=== PATIENT | female | born 1950 | race Caucasian/White ===

== ENCOUNTER 2018-04-13 07:43 | Inpatient (IN) | payer MEDICARE, OTHER ==
[2018-04-13] MEDS ORDERED: SODIUM CHLORIDE 0.9% 1,000 ML IV ONE ×3 (07:58→08:58)
[2018-04-13 08:00] LABS: Glucose,Whole Blood >600 mg/dL (75-99)
[2018-04-13] MEDS ORDERED: levETIRAcetam IV 1,000 MG in SALINE 1 100ML.BAG IVPB STA (08:09)
--- NOTE | 2018-04-13 08:09 | ED ---
General Adult HPI - General Stated complaint: Seizure Time Seen by Provider: 04/13/18 07:47 Source: family, RN notes reviewed Limitations: altered mental status - History of Present Illness Initial comments: 67-year-old female presenting for evaluation of suspected seizure and altered level of consciousness. Patient is accompanied by her boyfriend who states that at approximately 4 AM she had generalized shaking and was unresponsive followed by confusion. 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 Patient ultimately presented to the emergency department proximally 7:30. Patient is unable to contribute to the history, she does state her name and is protecting her airway but is otherwise unresponsive. - Related Data Home Medications Medication Instructions Recorded Confirmed Amitriptyline HCl 10 mg PO HS 07/23/14 07/24/14 Baclofen [Lioresal] 10 mg PO BID 07/23/14 07/24/14 Citalopram Hydrobromide [CeleXA] 40 mg PO DAILY 07/23/14 07/24/14 Gabapentin [Neurontin] 100 mg PO TID 07/23/14 07/24/14 HYDROcodone/APAP 7.5-325MG [[place] 1 each PO BID PRN 07/23/14 07/24/14 7.5] Lisinopril [Prinivil] 20 mg PO DAILY 07/23/14 07/24/14 Omeprazole [PriLOSEC] 20 mg PO DAILY 07/23/14 07/24/14 Potassium Chloride [Klor-Con 10] 10 meq PO DAILY 07/23/14 07/24/14 Propranolol [Inderal] 40 mg PO DAILY 07/23/14 07/24/14 Simvastatin [Zocor] 40 mg PO DAILY 07/23/14 07/24/14 busPIRone HCL [Buspar] 7.5 mg PO DAILY 07/23/14 07/24/14 metFORMIN HCL [Glucophage] 500 mg PO BID 07/23/14 07/24/14 Allergies Allergy/AdvReac Type Severity Reaction Status Date / Time codeine AdvReac NEO Verified 07/23/14 11:25 doxycycline AdvReac NEO Verified 07/23/14 11:25 Review of Systems ROS Statement: Those systems with pertinent positive or pertinent negative responses have been documented in the HPI. ROS Other: All systems not noted in ROS Statement are negative. Past Medical History Past Medical History: Diabetes Mellitus, GERD/Reflux, Hyperlipidemia, Hypertension Additional Past Medical History / Comment(s): HX MIGRAINES, HIATAL HERNIA History of Any Multi-Drug Resistant Organisms: None Reported Past Surgical History: Orthopedic Surgery, Tubal Ligation Additional Past Surgical History / Comment(s): NECK SURGERY,REPAIR FX RT LEG SURGERY 1998 Past Anesthesia/Blood Transfusion Reactions: No Reported Reaction Smoking Status: Former smoker General Exam Limitations: altered mental status General appearance: lethargic Head exam: Present: atraumatic, normocephalic Eye exam: Present: PERRL, other (Left gaze deviation). Absent: nystagmus ENT exam: Present: mucous membranes dry Neck exam: Present: normal inspection, full ROM. Absent: tenderness, meningismus Respiratory exam: Present: normal lung sounds bilaterally. Absent: respiratory distress, wheezes, rales Cardiovascular Exam: Present: normal rhythm, tachycardia GI/Abdominal exam: Present: soft. Absent: distended, tenderness, guarding Extremities exam: Present: normal inspection, normal capillary refill. Absent: pedal edema Neurological exam: Present: motor sensory deficit (Patient has left gaze deviation, left upper and lower extremity hemiparesis) Skin exam: Present: warm, dry, intact Course Vital Signs 04/13/18 04/13/18 04/13/18 07:47 08:10 08:18 Pulse Rate 87 115 H 111 H Respiratory 17 16 17 Rate Blood Pressure 164/76 167/72 153/69 O2 Sat by Pulse 91 L 92 L 100 Oximetry 04/13/18 04/13/18 04/13/18 08:28 08:38 08:48 Pulse Rate 112 H 116 H 118 H Respiratory 16 17 17 Rate Blood Pressure 152/72 165/73 181/81 O2 Sat by Pulse 100 98 Oximetry - Reevaluation(s) Reevaluation #1: 04/13/18 08:09 Case discussed with stroke neurologist, no TPA at this time. EKG Findings - EKG Comments: EKG Findings:: EKG: Sinus tachycardia, rate of 116, HI interval 136, QRS duration 78, QTC 419, there is no ST segment elevation or depression, T waves are upright, T waves appear hyperacute. Medical Decision Making - Medical Decision Making 67 yo female presenting with seizure and left hemiparesis. Code stroke was activated as patient's symptoms were 3-1/2 hours prior to arrival. Although she did awake with these symptoms and had seizure which precludes patient from TPA. This is discussed with stroke neurologist on-call, no TPA at this time. Patient has generalized tonic-clonic seizure in the emergency department which is treated with IV Ativan. Patient is hemodynamically stable, other than her hemiparesis, normal exam. Patient is started on Keppra. She has multiple metabolic abnormalities including elevated sugar of 888, anion gap metabolic acidosis with anion gap at 23 and CO2 at 17. She is hyperkalemic at 6.5 with EKG changes. Sodium is 1:30 , likely secondary to pseudohyponatremia. Venous pH is 7.29. She has mild leukocytosis, stable hemoglobin. Lactic acid of 7.5 which is likely contributing to her anion gap metabolic acidosis. This is likely secondary to some degree of DKA and HHS. Patient is given 3 L normal saline bolus in the emergency department, she started on 200 mL normal saline hour. She is started on insulin drip. This is both for elevated sugar and hyperkalemia. She will be admitted to the ICU for close monitoring. Neurology and pulmonary industrial security analyst will be placed on consult. Diagnosis: New onset seizure, left hemiparesis secondary to CVA versus Jeffrey paralysis, DKA, HHS, lactic acidosis - Lab Data Result diagrams: 04/13/18 08:41 04/13/18 07:55 Lab Results 04/13/18 04/13/18 04/13/18 Range/Units 07:51 07:55 07:55 WBC (3.8-10.6) k/uL RBC (3.80-5.40) m/uL Hgb (11.4-16.0) gm/dL Hct (34.0-46.0) % MCV (80.0-100.0) fL MCH (25.0-35.0) pg MCHC (31.0-37.0) g/dL RDW (11.5-15.5) % Plt Count (150-450) k/uL Neutrophils % % Lymphocytes % % Monocytes % % Eosinophils % % Basophils % % Neutrophils # (1.3-7.7) k/uL Lymphocytes # (1.0-4.8) k/uL Monocytes # (0-1.0) k/uL Eosinophils # (0-0.7) k/uL Basophils # (0-0.2) k/uL PT (9.0-12.0) sec INR (<1.2) APTT (22.0-30.0) sec VBG pH 7.29 L (7.31-7.41) VBG pCO2 46 (37-51) mmHg VBG HCO3 21 L (24-28) mmol/L Sodium (137-145) mmol/L Potassium (3.5-5.1) mmol/L Chloride (98-107) mmol/L Carbon Dioxide (22-30) mmol/L Anion Gap mmol/L BUN (7-17) mg/dL Creatinine (0.52-1.04) mg/dL Est GFR (CKD-EPI)AfAm (>60 ml/min/1.73 sqM) Est GFR (CKD-EPI)NonAf (>60 ml/min/1.73 sqM) Glucose (74-99) mg/dL POC Glucose (mg/dL) >600 H (75-99) mg/dL POC Glu Foundry Finisher ID Loretta Constantino Plasma Lactic Acid Prasanth 7.5 H* (0.7-2.0) mmol/L Calcium (8.4-10.2) mg/dL Total Bilirubin (0.2-1.3) mg/dL AST (14-36) U/L ALT (9-52) U/L Alkaline Phosphatase (38-126) U/L Troponin I (0.000-0.034) ng/mL Total Protein (6.3-8.2) g/dL Albumin (3.5-5.0) g/dL Urine Color Urine Appearance (Clear) Urine pH (5.0-8.0) Ur Specific [place] (1.001-1.035) Urine Protein (Negative) Urine Glucose (UA) (Negative) Urine Ketones (Negative) Urine Blood (Negative) Urine Nitrite (Negative) Urine Bilirubin (Negative) Urine Urobilinogen (<2.0) mg/dL Ur Leukocyte Esterase (Negative) Urine RBC (0-5) /hpf Urine WBC (0-5) /hpf Salicylates mg/dL Urine Opiates Screen (NotDetected) Ur Oxycodone Screen (NotDetected) Urine Methadone Screen (NotDetected) Ur Propoxyphene Screen (NotDetected) Acetaminophen ug/mL Ur Barbiturates Screen (NotDetected) U Tricyclic Antidepress (NotDetected) Ur Phencyclidine Scrn (NotDetected) Ur Amphetamines Screen (NotDetected) U Methamphetamines Scrn (NotDetected) U Benzodiazepines Scrn (NotDetected) Urine Cocaine Screen (NotDetected) U Marijuana (THC) Screen (NotDetected) Serum Alcohol mg/dL 04/13/18 04/13/18 04/13/18 Range/Units 07:55 07:55 07:55 WBC (3.8-10.6) k/uL RBC (3.80-5.40) m/uL Hgb (11.4-16.0) gm/dL Hct (34.0-46.0) % MCV (80.0-100.0) fL MCH (25.0-35.0) pg MCHC (31.0-37.0) g/dL RDW (11.5-15.5) % Plt Count (150-450) k/uL Neutrophils % % Lymphocytes % % Monocytes % % Eosinophils % % Basophils % % Neutrophils # (1.3-7.7) k/uL Lymphocytes # (1.0-4.8) k/uL Monocytes # (0-1.0) k/uL Eosinophils # (0-0.7) k/uL Basophils # (0-0.2) k/uL PT (9.0-12.0) sec INR (<1.2) APTT (22.0-30.0) sec VBG pH (7.31-7.41) VBG pCO2 (37-51) mmHg VBG HCO3 (24-28) mmol/L Sodium 130 L (137-145) mmol/L Potassium 6.5 H* (3.5-5.1) mmol/L Chloride 90 L (98-107) mmol/L Carbon Dioxide 17 L (22-30) mmol/L Anion Gap 23 mmol/L BUN 31 H (7-17) mg/dL Creatinine 1.50 H (0.52-1.04) mg/dL Est GFR (CKD-EPI)AfAm 41 (>60 ml/min/1.73 sqM) Est GFR (CKD-EPI)NonAf 36 (>60 ml/min/1.73 sqM) Glucose 881 H* (74-99) mg/dL POC Glucose (mg/dL) (75-99) mg/dL POC Glu Foundry Finisher ID Plasma Lactic Acid Prasanth (0.7-2.0) mmol/L Calcium 11.6 H (8.4-10.2) mg/dL Total Bilirubin 0.5 (0.2-1.3) mg/dL AST 21 (14-36) U/L ALT 23 (9-52) U/L Alkaline Phosphatase 109 (38-126) U/L Troponin I <0.012 (0.000-0.034) ng/mL Total Protein 7.7 (6.3-8.2) g/dL Albumin 4.9 (3.5-5.0) g/dL Urine Color Urine Appearance (Clear) Urine pH (5.0-8.0) Ur Specific [place] (1.001-1.035) Urine Protein (Negative) Urine Glucose (UA) (Negative) Urine Ketones (Negative) Urine Blood (Negative) Urine Nitrite (Negative) Urine Bilirubin (Negative) Urine Urobilinogen (<2.0) mg/dL Ur Leukocyte Esterase (Negative) Urine RBC (0-5) /hpf Urine WBC (0-5) /hpf Salicylates <1.0 mg/dL Urine Opiates Screen (NotDetected) Ur Oxycodone Screen (NotDetected) Urine Methadone Screen (NotDetected) Ur Propoxyphene Screen (NotDetected) Acetaminophen <10.0 ug/mL Ur Barbiturates Screen (NotDetected) U Tricyclic Antidepress (NotDetected) Ur Phencyclidine Scrn (NotDetected) Ur Amphetamines Screen (NotDetected) U Methamphetamines Scrn (NotDetected) U Benzodiazepines Scrn (NotDetected) Urine Cocaine Screen (NotDetected) U Marijuana (THC) Screen (NotDetected) Serum Alcohol <10 mg/dL 04/13/18 04/13/18 04/13/18 Range/Units 07:55 08:41 09:13 WBC 14.4 H (3.8-10.6) k/uL RBC 4.34 (3.80-5.40) m/uL Hgb 13.2 (11.4-16.0) gm/dL Hct 40.9 (34.0-46.0) % MCV 94.3 (80.0-100.0) fL MCH 30.4 (25.0-35.0) pg MCHC 32.2 (31.0-37.0) g/dL RDW 12.9 (11.5-15.5) % Plt Count 188 (150-450) k/uL Neutrophils % 88 % Lymphocytes % 8 % Monocytes % 2 % Eosinophils % 2 % Basophils % 0 % Neutrophils # 12.7 H (1.3-7.7) k/uL Lymphocytes # 1.1 (1.0-4.8) k/uL Monocytes # 0.3 (0-1.0) k/uL Eosinophils # 0.2 (0-0.7) k/uL Basophils # 0.0 (0-0.2) k/uL PT 10.0 (9.0-12.0) sec INR 1.0 (<1.2) APTT 20.1 L (22.0-30.0) sec VBG pH (7.31-7.41) VBG pCO2 (37-51) mmHg VBG HCO3 (24-28) mmol/L Sodium (137-145) mmol/L Potassium (3.5-5.1) mmol/L Chloride (98-107) mmol/L Carbon Dioxide (22-30) mmol/L Anion Gap mmol/L BUN (7-17) mg/dL Creatinine (0.52-1.04) mg/dL Est GFR (CKD-EPI)AfAm (>60 ml/min/1.73 sqM) Est GFR (CKD-EPI)NonAf (>60 ml/min/1.73 sqM) Glucose (74-99) mg/dL POC Glucose (mg/dL) (75-99) mg/dL POC Glu Foundry Finisher ID Plasma Lactic Acid Prasanth (0.7-2.0) mmol/L Calcium (8.4-10.2) mg/dL Total Bilirubin (0.2-1.3) mg/dL AST (14-36) U/L ALT (9-52) U/L Alkaline Phosphatase (38-126) U/L Troponin I (0.000-0.034) ng/mL Total Protein (6.3-8.2) g/dL Albumin (3.5-5.0) g/dL Urine Color Colorless Urine Appearance Clear (Clear) Urine pH 5.5 (5.0-8.0) Ur Specific [place] 1.014 (1.001-1.035) Urine Protein Negative (Negative) Urine Glucose (UA) 4+ H (Negative) Urine Ketones Trace H (Negative) Urine Blood Small H (Negative) Urine Nitrite Negative (Negative) Urine Bilirubin Negative (Negative) Urine Urobilinogen <2.0 (<2.0) mg/dL Ur Leukocyte Esterase Negative (Negative) Urine RBC 14 H (0-5) /hpf Urine WBC <1 (0-5) /hpf Salicylates mg/dL Urine Opiates Screen Not Detected (NotDetected) Ur Oxycodone Screen Not Detected (NotDetected) Urine Methadone Screen Not Detected (NotDetected) Ur Propoxyphene Screen Not Detected (NotDetected) Acetaminophen ug/mL Ur Barbiturates Screen Not Detected (NotDetected) U Tricyclic Antidepress Not Detected (NotDetected) Ur Phencyclidine Scrn Not Detected (NotDetected) Ur Amphetamines Screen Not Detected (NotDetected) U Methamphetamines Scrn Not Detected (NotDetected) U Benzodiazepines Scrn Not Detected (NotDetected) Urine Cocaine Screen Not Detected (NotDetected) U Marijuana (THC) Screen Not Detected (NotDetected) Serum Alcohol mg/dL Critical Care Time Critical Care Time: Yes Total Critical Care Time: 95 Disposition Clinical Impression: New onset seizure, CVA (cerebral vascular accident), DKA (diabetic ketoacidosis ), Lactic acidosis Dis[facility] Condition: Serious Is patient prescribed a controlled substance at d/c from ED?: No Referrals: Isaiah Nguyễn MD [Primary Care Provider] - 1-2 days Decision to Admit Reason: Admit from EC Decision Date: 04/13/18 Decision Time: 09:55
[2018-04-13 08:20] LABS: Acetaminophen <10.0 ug/mL; Alcohol <10 mg/dL; Salicylate <1.0 mg/dL
[2018-04-13 08:21] LABS: Albumin 4.9 g/dL (3.5-5.0); Calcium 11.6 mg/dL (8.4-10.2); Total Bilirubin 0.5 mg/dL (0.2-1.3); Total Protein 7.7 g/dL (6.3-8.2); VBG PH 7.29 (7.31-7.41)
--- NOTE | 2018-04-13 08:21 | CT ---
EXAMINATION TYPE: CT brain wo con for TPA DATE OF EXAM: 04/13/2018 COMPARISON: NONE HISTORY: Seizure, Lt facial droop CT DLP: 1036 mGycm Automated exposure control for dose reduction was used. FINDINGS: There are mild, generalized changes of sulcal prominence and ventriculomegaly, compatible with atroph ic change. There is diffuse periventricular white matter lucency compatible with chronic white matter ischemic change. There is no focal lesion, mass effect or midline shift identified. I do not see libra dence of intracranial blood. Visualized portions of the paranasal sinuses and mastoids are clear. The bony calvarium is intact. IMPRESSION: 1. NO ACUTE INTRACRANIAL ABNORMALITY. 2. DEGENERATIVE CHANGE.
[2018-04-13 08:26] LABS: Partial Thromboplastin Time 20.1 sec (22.0-30.0)
[2018-04-13 08:31] LABS: Potassium 6.5 mmol/L (3.5-5.1)
[2018-04-13] MEDS ORDERED: INSULIN REGULAR 100 UNIT in SODIUM CHLORIDE 0.9% 100 ML IV ONE (08:41)
[2018-04-13 08:54] LABS: Basophils % (A) 0 %; Eosinophils # (A) 0.2 k/uL (0-0.7); Eosinophils % (A) 2 %; HCT 40.9 % (34.0-46.0); HGB 13.2 gm/dL (11.4-16.0); Lymphocytes # (A) 1.1 k/uL (1.0-4.8); Lymphocytes % (A) 8 %; MCH 30.4 pg (25.0-35.0); MCHC 32.2 g/dL (31.0-37.0); MCV 94.3 fL (80.0-100.0); Mean Platelet Volume 10.3; Monocytes # (A) 0.3 k/uL (0-1.0); Monocytes % (A) 2 %; Neutrophils # (A) 12.7 k/uL (1.3-7.7); Neutrophils % (A) 88 %; Platelet Count 188 k/uL (150-450); RBC 4.34 m/uL (3.80-5.40); RDW 12.9 % (11.5-15.5); WBC 14.4 k/uL (3.8-10.6)
--- NOTE | 2018-04-13 09:00 | XR ---
EXAMINATION TYPE: XR chest 1V portable DATE OF EXAM: 04/13/2018 HISTORY: altered mental status. REFERENCE: Previous study dated 09/26/2013. FINDINGS: There has been a previous ACDF of the lower cervical spine. There is chronic, appearing elevation right hemidiaphragm. Heart size is upper limits of normal. Ther e is minimal atelectatic change present at the right lung base. No definite pleural fluid is seen. IMPRESSION: MINIMAL ATELECTATIC CHANGE, RIGHT LUNG BASE.
--- NOTE | 2018-04-13 09:13 | CT ---
EXAMINATION TYPE: CT angio head neck DATE OF EXAM: 04/13/2018 HISTORY: Seizure, Lt facial droop COMPARISON: None. CT DLP: 284.2 mGycm. Automated Exposure Control for Dose Reduction was Utilized. TECHNIQUE: CTA scan of the neck is performed with IV Contrast, patient injected with 65 mL of Isovue 370, axial images are obtained, coronal and sagittal reformatted images are reviewed. Three-D recons tructed images are created on an independent workstation and reviewed. FINDINGS: There are emphysematous changes throughout the visualized portions of the lungs. There is asymmetry in the oropharynx with fullness on the right. The parapharyngeal soft tissues are unremarkable. There is reversal of the normal cervical lordosis. There has been a previous ACDF at C4, 5 and 6. The re is hypertrophic spondylosis below this level. Contrast enhanced CT of the brain is unremarkable. There is a normal origin of the great vessels. There is no significant carotid stenosis. The vertebral arteries are codominant. The [place] is unremarkable. There is normal arborization of the middle cerebral artery bila terally. The anterior cerebral arteries are patent. The basilar tip is unremarkable. The posterior ci rculation is unremarkable. There is no sizable aneurysm. IMPRESSION: 1. NO SIGNIFICANT CAROTID STENOSIS. 2. NORMAL CTA OF THE [place]. 3. EMPHYSEMATOUS CHANGES WITHIN THE LUNGS. 4. POSTSURGICAL AND DEGENERATIVE CHANGES WITHIN THE CERVICAL SPINE. 5. ASYMMETRY OF THE OROPHARYNX WITH FULLNESS ON THE RIGHT. DIRECT VISUALIZATION WOULD BE SUGGESTED.
[2018-04-13 09:29] LABS: Appearance,Urine Clear (Clear); Bilirubin,Urine Negative (Negative); Blood,Urine Small (Negative); Color,Urine Colorless; Glucose,Urine (UA) 4+ (Negative); Ketones,Urine Trace (Negative); Leukocyte Esterase,Urine Negative (Negative); Nitrite,Urine Negative (Negative); PH, Urine 5.5 (5.0-8.0); Protein,Urine Negative (Negative); RBC,Urine 14 /hpf (0-5); Specific Gravity,Urine 1.014 (1.001-1.035); Urobilinogen,Urine <2.0 mg/dL (<2.0); WBC,Urine <1 /hpf (0-5)
[2018-04-13 09:38] LABS: Amphetamine Screen,Urine Not Detected (NotDetected); Cocaine Screen,Urine Not Detected (NotDetected); Opiate Screen,Urine Not Detected (NotDetected); Phencyclidine Screen,Urine Not Detected (NotDetected); Urn Cannabinoid Scrn Not Detected (NotDetected)
[2018-04-13 09:39] LABS: Barbiturate Screen,Urine Not Detected (NotDetected); Benzodiazepines Screen,Urine Not Detected (NotDetected); Methadone Screen, Urine Not Detected (NotDetected); Oxycodone Screen, Urine Not Detected (NotDetected); Tricyclic Antidepressant,Urine Not Detected (NotDetected)
[2018-04-13] MEDS ORDERED: SODIUM CHLORIDE 0.9% 1,000 ML IV SCH (09:45)
[2018-04-13] MEDS ORDERED: ASPIRIN 300 MG SUPP RECTAL STA (09:46)
[2018-04-13 09:58] LABS: Glucose,Whole Blood >600 mg/dL (75-99)
[2018-04-13 11:27] LABS: Creatine Kinase MB 1.2 ng/mL (0.0-2.4)
[2018-04-13 11:28] LABS: Glucose,Whole Blood >600 mg/dL (75-99)
[2018-04-13 11:35] LABS: Glucose,Whole Blood 525 mg/dL (75-99)
[2018-04-13] MEDS ORDERED: ACETAMINOPHEN IV (For NPO) 1,000 MG in EMPTY BAG 1 BAG IVPB STA (11:49)
[2018-04-13 12:14] LABS: Phosphorus 2.5 mg/dL (2.5-4.5); Potassium 4.5 mmol/L (3.5-5.1)
[2018-04-13 12:15] LABS: Glucose,Whole Blood 373 mg/dL (75-99)
[2018-04-13 13:05] LABS: Glucose,Whole Blood 322 mg/dL (75-99)
--- NOTE | 2018-04-13 13:26 | P.CNPUL ---
History of Present Illness Consult date: 04/13/18 Reason for consult: other Chief complaint: ICU management, hyperkalemia, CVA, seizure disorder History of present illness: Pulmonary consultation dated 04/13/2018 67-year-old female who apparently presents with suspected seizure and possible CVA. The patient's CT of the brain and CT angiography were negative. The patient also apparently had a dense left anaid-paralysis. This was according to the ER physician. Apparently the patient was unresponsive and confused. Currently she is in the ICU. I did speak to the ER physician. He was concerned that she would be too difficult to manage on the floor. Neurology was consulted. She currently is receiving O2 at 2 L by nasal cannula and has a saline IV running at 200 mL an hour. Insulin drip is running at 5 units an hour. Addition to the above, the patient apparently had some electrolyte disturbances including hyperkalemia and elevated lactic acid likely secondary to the seizure in a pattern that was consistent with either diabetic ketoacidosis or hyperosmolar, hyperglycemic nonketotic syndrome. The patient's respiratory status appears to be relatively normal and chest x-ray shows just some minimal atelectasis at the right lung base. Review of Systems ROS unobtainable: due to mental status Past Medical History Past Medical History: Diabetes Mellitus, GERD/Reflux, Hyperlipidemia, Hypertension Additional Past Medical History / Comment(s): HX MIGRAINES, HIATAL HERNIA History of Any Multi-Drug Resistant Organisms: None Reported Past Surgical History: Orthopedic Surgery, Tubal Ligation Additional Past Surgical History / Comment(s): NECK SURGERY,REPAIR FX RT LEG SURGERY 1997 Past Anesthesia/Blood Transfusion Reactions: No Reported Reaction Smoking Status: Former smoker Medications and Allergies Home Medications Medication Instructions Recorded Confirmed Type Simvastatin [Zocor] 40 mg PO HS 07/23/14 04/13/18 History Bumetanide [Bumex] 0.5 mg PO BID 04/13/18 04/13/18 History Divalproex Sodium 250 mg PO BID 04/13/18 04/13/18 History Metoclopramide HCl [Reglan] 5 mg PO TID 04/13/18 04/13/18 History Pantoprazole Sodium [Protonix] 40 mg PO DAILY 04/13/18 04/13/18 History Propranolol HCl [Inderal LA] 60 mg PO DAILY 04/13/18 04/13/18 History Valsartan [Diovan] 320 mg PO DAILY 04/13/18 04/13/18 History busPIRone HCL 15 mg PO BID 04/13/18 04/13/18 History sitaGLIPtin [Januvia] 100 mg PO DAILY 04/13/18 04/13/18 History Allergies Allergy/AdvReac Type Severity Reaction Status Date / Time tramadol [From Ultram] Allergy Unknown Verified 04/13/18 10:35 codeine AdvReac LENAKY Verified 04/13/18 10:35 doxycycline AdvReac SHAKY Verified 04/13/18 10:35 Physical Exam Osteopathic Statement: *. No significant issues noted on an osteopathic structural exam other than those noted in the History and Physical/Consult. Vitals: Vital Signs Temp Pulse Resp BP Pulse Ox 04/13/18 13:00 102.6 F H 99 19 143/53 98 04/13/18 12:00 102 H 21 141/60 99 04/13/18 11:40 102.5 F H 107 H 22 119/78 100 04/13/18 10:14 112 H 17 151/95 98 04/13/18 08:48 118 H 17 181/81 98 04/13/18 08:38 116 H 17 165/73 04/13/18 08:28 112 H 16 152/72 100 04/13/18 08:18 111 H 17 153/69 100 04/13/18 08:10 115 H 16 167/72 92 L 04/13/18 07:47 87 17 164/76 91 L Intake and Output 04/12/18 04/13/18 04/13/18 22:59 06:59 14:59 Intake Total 3500 Output Total 1450 Balance 2049 Intake: IV 500 ACETAMINOPHEN IV (For NPO 100 ) 1,000 mg In Empty Bag 1 bag @ 400 mls/hr IVPB ONCE STA Rx#:[id number] Sodium Chloride 0.9% 1, 400 000 ml @ 200 mls/hr IV . Q5H [facility] Rx#:[id number] Amount of Fluid Infused ( 3000 ml) Output: Urine 1450 Other: Weight 76 kg No acute distress, very lethargic and sleepy. HEENT examination is grossly unremarkable. Mucous membranes are moist. . Neck supple. Full range of motion. No adenopathy thyromegaly or neck vein distention. Cardiovascular examination reveals regular rhythm rate. S1-S2 normal. No S3 or S4. No discernible murmur noted. Lungs reveal clear breath sounds. Her sounds are equal bilaterally. No adventitious lung sounds including wheezes rhonchi or crackles. Abdomen soft bowel sounds are heard. No masses or tenderness. Extremities are intact. No cyanosis clubbing or edema. Skin is without rash or lesion. Neurologic examination is very difficult to assess. She is very lethargic, likely postictal. The ER physician mentioned that she had weakness on the left side of her body. Results - Laboratory Findings CBC and BMP: 04/13/18 08:41 04/13/18 11:48 PT/INR, D-dimer PT 10.0 sec (9.0-12.0) 04/13/18 07:55 INR 1.0 (<1.2) 04/13/18 07:55 Abnormal lab findings: Abnormal Labs 04/13/18 04/13/18 04/13/18 07:51 07:55 07:55 WBC Neutrophils # APTT VBG pH 7.29 L VBG HCO3 21 L Sodium Potassium Chloride Carbon Dioxide BUN Creatinine Glucose POC Glucose (mg/dL) >600 H Plasma Lactic Acid Prasanth 7.5 H* Calcium Urine Glucose (UA) Urine Ketones Urine Blood Urine RBC 04/13/18 04/13/18 04/13/18 07:55 07:55 08:41 WBC 14.4 H Neutrophils # 12.7 H APTT 20.1 L VBG pH VBG HCO3 Sodium 130 L Potassium 6.5 H* Chloride 90 L Carbon Dioxide 17 L BUN 31 H Creatinine 1.50 H Glucose 881 H* POC Glucose (mg/dL) Plasma Lactic Acid Prasanth Calcium 11.6 H Urine Glucose (UA) Urine Ketones Urine Blood Urine RBC 04/13/18 04/13/18 04/13/18 09:13 09:46 11:06 WBC Neutrophils # APTT VBG pH VBG HCO3 Sodium Potassium Chloride Carbon Dioxide BUN Creatinine Glucose POC Glucose (mg/dL) >600 H >600 H Plasma Lactic Acid Prasanth Calcium Urine Glucose (UA) 4+ H Urine Ketones Trace H Urine Blood Small H Urine RBC 14 H 04/13/18 04/13/18 04/13/18 11:34 11:48 11:48 WBC Neutrophils # APTT VBG pH VBG HCO3 Sodium Potassium Chloride Carbon Dioxide 21 L BUN 28 H Creatinine 1.36 H Glucose 382 H POC Glucose (mg/dL) 525 H Plasma Lactic Acid Prasanth 5.9 H* Calcium Urine Glucose (UA) Urine Ketones Urine Blood Urine RBC 04/13/18 04/13/18 12:13 13:03 WBC Neutrophils # APTT VBG pH VBG HCO3 Sodium Potassium Chloride Carbon Dioxide BUN Creatinine Glucose POC Glucose (mg/dL) 373 H 322 H Plasma Lactic Acid Prasanth Calcium Urine Glucose (UA) Urine Ketones Urine Blood Urine RBC - Diagnostic Findings Chest x-ray: report reviewed (Chest x-ray, labs, and medications are all reviewed.), image reviewed Assessment and Plan Assessment: Assessment Possible CVA New-onset seizure Diabetes with hyperosmolar hyperglycemic syndrome History of hypertension History of hyperlipidemia History of GERD History of migraine cephalgia Lactic acidemia Hyperkalemia Plan: Plan dated 04/13/2018 I'll continue to follow along with this patient. Currently, her respiratory status and hemodynamics I's cardiovascular status is very stable. She is only on 2 L of nasal O2. Her blood pressure is very reasonable. She continues on the insulin drip. No further episodes of seizures since being appear in the intensive care unit. Labs x-rays and medications are all reviewed. Additional recommendations and suggestions are forthcoming. Prognosis is guarded. White count 14.4 hemoglobin and hematocrit and platelet count all normal. Venous pH 7.9. Sodium potassium chloride normal carbon dioxide concentration is 21. Anion gap is 13. BUN and creatinine were 28 and 1.36. Lactic acid initially level was 5.9 and calcium was 11.6. Drug screen is negative. Time with Patient: Greater than 30
[2018-04-13] MEDS ORDERED: LEVOFLOXACIN 500MG-D5W PMX 500 MG in DEXTROSE/WATER 1 100ML.BAG IVPB SCH (14:00)
[2018-04-13 14:04] LABS: Glucose,Whole Blood 280 mg/dL (75-99)
[2018-04-13] MEDS: D5-0.45% NACL WITH KCL 20MEQ/L 1,000 ML IV SCH ×2 (14:05→20:35)
--- NOTE | 2018-04-13 14:38 | HP ---
HISTORY AND PHYSICAL CHIEF COMPLAINT: Seizure disorder. HISTORY OF PRESENT ILLNESS: This is a 67-year-old woman with a past medical history of multiple medical problems and diabetes, GERD, hypertension, hyperlipidemia, history of migraine being followed by Dr. Nguyễn in the outpatient setting, found to have generalized seizures around 4 o'clock by boyfriend. The patient also noted a significant weakness of the left side. EMS was called. Patient taken to [facility] and admitted for further evaluation. The patient is intubated because of respiratory failure. The CT scan and CTA did not show any acute stroke, but however, blood sugar was found to be elevated in the 600 and the patient also had features of early diabetic ketoacidosis. also. Patient had been admitted for further evaluation of the patient in ICU. Dr. Jordan has been consulted. Calcium is also elevated at the time of admission. There is no history of fever, rigors. History cannot be obtained because the patient is mechanically intubated and sedated. Most history taken in my discussion with staff, reviewed the chart and as well as discussion with the boyfriend at bedside. PAST MEDICAL HISTORY: History of diabetes, GERD, hypertension, hyperlipidemia, migraine, history of hiatal hernia. MEDICATIONS: 1. Prior to admission include Inderal. 2. Lasix 60 mg p.o. daily. 3. Bumex 0.5 mg b.i.d. 4. Januvia 100 mg p.o. daily. 5. Buspirone 50 mg p.o. b.i.d. 6. Zocor 40 mg q.h.s. 7. Reglan 5 mg p.o. t.i.d. 8. Protonix 40 mg daily. 9. Depakote 250 mg p.o. b.i.d. 10.Diovan 320 mg p.o. daily. ALLERGIES: ULTRAM, CODEINE, DOXYCYCLINE. FAMILY HISTORY, SOCIAL HISTORY, REVIEW OF SYSTEMS: Could not be taken because of the change in mental status and previous smoking per chart. PHYSICAL EXAM: Patient mechanically intubated and sedated. The pulse is 99, blood pressure 143/56, respiration 19, temperature 102.6, pulse ox 98% on 2 L. HEENT: Conjunctivae normal. Oral mucosa moist. Neck is no jugular venous distention. No lymph node enlargement. CARDIOVASCULAR SYSTEM: S1, S2, muffled. RESPIRATORY: Breath sounds diminished at the bases. A few scattered rhonchi. No crackles. ABDOMEN: Soft, nontender. No mass palpable. LEGS: No edema, no swelling. NERVOUS SYSTEM: The patient is diffusely weak. The left side is more flaccid. LABORATORY VALUES: WBC is 14.1, hemoglobin is 13.2 and CO2 is 21, creatinine is 1.36, and glucose 82. Plasma lactic acid 5.9. UA noted. The CAT scan of the brain and CT angio showed no significant stenosis and the chest x-ray which was reviewed personally by me showed atelectasis on the right side. ASSESSMENT: 1. Acute stroke on the left side cause of right hemispheric lesion. 2. Acute tonic, clonic seizure. 3. Acute diabetic ketoacidosis. 4. Acute hypoxic respiratory failure on mechanical ventilation. 5. History of nicotine dependence. 6. History of gastroesophageal reflux disease. 7. Hyperlipidemia. 8. Hypertension. 9. History of migraine. 10.History of tubal ligation. 11.Anxiety, depression. 12.Fever, possible aspiration pneumonia. 13.FULL CODE. RECOMMENDATION: In this 67-year-old woman who presented with multiple complex medical issues, will monitor the patient closely. Continue with the current management and recommend bronchodilators, course of antibiotics, otherwise, admitted to ICU. Consult Dr. Jordan, Neurology. Monitor blood sugars closely. The patient will start DKA protocol with insulin drip. DVT prophylaxis. Repeat labs in the morning. Prognosis guarded because of multiple complex medical issues. Further recommendations to follow. A copy is forwarded to Dr. Nguyễn who is the primary physician. MMODL / IJN: [id number] /
[2018-04-13 15:01] LABS: Glucose,Whole Blood 250 mg/dL (75-99)
[2018-04-13] MEDS: HEPARIN SODIUM,PORCINE 5,000 UNIT/ML 1 ML VIAL SQ SCH (15:15)
[2018-04-13] MEDS: IPRATROPIUM-ALBUTEROL 3 ML NEB INHALATION SCH ×2 (15:51→21:04)
[2018-04-13 16:05] LABS: Glucose,Whole Blood >600 mg/dL (75-99)
[2018-04-13 16:07] LABS: Glucose,Whole Blood 126 mg/dL (75-99)
[2018-04-13 16:41] LABS: Phosphorus 1.1 mg/dL (2.5-4.5); Potassium 6.9 mmol/L (3.5-5.1)
[2018-04-13 16:50] LABS: Glucose,Whole Blood 135 mg/dL (75-99)
[2018-04-13] MEDS ORDERED: LORazepam 2 MG/ML INJ IV STA (17:04)
[2018-04-13 17:20] LABS: Phosphorus 1.8 mg/dL (2.5-4.5); Potassium 4.1 mmol/L (3.5-5.1)
[2018-04-13 18:06] LABS: Glucose,Whole Blood 167 mg/dL (75-99)
[2018-04-13] MEDS ORDERED: ACETAMINOPHEN IV (For NPO) 1,000 MG in EMPTY BAG 1 BAG IVPB PRN (18:42)
[2018-04-13 19:06] LABS: Glucose,Whole Blood 246 mg/dL (75-99)
[2018-04-13 20:07] LABS: Glucose,Whole Blood 229 mg/dL (75-99)
[2018-04-13] MEDS: levETIRAcetam IV 750 MG in SODIUM CHLORIDE 0.9% 100 ML IVPB SCH (20:35)
[2018-04-13] MEDS ORDERED: levETIRAcetam IV 500 MG in SODIUM CHLORIDE 0.9% 100 ML IVPB SCH (21:00)
[2018-04-13 21:33] LABS: Glucose,Whole Blood 252 mg/dL (75-99)
[2018-04-13 22:18] LABS: Glucose,Whole Blood 267 mg/dL (75-99)
[2018-04-13 23:03] LABS: Glucose,Whole Blood 238 mg/dL (75-99)
[2018-04-13 23:58] LABS: Glucose,Whole Blood 225 mg/dL (75-99)
[2018-04-14] MEDS: HEPARIN SODIUM,PORCINE 5,000 UNIT/ML 1 ML VIAL SQ SCH ×4 (00:58→23:02)
[2018-04-14 01:02] LABS: Glucose,Whole Blood 315 mg/dL (75-99)
[2018-04-14 02:02] LABS: Glucose,Whole Blood 238 mg/dL (75-99)
[2018-04-14 03:01] LABS: Glucose,Whole Blood 243 mg/dL (75-99)
[2018-04-14] MEDS: D5-0.45% NACL WITH KCL 20MEQ/L 1,000 ML IV SCH ×2 (03:04→10:37)
[2018-04-14 04:00] LABS: Glucose,Whole Blood 159 mg/dL (75-99)
[2018-04-14 04:49] LABS: Basophils % (A) 0 %; Eosinophils % (A) 0 %; HCT 30.1 % (34.0-46.0); Lymphocytes # (A) 2.3 k/uL (1.0-4.8); Lymphocytes % (A) 26 %; MCH 30.7 pg (25.0-35.0); MCHC 33.3 g/dL (31.0-37.0); MCV 92.4 fL (80.0-100.0); Mean Platelet Volume 8.2; Monocytes # (A) 0.6 k/uL (0-1.0); Monocytes % (A) 7 %; Neutrophils # (A) 5.7 k/uL (1.3-7.7); Neutrophils % (A) 64 %; Platelet Count 102 k/uL (150-450); RBC 3.25 m/uL (3.80-5.40); RDW 13.3 % (11.5-15.5); WBC 8.9 k/uL (3.8-10.6)
[2018-04-14 04:59] LABS: Calcium 8.9 mg/dL (8.4-10.2); Magnesium 1.1 mg/dL (1.6-2.3); Phosphorus 1.4 mg/dL (2.5-4.5); Potassium 3.8 mmol/L (3.5-5.1)
[2018-04-14 05:08] LABS: Glucose,Whole Blood 187 mg/dL (75-99)
[2018-04-14] MEDS ORDERED: Magnesium Replacement Protocol 1 EACH MISC MISCELLANE PRN (05:11)
[2018-04-14] MEDS ORDERED: Phosphorus Replacement Protoco 1 EACH MISC MISCELLANE PRN (05:12)
[2018-04-14] MEDS: MAGNESIUM SULFATE-D5W PMX 1 GM in DEXTROSE/WATER 1 100ML.BAG IVPB SCH ×3 (05:21→07:44)
[2018-04-14 06:04] LABS: Glucose,Whole Blood 196 mg/dL (75-99)
--- NOTE | 2018-04-14 06:50 | XR ---
EXAMINATION TYPE: XR chest 1V DATE OF EXAM: 04/14/2018 HISTORY: SOB. REFERENCE: Previous study dated 04/13/2018. FINDINGS: There has been a previous ACDF of the lower cervical spine. There is apparent elevation right hemidiaphragm. There is minimal atelectasis at the right lung base. Heart size is obscured. The left lung is clear. Pleural spaces are clear. IMPRESSION: NO SIGNIFICANT INTERVAL CHANGE IN THE APPEARANCE OF THE CHEST.
[2018-04-14 07:00] LABS: Glucose,Whole Blood 198 mg/dL (75-99)
[2018-04-14] MEDS: IPRATROPIUM-ALBUTEROL 3 ML NEB INHALATION SCH (08:14)
[2018-04-14 08:16] LABS: Glucose,Whole Blood 209 mg/dL (75-99)
[2018-04-14] MEDS: POTASSIUM PHOSPHATE 10 MMOL in SODIUM CHLORIDE 0.9% 250 ML IV SCH ×3 (08:22→10:51)
[2018-04-14] MEDS: INSULIN DETEMIR 100 UNIT/ML 10 ML VIAL SQ SCH (08:31)
[2018-04-14] MEDS: levETIRAcetam IV 750 MG in SODIUM CHLORIDE 0.9% 100 ML IVPB SCH ×2 (08:49→20:38)
[2018-04-14] MEDS ORDERED: ASPIRIN 300 MG SUPP RECTAL SCH (09:00)
[2018-04-14] MEDS ORDERED: PANTOPRAZOLE 40 MG/10 ML VIAL IV SCH (09:00)
[2018-04-14 09:16] LABS: Glucose,Whole Blood 181 mg/dL (75-99)
--- NOTE | 2018-04-14 09:16 | P.PN ---
Subjective Progress Note Date: 04/14/18 Principal diagnosis: Seizure/stroke Progress note dated 04/14/2018 67-year-old female seen yesterday in consultation for ICU management CVA and seizure disorder. The patient is doing much better. Yesterday she was very somnolent and lethargic. The patient's feeling much better today. She's been weaned off of oxygen. She has an IV of dextrose with half-normal saline and 20 meq of potassium at 150 mL an hour. She Is Also on Insulin Drip at 1.75 Units Per Hour. That will be turned off shortly. Neurology was consulted. Her brain CAT scan was negative. The patient was also admitted with a number of electrolyte disturbances including hyperkalemia and in addition had elevated lactic acid likely secondary to seizure. The hypoglycemia was thought to be related to a combination of both mild DKA and hyperglycemic hyperosmolar syndrome. She does have a history of hyperlipidemia, hypertension, GERD and diabetes mellitus. Objective - Vital Signs Vital signs: Vital Signs Temp 98.1 F 04/14/18 04:00 Pulse 82 04/14/18 08:26 Resp 20 04/14/18 07:00 BP 106/45 04/14/18 07:00 Pulse Ox 98 04/14/18 07:00 Intake & Output 04/13/18 04/14/18 04/14/18 18:59 06:59 18:59 Intake Total 4484.929 1775.618 157.92 Output Total 1860 490 35 Balance 2624.929 1285.618 122.92 Weight 76 kg 75.6 kg Intake: IV 1450 1750 150 ACETAMINOPHEN IV (For NPO 100 ) 1,000 mg In Empty Bag 1 bag @ 400 mls/hr IVPB ONCE STA Rx#:[id number] D5-0.45% NaCl with KCl 750 1650 150 20Meq/l 1,000 ml @ 150 mls/hr IV .Q6H40M RUBIO Rx# :[id number] Sodium Chloride 0.9% 1, 600 000 ml @ 200 mls/hr IV . Q5H RUBIO Rx#:[id number] levETIRAcetam IV 1,000 mg 100 In Saline 1 100ml.bag @ 400 mls/hr IVPB ONCE STA Rx#:[id number] Amount of Fluid Infused ( 3000 ml) Intake, IV Titration 34.929 25.618 7.92 Amount Insulin Regular 100 unit 34.929 25.618 7.92 In Sodium Chloride 0.9% 100 ml @ 5 UNIT/HR 5.05 mls/hr IV .Q20H ONE Rx#: [id number] Output: Urine 1860 490 35 Other: Voiding Method Indwelling Catheter Indwelling Catheter - Exam No acute distress, oriented 3. Not requiring any supplemental oxygen at this time. HEENT examination is grossly unremarkable. Mucous membranes are moist. No oral lesions. Neck supple. Full range of motion. No adenopathy thyromegaly or neck vein distention. Cardiovascular examination reveals regular rhythm rate. S1-S2 normal. No S3 or S4. No discernible murmur noted. Lungs reveal clear breath sounds. Her sounds are equal bilaterally. No adventitious lung sounds including wheezes rhonchi or crackles. Abdomen soft bowel sounds are heard. No masses or tenderness. Extremities are intact. No cyanosis clubbing or edema. Skin is without rash or lesion. Neurologic examination is brief but nonfocal. - Labs CBC & Chem 7: 04/14/18 04:30 04/14/18 04:30 Labs: Abnormal Lab Results - Last 24 Hours (Table) 04/13/18 04/13/18 04/13/18 Range/Units 09:13 09:46 11:06 RBC (3.80-5.40) m/uL Hgb (11.4-16.0) gm/dL Hct (34.0-46.0) % Plt Count (150-450) k/uL Sodium (137-145) mmol/L Potassium (3.5-5.1) mmol/L Chloride (98-107) mmol/L Carbon Dioxide (22-30) mmol/L BUN (7-17) mg/dL Creatinine (0.52-1.04) mg/dL Glucose (74-99) mg/dL POC Glucose (mg/dL) >600 H >600 H (75-99) mg/dL Plasma Lactic Acid Prasanth (0.7-2.0) mmol/L Phosphorus (2.5-4.5) mg/dL Magnesium (1.6-2.3) mg/dL Urine Glucose (UA) 4+ H (Negative) Urine Ketones Trace H (Negative) Urine Blood Small H (Negative) Urine RBC 14 H (0-5) /hpf 04/13/18 04/13/18 04/13/18 Range/Units 11:34 11:48 11:48 RBC (3.80-5.40) m/uL Hgb (11.4-16.0) gm/dL Hct (34.0-46.0) % Plt Count (150-450) k/uL Sodium (137-145) mmol/L Potassium (3.5-5.1) mmol/L Chloride (98-107) mmol/L Carbon Dioxide 21 L (22-30) mmol/L BUN 28 H (7-17) mg/dL Creatinine 1.36 H (0.52-1.04) mg/dL Glucose 382 H (74-99) mg/dL POC Glucose (mg/dL) 525 H (75-99) mg/dL Plasma Lactic Acid Prasanth 5.9 H* (0.7-2.0) mmol/L Phosphorus (2.5-4.5) mg/dL Magnesium (1.6-2.3) mg/dL Urine Glucose (UA) (Negative) Urine Ketones (Negative) Urine Blood (Negative) Urine RBC (0-5) /[facility] 04/13/18 04/13/18 04/13/18 Range/Units 12:13 13:03 14:00 RBC (3.80-5.40) m/uL Hgb (11.4-16.0) gm/dL Hct (34.0-46.0) % Plt Count (150-450) k/uL Sodium (137-145) mmol/L Potassium (3.5-5.1) mmol/L Chloride (98-107) mmol/L Carbon Dioxide (22-30) mmol/L BUN (7-17) mg/dL Creatinine (0.52-1.04) mg/dL Glucose (74-99) mg/dL POC Glucose (mg/dL) 373 H 322 H 280 H (75-99) mg/dL Plasma Lactic Acid Prasanth (0.7-2.0) mmol/L Phosphorus (2.5-4.5) mg/dL Magnesium (1.6-2.3) mg/dL Urine Glucose (UA) (Negative) Urine Ketones (Negative) Urine Blood (Negative) Urine RBC (0-5) /[facility] 04/13/18 04/13/1804/13/18 Range/Units 14:58 15:59 16:03 RBC (3.80-5.40) m/uL Hgb (11.4-16.0) gm/dL Hct (34.0-46.0) % Plt Count (150-450) k/uL Sodium 134 L (137-145) mmol/L Potassium 6.9 H* (3.5-5.1) mmol/L Chloride (98-107) mmol/L Carbon Dioxide 20 L (22-30) mmol/L BUN 21 H (7-17) mg/dL Creatinine (0.52-1.04) mg/dL Glucose 674 H* (74-99) mg/dL POC Glucose (mg/dL) 250 H >600 H (75-99) mg/dL Plasma Lactic Acid Prasanth (0.7-2.0) mmol/L Phosphorus 1.1 L* (2.5-4.5) mg/dL Magnesium (1.6-2.3) mg/dL Urine Glucose (UA) (Negative) Urine Ketones (Negative) Urine Blood (Negative) Urine RBC (0-5) /[facility] 04/13/18 04/13/18 04/13/18 Range/Units 16:05 16:45 17:00 RBC (3.80-5.40) m/uL Hgb (11.4-16.0) gm/dL Hct (34.0-46.0) % Plt Count (150-450) k/uL Sodium (137-145) mmol/L Potassium (3.5-5.1) mmol/L Chloride 110 H (98-107) mmol/L Carbon Dioxide 20 L (22-30) mmol/L BUN 24 H (7-17) mg/dL Creatinine 1.20 H (0.52-1.04) mg/dL Glucose 127 H (74-99) mg/dL POC Glucose (mg/dL) 126 H 135 H (75-99) mg/dL Plasma Lactic Acid Prasanth (0.7-2.0) mmol/L Phosphorus 1.8 L (2.5-4.5) mg/dL Magnesium (1.6-2.3) mg/dL Urine Glucose (UA) (Negative) Urine Ketones (Negative) Urine Blood (Negative) Urine RBC (0-5) /hpf 04/13/18 04/13/18 04/13/18 Range/Units 18:04 19:05 20:06 RBC (3.80-5.40) m/uL Hgb (11.4-16.0) gm/dL Hct (34.0-46.0) % Plt Count (150-450) k/uL Sodium (137-145) mmol/L Potassium (3.5-5.1) mmol/L Chloride (98-107) mmol/L Carbon Dioxide (22-30) mmol/L BUN (7-17) mg/dL Creatinine (0.52-1.04) mg/dL Glucose (74-99) mg/dL POC Glucose (mg/dL) 167 H 246 H 229 H (75-99) mg/dL Plasma Lactic Acid Prasanth (0.7-2.0) mmol/L Phosphorus (2.5-4.5) mg/dL Magnesium (1.6-2.3) mg/dL Urine Glucose (UA) (Negative) Urine Ketones (Negative) Urine Blood (Negative) Urine RBC (0-5) /[facility] 04/13/18 04/13/18 04/13/18 Range/Units 21:32 22:16 23:00 RBC (3.80-5.40) m/uL Hgb (11.4-16.0) gm/dL Hct (34.0-46.0) % Plt Count (150-450) k/uL Sodium (137-145) mmol/L Potassium (3.5-5.1) mmol/L Chloride (98-107) mmol/L Carbon Dioxide (22-30) mmol/L BUN (7-17) mg/dL Creatinine (0.52-1.04) mg/dL Glucose (74-99) mg/dL POC Glucose (mg/dL) 252 H 267 H 238 H (75-99) mg/dL Plasma Lactic Acid Prasanth (0.7-2.0) mmol/L Phosphorus (2.5-4.5) mg/dL Magnesium (1.6-2.3) mg/dL Urine Glucose (UA) (Negative) Urine Ketones (Negative) Urine Blood (Negative) Urine RBC (0-5) /[facility] 04/13/18 04/14/18 04/14/18 Range/Units 23:57 01:00 02:00 RBC (3.80-5.40) m/uL Hgb (11.4-16.0) gm/dL Hct (34.0-46.0) % Plt Count (150-450) k/uL Sodium (137-145) mmol/L Potassium (3.5-5.1) mmol/L Chloride (98-107) mmol/L Carbon Dioxide (22-30) mmol/L BUN (7-17) mg/dL Creatinine (0.52-1.04) mg/dL Glucose (74-99) mg/dL POC Glucose (mg/dL) 225 H 315 H 238 H (75-99) mg/dL Plasma Lactic Acid Prasanth (0.7-2.0) mmol/L Phosphorus (2.5-4.5) mg/dL Magnesium (1.6-2.3) mg/dL Urine Glucose (UA) (Negative) Urine Ketones (Negative) Urine Blood (Negative) Urine RBC (0-5) /hpf 04/14/18 04/14/18 04/14/18 Range/Units 02:59 03:58 04:30 RBC 3.25 L (3.80-5.40) m/uL Hgb 10.0 L D (11.4-16.0) gm/dL Hct 30.1 L (34.0-46.0) % Plt Count 102 L (150-450) k/uL Sodium (137-145) mmol/L Potassium (3.5-5.1) mmol/L Chloride (98-107) mmol/L Carbon Dioxide (22-30) mmol/L BUN (7-17) mg/dL Creatinine (0.52-1.04) mg/dL Glucose (74-99) mg/dL POC Glucose (mg/dL) 243 H 159 H (75-99) mg/dL Plasma Lactic Acid Prasanth (0.7-2.0) mmol/L Phosphorus (2.5-4.5) mg/dL Magnesium (1.6-2.3) mg/dL Urine Glucose (UA) (Negative) Urine Ketones (Negative) Urine Blood (Negative) Urine RBC (0-5) /hpf 04/14/18 04/14/18 04/14/18 Range/Units 04:30 05:05 06:02 RBC (3.80-5.40) m/uL Hgb (11.4-16.0) gm/dL Hct (34.0-46.0) % Plt Count (150-450) k/uL Sodium (137-145) mmol/L Potassium (3.5-5.1) mmol/L Chloride 109 H (98-107) mmol/L Carbon Dioxide (22-30) mmol/L BUN (7-17) mg/dL Creatinine (0.52-1.04) mg/dL Glucose 154 H (74-99) mg/dL POC Glucose (mg/dL) 187 H 196 H (75-99) mg/dL Plasma Lactic Acid Prasanth (0.7-2.0) mmol/L Phosphorus 1.4 L (2.5-4.5) mg/dL Magnesium 1.1 L (1.6-2.3) mg/dL Urine Glucose (UA) (Negative) Urine Ketones (Negative) Urine Blood (Negative) Urine RBC (0-5) /hpf 04/14/18 04/14/18 Range/Units 06:58 08:14 RBC (3.80-5.40) m/uL Hgb (11.4-16.0) gm/dL Hct (34.0-46.0) % Plt Count (150-450) k/uL Sodium (137-145) mmol/L Potassium (3.5-5.1) mmol/L Chloride (98-107) mmol/L Carbon Dioxide (22-30) mmol/L BUN (7-17) mg/dL Creatinine (0.52-1.04) mg/dL Glucose (74-99) mg/dL POC Glucose (mg/dL) 198 H 209 H (75-99) mg/dL Plasma Lactic Acid Prasanth (0.7-2.0) mmol/L Phosphorus (2.5-4.5) mg/dL Magnesium (1.6-2.3) mg/dL Urine Glucose (UA) (Negative) Urine Ketones (Negative) Urine Blood (Negative) Urine RBC (0-5) /hpf Microbiology - Last 24 Hours (Table) 04/13/18 15:08 Urine Culture - Preliminary Urine,Catheterized Assessment and Plan Assessment: Assessment Possible CVA New-onset seizure Diabetes with hyperosmolar hyperglycemic syndrome Mild diabetic ketoacidosis History of hypertension History of hyperlipidemia History of GERD History of migraine cephalgia Lactic acidemia Hyperkalemia Plan: Plan dated 04/13/2018 I'll continue to follow along with this patient. Currently, her respiratory status and hemodynamics I's cardiovascular status is very stable. She is only on 2 L of nasal O2. Her blood pressure is very reasonable. She continues on the insulin drip. No further episodes of seizures since being appear in the intensive care unit. Labs x-rays and medications are all reviewed. Additional recommendations and suggestions are forthcoming. Prognosis is guarded. White count 14.4 hemoglobin and hematocrit and platelet count all normal. Venous pH 7.9. Sodium potassium chloride normal carbon dioxide concentration is 21. Anion gap is 13. BUN and creatinine were 28 and 1.36. Lactic acid initially level was 5.9 and calcium was 11.6. Drug screen is negative. Plan dated 04/14/2018 The patient seemed be doing very well today. Was weaned off of supplemental oxygen. The insulin drip will be coming off shortly. Her respiratory cardiovascular status is stable. 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 It seems this has resolved. Chest x-ray looks pretty good except for some mild right basilar atelectasis. In my opinion, the patient could be discharged out of the unit later today. White count 8.9 hemoglobin 10 hematocrit 30.1 and platelet count 102,000. Electrolytes look good other than a chloride of 109. Magnesium and phosphate both need to be replaced. Her medications are reviewed and seem appropriate. Critical care time 32 minutes Time with Patient: Greater than 30
[2018-04-14 10:05] LABS: Glucose,Whole Blood 211 mg/dL (75-99)
[2018-04-14 12:14] LABS: Glucose,Whole Blood 119 mg/dL (75-99)
[2018-04-14] MEDS: INSULIN ASPART 100 UNIT/ML 1 ML 10 ML VIAL SQ SCH ×7 (12:21→20:39)
--- NOTE | 2018-04-14 16:42 | PN ---
PROGRESS NOTE DATE OF SERVICE: 04/14/2018 This 67-year-old woman who was admitted with left-sided weakness and tonic clonic seizures being closely monitored. The patient also had diabetic ketoacidosis on admission. The patient is much more alert at this time. Patient extubated. Dr. Jordan is following the patient closely. PAST MEDICAL HISTORY: Reviewed. REVIEW OF SYSTEMS: CARDIOVASCULAR: No angina. RESPIRATORY: As mentioned earlier. GI: No nausea. : No dysuria. NERVOUS SYSTEM: As mentioned earlier. CURRENT MEDICATIONS: 1. Tylenol p.r.n. 2. Aspirin 320 mg. 3. Heparin subcu q.8h. 4. NovoLog scale. 5. Levemir 20 units subcu daily. 6. Keppra 750 b.i.d. 7. Magnesium protocol. EXAMINATION: Alert and oriented x3. Pulse 88, blood pressure 107/59, respiration 18, temperature 98.2, pulse ox 97% on room air. HEENT: Conjunctivae normal. Oral mucosa moist. NECK: No jugular venous distention. No carotid bruit. No lymph node enlargement. CARDIOVASCULAR: S1, S2. RESPIRATORY: Breath sounds in the bases. A few scattered rhonchi and crackles. ABDOMEN: Soft, nontender. LEGS: No edema. NERVOUS SYSTEM: Minimal weakness on the left side, otherwise diffuse weakness also present. LABS: WBC 8.9, hemoglobin is 10. Glucose is 119. Lactic acid 1.2. UA noted. ASSESSMENT: 1. Acute hypoxic respiratory failure secondary from diabetic ketoacidosis and as well as seizure disorder. 2. Acute tonic-clonic seizures. 3. Possible acute stroke in the left side caused by right hemispheric lesion. 4. History of nicotine dependence. 5. History of gastroesophageal reflux disease. 6. Status post mechanical ventilation. 7. Hyperlipidemia. 8. Hypertension. 9. History of migraine. 10.History of tubal ligation. 11.Anxiety, depression. 12.Fever possible aspiration pneumonia. 13.FULL CODE. 14.Hypomagnesemia, hypophosphatemia. RECOMMENDATIONS AND DISCUSSION: I recommend to continue current management, monitoring, and symptomatic treatment. Otherwise at this time we will monitor the patient closely. Continue the current medications. Continue symptomatic treatment. Otherwise, continue with Keppra per Neurology. Start insulin and monitor the blood sugars closely. Guarded prognosis. We will repeat and replace magnesium and phosphorus also. Prognosis guarded. Further recommendations to follow. MMODL / IJN: [id number] /
[2018-04-14 17:30] LABS: Glucose,Whole Blood 159 mg/dL (75-99)
--- NOTE | 2018-04-14 19:42 | P.CNNES ---
History of Present Illness Consult date: 04/14/18 Requesting physician: Gil Barajas Reason for Consult: CVA, left-sided weakness, seizure Chief complaint: left-sided weakness, seizure History of Present Illness: Neurology is consulting on a 67 year old female for left sided weakness and seizure. Patient was brought to the ED presenting with seizure and left hemiparesis. Patient had generalized tonic clonic seizure in the ED. Patient was started on IV Keppra. Patient was hyperkalemic, hyponatremic as well. Patient's abnormal labs are likely related to her diabetic ketoacidosis and HHS. Supervising physcian provided Keppra order, MRI brain and EEG order to ED/ ICU staff. Patient was AOx3, no acute distress in bed resting. Patient stated her lasat seizure was several years ago and she has not been on any medication in the recent past for seizure. Patient denies any lateralizing weakness. Review of Systems systems not noted in HPI are negative. Past Medical History Past Medical History: Diabetes Mellitus, GERD/Reflux, Hyperlipidemia, Hypertension Additional Past Medical History / Comment(s): HX MIGRAINES, HIATAL HERNIA History of Any Multi-Drug Resistant Organisms: None Reported Past Surgical History: Orthopedic Surgery, Tubal Ligation Additional Past Surgical History / Comment(s): NECK SURGERY,REPAIR FX RT LEG SURGERY 1997 Past Anesthesia/Blood Transfusion Reactions: No Reported Reaction Smoking Status: Former smoker Medications and Allergies Home Medications Medication Instructions Recorded Confirmed Type Simvastatin [Zocor] 40 mg PO HS 07/23/14 04/13/18 History Bumetanide [Bumex] 0.5 mg PO BID 04/13/18 04/13/18 History Divalproex Sodium 250 mg PO BID 04/13/18 04/13/18 History Metoclopramide HCl [Reglan] 5 mg PO TID 04/13/18 04/13/18 History Pantoprazole Sodium [Protonix] 40 mg PO DAILY 04/13/18 04/13/18 History Propranolol HCl [Inderal LA] 60 mg PO DAILY 04/13/18 04/13/18 History Valsartan [Diovan] 320 mg PO DAILY 04/13/18 04/13/18 History busPIRone HCL 15 mg PO BID 04/13/18 04/13/18 History sitaGLIPtin [Januvia] 100 mg PO DAILY 04/13/18 04/13/18 History Allergies Allergy/AdvReac Type Severity Reaction Status Date / Time tramadol [From [facility]] Allergy Unknown Verified 04/13/18 10:35 codeine AdvReac NEO Verified 04/13/18 10:35 doxycycline AdvReac NEO Verified 04/13/18 10:35 Physical Examination - Vital Signs Vital Signs: Vital Signs Temp Pulse Pulse Resp BP BP Pulse Ox 04/14/18 18:00 92 18 126/61 98 04/14/18 17:00 89 21 109/49 98 04/14/18 16:00 97.9 F 84 22 101/49 97 04/14/18 15:00 89 25 H 108/41 94 L 04/14/18 14:00 90 21 96/56 95 04/14/18 13:00 88 18 107/59 97 04/14/18 12:00 98.2 F 92 86 18 100/53 94 L 04/14/18 11:00 89 24 94/55 97 04/14/18 10:00 88 14 92/52 100 04/14/18 09:00 84 22 106/48 97 04/14/18 08:26 82 04/14/18 08:14 84 04/14/18 08:00 97.7 F 83 92 26 H 103/41 96 04/14/18 07:00 85 20 106/45 98 04/14/18 06:00 88 22 106/42 98 04/14/18 05:00 85 13 101/49 96 04/14/18 04:00 98.1 F 85 25 H 97/60 96 04/14/18 03:00 81 18 87/44 96 04/14/18 02:00 85 21 100/50 96 04/14/18 01:00 87 20 89/40 97 04/14/18 00:03 90 19 90/41 96 04/14/18 00:00 98.6 F 89 20 90/41 98 04/13/18 23:00 90 19 86/45 98 04/13/18 22:00 93 24 94/44 97 04/13/18 21:00 123 H 28 H 103/34 96 04/13/18 20:00 100.7 F H 102 H 22 123/83 96 04/13/18 19:54 101.4 F H 105 H 20 123/86 97 Intake and Output 04/14/18 04/14/18 04/14/18 06:59 14:59 22:59 Intake Total 1225.618 759.876 Output Total 290 690 400 Balance 935.618 69.876 -400 Intake: IV 1200 350 ACETAMINOPHEN IV (For NPO 100 ) 1,000 mg In Empty Bag 1 bag @ 400 mls/hr IVPB ONCE STA Rx#:[id number] D5-0.45% NaCl with KCl 1200 250 20Meq/l 1,000 ml @ 50 mls /hr IV .Q20H [facility] Rx#: [id number] Intake, IV Titration 25.618 9.876 Amount Insulin Regular 100 unit 25.618 9.876 In Sodium Chloride 0.9% 100 ml @ 5 UNIT/HR 5.05 mls/hr IV .Q20H ONE Rx#: [id number] Oral 400 Output: Urine 290 690 400 Uretheral (Yao) 160 Other: Voiding Method Indwelling Catheter Bedside Commode Bedside Commode Bedpan Bedpan Weight 75.6 kg 75.6 kg General appearance: Alert & oriented x3, no apparent distress. Head: Atraumatic, normocephalic, normal inspection Eyes: Well appearance, PERRLA, EOMI. Absent scleral icterus, conjunctival injection, nystagmus, periorbital swelling. Ear, nose and throat: Normal exam, mucous membranes moist Neck: Normal inspection, absent tenderness, lymphadenopathy. Respiratory: No increased work of breathing Cardiovascular: Regular rate, rhythm GI/abdominal: No guarding Extremities: Full range of motion, normal capillary refill, no tenderness, pedal edema joint swelling, calf tenderness. Neurological: cranial nerves II through XII intact no lateralizing weakness no seizure activity noted on physical exam no pronator drift and no nystagmus. Left lower extremity: 3+/5 Right lower extremity: 4-/5 Left upper extremity: 4+/5 Right upper extremity: 4+/5 Sensation: present and equal in all 4 extremities Psychological: Mood and Affect appropriate for setting Results - Laboratory Findings CBC and BMP: 04/14/18 04:30 04/14/18 04:30 Abnormal Lab Findings: Abnormal Labs 04/13/18 04/13/18 04/13/18 07:51 07:55 07:55 WBC RBC Hgb Hct Plt Count Neutrophils # APTT VBG pH 7.29 L VBG HCO3 21 L Sodium Potassium Chloride Carbon Dioxide BUN Creatinine Glucose POC Glucose (mg/dL) >600 H Plasma Lactic Acid Prasanth 7.5 H* Calcium Phosphorus Magnesium Urine Glucose (UA) Urine Ketones Urine Blood Urine RBC 04/13/18 04/13/18 04/13/18 07:55 07:55 08:41 WBC 14.4 H RBC Hgb Hct Plt Count Neutrophils # 12.7 H APTT 20.1 L VBG pH VBG HCO3 Sodium 130 L Potassium 6.5 H* Chloride 90 L Carbon Dioxide 17 L BUN 31 H Creatinine 1.50 H Glucose 881 H* POC Glucose (mg/dL) Plasma Lactic Acid Prasanth Calcium 11.6 H Phosphorus Magnesium Urine Glucose (UA) Urine Ketones Urine Blood Urine RBC 04/13/18 04/13/18 04/13/18 09:13 09:46 11:06 WBC RBC Hgb Hct Plt Count Neutrophils # APTT VBG pH VBG HCO3 Sodium Potassium Chloride Carbon Dioxide BUN Creatinine Glucose POC Glucose (mg/dL) >600 H >600 H Plasma Lactic Acid Prasanth Calcium Phosphorus Magnesium Urine Glucose (UA) 4+ H Urine Ketones Trace H Urine Blood Small H Urine RBC 14 H 04/13/18 04/13/18 04/13/18 11:34 11:48 11:48 WBC RBC Hgb Hct Plt Count Neutrophils # APTT VBG pH VBG HCO3 Sodium Potassium Chloride Carbon Dioxide 21 L BUN 28 H Creatinine 1.36 H Glucose 382 H POC Glucose (mg/dL) 525 H Plasma Lactic Acid Prasanth 5.9 H* Calcium Phosphorus Magnesium Urine Glucose (UA) Urine Ketones Urine Blood Urine RBC 04/13/18 04/13/18 04/13/18 12:13 13:03 14:00 WBC RBC Hgb Hct Plt Count Neutrophils # APTT VBG pH VBG HCO3 Sodium Potassium Chloride Carbon Dioxide BUN Creatinine Glucose POC Glucose (mg/dL) 373 H 322 H 280 H Plasma Lactic Acid Prasanth Calcium Phosphorus Magnesium Urine Glucose (UA) Urine Ketones Urine Blood Urine RBC 04/13/18 04/13/18 04/13/18 14:58 15:59 16:03 WBC RBC Hgb Hct Plt Count Neutrophils # APTT VBG pH VBG HCO3 Sodium 134 L Potassium 6.9 H* Chloride Carbon Dioxide 20 L BUN 21 H Creatinine Glucose 674 H* POC Glucose (mg/dL) 250 H >600 H Plasma Lactic Acid Prasanth Calcium Phosphorus 1.1 L* Magnesium Urine Glucose (UA) Urine Ketones Urine Blood Urine RBC 04/13/18 04/13/18 04/13/18 16:05 16:45 17:00 WBC RBC Hgb Hct Plt Count Neutrophils # APTT VBG pH VBG HCO3 Sodium Potassium Chloride 110 H Carbon Dioxide 20 L BUN 24 H Creatinine 1.20 H Glucose 127 H POC Glucose (mg/dL) 126 H 135 H Plasma Lactic Acid Prasanth Calcium Phosphorus 1.8 L Magnesium Urine Glucose (UA) Urine Ketones Urine Blood Urine RBC 04/13/18 04/13/18 04/13/18 18:04 19:05 20:06 WBC RBC Hgb Hct Plt Count Neutrophils # APTT VBG pH VBG HCO3 Sodium Potassium Chloride Carbon Dioxide BUN Creatinine Glucose POC Glucose (mg/dL) 167 H 246 H 229 H Plasma Lactic Acid Prasanth Calcium Phosphorus Magnesium Urine Glucose (UA) Urine Ketones Urine Blood Urine RBC 04/13/18 04/13/18 04/13/18 21:32 22:16 23:00 WBC RBC Hgb Hct Plt Count Neutrophils # APTT VBG pH VBG HCO3 Sodium Potassium Chloride Carbon Dioxide BUN Creatinine Glucose POC Glucose (mg/dL) 252 H 267 H 238 H Plasma Lactic Acid Prasanth Calcium Phosphorus Magnesium Urine Glucose (UA) Urine Ketones Urine Blood Urine RBC 04/13/18 04/14/18 04/14/18 23:57 01:00 02:00 WBC RBC Hgb Hct Plt Count Neutrophils # APTT VBG pH VBG HCO3 Sodium Potassium Chloride Carbon Dioxide BUN Creatinine Glucose POC Glucose (mg/dL) 225 H 315 H 238 H Plasma Lactic Acid Prasanth Calcium Phosphorus Magnesium Urine Glucose (UA) Urine Ketones Urine Blood Urine RBC 04/14/18 04/14/18 04/14/18 02:59 03:58 04:30 WBC RBC 3.25 L Hgb 10.0 L D Hct 30.1 L Plt Count 102 L Neutrophils # APTT VBG pH VBG HCO3 Sodium Potassium Chloride Carbon Dioxide BUN Creatinine Glucose POC Glucose (mg/dL) 243 H 159 H Plasma Lactic Acid Prasanth Calcium Phosphorus Magnesium Urine Glucose (UA) Urine Ketones Urine Blood Urine RBC 04/14/18 04/14/18 04/14/18 04:30 05:05 06:02 WBC RBC Hgb Hct Plt Count Neutrophils # APTT VBG pH VBG HCO3 Sodium Potassium Chloride 109 H Carbon Dioxide BUN Creatinine Glucose 154 H POC Glucose (mg/dL) 187 H 196 H Plasma Lactic Acid Prasanth Calcium Phosphorus 1.4 L Magnesium 1.1 L Urine Glucose (UA) Urine Ketones Urine Blood Urine RBC 04/14/18 04/14/18 04/14/18 06:58 08:14 09:15 WBC RBC Hgb Hct Plt Count Neutrophils # APTT VBG pH VBG HCO3 Sodium Potassium Chloride Carbon Dioxide BUN Creatinine Glucose POC Glucose (mg/dL) 198 H 209 H 181 H Plasma Lactic Acid Prasanth Calcium Phosphorus Magnesium Urine Glucose (UA) Urine Ketones Urine Blood Urine RBC 04/14/18 04/14/18 04/14/18 10:04 12:12 17:28 WBC RBC Hgb Hct Plt Count Neutrophils # APTT VBG pH VBG HCO3 Sodium Potassium Chloride Carbon Dioxide BUN Creatinine Glucose POC Glucose (mg/dL) 211 H 119 H 159 H Plasma Lactic Acid Prasanht Calcium Phosphorus Magnesium Urine Glucose (UA) Urine Ketones Urine Blood Urine RBC Assessment and Plan (1) CVA (cerebral vascular accident) Narrative/Plan: Although the patients CT brain is unremarkable for acute CVA, patients remaning deficits are suggestive for CVA. MRI brain, serum homocysteine level, lipid panel ordered and pending. Continue neuro checks as ordered. Current Visit: Yes Status: Acute Code(s): I63.9 - CEREBRAL INFARCTION, UNSPECIFIED SNOMED Code(s): 341621846 (2) Seizure Narrative/Plan: Patient has past seizure history but no new occurrences in several years. Patient has not been on seizure medications in several years. Patient is responding well to Keppra. Maintain Keppra as currently implemented. Continue seiure precautions. EEG is ordered and MRI brain is ordered as well. Suzyhter recommendations to follow. Current Visit: Yes Status: Acute Code(s): R56.9 - UNSPECIFIED CONVULSIONS SNOMED Code(s): 25228380 (3) DKA (diabetic ketoacidosis) Narrative/Plan: Correct underlying etiology Defer to primary team Current Visit: Yes Status: Acute Code(s): E13.10 - OTH DIABETES MELLITUS WITH KETOACIDOSIS WITHOUT COMA SNOMED Code(s): 208209819 Plan: Status: Neurology will continue to follow and provide updates as needed or warranted. Contact our office with any questions I have discussed the plan of care with the physician prior to implementation and he agrees with the plan as implemented.
[2018-04-14 20:27] LABS: Glucose,Whole Blood 128 mg/dL (75-99)
[2018-04-14] MEDS: ACETAMINOPHEN TAB 325 MG TAB PO PRN (23:01)
[2018-04-15] MEDS: INSULIN ASPART 100 UNIT/ML 1 ML 10 ML VIAL SQ SCH ×8 (02:14→21:33)
[2018-04-15 02:16] LABS: Glucose,Whole Blood 253 mg/dL (75-99)
[2018-04-15 07:05] LABS: Glucose,Whole Blood 214 mg/dL (75-99)
[2018-04-15] MEDS ORDERED: PANTOPRAZOLE 40 MG TABLET PO SCH (07:30)
[2018-04-15] MEDS: INSULIN DETEMIR 100 UNIT/ML 10 ML VIAL SQ SCH (08:46)
[2018-04-15] MEDS: HEPARIN SODIUM,PORCINE 5,000 UNIT/ML 1 ML VIAL SQ SCH ×3 (08:46→22:58)
[2018-04-15] MEDS: ASPIRIN 325 MG TAB PO SCH (08:46)
[2018-04-15] MEDS: levETIRAcetam IV 750 MG in SODIUM CHLORIDE 0.9% 100 ML IVPB SCH (08:48)
[2018-04-15] MEDS: ACETAMINOPHEN TAB 325 MG TAB PO PRN ×2 (09:01→17:43)
[2018-04-15 09:46] LABS: Basophils % (A) 1 %; Eosinophils # (A) 0.1 k/uL (0-0.7); Eosinophils % (A) 1 %; HCT 33.6 % (34.0-46.0); Lymphocytes # (A) 1.4 k/uL (1.0-4.8); Lymphocytes % (A) 27 %; MCHC 32.8 g/dL (31.0-37.0); MCV 94.6 fL (80.0-100.0); Mean Platelet Volume 8.1; Monocytes # (A) 0.3 k/uL (0-1.0); Monocytes % (A) 6 %; Neutrophils # (A) 3.4 k/uL (1.3-7.7); Neutrophils % (A) 63 %; Platelet Count 124 k/uL (150-450); RBC 3.56 m/uL (3.80-5.40); RDW 13.5 % (11.5-15.5); WBC 5.4 k/uL (3.8-10.6)
[2018-04-15 10:01] LABS: Anion Gap 6 mmol/L; Blood Urea Nitrogen 9 mg/dL (7-17); Calcium 9.7 mg/dL (8.4-10.2); Carbon Dioxide 22 mmol/L (22-30); Chloride 108 mmol/L (98-107); Cholesterol 164 mg/dL (<200); Glucose 219 mg/dL (74-99); HDL Cholesterol 58 mg/dL (40-60); LDL Cholesterol,Calculated 76 mg/dL (0-99); Magnesium 1.4 mg/dL (1.6-2.3); Phosphorus 2.8 mg/dL (2.5-4.5); Potassium 4.6 mmol/L (3.5-5.1); Sodium 136 mmol/L (137-145); Triglycerides 149 mg/dL (<150)
--- NOTE | 2018-04-15 10:31 | ECHOF ---
Referral Reason:stroke MEASUREMENTS -------- HEIGHT: 165.1 cm WEIGHT: 75.3 kg BP: 143/75 RVIDd: 2.3 cm (< 3.3) IVSd: 1.0 cm (0.6 - 1.1) LVIDd: 4.3 cm (3.9 - 5.3) LVPWd: 1.2 cm (0.6 - 1.1) IVSs: 1.3 cm LVIDs: 2.7 cm LVPWs: 1.5 cm LA Diam: 2.8 cm (2.7 - 3.8) LAESV Index (A-L): 24.59 ml/m Ao Diam: 2.3 cm (2.0 - 3.7) AV Cusp: 1.5 cm (1.5 - 2.6) LA Diam: 3.2 cm (2.7 - 3.8) MV EXCURSION: 11.106 mm (> 18.000) MV EF SLOPE: 68 mm/s (70 - 150) EPSS: 0.3 cm MV E Jaspreet: 0.54 m/s MV DecT: 230 ms MV A Jaspreet: 1.06 m/s MV E/A Ratio: 0.51 RAP: 5.00 mmHg RVSP: 37.62 mmHg FINDINGS -------- Sinus rhythm. This was a technically adequate study. LV size, wall thickness and systolic function are normal, with an EF greater than 55%. The left melida tricular size is normal. The right ventricle is normal in size. The left atrial size is normal. Normal LA size by volume 22+/-6 ml/m2. The right atrial size is normal. There is mild aortic valve sclerosis. There is no evidence of aortic regurgitation. Mild mitral annular calcification present. Mild mitral regurgitation is present. Mild tricuspid regurgitation present. There is mild pulmonary hypertension. The right ventricular systolic pressure, as measured by Doppler, is 37.62mmHg. Trace/mild (physiologic) pulmonic regurgitation. The aortic root size is normal. There is no pericardial effusion. CONCLUSIONS -------- 1. LV size, wall thickness and systolic function are normal, with an EF greater than 55%. 2. The left ventricular size is normal. 3. The left atrial size is normal. 4. The right atrial size is normal. 5. There is mild aortic valve sclerosis. 6. Mild mitral annular calcification present. 7. Mild mitral regurgitation is present. 8. Mild tricuspid regurgitation present. 9. There is mild pulmonary hypertension. 10. The right ventricular systolic pressure, as measured by Doppler, is 37.62mmHg. 11. Trace/mild (physiologic) pulmonic regurgitation. 12. The aortic root size is normal. 13. There is no pericardial effusion. SPA ATTENDANT: Isela Rodriguez RDCS
[2018-04-15] MEDS ORDERED: Magnesium Replacement Protocol 1 EACH MISC MISCELLANE PRN (11:05)
[2018-04-15] MEDS: MAGNESIUM SULFATE-D5W PMX 1 GM in DEXTROSE/WATER 1 100ML.BAG IVPB SCH ×3 (11:44→14:17)
[2018-04-15 11:57] LABS: Glucose,Whole Blood 200 mg/dL (75-99)
--- NOTE | 2018-04-15 12:59 | P.PN ---
Subjective Progress Note Date: 04/15/18 Principal diagnosis: Seizure, DKA, HHS, lactic acidemia, hyperkalemia, resolved Progress note dated 04/14/2018 67-year-old female seen yesterday in consultation for ICU management CVA and seizure disorder. The patient is doing much better. Yesterday she was very somnolent and lethargic. The patient's feeling much better today. She's been weaned off of oxygen. She has an IV of dextrose with half-normal saline and 20 meq of potassium at 150 mL an hour. She Is Also on Insulin Drip at 1.75 Units Per Hour. That will be turned off shortly. Neurology was consulted. Her brain CAT scan was negative. The patient was also admitted with a number of electrolyte disturbances including hyperkalemia and in addition had elevated lactic acid likely secondary to seizure. The hypoglycemia was thought to be related to a combination of both mild DKA and hyperglycemic hyperosmolar syndrome. She does have a history of hyperlipidemia, hypertension, GERD and diabetes mellitus. On 04/15/2018 patient seen in follow-up on medical surgical floor. She is awake , alert, responding appropriately, she is oriented to place, person and time. 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 Denies any specific complaints , denies any dyspnea, vital signs are stable, room air pulse ox is 94%, she is afebrile, hemodynamically stable, lung sounds are clear to auscultation. These labs have been reviewed, WBC is 5.4, hemoglobin is 11.0, sodium is 136, potassium 4.6, chloride is 108, CO2 is 22, anion gap is 6, BUN is 9, creatinine 0.79. Magnesium is 1.4, and patient is getting IV magnesium replacements. IV insulin infusion has been transitioned to subcutaneous Humalog injections and Levemir. Objective - Vital Signs Vital signs: Vital Signs Temp 98.3 F 04/15/18 07:00 Pulse 101 H 04/15/18 07:00 Resp 16 04/15/18 07:00 BP 125/67 04/15/18 07:00 Pulse Ox 94 L 04/15/18 07:49 Intake & Output 04/14/18 04/15/18 04/15/18 18:59 06:59 18:59 Intake Total 759.876 200 440 Output Total 1090 Balance -330.124 200 440 Weight 75.6 kg Intake: IV 350 ACETAMINOPHEN IV (For NPO 100 ) 1,000 mg In Empty Bag 1 bag @ 400 mls/hr IVPB ONCE STA Rx#:[id number] D5-0.45% NaCl with KCl 250 20Meq/l 1,000 ml @ 50 mls /hr IV .Q20H [facility] Rx#: [id number] Intake, IV Titration 9.876 200 Amount Insulin Regular 100 unit 9.876 In Sodium Chloride 0.9% 100 ml @ 5 UNIT/HR 5.05 mls/hr IV .Q20H ONE Rx#: [id number] Magnesium Sulfate-D5w Pmx 100 1 gm In Dextrose/Water 1 100ml.bag @ 100 mls/hr IVPB Q1H [facility] Rx#: [id number] levETIRAcetam IV 750 mg 100 In Sodium Chloride 0.9% 100 ml @ 400 mls/hr IVPB Q12HR [facility] Rx#:[id number] Oral 400 200 240 Output: Urine 1090 Uretheral (Yao) 160 Other: Voiding Method Bedside Commode Toilet Toilet Bedpan # Voids 1 - Exam No acute distress, oriented 3. Not requiring any supplemental oxygen at this time. HEENT examination is grossly unremarkable. Mucous membranes are moist. No oral lesions. Neck supple. Full range of motion. No adenopathy thyromegaly or neck vein distention. Cardiovascular examination reveals regular rhythm rate. S1-S2 normal. No S3 or S4. No discernible murmur noted. Lungs reveal clear breath sounds. Her sounds are equal bilaterally. No adventitious lung sounds including wheezes rhonchi or crackles. Abdomen soft bowel sounds are heard. No masses or tenderness. Extremities are intact. No cyanosis clubbing or edema. Skin is without rash or lesion. Neurologic examination is brief but nonfocal. - Labs CBC & Chem 7: 04/15/18 09:03 04/15/18 09:03 Labs: Abnormal Lab Results - Last 24 Hours (Table) 04/14/18 04/14/18 04/14/18 Range/Units 04:30 17:28 20:17 RBC (3.80-5.40) m/uL Hgb 10.0 L D (11.4-16.0) gm/dL Hct (34.0-46.0) % Plt Count (150-450) k/uL Sodium (137-145) mmol/L Chloride (98-107) mmol/L Glucose (74-99) mg/dL POC Glucose (mg/dL) 159 H 128 H (75-99) mg/dL Magnesium (1.6-2.3) mg/dL 04/15/18 04/15/18 04/15/18 Range/Units 01:57 06:55 09:03 RBC (3.80-5.40) m/uL Hgb (11.4-16.0) gm/dL Hct (34.0-46.0) % Plt Count (150-450) k/uL Sodium 136 L (137-145) mmol/L Chloride 108 H (98-107) mmol/L Glucose 219 H (74-99) mg/dL POC Glucose (mg/dL) 253 H 214 H (75-99) mg/dL Magnesium 1.4 L (1.6-2.3) mg/dL 04/15/18 04/15/18 Range/Units 09:03 11:43 RBC 3.56 L (3.80-5.40) m/uL Hgb 11.0 L (11.4-16.0) gm/dL Hct 33.6 L (34.0-46.0) % Plt Count 124 L (150-450) k/uL Sodium (137-145) mmol/L Chloride (98-107) mmol/L Glucose (74-99) mg/dL POC Glucose (mg/dL) 200 H (75-99) mg/dL Magnesium (1.6-2.3) mg/dL Microbiology - Last 24 Hours (Table) 04/13/18 15:08 Urine Culture - Final Urine,Catheterized 04/13/18 07:55 Blood Culture - Preliminary Blood No Growth after 24 hours Assessment and Plan Plan: Assessment: Possible CVA New-onset seizure Diabetes with hyperosmolar hyperglycemic syndrome Mild diabetic ketoacidosis, resolved History of hypertension History of hyperlipidemia History of GERD History of migraine cephalgia Lactic acidemia, improved Hyperkalemia, improved Plan: Patient is awake alert, no recurrence of seizures, still has a left lower extremity weakness, and 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 Neurology is following. Vital signs are stable, she is on room air, denies any dyspnea. Anion gap has closed, renal profile and electrolytes are essentially within normal limits. We will sign off at this time, and continue on as-needed basis. I performed a history & physical examination of the patient and discussed their management with my nurse practitioner, Lise Giles. I reviewed the nurse practitioner's note and agree with the documented findings and plan of care. Lung sounds are clear. The findings and the impression was discussed with the patient. I attest to the documentation by the nurse practitioner. Time with Patient: Less than 30
--- NOTE | 2018-04-15 15:10 | EEG ---
ELECTROENCEPHALOGRAM REPORT DATE OF SERVICE: 04/15/2018. REASON FOR TESTING: Seizure. CURRENT ANTIEPILEPTIC MEDICATIONS: Keppra. DESCRIPTION OF THE PROCEDURE: This EEG was performed using a 21 channel digital electroencephalograph, following international 10-20 system. DESCRIPTION OF THE RECORDING: From the beginning of the tracing, with patient's eyes closed, the background rhythm was mostly consisting of 8 Hz to 9 Hz alpha frequency in the posterior occipital leads. No obvious asymmetry is seen. Photic stimulation was performed with a good driving response seen. No pathological waves were elicited. Hyperventilation was not performed. Occasional movement artifacts are seen. The patient remains awake throughout the tracing. No epileptiform discharges were seen. Her EKG lead showed a regular rate and rhythm. INTERPRETATION: This awake EEG can be considered within normal limits. There is no asymmetry seen. No epileptiform discharges were noticed. The absence of epileptiform discharges does not rule out the diagnosis of epilepsy; therefore clinical correlation is recommended. MMRUSSELLL / IJN: [id number] /
--- NOTE | 2018-04-15 16:55 | PN ---
PROGRESS NOTE DATE OF SERVICE: 04/15/2018 This 67-year-old woman was admitted with acute hypoxic respiratory failure and seizures also thought to have a stroke also. MRI is pending at this time. The neurovascular workup is also underway. A 2D echo with Doppler which was reviewed by Cardiology showed ejection fraction about 55% and also some mild valvular abnormalities. Otherwise, the CT angio did not show any acute abnormality. The patient also had elevated blood sugars, which is also being monitored at this time. The patient's hemoglobin A1c not available at this time. PAST MEDICAL HISTORY: Reviewed. REVIEW OF SYSTEMS: CARDIOVASCULAR SYSTEM: As mentioned earlier. RESPIRATORY: As mentioned earlier. GI: No nausea or vomiting. : No dysuria. Nervous system: No numbness or weakness. CURRENT MEDICATIONS ARE: Reviewed and include medications are: 1. Tylenol 650 q.6h p.r.n. 2. Aspirin 320 mg daily. 3. Heparin 5000 subcu. 4. NovoLog scale. 5. Levemir 20 units subcu daily. 6. Keppra 750 p.o. b.i.d. 7. Replacement protocol. PHYSICAL EXAMINATION: The patient is alert and oriented times three. Pulse 88, blood pressure 129/60, respiration 17, temp 97.2, pulse ox 98% on room air. HEENT: Conjunctivae normal. Oral mucosa moist. Neck is no jugular venous distention. No carotid bruit. No lymph node enlargement. Cardiovascular: S1, S2 muffled. Respiratory: Breath sounds diminished in the bases. Bilateral scattered rhonchi and crackles. Expiratory wheezing also present. ABDOMEN: Soft, nontender. No mass. Legs are no edema. NO swelling. Nervous system: No focal deficits. LABS: WBC 5.2, hemoglobin 11, sodium 136 and magnesium 1.4. ASSESSMENT: 1. Acute hypoxic respiratory failure secondary to diabetic ketoacidosis as well as seizure disorder. 2. Acute tonic clonic seizures. 3. Possible acute stroke on the left side of the body caused by right hemispheric lesion. 4. History of nicotine dependence. 5. History of gastroesophageal reflux disease. 6. Status post mechanical ventilation. 7. Hyperlipidemia. 8. Hypertension. 9. History of migraines. 10.History of tubal ligation. 11.Anxiety, depression. 12.Fever, possible aspiration pneumonia, present on admission. 13.Hypomagnesemia, hypophosphatemia. 14.FULL CODE. RECOMMENDATIONS AND DISCUSSION: I recommend to continue current medications, symptomatic treatment. Replacement magnesium and otherwise I would recommend repeat labs, PT/OT evaluation and I would also recommend MRI scan. Closely follow with multiple consultants. As far as the insulin is concerned, I would continue the current medications. Continue to monitor. Guarded prognosis. Further recommendations to follow. BENITEZ / SKY: [id number] /
--- NOTE | 2018-04-15 17:00 | MR ---
EXAMINATION TYPE: MR brain wo/w con DATE OF EXAM: 04/15/2018 HISTORY: Pt having seizures, with left facial droop TECHNIQUE: Multiplanar, multisequence images of the brain and brainstem is performed without and with IV contrast, utilizing 7.5 mL intravenous Gadavist. COMPARISON: CT/CTA 04/13/2018 FINDINGS: Diffusion weighted images demonstrate no evidence of a recent infarct or other diffusion ab normality. There are a few scattered carty radiata and centrum semiovale 1 - 2 mm subtle T2 hyperin tensities. Entirely nonspecific, these foci usually reflect small vessel change in asymptomatic patie nts. For this age group, these are few in number and minute in dimension. There is no extra-axial flu id collection or significant white matter signal abnormality. The ventricular system and cisternal s paces are normal in size and appearance. The brain volume is age appropriate. Midline structures demonstrate normal morphology. The craniocervical junction appears within normal l imits. Post contrast images demonstrate no abnormal enhancement. The dural venous sinuses appear arellano nt. The visualized sinuses are clear and the globes are intact. IMPRESSION: No acute/subacute process.
[2018-04-15 17:01] LABS: Glucose,Whole Blood 191 mg/dL (75-99)
[2018-04-15 21:01] LABS: Glucose,Whole Blood 185 mg/dL (75-99)
[2018-04-15] MEDS ORDERED: MELATONIN 3 MG TABLET PO SCH (22:00)
[2018-04-16 02:18] LABS: Glucose,Whole Blood 247 mg/dL (75-99)
[2018-04-16] MEDS: INSULIN ASPART 100 UNIT/ML 1 ML 10 ML VIAL SQ SCH ×5 (02:36→12:39)
[2018-04-16 07:22] LABS: Glucose,Whole Blood 176 mg/dL (75-99)
[2018-04-16] MEDS: HEPARIN SODIUM,PORCINE 5,000 UNIT/ML 1 ML VIAL SQ SCH ×2 (08:02→14:40)
[2018-04-16] MEDS: ASPIRIN 325 MG TAB PO SCH (08:03)
[2018-04-16 08:34] LABS: Basophils % (A) 1 %; Eosinophils # (A) 0.1 k/uL (0-0.7); Eosinophils % (A) 2 %; HCT 33.8 % (34.0-46.0); HGB 11.1 gm/dL (11.4-16.0); Lymphocytes # (A) 1.2 k/uL (1.0-4.8); Lymphocytes % (A) 25 %; MCH 31.2 pg (25.0-35.0); MCHC 32.8 g/dL (31.0-37.0); MCV 95.2 fL (80.0-100.0); Mean Platelet Volume 8.1; Monocytes # (A) 0.3 k/uL (0-1.0); Monocytes % (A) 6 %; Neutrophils # (A) 3.1 k/uL (1.3-7.7); Neutrophils % (A) 64 %; Platelet Count 131 k/uL (150-450); RBC 3.55 m/uL (3.80-5.40); RDW 13.5 % (11.5-15.5); WBC 4.9 k/uL (3.8-10.6)
[2018-04-16] MEDS: INSULIN DETEMIR 100 UNIT/ML 10 ML VIAL SQ SCH (08:38)
[2018-04-16] MEDS ORDERED: PANTOPRAZOLE 40 MG TABLET PO SCH (08:45)
[2018-04-16 08:49] LABS: Calcium 10.3 mg/dL (8.4-10.2); Magnesium 1.4 mg/dL (1.6-2.3); Phosphorus 3.3 mg/dL (2.5-4.5); Potassium 4.5 mmol/L (3.5-5.1)
[2018-04-16] MEDS: ACETAMINOPHEN TAB 325 MG TAB PO PRN (08:58)
[2018-04-16] MEDS ORDERED: Magnesium Replacement Protocol 1 EACH MISC MISCELLANE PRN (09:04)
[2018-04-16] MEDS: MAGNESIUM SULFATE-D5W PMX 1 GM in DEXTROSE/WATER 1 100ML.BAG IVPB SCH ×3 (09:14→12:22)
[2018-04-16] MEDS ORDERED: LINAGLIPTIN 5 MG TABLET PO SCH (10:30)
[2018-04-16] MEDS ORDERED: VALSARTAN 160 MG TAB PO SCH (10:30)
[2018-04-16] MEDS ORDERED: busPIRone HCl 10 MG TAB PO SCH (10:30)
[2018-04-16] MEDS ORDERED: MAGNESIUM OXIDE 400 MG TAB PO SCH (10:30)
[2018-04-16] MEDS ORDERED: PROPRANOLOL LA 60 MG CAP.SA.24H PO SCH (10:30)
[2018-04-16 12:06] VITALS: BMI 26.9
[2018-04-16 12:36] LABS: Glucose,Whole Blood 236 mg/dL (75-99)
[2018-04-16 14:59] VITALS: BP 129/53; PULSE 88; RESP 16; TEMP 97.5
[2018-04-16] MEDS ORDERED: METOCLOPRAMIDE 5 MG TAB PO SCH (16:00)
--- NOTE | 2018-04-16 16:47 | DS ---
DISCHARGE SUMMARY FINAL DIAGNOSES: 1. Acute hypoxic respiratory failure secondary to diabetic ketosis status seizure disorder. 2. Acute tonic clonic seizures. 3. Normal MRI without showing acute stroke. 4. History of nicotine dependence. 5. History of gastroesophageal reflux disease. 6. Status post mechanical ventilation. 7. Hyperlipidemia. 8. Hypertension. 9. History of migraines. 10.History of tubal ligation. 11.Anxiety, depression. 12.Fever, improved. 13.Hypomagnesemia. 14.Hypophosphatemia. 15.FULL CODE. DISCHARGE DISPOSITION: The patient is being discharged in stable condition with guarded prognosis. Total time taken 35 minutes. HISTORY OF PRESENT ILLNESS: This 67-year-old woman with a past medical history of multiple medical problems was admitted with acute hypoxic respiratory failure, diabetic ketoacidosis and seizures. Patient mechanically intubated. Patient monitored in ICU. Insulin drip was given. Patient improved significantly. Extubated. The patient did have some weakness of the left side, but investigations including MRI, did not show any acute weakness. Treated symptomatically. On exam vitals are stable. Cardiovascular S1, S2. Abdomen soft. Nervous system : No focal deficits. The patient improved significantly; patient being discharged in stable condition with guarded prognosis. On exam vitals are stable. Cardiovascular S1, S2. Abdomen soft. Central nervous system: No focal deficits. DISCHARGE RECOMMENDATIONS: 1. Diet is consistent carb. 2. Accu Cheks q.a.c. and q.h.s. 3. Follow with Dr. Nguyễn as advised. 4. Follow up with multiple consultants and neurology as recommended. DISCHARGE MEDICATIONS: 1. Bumex 0.5 mg b.i.d. 2. Buspirone 15 mg p.o. b.i.d. 3. Depakote 250 mg p.o. b.i.d. 4. Reglan 5 mg p.o. t.i.d. 5. Protonix 40 mg daily. 6. propranolol 60 mg p.o. daily. 7. Zocor 40 mg q.h.s. 8. Januvia 100 mg p.o. daily. 9. Diovan 320 mg. 10.Tylenol 650 q.6h p.r.n. 11.Ecotrin 81 mg. 12.Folic acid 1 mg b.i.d. 13.Levemir 20 units subcu daily. 14.Keppra 750 mg p.o. b.i.d. 15.Magnesium oxide 400 mg p.o. b.i.d. 16.Multivitamins 1 p.o. daily. 17.Thiamin 100 mg p.o. daily. Once again, the patient is being discharged in stable condition with guarded prognosis. MMRUSSELLL / SKY: [id number] / MTDD
[2018-04-16 17:38] LABS: Hemoglobin A1C 10.9 % (4.0-6.0)
[2018-04-16] MEDS ORDERED: ATORVASTATIN 20 MG TAB PO SCH (21:00)
--- NOTE | 2018-04-17 10:59 | CDI ---
Last Revision, August 2017 Documentation Clarification Form Date: 04/17/18 From: Richelle Murrieta Phone: If you have a question regarding this query, please contact Arpita West at [phone] between 8am and 5pm Admit Date: 04/13/2018 9:42:00 AM Patient Name: Ara Mesa Visit Number: [id number] Discharge Date: 04/16/18 ATTENTION: The Clinical Documentation Specialists (CDI) and [facility] Coding Staff appreciate your assistance in clarifying documentation. Please respond to the clarification below the line at the bottom and electronically sign. The CDI & [facility] Coding staff will review the response and follow-up if needed. Please note: Queries are made part of the Legal Health Record. If you have any questions, please contact the author of this message via ITS. Dr. Lori Esteves CVA/stroke is documented as a diagnosis in the Neurology consult note, ed note , H&P, Dr. Jordan's cosult note and in multiple progress notes but the discharge summary didn't have documentation of CVA for this admission. Documentation in Dr. 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 History/risk factors: Patient had left sided weakness on admission and altered level of consciousness. The patient also had seizure and DKA on admission. Clinical Indicators: Left hemiparesis, altered level of concsiousness. CT: No acute intracranial abnormality. MRI/MRA: No acute or subacute process. Treatment: PO Heparin. Patient was discharged on aspirin but no other blood thinner. In your professional opinion, please clarify the cause of the left sided hemiparesis: Stroke/CVA Ruled in(specify cause) Stroke/CVA Ruled out Erb's palsy Other (please specify) Unable to Determine Stroke/CVA Ruled out MTDD
== END 2018-04-16 15:23 | disposition home health service (06) | DRG 100 ==
LOC: EC 07:43 → 6ICU 09:42 → 4MS4W 04-14 19:09
PROVIDERS: ADMIT Hospitalist; ATTEND Hospitalist
DX: G40.409 Other generalized epilepsy and epileptic syndromes, not intractable, without status epilepticus (principal); E11.00 Type 2 diabetes mellitus with hyperosmolarity without nonketotic hyperglycemic-hyperosmolar coma (NKHHC); E11.10 Type 2 diabetes mellitus with ketoacidosis without coma; J96.01 Acute respiratory failure with hypoxia; J69.0 Pneumonitis due to inhalation of food and vomit; E87.1 Hypo-osmolality and hyponatremia; G81.94 Hemiplegia, unspecified affecting left nondominant side; E78.5 Hyperlipidemia, unspecified; E83.39 Other disorders of phosphorus metabolism; E83.42 Hypomagnesemia; E87.5 Hyperkalemia; F32.9 Major depressive disorder, single episode, unspecified; F41.9 Anxiety disorder, unspecified; I10 Essential (primary) hypertension; K21.9 Gastro-esophageal reflux disease without esophagitis; G43.909 Migraine, unspecified, not intractable, without status migrainosus; K44.9 Diaphragmatic hernia without obstruction or gangrene; Z79.899 Other long term (current) drug therapy; Z79.84 Long term (current) use of oral hypoglycemic drugs; Z88.1 Allergy status to other antibiotic agents; Z88.5 Allergy status to narcotic agent; Z87.891 Personal history of nicotine dependence; Z98.51 Tubal ligation status
CPT/HCPCS: 36415; 70450; 70496; 70498; 70553; 71045; 80048; 80051; 80053; 80061; 80306; 80320; 81001; 82550; 82553; 82565; 82803; 82947; 83036; 83090; 83520; 83605; 83735; 84100; 84484; 84520; 85025; 85610; 85730; 87040; 87086; 93005; 93306; 94640; 94760; 95816; 96361; 96365; 99291

== ENCOUNTER 2018-06-20 15:49 | Emergency (ER) | payer MEDICARE, OTHER ==
[2018-06-20] MEDS ORDERED: SODIUM CHLORIDE 0.9% 500 ML IV STA (16:04)
--- NOTE | 2018-06-20 16:23 | ED ---
General Adult HPI - General Source: patient, RN notes reviewed Mode of arrival: ambulatory Limitations: no limitations <Moreno Gold - Last Filed: 06/20/18 16:21> <Cheryl Law - Last Filed: 06/20/18 19:04> - General Chief complaint: Recheck/Abnormal Lab/Rx Stated complaint: Abnormal lab/weakness Time Seen by Provider: 06/20/18 16:04 - History of Present Illness Initial comments: 67-year-old female presents emergency Department chief complaint weakness. She states that she saw her PCP and states that she had lab work drawn today and told her that her kidney function was very poor and she need to be admitted to see a supervisor pipe manufacture. Patient states that over the last 4-6 week she's had increase in weakness with no specific complaints otherwise. She denies chest pain, shortness breath, headache or dizziness. She states that she has had a recent hospitalization for seizures and hyperglycemia. Patient denies any nausea vomiting diarrhea constipation. Patient had no prior thyroid dysfunction. Patient states that she is a former smoker (Moreno Gold) - Related Data Home Medications Medication Instructions Recorded Confirmed Simvastatin [Zocor] 40 mg PO HS 07/23/14 06/20/18 Bumetanide [BUMEX] 0.5 mg PO BID 04/13/18 06/20/18 Divalproex Sodium 250 mg PO BID 04/13/18 06/20/18 Metoclopramide HCl [Reglan] 5 mg PO TID 04/13/18 06/20/18 Pantoprazole Sodium [Protonix] 40 mg PO DAILY 04/13/18 06/20/18 Propranolol HCl [Inderal LA] 60 mg PO DAILY 04/13/18 06/20/18 busPIRone HCL 15 mg PO TID 04/13/18 06/20/18 sitaGLIPtin [Januvia] 100 mg PO DAILY 04/13/18 06/20/18 Previous Rx's Medication Instructions Recorded Aspirin EC [Ecotrin Low Dose] 81 mg PO DAILY #30 tablet. 04/16/18 Folic Acid 1 mg PO DAILY #30 tablet 04/16/18 Magnesium Oxide [Mag-Ox] 400 mg PO BID #60 tab 04/16/18 Multivitamins, Thera [Multivitamin] 1 tab PO DAILY #30 tablet 07/31/18 Thiamine [Vitamin B-1] 100 mg PO DAILY #30 tablet 04/16/18 levETIRAcetam [Keppra] 750 mg PO Q12HR #60 tab 04/16/18 Allergies Allergy/AdvReac Type Severity Reaction Status Date / Time tramadol [From Ultram] Allergy Unknown Verified 06/20/18 16:57 codeine AdvReac SHAKY Verified 06/20/18 16:57 doxycycline AdvReac SHAKY Verified 06/20/18 16:57 Review of Systems ROS Other: All systems not noted in ROS Statement are negative. <Moreno Gold - Last Filed: 06/20/18 16:21> ROS Other: All systems not noted in ROS Statement are negative. <Cheryl Law - Last Filed: 06/20/18 19:04> ROS Statement: Those systems with pertinent positive or pertinent negative responses have been documented in the HPI. Past Medical History Past Medical History: Diabetes Mellitus, GERD/Reflux, Hyperlipidemia, Hypertension Additional Past Medical History / Comment(s): HX MIGRAINES, HIATAL HERNIA History of Any Multi-Drug Resistant Organisms: None Reported Past Surgical History: Cholecystectomy, Orthopedic Surgery, Tubal Ligation Additional Past Surgical History / Comment(s): NECK SURGERY,REPAIR FX RT LEG SURGERY 1998 Past Anesthesia/Blood Transfusion Reactions: No Reported Reaction Past Psychological History: Anxiety, Depression Smoking Status: Former smoker Past Alcohol Use History: None Reported Past Drug Use History: None Reported <Moreno Gold - Last Filed: 06/20/18 16:21> General Exam Limitations: no limitations General appearance: alert, in no apparent distress Head exam: Present: atraumatic, normocephalic, normal inspection Eye exam: Present: normal appearance, PERRL, EOMI. Absent: scleral icterus, conjunctival injection, periorbital swelling ENT exam: Present: normal exam, mucous membranes moist Neck exam: Present: normal inspection, full ROM. Absent: tenderness, meningismus, lymphadenopathy Respiratory exam: Present: normal lung sounds bilaterally. Absent: respiratory distress, wheezes, rales, rhonchi, stridor Cardiovascular Exam: Present: regular rate, normal rhythm, normal heart sounds. Absent: systolic murmur, diastolic murmur, rubs, gallop, clicks GI/Abdominal exam: Present: soft, normal bowel sounds. Absent: distended, tenderness, guarding, rebound, rigid Neurological exam: Present: alert, oriented X3, CN II-XII intact, reflexes normal. Absent: motor sensory deficit Skin exam: Present: warm, dry, intact, normal color. Absent: rash <Moreno Gold - Last Filed: 06/20/18 16:21> Vital Signs 06/20/18 06/20/18 15:58 17:58 Temperature 98.6 F Pulse Rate 78 85 Respiratory 18 20 Rate Blood Pressure 102/68 120/58 O2 Sat by Pulse 97 99 Oximetry Medical Decision Making <Moreno Gold - Last Filed: 06/20/18 16:21> - Lab Data Result diagrams: 06/20/18 16:40 06/20/18 16:40 <Cheryl Law - Last Filed: 06/20/18 19:04> - Medical Decision Making This is a 67-year-old female who presents to the emergency department with chief complaint of weakness. Patient states that she has been fatigued over the past month or so. She states that she was contacted by her primary care provider and instructed to come to the emergency department as recent labs showed that her kidney function was very poor. Patient stated that she was told she might have to go on dialysis. Case was signed over to myself by KSENIA Mayer. CBC and UA revealed no significant abnormalities. CMP reveals a BUN of 37 and a creatinine of 1.05. I reassured patient that these levels do not warrant dialysis. Instructed patient to increase her water intake. She is ready for discharge home. Instructed patient to follow up with Dr. Nguyễn outpatient. She is in agreement with plan and voices understanding. Patient is in no acute distress. All questions answered. (Cheryl Law) - Lab Data Lab Results 06/20/18 06/20/18 06/20/18 Range/Units 16:40 16:40 18:00 WBC 10.9 H (3.8-10.6) k/uL RBC 3.94 (3.80-5.40) m/uL Hgb 12.5 (11.4-16.0) gm/dL Hct 38.7 (34.0-46.0) % MCV 98.1 (80.0-100.0) fL MCH 31.8 (25.0-35.0) pg MCHC 32.4 (31.0-37.0) g/dL RDW 13.0 (11.5-15.5) % Plt Count 186 (150-450) k/uL Neutrophils % 58 % Lymphocytes % 32 % Monocytes % 6 % Eosinophils % 2 % Basophils % 0 % Neutrophils # 6.3 (1.3-7.7) k/uL Lymphocytes # 3.4 (1.0-4.8) k/uL Monocytes # 0.6 (0-1.0) k/uL Eosinophils # 0.3 (0-0.7) k/uL Basophils # 0.1 (0-0.2) k/uL Sodium 136 L (137-145) mmol/L Potassium 4.5 (3.5-5.1) mmol/L Chloride 100 (98-107) mmol/L Carbon Dioxide 30 (22-30) mmol/L Anion Gap 6 mmol/L BUN 37 H (7-17) mg/dL Creatinine 1.05 H (0.52-1.04) mg/dL Est GFR (CKD-EPI)AfAm 64 (>60 ml/min/1.73 sqM) Est GFR (CKD-EPI)NonAf 55 (>60 ml/min/1.73 sqM) Glucose 176 H (74-99) mg/dL Calcium 10.8 H (8.4-10.2) mg/dL Phosphorus 2.9 (2.5-4.5) mg/dL Magnesium 1.5 L (1.6-2.3) mg/dL Total Bilirubin 0.3 (0.2-1.3) mg/dL AST 18 (14-36) U/L ALT 15 (9-52) U/L Alkaline Phosphatase 52 (38-126) U/L Total Protein 7.0 (6.3-8.2) g/dL Albumin 4.1 (3.5-5.0) g/dL Amylase 67 (30-110) U/L Lipase 177 (23-300) U/L TSH 1.260 (0.465-4.680) mIU/L Urine Color Light Yellow Urine Appearance Clear (Clear) Urine pH 6.5 (5.0-8.0) Ur Specific Ransom 1.008 (1.001-1.035) Urine Protein Negative (Negative) Urine Glucose (UA) Negative (Negative) Urine Ketones Negative (Negative) Urine Blood Negative (Negative) Urine Nitrite Negative (Negative) Urine Bilirubin Negative (Negative) Urine Urobilinogen <2.0 (<2.0) mg/dL Ur Leukocyte Esterase Small H (Negative) Urine RBC 1 (0-5) /hpf Urine WBC 2 (0-5) /hpf Ur Squamous Epith Cells 1 (0-4) /hpf Disposition <Moreno Gold M - Last Filed: 06/20/18 16:21> Is patient prescribed a controlled substance at d/c from ED?: No Time of Disposition: 19:03 <Cheryl Law M - Last Filed: 06/20/18 19:04> Clinical Impression: Fatigue Disposition: HOME SELF-CARE Condition: Good Instructions: Impaired Kidney Function (ED), Fatigue (ED) Additional Instructions: Please follow up with primary care provider within 1-2 days. Return to emergency department if symptoms should worsen or any concerns arise. Referrals: Isaiah Nguyễn MD [Primary Care Provider] - 1-2 days
[2018-06-20 16:56] LABS: Basophils # (A) 0.1 k/uL (0-0.2); Basophils % (A) 0 %; Eosinophils # (A) 0.3 k/uL (0-0.7); Eosinophils % (A) 2 %; HCT 38.7 % (34.0-46.0); HGB 12.5 gm/dL (11.4-16.0); Lymphocytes # (A) 3.4 k/uL (1.0-4.8); Lymphocytes % (A) 32 %; MCH 31.8 pg (25.0-35.0); MCHC 32.4 g/dL (31.0-37.0); MCV 98.1 fL (80.0-100.0); Mean Platelet Volume 7.6; Monocytes # (A) 0.6 k/uL (0-1.0); Monocytes % (A) 6 %; Neutrophils # (A) 6.3 k/uL (1.3-7.7); Neutrophils % (A) 58 %; Platelet Count 186 k/uL (150-450); RBC 3.94 m/uL (3.80-5.40); WBC 10.9 k/uL (3.8-10.6)
[2018-06-20 17:07] LABS: Albumin 4.1 g/dL (3.5-5.0); Calcium 10.8 mg/dL (8.4-10.2); Magnesium 1.5 mg/dL (1.6-2.3); Phosphorus 2.9 mg/dL (2.5-4.5); Potassium 4.5 mmol/L (3.5-5.1); Total Bilirubin 0.3 mg/dL (0.2-1.3)
[2018-06-20] MEDS ORDERED: SODIUM CHLORIDE 0.9% 1,000 ML IV ONE (17:16)
[2018-06-20] MEDS ORDERED: MAGNESIUM OXIDE 400 MG TAB PO STA (17:25)
[2018-06-20 18:11] LABS: Appearance,Urine Clear (Clear); Bilirubin,Urine Negative (Negative); Blood,Urine Negative (Negative); Color,Urine Light Yellow; Glucose,Urine (UA) Negative (Negative); Ketones,Urine Negative (Negative); Leukocyte Esterase,Urine Small (Negative); Nitrite,Urine Negative (Negative); PH, Urine 6.5 (5.0-8.0); Protein,Urine Negative (Negative); RBC,Urine 1 /hpf (0-5); Specific Gravity,Urine 1.008 (1.001-1.035); Squamous Epithelial Cell,Urine 1 /hpf (0-4); Urobilinogen,Urine <2.0 mg/dL (<2.0); WBC,Urine 2 /hpf (0-5)
[2018-06-20 19:33] VITALS: BP 131/85; PULSE 74; RESP 18; TEMP 98.2
== END 2018-06-20 19:20 | disposition home or self-care (01) ==
LOC: EC 15:49
DX: R53.83 Other fatigue (principal); E11.9 Type 2 diabetes mellitus without complications; K21.9 Gastro-esophageal reflux disease without esophagitis; E78.5 Hyperlipidemia, unspecified; I10 Essential (primary) hypertension; F41.9 Anxiety disorder, unspecified; F32.9 Major depressive disorder, single episode, unspecified; Z87.891 Personal history of nicotine dependence; Z90.49 Acquired absence of other specified parts of digestive tract; Z98.51 Tubal ligation status; Z98.890 Other specified postprocedural states; Z79.84 Long term (current) use of oral hypoglycemic drugs; Z79.899 Other long term (current) drug therapy; Z88.1 Allergy status to other antibiotic agents; Z88.5 Allergy status to narcotic agent
CPT/HCPCS: 36415; 80053; 81001; 82150; 83690; 83735; 84100; 84443; 85025; 96360; 96361; 99284

== ENCOUNTER → 2018-06-20 | Outpatient (CLI) | payer MEDICARE, OTHER | END | disposition home or self-care (01) | LOC: LABWHC1 13:12 | PROVIDERS: ATTEND Internal Medicine | DX: E83.52 Hypercalcemia (principal); N18.9 Chronic kidney disease, unspecified | CPT/HCPCS: 36415; 82330; 83970 ==

== ENCOUNTER → 2018-07-15 | Outpatient (CLI) | payer MEDICARE, OTHER ==
[2018-07-15 15:54] LABS: Ionized Calcium 5.8 mg/dL (4.5-5.3)
[2018-07-15 20:03] LABS: Valproic Acid (Depakene) 46.8 ug/mL (50.0-100.0)
[2018-07-15 21:48] LABS: Anion Gap 8.5 mmol/L (4.00-12.00); Carbon Dioxide 28.5 mmol/L (21.6-31.8); Potassium 4.3 mmol/L (3.5-5.5)
[2018-07-15 21:56] LABS: T4, Free (Free Thyroxine) 1.5 ng/dL (0.80-1.80)
== END | disposition home or self-care (01) ==
LOC: LABWHC1 15:04
PROVIDERS: ATTEND Internal Medicine
DX: E83.52 Hypercalcemia (principal); N28.9 Disorder of kidney and ureter, unspecified; R53.83 Other fatigue; R56.9 Unspecified convulsions
CPT/HCPCS: 36415; 80051; 80164; 80177; 82330; 82565; 83970; 84439; 84443; 84481; 84520

== ENCOUNTER → 2018-07-22 | Outpatient (CLI) | payer MEDICARE, OTHER ==
--- NOTE | 2018-07-23 08:23 | US ---
EXAMINATION TYPE: US thyroid st tissue head/neck DATE OF EXAM: 07/22/2018 COMPARISON: NONE CLINICAL HISTORY: E83.52 Hypercalcemia. Elevated calcium levels GLAND SIZE: Right Lobe: 4.8 x 1.6 x 1.4 cm Overall Parenchyma: homogenous Left Lobe: 3.7 x 1.7 x 1.2 cm Overall Parenchyma: homogeneous Isthmus Thickness: 0.3 cm NODULES RIGHT: # of nodules measured on right: 0 LEFT: # of nodules measured on left: 0 ISTHMUS: # of nodules measured in the isthmus: 0 Bilateral neck scanned, no evidence of lymphadenopathy. No abnormalities visualized within parathyroi d area as seen. IMPRESSION: 1. Normal thyroid ultrasound. 2. No abnormal parathyroid nodules identified. Consider consider SPECT nuclear medicine parathyroid s can.
== END | disposition home or self-care (01) ==
LOC: RADUSWWP 16:03
PROVIDERS: ATTEND Internal Medicine
DX: E83.52 Hypercalcemia (principal); Z88.5 Allergy status to narcotic agent; Z88.6 Allergy status to analgesic agent; Z88.8 Allergy status to other drugs, medicaments and biological substances
CPT/HCPCS: 76536

== ENCOUNTER → 2018-12-16 | Outpatient (CLI) | payer MEDICARE, OTHER ==
--- NOTE | 2018-12-16 15:57 | MR ---
EXAMINATION TYPE: MR lumbar spine wo con DATE OF EXAM: 12/16/2018 COMPARISON: Plain film 08/28/2013 HISTORY: Low back pain TECHNIQUE: Multiplanar, multisequence images of the lumbar spine were acquired. L1-L2: Normal disc appearance without desiccation. No herniation, protrusion or disc bulging. No ca nal stenosis is present. Foramina are patent bilaterally. L2-L3: Posterior broad-based disc bulge causes mild anterior mass effect on the thecal sac. There is trefoil appearance of the thecal sac due to hypertrophic changes at the facets. No significant centra l stenosis or foraminal encroachment. L3-L4: Posterior broad-based disc bulge causes mild anterior mass effect on the thecal sac. Extension laterally endplate disc complex causes some mild foraminal encroachment on the right. Facet arthropa thy with hypertrophic change of the ligamentum flavum causes posterior lateral mass effect on the the osmel sac. No significant central stenosis. L4-L5: Facet arthropathy with hypertrophic change of the ligamentum flavum causes posterior lateral m ass effect on the thecal sac, circumferential extension endplate disc complex causes mild anterior ma ss effect on the thecal sac and extends to cause some right-sided foraminal encroachment. No signific ant central stenosis. L5-S1: There is some facet arthropathy change. No evident spinal stenosis. No foraminal encroachment or disc herniation. Lumbar segments are intact. No paraspinal masses are identified. Conus medullaris has a normal appe arance. There is multilevel spondylosis. Endplate discogenic marrow signal changes are present and th ere is a probable hemangioma in the L3 and L4 vertebral body. Loss of disc height and signal greatest at L3-4, L2-3 compatible with disc desiccation and degenerative disc disease. There is a spinal curv ature. Possible cortical cyst upper pole right kidney. IMPRESSION: Degenerative disc disease and facet arthropathy as described.
--- NOTE | 2018-12-16 17:02 | MR ---
EXAMINATION TYPE: MR cervical spine wo/w con DATE OF EXAM: 12/16/2018 COMPARISON: Prior cervical spine MRI dated 05/25/2010 HISTORY: Neck pain TECHNIQUE: Multiplanar, multisequence images of the cervical spine were acquired utilizing 7.5 mL intravenous Ga davist gadolinium contrast. C2-C3: No evidence for degenerative disc disease. No disc bulge/herniation or protrusion. No Canal stenosis. Foramina are patent bilaterally. C3-C4: No evidence for degenerative disc disease. No disc bulge/herniation or protrusion. No Canal stenosis. Foramina are patent bilaterally. C4-C5: No evidence for degenerative disc disease. No disc bulge/herniation or protrusion. No Canal stenosis. Foramina are patent bilaterally. C5-C6: No evidence for degenerative disc disease. No disc bulge/herniation or protrusion. No Canal stenosis. Foramina are patent bilaterally. C6-C7: No evidence for degenerative disc disease. No disc bulge/herniation or protrusion. No Canal stenosis. Foramina are patent bilaterally. C7-T1: No evidence for degenerative disc disease. No disc bulge/herniation or protrusion. No Canal stenosis. Foramina are patent bilaterally. Patient is post anterior cervical fusion and discectomy at 4 through C6, there is susceptibility patel fact present. Cervical segments are intact. There is near normal alignment. Mild kyphosis centered at T5-6 Cervical spinal cord is of normal signal. Craniovertebral junction relationships are within normal limits. Possible thoracic scoliosis. No abnormal enhancement following contrast administratio n. Hemangioma noted superior endplate of T2 and T3 also shows a small hemangioma. There is a partiall y empty sella as on prior. IMPRESSION: Postop changes. No evident spinal stenosis or significant foraminal encroachment. Probable thoracic s coliosis.
== END | disposition home or self-care (01) ==
LOC: RADMRIMAIN 14:34
PROVIDERS: ATTEND Physician Assistant
DX: M51.36 Other intervertebral disc degeneration, lumbar region (principal); M46.97 Unspecified inflammatory spondylopathy, lumbosacral region; Z98.1 Arthrodesis status; M54.2 Cervicalgia
CPT/HCPCS: 82565; 84520; 72148; 72156; A9585

== ENCOUNTER 2019-04-03 06:30 | Day surgery (SDC) | payer MEDICARE, OTHER ==
[2019-04-01 16:16] VITALS: BMI 34.7
--- NOTE | 2019-04-02 22:37 | P.GSHP ---
History of Present Illness H&P Date: 04/02/19 CHIEF COMPLAINT: GERD HISTORY OF PRESENT ILLNESS: The patient is a 68-year-old female who presents reports gastroesophageal reflux disease. Upper endoscopy was offered for further evaluation and management. PAST MEDICAL HISTORY: Please see list. PAST SURGICAL HISTORY: Please see list. MEDICATIONS: Please see list. ALLERGIES: Please see list. SOCIAL HISTORY: No illicit drug use FAMILY HISTORY: No reports of Crohn disease or ulcerative colitis. REVIEW OF ORGAN SYSTEMS: CONSTITUTIONAL: No reports of fevers or chills. GI: Denies any blood in stools or constipation. PHYSICAL EXAM: VITAL SIGNS: Stable GENERAL: Well-developed and pleasant in no acute distress. HEENT: No scleral icterus. Extraocular movements grossly intact. Moist buccal mucosa. NECK: Supple without lymphadenopathy. CHEST: Unlabored respirations. Equal bilateral excursions. CARDIOVASCULAR: Regular rate and rhythm. Distal 2+ pulses. ABDOMEN: Soft, nondistended. MUSCULOSKELETAL: No clubbing, cyanosis, or edema. ASSESSMENT: 1. Gastroesophageal reflux disease PLAN: 1. Recommend proceeding with an upper endoscopy Past Medical History Past Medical History: Diabetes Mellitus, Deep Vein Thrombosis (DVT), GERD/Reflux, Hyperlipidemia, Hypertension, Pulmonary Embolus (PE), Seizure Disorder Additional Past Medical History / Comment(s): HX MIGRAINES, HIATAL HERNIA. NEW ONSET SEIZURE 03/2018, NONE SINCE. C/O PAIN NEAR PANCREAS. History of Any Multi-Drug Resistant Organisms: None Reported Past Surgical History: Cholecystectomy, Orthopedic Surgery, Tubal Ligation Additional Past Surgical History / Comment(s): NECK SURGERY, REPAIR FX RT LEG SURGERY 1997, EGD, COLONOSCOPY. Past Anesthesia/Blood Transfusion Reactions: No Reported Reaction Smoking Status: Former smoker - Past Family History Mother Family Medical History: No Reported History Medications and Allergies Home Medications Medication Instructions Recorded Confirmed Type Simvastatin [Zocor] 40 mg PO DAILY 07/23/14 04/01/19 History Divalproex Sodium 250 mg PO BID 04/13/18 04/01/19 History Metoclopramide HCl [Reglan] 5 mg PO TID 04/13/18 04/01/19 History Propranolol HCl [Inderal LA] 60 mg PO DAILY 04/13/18 04/01/19 History sitaGLIPtin [Januvia] 100 mg PO DAILY 04/13/18 04/01/19 History Aspirin EC [Ecotrin Low Dose] 81 mg PO DAILY #30 tablet. 04/16/18 04/01/19 Rx Folic Acid 1 mg PO DAILY #30 tablet 04/16/18 04/01/19 Rx Magnesium Oxide [Mag-Ox] 400 mg PO BID #60 tab 04/16/18 04/01/19 Rx Thiamine [Vitamin B-1] 100 mg PO DAILY #30 tablet 04/16/18 04/01/19 Rx levETIRAcetam [Keppra] 750 mg PO Q12HR #60 tab 04/16/18 04/01/19 Rx Desvenlafaxine Succinate [Pristiq] 50 mg PO DAILY 04/01/19 04/01/19 History Insulin Degludec [Tresiba] 40 units SQ AC-[id number] 04/01/19 04/01/19 History Losartan Potassium [Cozaar] 50 mg PO DAILY 04/01/19 04/01/19 History Ranitidine HCl [Zantac] 150 mg PO BID 04/01/19 04/01/19 History Therems (Supplement) 1 tab PO DAILY 04/01/19 04/01/19 History busPIRone HCL [Buspar] 15 mg PO BID 04/01/19 04/01/19 History Allergies Allergy/AdvReac Type Severity Reaction Status Date / Time tramadol [From [facility]] Allergy Unknown Verified 04/01/19 15:26 codeine AdvReac NEO Verified 04/01/19 15:26 doxycycline AdvReac NEO Verified 04/01/19 15:26
[~2019-04-03 06:30] MED LIST: LACTATED RINGERS 1,000 ML IV SCH; LIDOCAINE 1% 20 ML VIAL (10MG/ML) FOR IV START INTRADERMA PRN
[2019-04-03] MEDS ORDERED: LACTATED RINGERS 1,000 ML IV ONE (06:34)
[2019-04-03 06:47] VITALS: TEMP 97.5
[2019-04-03 06:55] LABS: Glucose,Whole Blood 110 mg/dL (75-99)
[2019-04-03] MEDS ORDERED: PROPOFOL 10 MG/ML 20 ML VIAL IV ONE (06:59)
[2019-04-03] MEDS ORDERED: LIDOCAINE 1% INJ 10MG/ML (20 ML MDV) ONE (06:59)
--- NOTE | 2019-04-03 07:26 | P.PCN ---
Date of Procedure: 04/03/19 Description of Procedure: PREOPERATIVE DIAGNOSIS: Gastroesophageal reflux disease. Morbid obesity. History of gastric ulcers Epigastric abdominal pain POSTOPERATIVE DIAGNOSIS: Morbid obesity. Gastroesophageal reflux disease. Epigastric abdominal pain Diaphragmatic hiatal hernia Large gastric antrum ulcer OPERATION: Esophagogastroduodenoscopy with biopsies along antrum/ulcer SURGEON: Mary Kate Coulter MD ANESTHESIA: MAC. INDICATIONS: The patient is a 68-year-old female who presents with a history of reflux disease. Benefits and risks of the procedure were described. Informed consent was obtained. DESCRIPTION: The patient was brought into the endoscopy suite and laid in the left lateral decubitus position. An Olympus gastroscope was passed along the posterior oropharynx down to the distal esophagus where the squamocolumnar junction was encountered at 36 cm from the incisors. The stomach was entered and no bile reflux was found. Additional findings are listed below. Biopsies with cold forceps were obtained of the antrum. The first through third portion of the duodenum was examined and unremarkable. Retroflexion of the scope confirmed Hill grade 4 lower esophageal valve. The squamocolumnar junction demonstrated LA grade A erosive esophagitis. The stomach was desufflated. The patient tolerated the procedure well. FINDINGS: Squamocolumnar junction 36 cm from the incisors. Diaphragmatic hiatus at 37 cm. Hiatal hernia, 1 cm Hill grade 4 lower esophageal valve. LA grade A erosive esophagitis. No active duodenitis. Large gastric antrum ulcer, 1 cm with significant depth without active bleeding RECOMMENDATIONS: 1. Repeat upper endoscopy in 4 weeks 2. Discontinue all NSAIDs, aspirin, Motrin products for high risk of gastric ulcer and bleeding/perforation 3. Omeprazole including Carafate therapy for 8 weeks Plan - Discharge Summary Discharge Rx Participant: No New Discharge Prescriptions: New Sucralfate [Carafate] 1 gm PO BID #60 tablet Omeprazole 40 mg PO DAILY #90 capsule. Continue Simvastatin [Zocor] 40 mg PO DAILY Propranolol HCl [Inderal LA] 60 mg PO DAILY sitaGLIPtin [Januvia] 100 mg PO DAILY Metoclopramide HCl [Reglan] 5 mg PO TID Divalproex Sodium 250 mg PO BID levETIRAcetam [Keppra] 750 mg PO Q12HR #60 tab Magnesium Oxide [Mag-Ox] 400 mg PO BID #60 tab Folic Acid 1 mg PO DAILY #30 tablet Thiamine [Vitamin B-1] 100 mg PO DAILY #30 tablet busPIRone HCL [Buspar] 15 mg PO BID Desvenlafaxine Succinate [Pristiq] 50 mg PO DAILY Insulin Degludec [Tresiba] 40 units SQ AC-BRKFST Losartan Potassium [Cozaar] 50 mg PO DAILY Discontinued Aspirin EC [Ecotrin Low Dose] 81 mg PO DAILY #30 tablet.dr Koehler (Supplement) 1 tab PO DAILY Ranitidine HCl [Zantac] 150 mg PO BID Discharge Medication List Simvastatin [Zocor] 40 mg PO DAILY 07/23/14 [History] Divalproex Sodium 250 mg PO BID 04/13/18 [History] Metoclopramide HCl [Reglan] 5 mg PO TID 04/13/18 [History] Propranolol HCl [Inderal LA] 60 mg PO DAILY 04/13/18 [History] sitaGLIPtin [Januvia] 100 mg PO DAILY 04/13/18 [History] Folic Acid 1 mg PO DAILY #30 tablet 04/16/18 [Rx] Magnesium Oxide [Mag-Ox] 400 mg PO BID #60 tab 04/16/18 [Rx] Thiamine [Vitamin B-1] 100 mg PO DAILY #30 tablet 04/16/18 [Rx] levETIRAcetam [Keppra] 750 mg PO Q12HR #60 tab 04/16/18 [Rx] Desvenlafaxine Succinate [Pristiq] 50 mg PO DAILY 04/01/19 [History] Insulin Degludec [Tresiba] 40 units SQ AC-BRKFST 04/01/19 [History] Losartan Potassium [Cozaar] 50 mg PO DAILY 04/01/19 [History] busPIRone HCL [Buspar] 15 mg PO BID 04/01/19 [History] Omeprazole 40 mg PO DAILY #90 capsule. 04/03/19 [Rx] Sucralfate [Carafate] 1 gm PO BID #60 tablet 04/03/19 [Rx] Follow up Appointment(s)/Referral(s): Mary Kate Coulter MD [STAFF PHYSICIAN] - 04/22/19 Patient Instructions/Handouts: Peptic Ulcer (DC), Hiatal Hernia (DC) Activity/Diet/Wound Care/Special Instructions: Avoid ibuprofen, Aleve, aspirin, Motrin, naproxen for large gastric ulcer Discharge Disposition: HOME SELF-CARE
[2019-04-03 07:31] VITALS: RESP 18
[2019-04-03 08:08] VITALS: PULSE 85
[2019-04-03 08:23] LABS: Glucose,Whole Blood 103 mg/dL (75-99)
[2019-04-03 08:25] VITALS: BP 117/59
== END 2019-04-03 08:44 | disposition home or self-care (01) ==
LOC: ORWHC2ENDO 06:30
PROVIDERS: ATTEND Surgery Plastic and Reconstructive Surgery
DX: K21.0 Gastro-esophageal reflux disease with esophagitis (principal); K29.50 Unspecified chronic gastritis without bleeding; K25.9 Gastric ulcer, unspecified as acute or chronic, without hemorrhage or perforation; K44.9 Diaphragmatic hernia without obstruction or gangrene; I10 Essential (primary) hypertension; E78.5 Hyperlipidemia, unspecified; E11.9 Type 2 diabetes mellitus without complications; G40.909 Epilepsy, unspecified, not intractable, without status epilepticus; G43.909 Migraine, unspecified, not intractable, without status migrainosus; F41.9 Anxiety disorder, unspecified; F32.9 Major depressive disorder, single episode, unspecified; E66.01 Morbid (severe) obesity due to excess calories; Z68.34 Body mass index [BMI] 34.0-34.9, adult; Z87.891 Personal history of nicotine dependence; Z86.711 Personal history of pulmonary embolism; Z86.718 Personal history of other venous thrombosis and embolism; Z90.49 Acquired absence of other specified parts of digestive tract; Z98.51 Tubal ligation status; Z79.82 Long term (current) use of aspirin; Z79.4 Long term (current) use of insulin; Z79.899 Other long term (current) drug therapy; Z88.1 Allergy status to other antibiotic agents; Z88.5 Allergy status to narcotic agent
CPT/HCPCS: 43239; 88305; J2001; J2704

== ENCOUNTER 2019-06-11 07:53 | Day surgery (SDC) | payer MEDICARE, OTHER ==
[2019-06-09 13:56] VITALS: BMI 34.7
[2019-06-11 08:14] VITALS: RESP 16; TEMP 98.7
[2019-06-11] MEDS ORDERED: PROPOFOL 10 MG/ML 20 ML VIAL IV ONE (08:30)
[2019-06-11] MEDS ORDERED: LIDOCAINE 1% INJ 10MG/ML (20 ML MDV) ONE (08:30)
--- NOTE | 2019-06-11 08:30 | P.GSHP ---
History of Present Illness H&P Date: 06/11/19 CHIEF COMPLAINT: Gastric ulcers HISTORY OF PRESENT ILLNESS: The patient is a 68-year-old female who presents reports chronic gastric ulcers. Upper endoscopy was offered for further evaluation and management. PAST MEDICAL HISTORY: Please see list. PAST SURGICAL HISTORY: Please see list. MEDICATIONS: Please see list. ALLERGIES: Please see list. SOCIAL HISTORY: No illicit drug use FAMILY HISTORY: No reports of Crohn disease or ulcerative colitis. REVIEW OF ORGAN SYSTEMS: CONSTITUTIONAL: No reports of fevers or chills. GI: Denies any blood in stools or constipation. PHYSICAL EXAM: VITAL SIGNS: Stable GENERAL: Well-developed and pleasant in no acute distress. HEENT: No scleral icterus. Extraocular movements grossly intact. Moist buccal mucosa. NECK: Supple without lymphadenopathy. CHEST: Unlabored respirations. Equal bilateral excursions. CARDIOVASCULAR: Regular rate and rhythm. Distal 2+ pulses. ABDOMEN: Soft, nondistended. MUSCULOSKELETAL: No clubbing, cyanosis, or edema. ASSESSMENT: 1. Gastric ulcers PLAN: 1. Recommend proceeding with an upper endoscopy Past Medical History Past Medical History: Diabetes Mellitus, Deep Vein Thrombosis (DVT), GERD/Reflux, Hyperlipidemia, Hypertension, Pulmonary Embolus (PE), Seizure Disorder Additional Past Medical History / Comment(s): gastric ulcer,intermittent abdominal pain,HX MIGRAINES, HIATAL HERNIA. NEW O[place]ET SEIZURE 03/2018, NONE SINCE. History of Any Multi-Drug Resistant Organisms: None Reported Past Surgical History: Cholecystectomy, Orthopedic Surgery, Tubal Ligation Additional Past Surgical History / Comment(s): NECK SURGERY, REPAIR FX RT LEG SURGERY 1997, EGD, COLONOSCOPY. Past Anesthesia/Blood Transfusion Reactions: No Reported Reaction Smoking Status: Former smoker - Past Family History Mother Family Medical History: No Reported History Medications and Allergies Home Medications Medication Instructions Recorded Confirmed Type Simvastatin [Zocor] 40 mg PO DAILY 07/23/14 06/11/19 History Divalproex Sodium 250 mg PO BID 04/13/18 06/11/19 History Metoclopramide HCl [Reglan] 5 mg PO TID 04/13/18 06/11/19 History Propranolol HCl [Inderal LA] 60 mg PO QAM 04/13/18 06/11/19 History sitaGLIPtin [Januvia] 100 mg PO DAILY 04/13/18 06/11/19 History Folic Acid 1 mg PO DAILY #30 tablet 04/16/18 06/11/19 Rx Magnesium Oxide [Mag-Ox] 400 mg PO BID #60 tab 04/16/18 06/11/19 Rx Thiamine [Vitamin B-1] 100 mg PO DAILY #30 tablet 04/16/18 06/11/19 Rx levETIRAcetam [Keppra] 750 mg PO Q12HR #60 tab 04/16/18 06/11/19 Rx Desvenlafaxine Succinate [Pristiq] 50 mg PO QAM 04/01/19 06/11/19 History Insulin Degludec [Tresiba] 40 units SQ AC-BRKFST 04/01/19 06/11/19 History Losartan Potassium [Cozaar] 50 mg PO QAM 04/01/19 06/11/19 History busPIRone HCL [Buspar] 15 mg PO BID 04/01/19 06/11/19 History Omeprazole 40 mg PO QAM 06/09/19 06/11/19 History Ranitidine HCl 150 mg PO BID 06/09/19 06/11/19 History Therems 1 tab PO DAILY 06/09/19 06/11/19 History Allergies Allergy/AdvReac Type Severity Reaction Status Date / Time tramadol [From Ultram] Allergy shakiness Verified 06/11/19 08:13 codeine AdvReac shakiness Verified 06/11/19 08:13 doxycycline AdvReac shakiness Verified 06/11/19 08:13 Surgical - Exam Vital Signs Temp Pulse Resp BP Pulse Ox 98.7 F 84 16 125/58 93 L 06/11/19 08:02 06/11/19 08:02 06/11/19 08:02 06/11/19 08:02 06/11/19 08:02
[2019-06-11 08:39] LABS: Glucose,Whole Blood 83 mg/dL (75-99)
--- NOTE | 2019-06-11 08:49 | P.PCN ---
Date of Procedure: 06/11/19 Description of Procedure: PREOPERATIVE DIAGNOSIS: Gastroesophageal reflux disease. Morbid obesity. History of gastric ulcers Epigastric abdominal pain POSTOPERATIVE DIAGNOSIS: Morbid obesity. Gastroesophageal reflux disease. Epigastric abdominal pain Diaphragmatic hiatal hernia Large gastric antrum ulcer, resolving OPERATION: Esophagogastroduodenoscopy with biopsies along antrum/ulcer SURGEON: Mary Kate Coulter MD ANESTHESIA: MAC. INDICATIONS: The patient is a 68-year-old female who presents with a history of gastric ulcers. She has persistent epigastric abdominal pain including recent history of gastric ulcers. Benefits and risks of the procedure were described. Informed consent was obtained. DESCRIPTION: The patient was brought into the endoscopy suite and laid in the left lateral decubitus position. An Olympus gastroscope was passed along the posterior oropharynx down to the distal esophagus where the squamocolumnar junction was encountered at 36 cm from the incisors. The stomach was entered and no bile reflux was found. Additional findings are listed below. Biopsies with cold forceps were obtained of the antrum. The first through third portion of the duodenum was examined and unremarkable. Retroflexion of the scope confirmed Hill grade 4 lower esophageal valve. The squamocolumnar junction demonstrated LA grade A erosive esophagitis. The stomach was desufflated. The patient tolerated the procedure well. FINDINGS: Squamocolumnar junction 36 cm from the incisors. Diaphragmatic hiatus at 37 cm. Hiatal hernia, 1 cm Hill grade 4 lower esophageal valve. LA grade A erosive esophagitis. No active duodenitis. Large gastric antrum ulcer, resolving RECOMMENDATIONS: 1. Continue Carafate and omeprazole for 4 weeks Plan - Discharge Summary Discharge Rx Participant: No New Discharge Prescriptions: New Sucralfate [Carafate] 1 gm PO BID #60 tablet No Action Simvastatin [Zocor] 40 mg PO DAILY Propranolol HCl [Inderal LA] 60 mg PO QAM sitaGLIPtin [Januvia] 100 mg PO DAILY Metoclopramide HCl [Reglan] 5 mg PO TID Divalproex Sodium 250 mg PO BID levETIRAcetam [Keppra] 750 mg PO Q12HR #60 tab Magnesium Oxide [Mag-Ox] 400 mg PO BID #60 tab Folic Acid 1 mg PO DAILY #30 tablet Thiamine [Vitamin B-1] 100 mg PO DAILY #30 tablet busPIRone HCL [Buspar] 15 mg PO BID Desvenlafaxine Succinate [Pristiq] 50 mg PO QAM Insulin Degludec [Tresiba] 40 units SQ AC-BRKFST Losartan Potassium [Cozaar] 50 mg PO QAM Therems 1 tab PO DAILY Ranitidine HCl 150 mg PO BID Omeprazole 40 mg PO QAM Discharge Medication List Simvastatin [Zocor] 40 mg PO DAILY 07/23/14 [History] Divalproex Sodium 250 mg PO BID 04/13/18 [History] Metoclopramide HCl [Reglan] 5 mg PO TID 04/13/18 [History] Propranolol HCl [Inderal LA] 60 mg PO QAM 04/13/18 [History] sitaGLIPtin [Januvia] 100 mg PO DAILY 04/13/18 [History] Folic Acid 1 mg PO DAILY #30 tablet 04/16/18 [Rx] Magnesium Oxide [Mag-Ox] 400 mg PO BID #60 tab 04/16/18 [Rx] Thiamine [Vitamin B-1] 100 mg PO DAILY #30 tablet 04/16/18 [Rx] levETIRAcetam [Keppra] 750 mg PO Q12HR #60 tab 04/16/18 [Rx] Desvenlafaxine Succinate [Pristiq] 50 mg PO QAM 04/01/19 [History] Insulin Degludec [Tresiba] 40 units SQ AC-BRKFST 04/01/19 [History] Losartan Potassium [Cozaar] 50 mg PO QAM 04/01/19 [History] busPIRone HCL [Buspar] 15 mg PO BID 04/01/19 [History] Omeprazole 40 mg PO QAM 06/09/19 [History] Ranitidine HCl 150 mg PO BID 06/09/19 [History] Therems 1 tab PO DAILY 06/09/19 [History] Sucralfate [Carafate] 1 gm PO BID #60 tablet 06/11/19 [Rx] Follow up Appointment(s)/Referral(s): Mary Kate Coulter MD [STAFF PHYSICIAN] - 06/24/19 Patient Instructions/Handouts: Peptic Ulcer (DC), Diet for Stomach Ulcers and Gastritis (GEN) Discharge Disposition: HOME SELF-CARE
[2019-06-11 09:05] VITALS: BP 109/53; PULSE 80
== END 2019-06-11 09:24 | disposition home or self-care (01) ==
LOC: ORWHC2ENDO 07:53
PROVIDERS: ATTEND Surgery Plastic and Reconstructive Surgery
DX: K25.9 Gastric ulcer, unspecified as acute or chronic, without hemorrhage or perforation (principal); K29.50 Unspecified chronic gastritis without bleeding; K21.0 Gastro-esophageal reflux disease with esophagitis; E11.9 Type 2 diabetes mellitus without complications; E66.01 Morbid (severe) obesity due to excess calories; Z68.34 Body mass index [BMI] 34.0-34.9, adult; E78.5 Hyperlipidemia, unspecified; G40.909 Epilepsy, unspecified, not intractable, without status epilepticus; I10 Essential (primary) hypertension; K21.9 Gastro-esophageal reflux disease without esophagitis; K44.9 Diaphragmatic hernia without obstruction or gangrene; Z79.4 Long term (current) use of insulin; Z79.899 Other long term (current) drug therapy; Z86.711 Personal history of pulmonary embolism; Z86.718 Personal history of other venous thrombosis and embolism; Z87.11 Personal history of peptic ulcer disease; Z87.891 Personal history of nicotine dependence; Z88.1 Allergy status to other antibiotic agents; Z88.5 Allergy status to narcotic agent; Z88.8 Allergy status to other drugs, medicaments and biological substances; Z90.49 Acquired absence of other specified parts of digestive tract; Z98.51 Tubal ligation status; F32.9 Major depressive disorder, single episode, unspecified
CPT/HCPCS: 88305; 43239; J2001; J2704

== ENCOUNTER → 2019-08-07 | Outpatient (CLI) | payer MEDICARE, OTHER ==
[2019-08-07 14:26] LABS: Potassium 4.7 mmol/L (3.5-5.1)
[2019-08-07 14:30] LABS: Basophils # (A) 0.1 k/uL (0-0.2); Basophils % (A) 1 %; Eosinophils # (A) 0.3 k/uL (0-0.7); Eosinophils % (A) 3 %; HCT 38.8 % (34.0-46.0); HGB 12.7 gm/dL (11.4-16.0); Lymphocytes # (A) 2.9 k/uL (1.0-4.8); Lymphocytes % (A) 32 %; MCH 32.6 pg (25.0-35.0); MCHC 32.7 g/dL (31.0-37.0); MCV 99.6 fL (80.0-100.0); Mean Platelet Volume 6.9; Monocytes # (A) 0.5 k/uL (0-1.0); Monocytes % (A) 5 %; Neutrophils % (A) 57 %; Platelet Count 208 k/uL (150-450); RDW 13.1 % (11.5-15.5); WBC 8.9 k/uL (3.8-10.6)
== END | disposition home or self-care (01) ==
LOC: LABPAT 13:23
PROVIDERS: ATTEND Anesthesiology
DX: Z01.812 Encounter for preprocedural laboratory examination (principal); Z01.818 Encounter for other preprocedural examination
CPT/HCPCS: 36415; 82565; 84132; 84520; 85025; 93005

== ENCOUNTER → 2019-08-08 | Day surgery (SDC) | payer MEDICARE, OTHER ==
[2019-08-06 15:30] VITALS: BMI 36.2
[~2019-08-08] MED LIST changes: +DEXAMETHASONE SOD PHOSPHATE 10 MG/ML 1 ML VIAL IV ONE; +GLYCOPYRROLATE 0.2 MG/ML 2 ML VIAL ONE; +HEPARIN SODIUM,PORCINE 5,000 UNIT/ML 1 ML VIAL SQ SCH; +HYDROmorphone 0.5 MG/0.5 ML SYRINGE IVP PRN; +LACTATED RINGERS 1,000 ML IV ONE; +LIDOCAINE 1% INJ 10MG/ML (20 ML MDV) ONE; +LIDOCAINE 1%-EPI 1:100,000 20 ML VIAL SQ ONE; +MIDAZOLAM 2 MG/2 ML VIAL ONE; +NALOXONE 0.4 MG/ML 1 ML VIAL ONE; +NEOSTIGMINE 1 MG/ML 10 ML VIAL ONE; +ONDANSETRON 4 MG/2 ML VIAL IVP ONE; +PROPOFOL 10 MG/ML 20 ML VIAL IV ONE; +Pre Op ABX Message 1 EACH MISC MISCELLANE ONE; +ROCURONIUM BROMIDE 10 MG/ML 10 ML VIAL IV ONE; +SUCCINYLCHOLINE CHLORIDE 100 MG/5 ML SYR IV ONE; +ePHEDrine SULFATE/0.9% NACL/PF 50 MG/5 ML SYRINGE IV ONE; +fentaNYL (PF) 50 MCG/ML 2 ML AMP IV PRN; +fentaNYL (PF) 50 MCG/ML 2 ML AMP ONE
[2019-08-08 11:53] LABS: Glucose,Whole Blood 102 mg/dL (75-99)
[2019-08-08 14:58] VITALS: TEMP 97.2
[2019-08-08 15:01] LABS: Glucose,Whole Blood 146 mg/dL (75-99)
[2019-08-08 15:03] VITALS: RESP 16
--- NOTE | 2019-08-08 15:06 | P.GSHP ---
History of Present Illness H&P Date: 08/08/19 CHIEF COMPLAINT: History of intra-abdominal adhesions and right upper quadrant pain. HISTORY OF PRESENT ILLNESS: The patient is a 68-year-old female who presents with history of intra-abdominal adhesions from prior surgeries including increasing right upper quadrant abdominal pain. She now presents for diagnostic laparoscopy including lysis of adhesions. PAST MEDICAL HISTORY: Please see list. PAST SURGICAL HISTORY: Please see list. MEDICATIONS: Please see list. ALLERGIES: Please see list. SOCIAL HISTORY: Please see list. FAMILY HISTORY: No reports of Crohn disease or ulcerative colitis. REVIEW OF ORGAN SYSTEMS: CONSTITUTIONAL: No reports of fevers or chills. PHYSICAL EXAM: VITAL SIGNS: Stable GENERAL: Well-developed pleasant and in no acute distress. HEENT: No scleral icterus. Extraocular movements grossly intact. Moist buccal mucosa. NECK: Supple without lymphadenopathy. CHEST: Unlabored respirations. Equal bilateral excursions. CARDIOVASCULAR: Regular rate and rhythm. Distal 2+ pulses. ABDOMEN: Soft, tender along right upper quadrant. No peritonitis. MUSCULOSKELETAL: No clubbing, cyanosis, or edema. ASSESSMENT: 1. Right upper quadrant abdominal pain. 2. History of abdominal surgeries. 3. Intra-abdominal adhesions. PLAN: 1. Robotic lysis of adhesions were described in detail including risk of injury to the intestine, need for further surgery, and open technique. 2. DVT prophylaxis. 3. Antibiotic prophylaxis. Past Medical History Past Medical History: Chest Pain / Angina, Diabetes Mellitus, Deep Vein Thrombosis (DVT), GERD/Reflux, Hyperlipidemia, Hypertension, Pulmonary Embolus (PE), Seizure Disorder Additional Past Medical History / Comment(s): gastric ulcer,intermittent abdominal pain, HX MIGRAINES, HIATAL HERNIA. SEIZURE 03/2018- NONE SINCE. heart murmer, "pancreas is acting up", hx anemia History of Any Multi-Drug Resistant Organisms: None Reported Past Surgical History: Cholecystectomy, Orthopedic Surgery, Tubal Ligation Additional Past Surgical History / Comment(s): NECK SURGERY, REPAIR FX RT LEG SURGERY 1997, EGD, COLONOSCOPY. arturo cataracts Past Anesthesia/Blood Transfusion Reactions: No Reported Reaction Smoking Status: Former smoker - Past Family History Mother Family Medical History: No Reported History Medications and Allergies Home Medications Medication Instructions Recorded Confirmed Type Simvastatin [Zocor] 40 mg PO DAILY 07/23/14 08/08/19 History Divalproex Sodium 250 mg PO BID 04/13/18 08/08/19 History Propranolol HCl [Inderal LA] 60 mg PO QAM 04/13/18 08/08/19 History sitaGLIPtin [Januvia] 100 mg PO DAILY 04/13/18 08/08/19 History Folic Acid 1 mg PO DAILY #30 tablet 04/16/18 08/08/19 Rx Magnesium Oxide [Mag-Ox] 400 mg PO BID #60 tab 04/16/18 08/08/19 Rx Thiamine [Vitamin B-1] 100 mg PO DAILY #30 tablet 04/16/18 08/08/19 Rx levETIRAcetam [Keppra] 750 mg PO Q12HR #60 tab 04/16/18 08/08/19 Rx Insulin Degludec [Tresiba] 40 units SQ AC-BRKFST 04/01/19 08/08/19 History Losartan Potassium [Cozaar] 50 mg PO QAM 04/01/19 08/08/19 History busPIRone HCL [Buspar] 15 mg PO BID 04/01/19 08/08/19 History Omeprazole 40 mg PO QAM 06/09/19 08/08/19 History Therems 1 tab PO DAILY 06/09/19 08/08/19 History Desvenlafaxine [Pristiq ER] 100 mg PO DAILY 08/06/19 08/08/19 History Acetaminophen Tab [Tylenol Tab] 500 mg PO Q6H PRN #30 tablet 08/08/19 Rx Allergies Allergy/AdvReac Type Severity Reaction Status Date / Time tramadol [From Ultram] Allergy shakiness Verified 08/08/19 11:40 codeine AdvReac shakiness Verified 08/08/19 11:40 doxycycline AdvReac shakiness Verified 08/08/19 11:40 Surgical - Exam Vital Signs Temp Pulse Resp BP Pulse Ox 97.1 F L 80 16 126/56 93 L 08/08/19 11:35 08/08/19 11:35 08/08/19 11:35 08/08/19 11:35 08/08/19 11:35 Results - Labs Abnormal Lab Results - Last 24 Hours (Table) 08/08/19 08/08/19 Range/Units 11:53 14:59 POC Glucose (mg/dL) 102 H 146 H (75-99) mg/dL
--- NOTE | 2019-08-08 15:15 | P.OP ---
Date of Procedure: 08/08/19 Description of Procedure: SURGEON: MARY KATE COULTER MD PREOPERATIVE DIAGNOSES: 1. Right lower quadrant abdominal pain 2. History of abdominal surgeries with peritoneal adhesions 3. Diabetes type 2, insulin-dependent 4. Fibromyalgia 5. Morbid obesity and excess calories, BMI 35.7 6. Gastroesophageal reflux disease 7. Seizure disorder 8. Hypertensive heart disease 9. Generalized anxiety disorder 10. History of gastric ulcer 11. Previous history of colitis 12. Prior history of deep venous thrombosis POSTOPERATIVE DIAGNOSES: 1. Right lower quadrant abdominal pain with internal hernia, greater omentum 2. History of abdominal surgeries 3. Diabetes type 2, insulin-dependent 4. Fibromyalgia 5. Morbid obesity and excess calories, BMI 35.7 6. Gastroesophageal reflux disease 7. Seizure disorder 8. Hypertensive heart disease 9. Generalized anxiety disorder 10. History of gastric ulcer 11. Previous history of colitis 12. Prior history of deep venous thrombosis OPERATION: 1. Robotic-assisted da Cari Xi laparoscopic with lysis of adhesions ESTIMATED BLOOD LOSS: 5 mL. SPECIMENS REMOVED: None. COMPLICATIONS: None. OPERATIVE FINDINGS: 1. Greater omentum internal hernia right upper quadrant, lysed 2. Moderate omental adhesions right upper quadrant and hepatic fossa also divided with lysis of adhesion 3. Small bowel unremarkable 4. Greater omentum found folded along the right upper quadrant between liver and diaphragm also released INDICATIONS: The patient is a 68-year-old female who presents with moderate right lower quadrant abdominal pain. She has history of prior abdominal surgeries with risk of intra-abdominal adhesions. Surgical intervention with diagnostic laparoscopy, lysis of adhesions were described. Informed consent was obtained. Robotic assisted laparoscopic approach was described. Benefits and risks of the procedure including but not limited to bleeding, infection, injury to the small bowel was described. Informed consent was obtained. DESCRIPTION OF PROCEDURE: In the preoperative area, area of pain was marked using indelible marker along the right upper quadrant. Patient was brought to the operating room, placed in supine position. After general induction, the abdomen had been prepped and draped in standard sterile fashion. The robotic da Cari XI system was primed. After a timeout protocol was performed, the patient had been prepped and draped in standard sterile fashion. The robot was docked along the left lateral abdomen. Please note prior to docking of the robot; however, a 5 mm 0 degrees laparoscopic trocar entry was performed along the left upper quadrant. Next, three 8 mm robotic ports were placed along left lateral abdomen. Please note that the ports were placed at least 10 to 15 cm away from the target anatomy. Instruments including graspers and scissors with cautery were interchanged by the higher level teaching assistant. I had sat at the console. Along the right upper quadrant, the greater omentum was found folded between the liver and the abdominal wall. The greater omentum was released and brought down into the pelvis. Separately, attention was brought to the small bowel where the small bowel was investigated from the base of the cecum to the ligament of Treitz to reduce any small bowel volvulus. Along the greater omentum, an internal hernia at the right upper quadrant was identified and divided using vessel sealer. Attention was brought to the hepatic fossa where moderate om ental adhesions were identified and also extensive lysis of adhesions was performed to release adhesions consistent with the patient's area of pain. The robot was undocked. All pneumoperitoneum and instruments were evacuated from the abdominal cavity. The incisions were reapproximated using 4-0 Monocryl in an interrupted subcuticular fashion. Please note along the trocar sites, local anesthetic was placed as a field block prior to insertion of all instruments. Exofin was applied to the skin. At the end of the procedure needle, sponge, and instrument count had been verified correct by the hvac technician residential. The patient was transferred to postanesthesia care unit in stable condition. Plan - Discharge Summary Discharge Rx Participant: No New Discharge Prescriptions: New Acetaminophen Tab [Tylenol Tab] 500 mg PO Q6H PRN #30 tablet PRN Reason: Pain Continue Simvastatin [Zocor] 40 mg PO DAILY Propranolol HCl [Inderal LA] 60 mg PO QAM sitaGLIPtin [Januvia] 100 mg PO DAILY Divalproex Sodium 250 mg PO BID levETIRAcetam [Keppra] 750 mg PO Q12HR #60 tab Magnesium Oxide [Mag-Ox] 400 mg PO BID #60 tab Folic Acid 1 mg PO DAILY #30 tablet Thiamine [Vitamin B-1] 100 mg PO DAILY #30 tablet busPIRone HCL [Buspar] 15 mg PO BID Insulin Degludec [Tresiba] 40 units SQ AC-BRKFST Losartan Potassium [Cozaar] 50 mg PO QAM Therems 1 tab PO DAILY Omeprazole 40 mg PO QAM Desvenlafaxine [Pristiq ER] 100 mg PO DAILY Discontinued Metoclopramide HCl [Reglan] 5 mg PO TID Discharge Medication List Simvastatin [Zocor] 40 mg PO DAILY 07/23/14 [History] Divalproex Sodium 250 mg PO BID 04/13/18 [History] Propranolol HCl [Inderal LA] 60 mg PO QAM 04/13/18 [History] sitaGLIPtin [Januvia] 100 mg PO DAILY 04/13/18 [History] Folic Acid 1 mg PO DAILY #30 tablet 04/16/18 [Rx] Magnesium Oxide [Mag-Ox] 400 mg PO BID #60 tab 04/16/18 [Rx] Thiamine [Vitamin B-1] 100 mg PO DAILY #30 tablet 04/16/18 [Rx] levETIRAcetam [Keppra] 750 mg PO Q12HR #60 tab 04/16/18 [Rx] Insulin Degludec [Tresiba] 40 units SQ AC-BRKFST 04/01/19 [History] Losartan Potassium [Cozaar] 50 mg PO QAM 04/01/19 [History] busPIRone HCL [Buspar] 15 mg PO BID 04/01/19 [History] Omeprazole 40 mg PO QAM 06/09/19 [History] Therems 1 tab PO DAILY 06/09/19 [History] Desvenlafaxine [Pristiq ER] 100 mg PO DAILY 08/06/19 [History] Acetaminophen Tab [Tylenol Tab] 500 mg PO Q6H PRN #30 tablet 08/08/19 [Rx] Follow up Appointment(s)/Referral(s): Mary Kate Coulter MD [STAFF PHYSICIAN] - 08/12/19 Patient Instructions/Handouts: Lysis of Abdominal Adhesions (IP) Activity/Diet/Wound Care/Special Instructions: Use Tylenol for pain and ice along incisions. No lifting over 10 pounds in 2 weeks, Aug 22. January shower. No bath tub soaks for two weeks until Aug 22. Diet as tolerated.
[2019-08-08 16:17] VITALS: BP 105/71
[2019-08-08 16:47] VITALS: PULSE 87
== END | disposition home or self-care (01) ==
LOC: OR 11:04
PROVIDERS: ATTEND Surgery Plastic and Reconstructive Surgery
DX: K66.0 Peritoneal adhesions (postprocedural) (postinfection) (principal); K46.9 Unspecified abdominal hernia without obstruction or gangrene; E11.9 Type 2 diabetes mellitus without complications; F41.1 Generalized anxiety disorder; I11.9 Hypertensive heart disease without heart failure; E66.01 Morbid (severe) obesity due to excess calories; M79.7 Fibromyalgia; G40.909 Epilepsy, unspecified, not intractable, without status epilepticus; K52.9 Noninfective gastroenteritis and colitis, unspecified; G43.909 Migraine, unspecified, not intractable, without status migrainosus; K21.9 Gastro-esophageal reflux disease without esophagitis; E78.5 Hyperlipidemia, unspecified; K44.9 Diaphragmatic hernia without obstruction or gangrene; F32.9 Major depressive disorder, single episode, unspecified; Z87.11 Personal history of peptic ulcer disease; Z86.718 Personal history of other venous thrombosis and embolism; Z86.711 Personal history of pulmonary embolism; Z98.51 Tubal ligation status; Z98.41 Cataract extraction status, right eye; Z98.42 Cataract extraction status, left eye; Z90.49 Acquired absence of other specified parts of digestive tract; Z87.891 Personal history of nicotine dependence; Z79.4 Long term (current) use of insulin; Z79.899 Other long term (current) drug therapy; Z88.1 Allergy status to other antibiotic agents; Z88.5 Allergy status to narcotic agent; Z88.6 Allergy status to analgesic agent; Z98.1 Arthrodesis status; Z68.35 Body mass index [BMI] 35.0-35.9, adult
CPT/HCPCS: 86900; 86901; 86850; 44180; J2250; J1644; J1100; J2310; J2710; J0690; J2405; J2001; J3010; J0330; J2704

== ENCOUNTER 2019-09-03 13:53 | Emergency (ER) | payer MEDICARE, OTHER ==
[2019-09-03] MEDS ORDERED: SODIUM CHLORIDE 0.9% 1,000 ML IV STA (14:14)
[2019-09-03] MEDS ORDERED: KETOROLAC 30 MG/ML 1 ML VIAL IVP STA (14:14)
--- NOTE | 2019-09-03 14:20 | ED ---
Chest Pain HPI - General Chief Complaint: Chest Pain Stated Complaint: Chest Pain Time Seen by Provider: 09/03/19 14:00 Source: patient, RN notes reviewed Mode of arrival: wheelchair Limitations: no limitations - History of Present Illness Initial Comments: this is a 68-year-old female with a history of seizure disorder no history of lung or heart disease that she is aware of who started having left-sided sharp chest pain she states 10/10 over the past 4 days she states is constant does radiate sometimes to the left arm she has any cough fevers chills nausea vomiting sweats abdominal pain or other symptoms. She denies any trauma any heavy lifting. She's had no prior history of this. She has ever recent history of lysis of adhesions in the abdomen. She is a nonsmoker. The pain does get worse with movements and deep breathing. No other current modifying factors MD Complaint: chest pain - Related Data Home Medications Medication Instructions Recorded Confirmed Simvastatin [Zocor] 40 mg PO DAILY 07/23/14 09/03/19 Divalproex Sodium 250 mg PO BID 04/13/18 09/03/19 Propranolol HCl [Inderal LA] 60 mg PO QAM 04/13/18 09/03/19 sitaGLIPtin [Januvia] 100 mg PO DAILY 04/13/18 09/03/19 Insulin Degludec [Tresiba] 40 units SQ AC-BRKFST 04/01/19 09/03/19 Omeprazole 40 mg PO QAM 06/09/19 09/03/19 Therems 1 tab PO DAILY 06/09/19 09/03/19 Desvenlafaxine [Pristiq ER] 100 mg PO DAILY 08/06/19 09/03/19 Aspirin EC [Ecotrin Low Dose] 81 mg PO DAILY 09/03/19 09/03/19 Losartan Potassium [Cozaar] 50 mg PO DAILY 09/03/19 09/03/19 Metoclopramide [Reglan] 5 mg PO TID 09/03/19 09/03/19 busPIRone HCL 15 mg PO BID 09/03/19 09/03/19 Previous Rx's Medication Instructions Recorded Folic Acid 1 mg PO DAILY #30 tablet 04/16/18 Magnesium Oxide [Mag-Ox] 400 mg PO BID #60 tab 04/16/18 Thiamine [Vitamin B-1] 100 mg PO DAILY #30 tablet 04/16/18 levETIRAcetam [Keppra] 750 mg PO Q12HR #60 tab 04/16/18 Ibuprofen 800 mg PO Q6HR PRN #20 tablet 09/03/19 Ibuprofen 800 mg PO Q6HR PRN #20 tablet 09/03/19 Allergies Allergy/AdvReac Type Severity Reaction Status Date / Time tramadol [From Ultram] Allergy shakiness Verified 09/03/19 14:07 codeine AdvReac shakiness Verified 09/03/19 14:07 doxycycline AdvReac shakiness Verified 09/03/19 14:07 Review of Systems ROS Statement: Those systems with pertinent positive or pertinent negative responses have been documented in the HPI. ROS Other: All systems not noted in ROS Statement are negative. EKG Findings - EKG Results: EKG: interpreted by MAURA WALKER, sinus rhythm, normal axis, normal QRS, no acute changes (normal sinus rhythm 81 DC interval 134 QRS 76 QT since QTC 362/420) Past Medical History Past Medical History: Chest Pain / Angina, Diabetes Mellitus, Deep Vein Thrombosis (DVT), GERD/Reflux, Hyperlipidemia, Hypertension, Pulmonary Embolus (PE), Seizure Disorder Additional Past Medical History / Comment(s): gastric ulcer,intermittent abdominal pain, HX MIGRAINES, HIATAL HERNIA. SEIZURE 03/2018- NONE SINCE. heart murmer, "pancreas is acting up", hx anemia History of Any Multi-Drug Resistant Organisms: None Reported Past Surgical History: Cholecystectomy, Orthopedic Surgery, Tubal Ligation Additional Past Surgical History / Comment(s): NECK SURGERY, REPAIR FX RT LEG SURGERY 1997, EGD, COLONOSCOPY. arturo cataracts Past Anesthesia/Blood Transfusion Reactions: No Reported Reaction Past Psychological History: Depression Smoking Status: Former smoker Past Alcohol Use History: None Reported Past Drug Use History: None Reported - Past Family History Mother Family Medical History: No Reported History General Exam - General Exam Comments Initial Comments: this is a well-developed well-nourished awake alert oriented 3 female Limitations: no limitations General appearance: alert, anxious Head exam: Present: atraumatic, normocephalic, normal inspection Eye exam: Present: normal appearance, PERRL, EOMI. Absent: scleral icterus, conjunctival injection, periorbital swelling ENT exam: Present: normal exam, mucous membranes moist Neck exam: Present: normal inspection, full ROM, other (no stridor JVD or bruits). Absent: tenderness, meningismus, lymphadenopathy Respiratory exam: Present: normal lung sounds bilaterally, chest wall tenderness (reproducible tenderness palpation along the left costal sternal margin no step- off or crepitation). Absent: respiratory distress, wheezes, rales, rhonchi, stridor Cardiovascular Exam: Present: regular rate, normal rhythm, normal heart sounds. Absent: systolic murmur, diastolic murmur, rubs, gallop, clicks GI/Abdominal exam: Present: soft, normal bowel sounds. Absent: distended, tenderness, guarding, rebound, rigid Extremities exam: Present: normal inspection, full ROM, normal capillary refill. Absent: tenderness, pedal edema, joint swelling, calf tenderness Back exam: Present: normal inspection Neurological exam: Present: alert, oriented X3, CN II-XII intact Psychiatric exam: Present: normal affect, normal mood Skin exam: Present: warm, dry, intact, normal color. Absent: rash Course Vital Signs 09/03/19 09/03/19 14:01 15:30 Temperature 98 F Pulse Rate 91 86 Respiratory 18 16 Rate Blood Pressure 142/79 113/76 O2 Sat by Pulse 95 99 Oximetry - Reevaluation(s) Reevaluation #1: 09/03/19 17:54 I did reevaluate the patient she is feeling somewhat improved the presentation didn't include elevated d-dimer CAT scan was negative for acute findings Chest Pain [facility] patient did get improvement after medication was rendered. Patient does have clinical findings consistent with costochondritis. Discharged on appropriate medication. Did discuss this with the patient and her . Disposition Clinical Impression: Costochondritis, Chest wall syndrome Disposition: HOME SELF-CARE Condition: Good Instructions (If sedation given, give patient instructions): Costochondritis (ED) Additional Instructions: Education prescription sent to your preferred [facility] pharmacy Prescriptions: Ibuprofen 800 mg PO Q6HR PRN #20 tablet PRN Reason: Pain Ibuprofen 800 mg PO Q6HR PRN #20 tablet PRN Reason: Pain Is patient prescribed a controlled substance at d/c from ED?: No Referrals: Estrada Fernandes DO [Primary Care Provider] - 1-2 days
[2019-09-03 14:33] LABS: Basophils % (A) 0 %; Eosinophils # (A) 0.3 k/uL (0-0.7); Eosinophils % (A) 3 %; HCT 39.1 % (34.0-46.0); HGB 12.8 gm/dL (11.4-16.0); Lymphocytes # (A) 2.9 k/uL (1.0-4.8); Lymphocytes % (A) 31 %; MCH 31.7 pg (25.0-35.0); MCHC 32.6 g/dL (31.0-37.0); Mean Platelet Volume 8.1; Monocytes # (A) 0.5 k/uL (0-1.0); Monocytes % (A) 5 %; Neutrophils # (A) 5.5 k/uL (1.3-7.7); Neutrophils % (A) 59 %; Platelet Count 203 k/uL (150-450); RBC 4.03 m/uL (3.80-5.40); WBC 9.4 k/uL (3.8-10.6)
[2019-09-03 14:42] LABS: Albumin 4.5 g/dL (3.5-5.0); Calcium 10.7 mg/dL (8.4-10.2); Magnesium 1.6 mg/dL (1.6-2.3); Potassium 4.4 mmol/L (3.5-5.1); Total Bilirubin 0.4 mg/dL (0.2-1.3); Total Protein 7.7 g/dL (6.3-8.2)
[2019-09-03 14:51] LABS: INR 0.9 (<1.2); Partial Thromboplastin Time 24.7 sec (22.0-30.0); Prothrombin Time 10.2 sec (9.0-12.0)
[2019-09-03 14:53] LABS: D-Dimer 0.66 mg/L FEU (<0.60)
--- NOTE | 2019-09-03 15:09 | XR ---
EXAMINATION TYPE: XR chest 2V DATE OF EXAM: 09/03/2019 COMPARISON: Chest x-ray April 14, 2018. HISTORY: Left-sided chest pain for 4 days. TECHNIQUE: Frontal and lateral views of the chest are obtained. FINDINGS: Redemonstration of elevated right hemidiaphragm. There is no focal air space opacity, pleur al effusion, or pneumothorax seen. The cardiac silhouette size is within normal limits. Anterior fus ion plate lower cervical spine partially imaged. Cholecystectomy clips noted on lateral view. IMPRESSION: Persistent elevated right hemidiaphragm and associated right basilar linear scarring and /or atelectasis. No new acute process identified.
[2019-09-03 15:31] VITALS: RESP 16
--- NOTE | 2019-09-03 16:06 | CT ---
CT CHEST FOR PULMONARY EMBOLISM. EXAMINATION TYPE: CT angio chest DATE OF EXAM: 09/03/2019 INDICATION: chest pain with elevated d-dimer CT DLP: 377.9 mGycm, Automated exposure control for dose reduction was used. CONTRAST: Patient injected with 100 mL of Isovue 300. COMPARISON: None TECHNIQUE: CT of the chest is performed on a spiral scan at 2 mm thick sections. Study is performed with intravenous contrast timed for evaluation for pulmonary embolism. This will limit additional po rtions of the evaluation. 3-D MIP images reconstructed by the technologist are reviewed on the compu ter in the coronal and sagittal planes. FINDINGS: No persistent filling defects are evident to suggest an acute pulmonary embolism. No mediastinal or hilar adenopathy enlarged by CT criteria is evident. The ascending aorta diameter at the level of the main pulmonary artery is 3.1 cm. The main pulmonary artery diameter at the bifur cation is 2.4 cm. Lung windows are clear. There is elevation of the right diaphragm. Limited CT section through the upper abdomen are unremarkable. IMPRESSIONS: 1. No acute pulmonary embolism.
[2019-09-03] MEDS ORDERED: HYDROmorphone 1 MG/ML 1 ML SYRINGE IVP STA (16:28)
[2019-09-03 18:10] VITALS: BP 124/54; PULSE 79; TEMP 98.2
== END 2019-09-03 18:20 | disposition home or self-care (01) ==
LOC: EC 13:53
DX: M94.0 Chondrocostal junction syndrome [Tietze] (principal); I20.9 Angina pectoris, unspecified; E11.9 Type 2 diabetes mellitus without complications; K21.9 Gastro-esophageal reflux disease without esophagitis; E78.5 Hyperlipidemia, unspecified; I10 Essential (primary) hypertension; G40.909 Epilepsy, unspecified, not intractable, without status epilepticus; F32.9 Major depressive disorder, single episode, unspecified; Z87.891 Personal history of nicotine dependence; Z88.1 Allergy status to other antibiotic agents; Z88.5 Allergy status to narcotic agent; Z79.4 Long term (current) use of insulin; Z79.82 Long term (current) use of aspirin; Z79.899 Other long term (current) drug therapy; Z86.69 Personal history of other diseases of the nervous system and sense organs
CPT/HCPCS: 36415; 93005; 85379; 83880; 80053; 82550; 83690; 83735; 84484; 85025; 85610; 85730; 71046; 71275; 99285; 96374; 96375; 96361 ×4; J1885; J1170; Q9967

== ENCOUNTER → 2019-11-27 | Outpatient (CLI) | payer MEDICARE, OTHER ==
--- NOTE | 2019-11-27 15:50 | XR ---
EXAMINATION TYPE: XR cervical spine comp DATE OF EXAM: 11/27/2019 TECHNIQUE: Frontal, lateral, oblique, swimmers, and open mouth view of the cervical spine are obtaine d. HISTORY: M25.519 M54.2 COMPARISON: None FINDINGS: There is anterior cervical fusion device spanning the C4-C6 vertebral levels with grade 1 a nterolisthesis of C5 on C6 that is surgically fixated. There is osseous fusion at these levels. Inter vertebral disc space narrowing is seen at C6-C7 with small anterior osteophyte. Multilevel facet arth ropathy. Mild neural foraminal narrowing radiographically at C3-C4 on the right. Left neural foramen are radiographically patent. Diffuse osseous demineralization seen. Reversal of the usual cervical lo rdosis. Prevertebral soft tissues are upper limits of normal. Odontoid is intact. IMPRESSION: 1. Cervical fixation of C4-6 with osseous fusion of a grade 1 anterolisthesis of C5 on C6. 2. Diffuse osseous demineralization and moderate degenerative change of the spine with mild neural fo raminal narrowing at C3-C4 on the right. 3. Reversal of the usual cervical lordosis that may be on the basis of muscular strain/spasm or patie nt positioning.
--- NOTE | 2019-11-27 15:51 | XR ---
EXAMINATION TYPE: XR shoulder complete LT DATE OF EXAM: 11/27/2019 CLINICAL HISTORY: Left arm pain and neck pain TECHNIQUE: Three views of the left shoulder are obtained. COMPARISON: None. FINDINGS: There is no acute fracture/dislocation evident in the left shoulder. The acromioclavicula r and glenohumeral joint spaces appear aligned. There is mild to moderate acromioclavicular arthropat hy with capsular hypertrophy and small marginal osteophytes. Small subchondral cysts are seen of the greater tuberosity. There is diffuse osseous demineralization. The visualized ribs are intact and un remarkable. IMPRESSION: There is no acute fracture or dislocation in the left shoulder. Mild to moderate acromio clavicular arthropathy and mild glenohumeral arthropathy.
== END | disposition home or self-care (01) ==
LOC: RAD 14:19
PROVIDERS: ATTEND Nurse Practitioner Family
DX: M48.02 Spinal stenosis, cervical region (principal); M43.12 Spondylolisthesis, cervical region; M47.812 Spondylosis without myelopathy or radiculopathy, cervical region; M19.012 Primary osteoarthritis, left shoulder; M81.0 Age-related osteoporosis without current pathological fracture; Z98.1 Arthrodesis status
CPT/HCPCS: 72050

== ENCOUNTER 2019-12-20 15:38 | Emergency (ER) | payer MEDICARE, OTHER ==
[2019-12-20 15:43] VITALS: RESP 18; TEMP 98.1
[2019-12-20 15:44] LABS: Glucose,Whole Blood 91 mg/dL (75-99)
--- NOTE | 2019-12-20 15:59 | ED ---
Recheck HPI - General Chief Complaint: Recheck/Abnormal Lab/Rx Stated Complaint: low blood sugar Time Seen by Provider: 12/20/19 15:46 Source: family, EMS, RN notes reviewed, old records reviewed Mode of arrival: EMS Limitations: no limitations - History of Present Illness Initial Comments: Patient is a 68-year-old female who presents emergency Department stay for "feeling funny because of low blood sugar. Patient reports that she was started on Humalog injections this week. She was seen on Sunday for accidental overdose of her insulin gave herself 15 units of Humalog. Patient reports that today she gave herself the normal dose of 5 units any breakfast at 9 AM. She reports that she did not eat anything since that time. She called EMS because she was feeling funny and blood sugars and to be 51. Patient states that she hasn't been eating much because she's been feeling somewhat full and bloated. Patient states that she hasn't had normal bowel movement, and reports she has been mildly constipated. - Related Data Home Medications Medication Instructions Recorded Confirmed Simvastatin [Zocor] 40 mg PO DAILY 07/23/14 09/03/19 Divalproex Sodium 250 mg PO BID 04/13/18 09/03/19 Propranolol HCl [Inderal LA] 60 mg PO QAM 04/13/18 09/03/19 sitaGLIPtin [Januvia] 100 mg PO DAILY 04/13/18 09/03/19 Insulin Degludec [Tresiba] 40 units SQ AC-BRKFST 04/01/19 09/03/19 Therems 1 tab PO DAILY 06/09/19 09/03/19 Desvenlafaxine [Pristiq ER] 100 mg PO DAILY 08/06/19 09/03/19 Aspirin EC [Ecotrin Low Dose] 81 mg PO DAILY 09/03/19 09/03/19 Losartan Potassium [Cozaar] 50 mg PO DAILY 09/03/19 09/03/19 Metoclopramide [Reglan] 5 mg PO TID 09/03/19 09/03/19 busPIRone HCL 15 mg PO BID 09/03/19 09/03/19 Insulin Lispro [humaLOG Kwikpen] 15 unit SQ AC-BID 12/20/19 12/20/19 LORazepam [Ativan] 0.5 mg PO BID PRN 12/20/19 12/20/19 levETIRAcetam [Keppra] 1,500 mg PO BID 12/20/19 12/20/19 Previous Rx's Medication Instructions Recorded Folic Acid 1 mg PO DAILY #30 tablet 04/16/18 Magnesium Oxide [Mag-Ox] 400 mg PO BID #60 tab 04/16/18 Allergies Allergy/AdvReac Type Severity Reaction Status Date / Time codeine AdvReac shakiness Verified 12/20/19 16:46 doxycycline AdvReac shakiness Verified 12/20/19 16:46 tramadol [From Ultram] AdvReac shakiness Verified 12/20/19 16:46 Review of Systems ROS Statement: Those systems with pertinent positive or pertinent negative responses have been documented in the HPI. ROS Other: All systems not noted in ROS Statement are negative. Past Medical History Past Medical History: Chest Pain / Angina, Diabetes Mellitus, Deep Vein Thrombosis (DVT), GERD/Reflux, Hyperlipidemia, Hypertension, Pulmonary Embolus (PE), Seizure Disorder Additional Past Medical History / Comment(s): gastric ulcer,intermittent abdominal pain, HX MIGRAINES, HIATAL HERNIA. SEIZURE 03/2018- NONE SINCE. heart murmer, "pancreas is acting up", hx anemia History of Any Multi-Drug Resistant Organisms: None Reported Past Surgical History: Cholecystectomy, Orthopedic Surgery, Tubal Ligation Additional Past Surgical History / Comment(s): NECK SURGERY, REPAIR FX RT LEG SURGERY 1997, EGD, COLONOSCOPY. arturo cataracts Past Anesthesia/Blood Transfusion Reactions: No Reported Reaction Past Psychological History: Depression Smoking Status: Former smoker Past Alcohol Use History: None Reported Past Drug Use History: None Reported - Past Family History Mother Family Medical History: No Reported History General Exam - General Exam Comments Initial Comments: Well-appearing wearing oriented 60-year-old female. No distress. Limitations: no limitations General appearance: alert, in no apparent distress Head exam: Present: atraumatic, normocephalic, normal inspection Eye exam: Present: normal appearance, PERRL, EOMI. Absent: scleral icterus, conjunctival injection, periorbital swelling ENT exam: Present: normal exam, mucous membranes moist Neck exam: Present: normal inspection. Absent: tenderness, meningismus, lymphadenopathy Respiratory exam: Present: normal lung sounds bilaterally. Absent: respiratory distress, wheezes, rales, rhonchi, stridor Cardiovascular Exam: Present: regular rate, normal rhythm, normal heart sounds. Absent: systolic murmur, diastolic murmur, rubs, gallop, clicks GI/Abdominal exam: Present: soft, normal bowel sounds. Absent: distended, tenderness, guarding, rebound, rigid Extremities exam: Present: normal inspection, full ROM, normal capillary refill. Absent: tenderness, pedal edema, joint swelling, calf tenderness Back exam: Present: normal inspection Neurological exam: Present: alert, oriented X3, CN II-XII intact Psychiatric exam: Present: normal affect, normal mood Course Vital Signs 12/20/19 15:39 Temperature 98.1 F Pulse Rate 102 H Respiratory 18 Rate Blood Pressure 125/62 O2 Sat by Pulse 97 Oximetry Medical Decision Making - Medical Decision Making Patient is a 6-year-old female who presents for low blood sugar. I evaluated Patient and she appears in no distress. She is still some off. Her blood sugar upon arrival was 90. Patient was given juice and crackers. She is able tolerate this blood sugar was 135 on recheck.. She reports that she's not not eating a regular scheduled she does have an felt like eating and she feels bloated. I discussed that she needs to have a regular schedule of eating and dosing her insulin appropriately. I discussed the Patient may benefit from following up with a nutrition educator. Discussed case with Dr. Barajas, whom evaluated patient. Patient understands treatment plan will comply. - Lab Data Lab Results 12/20/19 12/20/19 Range/Units 15:40 16:41 POC Glucose (mg/dL) 91 153 H (75-99) mg/dL POC Glu Interactive Media Marketing Director ID Catherine Rojas Alisha Disposition Clinical Impression: Hypoglycemia Disposition: HOME SELF-CARE Condition: Good Instructions (If sedation given, give patient instructions): Meal Planning with Diabetes Exchanges (DC), Basic Carbohydrate Counting (DC) Additional Instructions: Patient needs to get on a scheduled eating frequent healthy snacks to maintain adequate blood sugar. Recommended getting a regular regimen to the eating schedule, and dosing insulin appropriately. Follow up with PCP. Also recommend using miralax and increasting fruits and vegetables to help promote bowel habits. Is patient prescribed a controlled substance at d/c from ED?: No Referrals: Estrada Fernandes DO [Primary Care Provider] - 1-2 days Time of Disposition: 16:55
[2019-12-20 16:42] LABS: Glucose,Whole Blood 153 mg/dL (75-99)
[2019-12-20 17:17] VITALS: BP 128/71; PULSE 78
== END 2019-12-20 17:17 | disposition home or self-care (01) ==
LOC: EC 15:38
DX: E11.649 Type 2 diabetes mellitus with hypoglycemia without coma (principal); K59.00 Constipation, unspecified; I20.9 Angina pectoris, unspecified; K21.9 Gastro-esophageal reflux disease without esophagitis; E78.5 Hyperlipidemia, unspecified; I10 Essential (primary) hypertension; G40.909 Epilepsy, unspecified, not intractable, without status epilepticus; F32.9 Major depressive disorder, single episode, unspecified; Z87.891 Personal history of nicotine dependence; Z88.1 Allergy status to other antibiotic agents; Z88.5 Allergy status to narcotic agent; Z79.4 Long term (current) use of insulin; Z79.82 Long term (current) use of aspirin; Z79.899 Other long term (current) drug therapy; Z86.69 Personal history of other diseases of the nervous system and sense organs; Z90.49 Acquired absence of other specified parts of digestive tract
CPT/HCPCS: 36415; 99285

== ENCOUNTER 2019-12-26 15:52 | Emergency (ER) | payer MEDICARE, OTHER ==
[2019-12-26 16:00] VITALS: RESP 18; TEMP 98
--- NOTE | 2019-12-26 16:24 | ED ---
General Adult HPI - General Chief complaint: Abdominal Pain Stated complaint: no bowel movement Time Seen by Provider: 12/26/19 16:13 Source: patient, RN notes reviewed Mode of arrival: ambulatory Limitations: no limitations - History of Present Illness Initial comments: Patient is a pleasant 68-year-old female presenting to the emergency Department with constipation. Patient states symptoms have been occurring for the past 5 days. Patient complains of feeling constipated. Patient is unable to have a bowel movement. No nausea vomiting. No diarrhea. Patient does have some fullness of her abdomen, more lower. Patient also has some discomfort of her back and hips. No history of similar symptoms previously. Patient did try prune juice without improvement of symptoms. - Related Data Home Medications Medication Instructions Recorded Confirmed Simvastatin [Zocor] 40 mg PO DAILY 07/23/14 12/26/19 Divalproex Sodium 250 mg PO BID 04/13/18 12/26/19 Propranolol HCl [Inderal LA] 60 mg PO DAILY 04/13/18 12/26/19 sitaGLIPtin [Januvia] 100 mg PO DAILY 04/13/18 12/26/19 Insulin Degludec [Tresiba] 40 units SQ DAILY 04/01/19 12/26/19 Desvenlafaxine [Pristiq ER] 100 mg PO DAILY 08/06/19 12/26/19 Losartan Potassium [Cozaar] 50 mg PO DAILY 09/03/19 12/26/19 Metoclopramide [Reglan] 5 mg PO TID 09/03/19 12/26/19 busPIRone HCL 15 mg PO BID 09/03/19 12/26/19 Insulin Lispro [humaLOG Kwikpen] 10 unit SQ AC-BID 12/20/19 12/26/19 LORazepam [Ativan] 0.5 mg PO BID PRN 12/20/19 12/26/19 levETIRAcetam [Keppra] 750 mg PO BID 12/20/19 12/26/19 Allergies Allergy/AdvReac Type Severity Reaction Status Date / Time codeine AdvReac shakiness Verified 12/26/19 16:39 doxycycline AdvReac shakiness Verified 12/26/19 16:39 tramadol [From Ultram] AdvReac shakiness Verified 12/26/19 16:39 Review of Systems ROS Statement: Those systems with pertinent positive or pertinent negative responses have been documented in the HPI. ROS Other: All systems not noted in ROS Statement are negative. Constitutional: Denies: fever Eyes: Denies: eye pain ENT: Denies: ear pain Respiratory: Denies: cough Cardiovascular: Denies: chest pain Endocrine: Denies: fatigue Gastrointestinal: Reports: as per HPI, constipation Genitourinary: Denies: dysuria Musculoskeletal: Reports: as per HPI Skin: Denies: rash Neurological: Denies: weakness Past Medical History Past Medical History: Chest Pain / Angina, Diabetes Mellitus, Deep Vein Thrombosis (DVT), GERD/Reflux, Hyperlipidemia, Hypertension, Pulmonary Embolus (PE), Seizure Disorder Additional Past Medical History / Comment(s): gastric ulcer,intermittent abdominal pain, HX MIGRAINES, HIATAL HERNIA. SEIZURE 03/2018- NONE SINCE. heart murmer, "pancreas is acting up", hx anemia History of Any Multi-Drug Resistant Organisms: None Reported Past Surgical History: Cholecystectomy, Orthopedic Surgery, Tubal Ligation Additional Past Surgical History / Comment(s): NECK SURGERY, REPAIR FX RT LEG SURGERY 1997, EGD, COLONOSCOPY. arturo cataracts Past Anesthesia/Blood Transfusion Reactions: No Reported Reaction Past Psychological History: Depression Smoking Status: Former smoker Past Alcohol Use History: None Reported Past Drug Use History: None Reported - Past Family History Mother Family Medical History: No Reported History General Exam Limitations: no limitations General appearance: alert, in no apparent distress Head exam: Present: normocephalic Eye exam: Present: normal appearance, PERRL ENT exam: Present: normal oropharynx Neck exam: Present: normal inspection Respiratory exam: Present: normal lung sounds bilaterally Cardiovascular Exam: Present: regular rate, normal rhythm Expanded Peripheral pulses: 2+: Dorsalis Pedis (R), Dorsalis Pedis (L) GI/Abdominal exam: Present: soft, tenderness (Mild to moderate lower abdominal tenderness to palpation), hypoactive bowel sounds. Absent: distended, guarding, rebound, rigid, pulsatile mass Extremities exam: Present: normal inspection Neurological exam: Present: alert Psychiatric exam: Present: normal affect, normal mood Skin exam: Present: normal color Course Vital Signs 12/26/19 12/26/19 15:57 17:27 Temperature 98 F Pulse Rate 101 H 100 Respiratory 18 18 Rate Blood Pressure 142/97 115/74 O2 Sat by Pulse 98 96 Oximetry Medical Decision Making - Medical Decision Making Patient reevaluated and resting comfortably in bed. Abdomen soft and nontender. Patient updated on results and need for follow-up. Patient will be provided dose of lactulose and Fleet's enema prior to discharge. - Lab Data Result diagrams: 12/26/19 16:50 12/26/19 16:50 Lab Results 12/26/19 12/26/19 12/26/19 Range/Units 16:50 16:50 16:50 WBC 10.6 (3.8-10.6) k/uL RBC 4.10 (3.80-5.40) m/uL Hgb 13.4 (11.4-16.0) gm/dL Hct 40.4 (34.0-46.0) % MCV 98.5 (80.0-100.0) fL MCH 32.7 (25.0-35.0) pg MCHC 33.1 (31.0-37.0) g/dL RDW 12.8 (11.5-15.5) % Plt Count 253 (150-450) k/uL Neutrophils % 60 % Lymphocytes % 29 % Monocytes % 6 % Eosinophils % 2 % Basophils % 0 % Neutrophils # 6.4 (1.3-7.7) k/uL Lymphocytes # 3.1 (1.0-4.8) k/uL Monocytes # 0.6 (0-1.0) k/uL Eosinophils # 0.2 (0-0.7) k/uL Basophils # 0.0 (0-0.2) k/uL PT 10.0 (9.0-12.0) sec INR 1.0 (<1.2) APTT 23.7 (22.0-30.0) sec Sodium (137-145) mmol/L Potassium (3.5-5.1) mmol/L Chloride (98-107) mmol/L Carbon Dioxide (22-30) mmol/L Anion Gap mmol/L BUN (7-17) mg/dL Creatinine (0.52-1.04) mg/dL Est GFR (CKD-EPI)AfAm (>60 ml/min/1.73 sqM) Est GFR (CKD-EPI)NonAf (>60 ml/min/1.73 sqM) Glucose (74-99) mg/dL Calcium (8.4-10.2) mg/dL Total Bilirubin (0.2-1.3) mg/dL AST (14-36) U/L ALT (4-34) U/L Alkaline Phosphatase (38-126) U/L Total Protein (6.3-8.2) g/dL Albumin (3.5-5.0) g/dL Amylase (30-110) U/L Lipase (23-300) U/L Urine Color Yellow Urine Appearance Cloudy H (Clear) Urine pH 5.5 (5.0-8.0) Ur Specific [place] 1.020 (1.001-1.035) Urine Protein Negative (Negative) Urine Glucose (UA) Negative (Negative) Urine Ketones 1+ H (Negative) Urine Blood Negative (Negative) Urine Nitrite Negative (Negative) Urine Bilirubin Negative (Negative) Urine Urobilinogen <2.0 (<2.0) mg/dL Ur Leukocyte Esterase Trace H (Negative) Urine RBC 2 (0-5) /hpf Urine WBC 2 (0-5) /hpf Ur Squamous Epith Cells 10 H (0-4) /hpf Urine Bacteria Rare H (None) /hpf Urine Mucus Rare H (None) /hpf 12/26/19 Range/Units 16:50 WBC (3.8-10.6) k/uL RBC (3.80-5.40) m/uL Hgb (11.4-16.0) gm/dL Hct (34.0-46.0) % MCV (80.0-100.0) fL MCH (25.0-35.0) pg MCHC (31.0-37.0) g/dL RDW (11.5-15.5) % Plt Count (150-450) k/uL Neutrophils % % Lymphocytes % % Monocytes % % Eosinophils % % Basophils % % Neutrophils # (1.3-7.7) k/uL Lymphocytes # (1.0-4.8) k/uL Monocytes # (0-1.0) k/uL Eosinophils # (0-0.7) k/uL Basophils # (0-0.2) k/uL PT (9.0-12.0) sec INR (<1.2) APTT (22.0-30.0) sec Sodium 136 L (137-145) mmol/L Potassium 4.5 (3.5-5.1) mmol/L Chloride 104 (98-107) mmol/L Carbon Dioxide 26 (22-30) mmol/L Anion Gap 6 mmol/L BUN 25 H (7-17) mg/dL Creatinine 0.92 (0.52-1.04) mg/dL Est GFR (CKD-EPI)AfAm 74 (>60 ml/min/1.73 sqM) Est GFR (CKD-EPI)NonAf 64 (>60 ml/min/1.73 sqM) Glucose 97 (74-99) mg/dL Calcium 10.8 H (8.4-10.2) mg/dL Total Bilirubin 0.2 (0.2-1.3) mg/dL AST 26 (14-36) U/L ALT 17 (4-34) U/L Alkaline Phosphatase 74 (38-126) U/L Total Protein 7.1 (6.3-8.2) g/dL Albumin 4.3 (3.5-5.0) g/dL Amylase 67 (30-110) U/L Lipase 210 (23-300) U/L Urine Color Urine Appearance (Clear) Urine pH (5.0-8.0) Ur Specific [place] (1.001-1.035) Urine Protein (Negative) Urine Glucose (UA) (Negative) Urine Ketones (Negative) Urine Blood (Negative) Urine Nitrite (Negative) Urine Bilirubin (Negative) Urine Urobilinogen (<2.0) mg/dL Ur Leukocyte Esterase (Negative) Urine RBC (0-5) /hpf Urine WBC (0-5) /hpf Ur Squamous Epith Cells (0-4) /hpf Urine Bacteria (None) /hpf Urine Mucus (None) /hpf - Radiology Data Radiology results: report reviewed (Computed tomography scan of the abdomen and pelvis shows no obstruction. Possible mild ileus right abdomen. Complex cyst superior right kidney.) Disposition Clinical Impression: Abdominal pain Disposition: HOME SELF-CARE Condition: Stable Instructions (If sedation given, give patient instructions): Abdominal Pain (ED), Constipation (ED), High Fiber Diet (ED) Additional Instructions: Continue prune juice. Increase liquids. Please follow-up with primary care physician in the next couple of days for recheck. Have your doctor review CT results and schedule ultrasound of the right kidney. Return for fever, increased pain, worsening or changing symptoms or other concerns. Is patient prescribed a controlled substance at d/c from ED?: No Referrals: Estrada Fernandes DO [Primary Care Provider] - 1-2 days Time of Disposition: 19:42
[2019-12-26 17:00] LABS: Basophils % (A) 0 %; Eosinophils # (A) 0.2 k/uL (0-0.7); Eosinophils % (A) 2 %; HCT 40.4 % (34.0-46.0); HGB 13.4 gm/dL (11.4-16.0); Lymphocytes # (A) 3.1 k/uL (1.0-4.8); Lymphocytes % (A) 29 %; MCH 32.7 pg (25.0-35.0); MCHC 33.1 g/dL (31.0-37.0); MCV 98.5 fL (80.0-100.0); Mean Platelet Volume 7.8; Monocytes # (A) 0.6 k/uL (0-1.0); Monocytes % (A) 6 %; Neutrophils # (A) 6.4 k/uL (1.3-7.7); Neutrophils % (A) 60 %; Platelet Count 253 k/uL (150-450); RDW 12.8 % (11.5-15.5); WBC 10.6 k/uL (3.8-10.6)
[2019-12-26 17:14] LABS: Appearance,Urine Cloudy (Clear); Bacteria,Urine Rare /hpf; Bilirubin,Urine Negative (Negative); Blood,Urine Negative (Negative); Color,Urine Yellow; Glucose,Urine (UA) Negative (Negative); Ketones,Urine 1+ (Negative); Leukocyte Esterase,Urine Trace (Negative); Mucus,Urine Rare /hpf; Nitrite,Urine Negative (Negative); PH, Urine 5.5 (5.0-8.0); Partial Thromboplastin Time 23.7 sec (22.0-30.0); Protein,Urine Negative (Negative); RBC,Urine 2 /hpf (0-5); Squamous Epithelial Cell,Urine 10 /hpf (0-4); Urobilinogen,Urine <2.0 mg/dL (<2.0); WBC,Urine 2 /hpf (0-5)
[2019-12-26 17:18] LABS: Albumin 4.3 g/dL (3.5-5.0); Calcium 10.8 mg/dL (8.4-10.2); Potassium 4.5 mmol/L (3.5-5.1); Total Bilirubin 0.2 mg/dL (0.2-1.3); Total Protein 7.1 g/dL (6.3-8.2)
[2019-12-26] MEDS ORDERED: MORPHINE SULFATE 2 MG/ML SYRINGE IVP STA (17:30)
--- NOTE | 2019-12-26 19:19 | CT ---
EXAMINATION TYPE: CT abdomen pelvis w con DATE OF EXAM: 12/26/2019 COMPARISON: 03/11/2019 INDICATION: abdominal pain, constipation DLP: 1302.2 mGycm, Automated exposure control for dose reduction was used. CONTRAST: 100 mL of Isovue 300. Study performed without Oral Contrast TECHNIQUE: Axial images were obtained from above the diaphragm to the pubic rami in the axial plane a t 5 mm thick sections. Reconstructed images are reviewed on the computer in the coronal plane. FINDINGS: Limited CT sections are obtained the lung bases. The visualized portions of the lung bases are clear . CT ABDOMEN: Liver: Portion of the liver within the [id number] is unremarkable. Superior most portion is exclud ed. Spleen: Normal Pancreas: Normal Adrenal glands: The adrenal glands are normal. Gallbladder: Surgically absent Kidneys: No masses are evident. No hydronephrosis is present. 1.1 cm cyst measuring 20 [place] u nits is on the superior medial right kidney. Is not a simple cyst and appears to be increasing in siz e from the comparison. Consider correlation with abdomen ultrasound when the patient is stable. Steffi yed images were obtained through the kidneys. Aorta: Normal Inferior vena cava: Normal. CT PELVIS: Loops of bowel within the abdomen and pelvis are normal. Study is performed without oral contrast . Few diverticuli without acute diverticulitis is through the sigmoid colon. No significant fecal anu ris is evident. Small bowel loops are nondilated, which contain fluid. Mild ileus could be considered . Appendix: Normal as visualized. No suspicious inflammatory changes. Urinary bladder: Normal. Genitourinary structures: Uterus and ovaries appear normal. Osseous structures: No suspicious lytic or sclerotic lesions. IMPRESSIONS: 1. No suspicious bowel changes are evident to suggest obstruction or significant constipation. Mild ileus in the right abdomen could be considered. 2. There is a complex cyst in the superior right kidney. Recommend follow-up ultrasound of the kidney s on a nonemergent basis when the patient is stable.
[2019-12-26] MEDS ORDERED: LACTULOSE 20 GM/30 ML CUP PO ONE (19:23)
[2019-12-26] MEDS ORDERED: NA PHOS,M-B/NA PHOS,DI-BA 133 ML ENEMA RECTAL STA (19:23)
[2019-12-26 19:40] VITALS: BP 131/69
[2019-12-26 20:17] VITALS: PULSE 96
== END 2019-12-26 20:22 | disposition home or self-care (01) ==
LOC: EC 15:52
DX: R10.9 Unspecified abdominal pain (principal); E11.9 Type 2 diabetes mellitus without complications; E78.5 Hyperlipidemia, unspecified; I10 Essential (primary) hypertension; G40.909 Epilepsy, unspecified, not intractable, without status epilepticus; F32.9 Major depressive disorder, single episode, unspecified; Z90.49 Acquired absence of other specified parts of digestive tract; Z98.51 Tubal ligation status; Z87.891 Personal history of nicotine dependence; Z79.4 Long term (current) use of insulin; Z79.899 Other long term (current) drug therapy; Z88.5 Allergy status to narcotic agent; Z88.1 Allergy status to other antibiotic agents
CPT/HCPCS: 36415; 80053; 82150; 83690; 85025; 85610; 85730; 81001; 74177; 99284; 96374; J2270; Q9967

== ENCOUNTER 2020-02-08 13:30 | Inpatient (IN) | payer MEDICARE, OTHER ==
[2020-02-08] MEDS ORDERED: MORPHINE SULFATE 4 MG/ML SYRINGE IVP STA (14:00)
[2020-02-08 14:04] LABS: Basophils % (A) 0 %; Eosinophils # (A) 0.3 k/uL (0-0.7); Eosinophils % (A) 3 %; HCT 40.2 % (34.0-46.0); HGB 12.7 gm/dL (11.4-16.0); Lymphocytes # (A) 3.9 k/uL (1.0-4.8); Lymphocytes % (A) 40 %; MCH 31.9 pg (25.0-35.0); MCHC 31.7 g/dL (31.0-37.0); MCV 100.8 fL (80.0-100.0); Mean Platelet Volume 8.2; Monocytes # (A) 0.8 k/uL (0-1.0); Monocytes % (A) 8 %; Neutrophils # (A) 4.5 k/uL (1.3-7.7); Neutrophils % (A) 46 %; Platelet Count 195 k/uL (150-450); RBC 3.99 m/uL (3.80-5.40); RDW 12.8 % (11.5-15.5); WBC 9.8 k/uL (3.8-10.6)
[2020-02-08 14:16] LABS: Calcium 10.7 mg/dL (8.4-10.2); Magnesium 1.6 mg/dL (1.6-2.3); Potassium 4.6 mmol/L (3.5-5.1); Total Bilirubin 0.3 mg/dL (0.2-1.3); Total Protein 6.9 g/dL (6.3-8.2)
--- NOTE | 2020-02-08 14:23 | XR ---
EXAMINATION TYPE: XR chest 2V DATE OF EXAM: 02/08/2020 COMPARISON: 09/03/2019 HISTORY: Sternal chest pain radiating into the left shoulder TECHNIQUE: Frontal and lateral views of the chest are obtained. FINDINGS: There is right hemidiaphragm elevation and platelike atelectasis at the right lung base. N o new focal consolidation, pleural effusion or pneumothorax. Partially visualized cervical fusion dev ice. Mild diffuse osseous demineralization. Stable size of the cardiomediastinal silhouette. IMPRESSION: Chronic findings and right basilar subsegmental atelectasis.
[2020-02-08 14:31] LABS: D-Dimer 0.54 mg/L FEU (<0.60)
[2020-02-08 14:43] LABS: Partial Thromboplastin Time 21.5 sec (22.0-30.0)
[2020-02-08] MEDS ORDERED: HYDROmorphone 0.5 MG/0.5 ML SYRINGE IVP STA (15:03)
[2020-02-08] MEDS ORDERED: NALOXONE 0.4 MG/ML 1 ML VIAL IV PRN (15:10)
--- NOTE | 2020-02-08 15:27 | ED ---
Chest Pain HPI - General Chief Complaint: Chest Pain Stated Complaint: Chest Pain Time Seen by Provider: 02/08/20 13:35 Source: patient Mode of arrival: ambulatory Limitations: no limitations - History of Present Illness Initial Comments: The patient is a 69-year-old female with past nuchal history of DVT, diabetes and hypertension who presents to the emergency department with reported chest pain. States it awoke her from sleep. It starts in the left side of her chest with radiation into her left arm. No ripping or tearing sensation to her back. She has no history of cardiac disease. Does have history of DVT and PE after surgery. Is not on any anticoagulation currently. Denies any lower extremity swelling. No calf pain. She denies nausea, vomiting or diaphoresis. She called EMS who provided her with aspirin and nitro. Denies any improvement in her pain. She denies cough or hemoptysis. No fevers or chills. Abdominal pain. There are no alleviating, precipitating factors - Related Data Home Medications Medication Instructions Recorded Confirmed Simvastatin [Zocor] 40 mg PO DAILY 07/23/14 02/08/20 Divalproex Sodium 250 mg PO BID 04/13/18 02/08/20 Propranolol HCl [Inderal LA] 60 mg PO DAILY 04/13/18 02/08/20 sitaGLIPtin [Januvia] 100 mg PO DAILY 04/13/18 02/08/20 Insulin Degludec [Tresiba] 40 units SQ DAILY 04/01/19 02/08/20 Desvenlafaxine [Pristiq ER] 100 mg PO DAILY 08/06/19 02/08/20 Losartan Potassium [Cozaar] 50 mg PO DAILY 09/03/19 02/08/20 Metoclopramide [Reglan] 5 mg PO TID 09/03/19 02/08/20 busPIRone HCL 15 mg PO BID 09/03/19 02/08/20 Insulin Lispro [humaLOG Kwikpen] 10 unit SQ AC-BID 12/20/19 02/08/20 levETIRAcetam [Keppra] 750 mg PO BID 12/20/19 02/08/20 Aspirin EC [Ecotrin Low Dose] 81 mg PO DAILY 02/08/20 02/08/20 Folic Acid 1 mg PO DAILY 02/08/20 02/08/20 Magnesium Oxide [Mag-Ox] 400 mg PO BID 02/08/20 02/08/20 Multivitamins, Thera [Multivitamin 1 tab PO DAILY 02/08/20 02/08/20 (formulary)] Allergies Allergy/AdvReac Type Severity Reaction Status Date / Time codeine AdvReac shakiness Verified 02/08/20 16:44 doxycycline AdvReac shakiness Verified 02/08/20 16:44 tramadol [From Ultram] AdvReac shakiness Verified 02/08/20 16:44 Review of Systems ROS Statement: Those systems with pertinent positive or pertinent negative responses have been documented in the HPI. ROS Other: All systems not noted in ROS Statement are negative. EKG Findings - EKG Comments: EKG Findings:: EKG demonstrates a normal sinus rhythm with a ventricular rate of 84. NM interval 132. QRS 84. QTC of 413. No acute ST segment elevations or depressions concerning for ischemic changes. Past Medical History Past Medical History: Chest Pain / Angina, Diabetes Mellitus, Deep Vein Thrombosis (DVT), GERD/Reflux, Hyperlipidemia, Hypertension, Pulmonary Embolus (PE), Seizure Disorder Additional Past Medical History / Comment(s): gastric ulcer,intermittent abdominal pain, HX MIGRAINES, HIATAL HERNIA. SEIZURE 03/2018- NONE SINCE. heart murmer, "pancreas is acting up", hx anemia History of Any Multi-Drug Resistant Organisms: None Reported Past Surgical History: Cholecystectomy, Orthopedic Surgery, Tubal Ligation Additional Past Surgical History / Comment(s): NECK SURGERY, REPAIR FX RT LEG SURGERY 1997, EGD, COLONOSCOPY. arturo cataracts Past Anesthesia/Blood Transfusion Reactions: No Reported Reaction Past Psychological History: Depression Smoking Status: Former smoker Past Alcohol Use History: None Reported Past Drug Use History: None Reported - Past Family History Mother Family Medical History: No Reported History General Exam Limitations: no limitations General appearance: alert, in no apparent distress Head exam: Present: atraumatic, normocephalic, normal inspection Eye exam: Present: normal appearance, PERRL, EOMI. Absent: scleral icterus, conjunctival injection, periorbital swelling ENT exam: Present: normal exam, mucous membranes moist Neck exam: Present: normal inspection. Absent: tenderness, meningismus, lymphadenopathy Respiratory exam: Present: normal lung sounds bilaterally. Absent: respiratory distress, wheezes, rales, rhonchi, stridor Cardiovascular Exam: Present: regular rate, normal rhythm, normal heart sounds. Absent: systolic murmur, diastolic murmur, rubs, gallop, clicks GI/Abdominal exam: Present: soft, normal bowel sounds. Absent: distended, tenderness, guarding, rebound, rigid Extremities exam: Present: normal inspection, full ROM, normal capillary refill. Absent: tenderness, pedal edema, joint swelling, calf tenderness Back exam: Present: normal inspection Neurological exam: Present: alert, oriented X3, CN II-XII intact Psychiatric exam: Present: normal mood, flat affect Skin exam: Present: warm, dry, intact, normal color. Absent: rash Course Vital Signs 02/08/20 02/08/20 02/08/20 13:33 14:30 15:30 Temperature 98.2 F 97.8 F Pulse Rate 83 87 81 Pulse Rate [ Right Pulse Oximetery] Respiratory 18 18 18 Rate Blood Pressure 128/59 136/85 144/83 Blood Pressure [Right Arm Supine] O2 Sat by Pulse 97 96 98 Oximetry 02/08/20 16:00 Temperature 98.6 F Pulse Rate Pulse Rate [ 87 Right Pulse Oximetery] Respiratory 17 Rate Blood Pressure Blood Pressure 146/96 [Right Arm Supine] O2 Sat by Pulse 96 Oximetry Chest Pain MDM - MDM Upon arrival the patient is placed into room 8. A thorough history and physical exam is performed. The patient did not respond to nitro she was given a dose of morphine. Laboratory studies were conducted. The patient was kept on continuous pulse ox and cardiac monitoring. 12-lead EKG demonstrated no acute ST segment elevation. Laboratory studies are unremarkable. Her first troponin is negative. Chest x-ray was performed which demonstrates no acute intrathoracic process. Discussed diagnosis, differential and treatment options. Recommend hospital admission noted to trend her troponins to be evaluated for cardiology. Patient did agree with this. Discussed case with Dr. Esteves her except admission. Patient was sent to the floor in stable condition Disposition Clinical Impression: Chest pain Disposition: ADMITTED IP TO THIS HOSP Condition: Stable Is patient prescribed a controlled substance at d/c from ED?: No Decision to Admit Reason: Admit from EC Decision Date: 02/08/20 Decision Time: 15:27
[2020-02-08 16:27] LABS: Glucose,Whole Blood 93 mg/dL (75-99)
[2020-02-08] MEDS: DIVALPROEX 250 MG TABLET.DR PO SCH (19:55)
[2020-02-08] MEDS: busPIRone HCl 5 MG TAB PO SCH (19:55)
[2020-02-08] MEDS: MAGNESIUM OXIDE 400 MG TAB PO SCH (19:55)
[2020-02-08] MEDS: HYDROmorphone 0.5 MG/0.5 ML SYRINGE IVP PRN (19:56)
[2020-02-08 20:39] LABS: Glucose,Whole Blood 136 mg/dL (75-99)
[2020-02-08 20:57] LABS: Appearance,Urine Clear (Clear); Bilirubin,Urine Negative (Negative); Blood,Urine Negative (Negative); Color,Urine Yellow; Glucose,Urine (UA) Negative (Negative); Hyaline Casts,Urine 3 /lpf (0-2); Ketones,Urine Negative (Negative); Leukocyte Esterase,Urine Small (Negative); Mucus,Urine Rare /hpf; Nitrite,Urine Negative (Negative); Protein,Urine Negative (Negative); RBC,Urine 3 /hpf (0-5); Squamous Epithelial Cell,Urine 3 /hpf (0-4); Urobilinogen,Urine <2.0 mg/dL (<2.0); WBC,Urine 2 /hpf (0-5)
[2020-02-08] MEDS: INSULIN ASPART (NovoLOG) 100 UNIT/ML VIAL SQ SCH (20:59)
[2020-02-08] MEDS: METOCLOPRAMIDE 5 MG TAB PO SCH (22:31)
--- NOTE | 2020-02-08 22:39 | HP ---
HISTORY AND PHYSICAL CHIEF COMPLAINT: Chest pain. HISTORY OF PRESENT ILLNESS: This 69-year-old woman with a past medical history of multiple medical problems including history of diabetes mellitus, DVT, GERD, hypertension, hyperlipidemia, history of pulmonary embolus, history of seizure disorder, being followed by Dr. Estrada Fernandes in the outpatient setting is complaining of chest pain. The patient felt chest pain which is felt in the anterior part of chest which is heavy in character which is radiating to the left arm. The pain has persisted and patient came to [facility] and admitted for evaluation and treatment. The patient had a history of DVT and PE after surgery. A D-dimer was only 0.54. The EKG showed no acute change. There is no history of fever, rigors. No headache, loss of consciousness, seizures at this time. PAST MEDICAL HISTORY: History of diabetes, DVT, GERD, hypertension, hyperlipidemia, pulmonary embolism, seizure disorder, gastric ulcer. MEDICATIONS: 1. Januvia 100 mg p.o. daily. 2. Magnesium oxide 400 mg b.i.d. 3. Humalog a.c. b.i.d. 4. Tresiba 40 units subcu daily. 5. Divalproex sodium 250 mg p.o. b.i.d. 6. Pristiq 100 mg p.o. daily. 7. Ecotrin 81 mg p.o. daily. 8. Buspirone 15 mg p.o. b.i.d. 9. Zocor 40 mg p.o. daily. 10.Multivitamins 1 p.o. daily. 11.Reglan 5 mg p.o. t.i.d. 12.Folic acid 1 mg daily. 13.Keppra 750 mg p.o. b.i.d. 14. 60 mg p.o. daily. 15.Cozaar 50 mg p.o. daily. ALLERGIES: CODEINE, DOXYCYCLINE, ULTRAM. FAMILY HISTORY: No history of heart disease or strokes in the family. SOCIAL HISTORY: Previous history of smoking. No history of current smoking or alcohol intake. REVIEW OF SYSTEMS: ENT: No diminished hearing. No diminished vision. CARDIOVASCULAR system as mentioned earlier. RESPIRATION: No cough or hemoptysis. GI no nausea. no dysuria. NERVOUS SYSTEM: No numbness or weakness. ALLERGY/IMMUNOLOGY: No asthma or hayfever. MUSCULOSKELETAL as mentioned earlier. HEMATOLOGY/ONCOLOGY: As mentioned earlier. ENDOCRINE as mentioned earlier. CONSTITUTIONAL: As mentioned earlier. DERMATOLOGY: Negative. RHEUMATOLOGY negative. PSYCHIATRY as mentioned earlier. PHYSICAL EXAMINATION: Alert and oriented times three. Pulse 87, blood pressure 146/96, respiration 17, temperature 98.6, pulse ox 98% on room air. HEENT is conjunctivae normal. Oral mucosa moist. NECK is no jugular venous distention. No carotid bruit. No lymph node enlargement. CARDIOVASCULAR: S1, S2. No S3, no S4. RESPIRATION: Breath sounds diminished in the bases. No rhonchi. No crackles. ABDOMEN: Soft, nontender. No mass palpable. LEGS: No edema. No swelling. NERVOUS SYSTEM: Higher functions as mentioned. Moves all 4 limbs. No focal motor or sensory deficit. LYMPHATICS: No lymph nodes palpable in neck, axillae or groin. JOINTS no active deforming arthropathy. LABS: The MCV 100.8. CBC within normal limits. Troponins are normal. EKG no acute changes. Calcium 10.7. ASSESSMENT: 1. Chest pain possible unstable angina. 2. History of diabetes type 2. 3. History of deep vein thrombosis, pulmonary embolism. 4. Gastroesophageal reflux disease. 5. Hypertension. 6. Hyperlipidemia. 7. History of seizure disorder. 8. History of gastric ulcer. 9. History of migraine. 10.Hiatal hernia. 11.History of seizure disorder. 12.History of degenerative joint disease. 13.Depression. 14.Remote history of nicotine dependence. 15.FULL CODE. 16.Obesity with body mass index of 37.7. RECOMMENDATIONS AND DISCUSSION: In this 69-year-old woman who presented with multiple complex medical issues, we will monitor the patient closely. Continue the current medications, symptomatic treatment. Rule out myocardial infarction. Cardiology consultation. Possible stress test. Guarded prognosis because of multiple complex medical issues. The possibility of pulmonary embolism is thought to be low because D-dimer is low but however I will order a 2D echo with Doppler. Continue to monitor. See orders. Covid-19 has been tested. Copy of this dictation forwarded to Dr. Fernandes who is the primary physician. MMODL / IJN: [id number] /
[2020-02-09] MEDS: HYDROmorphone 0.5 MG/0.5 ML SYRINGE IVP PRN ×5 (01:04→22:19)
[2020-02-09 06:04] LABS: Glucose,Whole Blood 136 mg/dL (75-99)
[2020-02-09] MEDS: INSULIN ASPART (NovoLOG) 100 UNIT/ML VIAL SQ SCH ×6 (06:06→20:45)
[2020-02-09 06:46] LABS: Basophils % (A) 0 %; Eosinophils # (A) 0.2 k/uL (0-0.7); Eosinophils % (A) 2 %; HCT 42.7 % (34.0-46.0); HGB 13.3 gm/dL (11.4-16.0); Lymphocytes # (A) 2.9 k/uL (1.0-4.8); Lymphocytes % (A) 29 %; MCH 31.9 pg (25.0-35.0); MCHC 31.2 g/dL (31.0-37.0); MCV 102.4 fL (80.0-100.0); Macrocytosis Slight; Mean Platelet Volume 8.1; Monocytes # (A) 0.8 k/uL (0-1.0); Monocytes % (A) 8 %; Neutrophils # (A) 5.8 k/uL (1.3-7.7); Neutrophils % (A) 58 %; Platelet Count 188 k/uL (150-450); RBC 4.17 m/uL (3.80-5.40); RDW 12.9 % (11.5-15.5); WBC 9.9 k/uL (3.8-10.6)
[2020-02-09 07:05] LABS: Calcium 11.1 mg/dL (8.4-10.2); Potassium 4.8 mmol/L (3.5-5.1)
[2020-02-09] MEDS: METOCLOPRAMIDE 5 MG TAB PO SCH ×3 (08:51→20:46)
[2020-02-09] MEDS: MAGNESIUM OXIDE 400 MG TAB PO SCH ×2 (08:51→20:44)
[2020-02-09] MEDS: FOLIC ACID 1 MG TAB PO SCH (08:51)
[2020-02-09] MEDS: MULTIVITAMINS, THERA 1 EACH TAB PO SCH (08:51)
[2020-02-09] MEDS: ATORVASTATIN 20 MG TAB PO SCH (08:51)
[2020-02-09] MEDS: LINAGLIPTIN 5 MG TABLET PO SCH (08:51)
[2020-02-09] MEDS: LOSARTAN 50 MG TAB PO SCH (08:51)
[2020-02-09] MEDS: busPIRone HCl 5 MG TAB PO SCH ×2 (08:51→20:44)
[2020-02-09] MEDS: ASPIRIN 81 MG PO SCH (08:51)
[2020-02-09] MEDS: INSULIN DETEMIR (LEVEMIR) 100 UNIT/ML SYR SQ SCH (08:52)
[2020-02-09] MEDS: DESVENLAFAXINE SUCCINATE 50 MG TAB.ER.24H PO SCH (08:52)
[2020-02-09] MEDS: DIVALPROEX 250 MG TABLET.DR PO SCH ×2 (08:52→20:45)
[2020-02-09] MEDS: PROPRANOLOL LA 60 MG CAP.SA.24H PO SCH (08:52)
--- NOTE | 2020-02-09 10:16 | P.CRDCN ---
History of Present Illness History of present illness: [place] This is Dr. Mcwilliams dictating a consult on this patient The patient was interviewed and examined by me IMPRESSION / ASSESSMENT: Atypical chest discomfort with normal cardiac enzymes Mild cough with some atelectasis Normal d-dimer Cardiac murmur systolic PLAN: 2-D echo and Doppler study HPI 69-year-old female with the diabetes hypertension DVT who presents with chest discomfort that woke her up from the sleep nitroglycerin did not improve her pain She was afebrile in the ER heart rates in the 80s blood pressure 120-[address] segment abnormalities in the ECG Patient was lying in bed and she rolled over to the left side and started experiencing some chest discomfort. She was little sweaty and maybe a little nauseous She felt it was a heartburn but the heartburn medication did not help She continues to have light chest discomfort ROS: No fever chills or rigors, + cough, neg phlegm or expectoration, no nausea, vomiting or diarrhea, no hematuria, dysuria, no musculoskeletal complaints, no strokes or seizures, no skin lesions. EXAMINATION: Afebrile 98.5, pulse rate elevated at 110 Blood pressure normal 119/60 pulse ox 92 on 2 L nasal cannula Regular rhythm, soft systolic murmur Breath sounds few crackles in the right side Abdomen nontender No lower extremity edema no JVD REVIEW OF LABS, ECG & MEDICAL DATA Twelve-lead ECG is normal Cardiac enzymes normal Sodium 135 potassium 4.8 BUN 31 creatinine 1.0 glucose elevated White count is normal hemoglobin is normal at 13.3 D-dimer 0.54 In 2018 LV function normal RVSP mildly elevated Past Medical History Past Medical History: Chest Pain / Angina, Diabetes Mellitus, Deep Vein Thrombosis (DVT), GERD/Reflux, Hyperlipidemia, Hypertension, Pulmonary Embolus (PE), Seizure Disorder Additional Past Medical History / Comment(s): gastric ulcer,intermittent abdominal pain, HX MIGRAINES, HIATAL HERNIA. SEIZURE 03/2018- NONE SINCE. heart murmer, "pancreas is acting up", hx anemia History of Any Multi-Drug Resistant Organisms: None Reported Past Surgical History: Cholecystectomy, Orthopedic Surgery, Tubal Ligation Additional Past Surgical History / Comment(s): NECK SURGERY, REPAIR FX RT LEG SURGERY 1997, EGD, COLONOSCOPY. arturo cataracts Past Anesthesia/Blood Transfusion Reactions: No Reported Reaction Past Psychological History: Depression Smoking Status: Former smoker Past Alcohol Use History: None Reported Past Drug Use History: None Reported - Past Family History Mother Family Medical History: No Reported History Medications and Allergies Home Medications Medication Instructions Recorded Confirmed Type Simvastatin [Zocor] 40 mg PO DAILY 07/23/14 02/08/20 History Divalproex Sodium 250 mg PO BID 04/13/18 02/08/20 History Propranolol HCl [Inderal LA] 60 mg PO DAILY 04/13/18 02/08/20 History sitaGLIPtin [Januvia] 100 mg PO DAILY 04/13/18 02/08/20 History Insulin Degludec [Tresiba] 40 units SQ DAILY 04/01/19 02/08/20 History Desvenlafaxine [Pristiq ER] 100 mg PO DAILY 08/06/19 02/08/20 History Losartan Potassium [Cozaar] 50 mg PO DAILY 09/03/19 02/08/20 History Metoclopramide [Reglan] 5 mg PO TID 09/03/19 02/08/20 History busPIRone HCL 15 mg PO BID 09/03/19 02/08/20 History Insulin Lispro [humaLOG Kwikpen] 10 unit SQ AC-BID 12/20/19 02/08/20 History levETIRAcetam [Keppra] 750 mg PO BID 12/20/19 02/08/20 History Aspirin EC [Ecotrin Low Dose] 81 mg PO DAILY 02/08/20 02/08/20 History Folic Acid 1 mg PO DAILY 02/08/20 02/08/20 History Magnesium Oxide [Mag-Ox] 400 mg PO BID 02/08/20 02/08/20 History Multivitamins, Thera [Multivitamin 1 tab PO DAILY 02/08/20 02/08/20 History (formulary)] Allergies Allergy/AdvReac Type Severity Reaction Status Date / Time codeine AdvReac shakiness Verified 02/08/20 16:44 doxycycline AdvReac shakiness Verified 02/08/20 16:44 tramadol [From Ultram] AdvReac shakiness Verified 02/08/20 16:44 Physical Exam Vitals: Vital Signs Temp Pulse Pulse Resp BP BP Pulse Ox 02/09/20 07:56 98.5 F 113 H 22 119/60 92 L 02/09/20 04:00 98.0 F 110 H 16 117/57 93 L 02/08/20 23:33 101 H 18 02/08/20 23:31 98.3 F 101 H 18 118/70 94 L 02/08/20 20:00 98.1 F 93 18 124/60 96 02/08/20 16:00 98.6 F 87 17 146/96 96 02/08/20 15:30 97.8 F 81 18 144/83 98 02/08/20 14:30 87 18 136/85 96 02/08/20 13:33 98.2 F 83 18 128/59 97 Intake and Output 02/08/20 02/09/20 02/09/20 22:59 06:59 14:59 Intake Total 150 Balance 150 Intake: Oral 150 Other: Voiding Method Toilet Toilet # Voids 1 2 Weight 93.44 kg 89.7 kg Results 02/09/20 06:13 02/09/20 06:13 Cardiac Enzymes 02/08/20 02/08/20 02/08/20 Range/Units 13:45 13:45 18:19 AST 23 (14-36) U/L Troponin I <0.012 <0.012 (0.000-0.034) ng/mL 02/09/20 Range/Units 01:09 AST (14-36) U/L Troponin I <0.012 (0.000-0.034) ng/mL Coagulation 02/08/20 Range/Units 13:45 PT 10.0 (9.0-12.0) sec APTT 21.5 L (22.0-30.0) sec CBC 02/08/20 02/09/20 Range/Units 13:45 06:13 WBC 9.8 9.9 (3.8-10.6) k/uL RBC 3.99 4.17 (3.80-5.40) m/uL Hgb 12.7 13.3 (11.4-16.0) gm/dL Hct 40.2 42.7 (34.0-46.0) % Plt Count 195 188 (150-450) k/uL Comprehensive Metabolic Panel 02/08/20 02/09/20 Range/Units 13:45 06:13 Sodium 137 135 L (137-145) mmol/L Potassium 4.6 4.8 (3.5-5.1) mmol/L Chloride 103 102 (98-107) mmol/L Carbon Dioxide 26 25 (22-30) mmol/L BUN 28 H 31 H (7-17) mg/dL Creatinine 0.96 1.00 (0.52-1.04) mg/dL Glucose 121 H 129 H (74-99) mg/dL Calcium 10.7 H 11.1 H (8.4-10.2) mg/dL AST 23 (14-36) U/L ALT 16 (4-34) U/L Alkaline Phosphatase 75 (38-126) U/L Total Protein 6.9 (6.3-8.2) g/dL Albumin 4.0 (3.5-5.0) g/dL Current Medications Generic Name Dose Route Start Last Admin Trade Name Freq PRN Reason Stop Dose Admin Aspirin 81 mg 02/09/20 09:00 02/09/20 08:51 Aspirin PO 81 mg DAILY RUBIO Administration Atorvastatin Calcium 20 mg 02/09/20 09:00 02/09/20 08:51 Lipitor PO 20 mg DAILY RUBIO Administration Buspirone HCl 15 mg 02/08/20 21:00 02/09/20 08:51 Buspar PO 15 mg BID RUBIO Administration Desvenlafaxine Succinate 100 mg 02/09/20 09:00 02/09/20 08:52 Pristiq Er PO 100 mg DAILY RUBIO Administration Divalproex Sodium 250 mg 02/08/20 21:00 02/09/20 08:52 Depakote PO 250 mg BID RUBIO Administration Folic Acid 1 mg 02/09/20 09:00 02/09/20 08:51 Folic Acid PO 1 mg DAILY RUBIO Administration Hydromorphone HCl 0.5 mg 02/08/20 19:24 02/09/20 06:06 Dilaudid IVP 0.5 mg Q4HR PRN Administration Pain Insulin Aspart 0 unit 02/08/20 21:00 02/09/20 06:06 Novolog SQ 1 unit ACHS RUBIO Administration Protocol Insulin Aspart 10 unit 02/09/20 07:30 02/09/20 08:41 Novolog SQ Not Given AC-BID [facility] Insulin Detemir 40 unit 02/09/20 09:00 02/09/20 08:52 Levemir SQ Not Given DAILY [facility] Levetiracetam 750 mg 02/08/20 21:00 02/09/20 08:51 Keppra PO 750 mg BID RUBIO Administration Linagliptin 5 mg 02/09/20 09:00 02/09/20 08:51 Tradjenta PO 5 mg DAILY RUBIO Administration Losartan Potassium 50 mg 02/09/20 09:00 02/09/20 08:51 Cozaar PO 50 mg DAILY RUBIO Administration Magnesium Oxide 400 mg 02/08/20 21:00 02/09/20 08:51 Mag-Ox PO 400 mg BID RUBIO Administration Metoclopramide HCl 5 mg 02/08/20 22:00 02/09/20 08:51 Reglan PO 5 mg TID RUBIO Administration Multivitamins 1 each 02/09/20 09:00 02/09/20 08:51 Theragran PO 1 each DAILY RUBIO Administration Naloxone HCl 0.2 mg 02/08/20 15:10 Narcan IV Q2M PRN Opioid Reversal Propranolol HCl 60 mg 02/09/20 09:00 02/09/20 08:52 Inderal La PO 60 mg DAILY RUBIO Administration Intake and Output 02/08/20 02/09/20 02/09/20 22:59 06:59 14:59 Intake Total 150 Balance 150 Intake: Oral 150 Other: Voiding Method Toilet Toilet # Voids 1 2 Weight 93.44 kg 89.7 kg 02/09/20 06:13 02/09/20 06:13
[2020-02-09] MEDS ORDERED: LORazepam 0.5 MG TAB PO PRN (12:14)
[2020-02-09 13:00] LABS: Glucose,Whole Blood 159 mg/dL (75-99)
[2020-02-09 16:35] LABS: Glucose,Whole Blood 156 mg/dL (75-99)
--- NOTE | 2020-02-09 18:45 | PN ---
PROGRESS NOTE DATE OF SERVICE: 02/09/2020 This 69-year-old woman who was admitted with chest pain also had persistent chest pain. At this time the patient is being closely monitored. Cardiology is following the patient closely. Underwent 2D echo with Doppler. PHYSICAL EXAMINATION: Alert and oriented x3. Pulse is 113, blood pressure 119/60, respiration 22, temperature 98.4, pulse ox 98% on 2 L HEENT: Conjunctivae normal. Oral mucosa moist. NECK: No jugular venous distention. No lymph node enlargement. CARDIOVASCULAR: S1, S2. RESPIRATORY: Diminished breath sounds at the bases. A few scattered rhonchi. ABDOMEN: Soft, nontender. LEGS: No edema, no swelling. NERVOUS SYSTEM: No focal deficits. LABS: WBC 9.6 and MCV 102.4. Sodium 132, potassium 4.8, calcium 11.1. ASSESSMENT: 1. Chest pain, possible unstable angina. 2. Tachycardia. 3. Diabetes type 2. 4. History of deep venous thrombosis and pulmonary embolism. 5. Gastroesophageal reflux disease. 6. Anxiety state. 7. Hypertension. 8. Hyperlipidemia. 9. History of seizure disorder. 10.History of gastric ulcer. 11.History of migraine. 12.History of hiatal hernia. 13.History of seizure disorder. 14.History of degenerative joint disease. 15.History of depression. 16.Remote history of nicotine dependence. 17.Obesity with body mass index of 37.7. 18.Hypercalcemia. 19.FULL CODE. RECOMMENDATIONS AND DISCUSSION: Recommend to continue current medications, symptomatic treatment. The patient's calcium is persistently elevated. I would recommend repeat lytes and cardiology consultation, possible stress test. I would also recommend urine drug screen also. Further recommendations to follow. MMODL / IJN: [id number] /
[2020-02-09] MEDS: SODIUM CHLORIDE 0.9% 1,000 ML IV SCH ×2 (19:46→22:00)
[2020-02-09 20:34] LABS: Glucose,Whole Blood 184 mg/dL (75-99)
[2020-02-09 22:54] LABS: Cocaine Screen,Urine Not Detected (NotDetected); Phencyclidine Screen,Urine Detected (NotDetected); Urn Cannabinoid Scrn Not Detected (NotDetected)
[2020-02-09 22:55] LABS: Amphetamine Screen,Urine Not Detected (NotDetected); Barbiturate Screen,Urine Not Detected (NotDetected); Benzodiazepines Screen,Urine Not Detected (NotDetected); Methadone Screen, Urine Not Detected (NotDetected); Opiate Screen,Urine Detected (NotDetected); Oxycodone Screen, Urine Not Detected (NotDetected); Tricyclic Antidepressant,Urine Not Detected (NotDetected)
[2020-02-10] MEDS: SODIUM CHLORIDE 0.9% 1,000 ML IV SCH ×3 (02:00→23:51)
[2020-02-10] MEDS: INSULIN ASPART (NovoLOG) 100 UNIT/ML VIAL SQ SCH ×6 (07:09→21:07)
[2020-02-10 07:16] LABS: Glucose,Whole Blood 159 mg/dL (75-99)
[2020-02-10 07:38] LABS: Basophils % (A) 0 %; Eosinophils # (A) 0.3 k/uL (0-0.7); Eosinophils % (A) 3 %; HCT 36.9 % (34.0-46.0); HGB 12.2 gm/dL (11.4-16.0); Lymphocytes % (A) 30 %; MCH 33.9 pg (25.0-35.0); MCHC 33.2 g/dL (31.0-37.0); MCV 102.3 fL (80.0-100.0); Macrocytosis Slight; Mean Platelet Volume 10.1; Monocytes # (A) 0.7 k/uL (0-1.0); Monocytes % (A) 8 %; Neutrophils # (A) 5.6 k/uL (1.3-7.7); Neutrophils % (A) 57 %; Platelet Count 184 k/uL (150-450); RDW 13.1 % (11.5-15.5); WBC 9.8 k/uL (3.8-10.6)
[2020-02-10 07:55] LABS: Calcium 9.8 mg/dL (8.4-10.2)
[2020-02-10] MEDS: INSULIN DETEMIR (LEVEMIR) 100 UNIT/ML SYR SQ SCH (08:06)
[2020-02-10] MEDS: ASPIRIN 81 MG PO SCH (08:07)
[2020-02-10] MEDS: LINAGLIPTIN 5 MG TABLET PO SCH (08:07)
[2020-02-10] MEDS: busPIRone HCl 5 MG TAB PO SCH ×2 (08:07→20:12)
[2020-02-10] MEDS: ATORVASTATIN 20 MG TAB PO SCH (08:07)
[2020-02-10] MEDS: MAGNESIUM OXIDE 400 MG TAB PO SCH ×2 (08:07→20:12)
[2020-02-10] MEDS: METOCLOPRAMIDE 5 MG TAB PO SCH ×3 (08:07→20:12)
[2020-02-10] MEDS: HYDROmorphone 0.5 MG/0.5 ML SYRINGE IVP PRN ×3 (08:07→20:13)
[2020-02-10] MEDS: FOLIC ACID 1 MG TAB PO SCH (08:07)
[2020-02-10] MEDS: DESVENLAFAXINE SUCCINATE 50 MG TAB.ER.24H PO SCH (08:08)
[2020-02-10] MEDS: DIVALPROEX 250 MG TABLET.DR PO SCH ×2 (08:08→20:12)
[2020-02-10] MEDS: LOSARTAN 50 MG TAB PO SCH (08:08)
[2020-02-10 08:13] LABS: Potassium 5.3 mmol/L (3.5-5.1)
[2020-02-10] MEDS: MULTIVITAMINS, THERA 1 EACH TAB PO SCH (10:25)
[2020-02-10] MEDS: PROPRANOLOL LA 60 MG CAP.SA.24H PO SCH (10:26)
[2020-02-10 12:14] LABS: Glucose,Whole Blood 95 mg/dL (75-99)
--- NOTE | 2020-02-10 15:16 | P.PN ---
Subjective Progress Note Date: 02/10/20 This is a 69-year-old patient admitted to the hospital with atypical chest discomfort, enzymes were negative and d-dimer was negative. She was seen in consultation by Dr. Mcwilliams over the weekend. She does have a history of diabetes, hypertension, prior DVT. An echocardiogram with Doppler study was performed and is yet pending. Blood pressure 120/70, heart rate in the 80s, 96% on room air. Objective - Vital Signs Vital signs: Vital Signs Temp 98.3 F 02/10/20 11:50 Pulse 80 02/10/20 11:50 Resp 18 02/10/20 11:50 BP 120/72 02/10/20 11:50 Pulse Ox 96 02/10/20 11:50 Intake & Output 02/09/20 02/10/20 02/10/20 18:59 06:59 18:59 Intake Total 1262 1040 1160 Output Total 300 Balance 6223 629 4006 Weight 90.8 kg Intake: Oral 1262 1040 1160 Output: Urine 300 Other: Voiding Method Toilet # Voids 1 1 0 # Bowel Movements 0 - Exam PHYSICAL EXAMINATION: GENERAL: 69-year-old female in no acute distress at the time of my examination HEENT: Head is atraumatic, normocephalic. Pupils equal, round. Sclera anicteric. Conjunctiva are clear. Mucous membranes of the mouth are moist. Neck is supple. There is no elevated jugular venous pressure. No carotid bruit is heard. HEART EXAMINATION: Heart S1, S2 normal. No murmur or gallop heard. CHEST EXAMINATION: Lungs are clear to auscultation and precussion. No chest wall tenderness is noted on palpation or with deep breathing. ABDOMEN: Soft, nontender. Bowel sounds are heard. No organomegaly noted. EXTREMITIES: 2+ peripheral pulses with no evidence of peripheral edema and no calf tenderness noted. NEUROLOGIC patient is awake, alert and oriented 3 . . - Labs CBC & Chem 7: 02/10/20 06:53 02/10/20 06:53 Labs: Abnormal Lab Results - Last 24 Hours (Table) 02/09/20 02/09/20 02/09/20 Range/Units 16:34 20:29 22:22 RBC (3.80-5.40) m/uL MCV (80.0-100.0) fL Sodium (137-145) mmol/L Potassium (3.5-5.1) mmol/L BUN (7-17) mg/dL Glucose (74-99) mg/dL POC Glucose (mg/dL) 156 H 184 H (75-99) mg/dL Urine Opiates Screen Detected H (NotDetected) Ur Phencyclidine Scrn Detected H (NotDetected) 02/10/20 02/10/20 02/10/20 Range/Units 06:53 06:53 07:07 RBC 3.60 L (3.80-5.40) m/uL MCV 102.3 H (80.0-100.0) fL Sodium 136 L (137-145) mmol/L Potassium 5.3 H (3.5-5.1) mmol/L BUN 30 H (7-17) mg/dL Glucose 147 H (74-99) mg/dL POC Glucose (mg/dL) 159 H (75-99) mg/dL Urine Opiates Screen (NotDetected) Ur Phencyclidine Scrn (NotDetected) Assessment and Plan Plan: Assessment and plan #1 atypical chest pain, normal cardiac enzymes, normal d-dimer #2 systolic murmur Plan We will review the patient's echocardiogram with Doppler study, if normal, then from our perspective she may be able to be discharged home today to follow-up in the office post discharge. DNP note has been reviewed, I agree with a documented findings and plan of care. Patient was seen and examined.
--- NOTE | 2020-02-10 16:21 | CT ---
EXAMINATION TYPE: CT angio chest DATE OF EXAM: 02/10/2020 COMPARISON: 09/03/2019 HISTORY: elevated d-dimer CT DLP: 442 mGycm. Automated Exposure Control for Dose Reduction was Utilized. CONTRAST: CTA scan of the thorax is performed with IV Contrast, patient injected with 84cc mL of Isovue 370, pu lmonary embolism protocol. MIP Images are created on CT scanner and reviewed. FINDINGS: Patient motion limits interpretation. LUNGS: The lungs are grossly clear, there is no concerning parenchymal mass or nodule identified. T here is no pleural effusion or pneumothorax seen. The tracheobronchial tree is patent. Chronic right hemidiaphragm elevation is seen with right basilar subsegmental atelectasis. Multifocal subsegmental atelectasis at the left lung base. MEDIASTINUM: There is suboptimal enhancement of the pulmonary artery and its branches, there is no CT evidence for pulmonary embolism. There are no greater than 1 cm hilar or mediastinal lymph nodes. No cardiomegaly or pericardial effusion is seen. No significant coronary calcifications although marlin ewhat limited by angiographic phase of contrast. OTHER: There is a concerning right renal mass measuring 1.7 cm demonstrating peripheral enhancement a nd internal septations of the upper pole. Diffuse hypoattenuation of the hepatic parenchyma suggests a degree of hepatic steatosis. Gallbladder surgically absent. Colonic diverticula are seen. Mild mult ilevel degenerative change of the spine. IMPRESSION: 1. Exam is slightly suboptimal given patient motion and bolus timing however no central pulmonary emb olus is seen. No evidence of right heart strain. 2. Chronic right hemidiaphragm elevation. Sniff test could be considered if there is concern for diap hragmatic paralysis. 3. Suspicious right upper pole renal mass measuring 1.7 cm. Further characterization with three-phase CT abdomen or MR abdomen are recommended for consideration for biopsy.
[2020-02-10 17:27] LABS: Glucose,Whole Blood 134 mg/dL (75-99)
--- NOTE | 2020-02-10 18:33 | PN ---
PROGRESS NOTE DATE OF SERVICE: 02/10/2020 This 69-year-old woman who was admitted with chest pain is being closely monitored at this time. The patient has significant anxiety and tachycardia also. The patient also had hypoxia today at pulse ox of 90% without oxygen supplementation. Chest x-ray did not show acute abnormalities. CTA has been requested. No chest pain. No palpitations. No fever. PHYSICAL EXAMINATION: Alert and oriented x3. Pulse 80, blood pressure 122/75, respiration 18, temperature 98.3, pulse ox 90% on 2 L. HEENT: Conjunctivae normal. NECK: No jugular venous distention. CARDIOVASCULAR SYSTEM: S1, S2 muffled. RESPIRATORY SYSTEM: Breath sounds diminished at the bases. A few scattered rhonchi and crackles. ABDOMEN: Soft, non-tender. LEGS: No edema. No swelling. NERVOUS SYSTEM: No focal deficit. LABS: WBC 9.2, hemoglobin 12.2, sodium 136, potassium 5.3. Drug screen is positive for phencyclidines and opiates. ASSESSMENT: 1. Chest pain; possible unstable angina. 2. Hypoxia, resting, for evaluation. Possible atelectasis. 3. Tachycardia, sinus. 4. Diabetes mellitus, type 2. 5. History of deep venous thrombosis and pulmonary embolism. 6. History of gastroesophageal reflux disease. 7. Anxiety state. 8. Hypertension. 9. Hyperlipidemia. 10.History of seizure disorder. 11.History of gastric ulcer. 12.History of migraines. 13.History of hiatal hernia. 14.History of seizure disorder. 15.History of degenerative joint disease. 16.History of depression. 17.Remote history of nicotine dependence. 18.Obesity with body mass index of 37.7. 19.Hypercalcemia. 20.FULL CODE. RECOMMENDATIONS AND DISCUSSION: In this 69-year-old woman who presented with multiple complex medical issues, we will monitor the patient closely, continue the current medications, continue with symptomatic treatment. Otherwise at this time I recommend continuing symptomatic treatment. Repeat electrolytes and CT angio. Increase ambulation. Closely follow. A 2D echo is pending at this time. Further recommendations to follow. MMODL / IJN: [id number] /
[2020-02-10 20:59] LABS: Glucose,Whole Blood 98 mg/dL (75-99)
[2020-02-11] MEDS: HYDROmorphone 0.5 MG/0.5 ML SYRINGE IVP PRN ×3 (00:41→10:03)
[2020-02-11] MEDS: SODIUM CHLORIDE 0.9% 1,000 ML IV SCH (06:11)
[2020-02-11 07:10] LABS: Glucose,Whole Blood 155 mg/dL (75-99)
[2020-02-11] MEDS: INSULIN ASPART (NovoLOG) 100 UNIT/ML VIAL SQ SCH ×3 (07:19→11:52)
[2020-02-11 07:44] LABS: Basophils % (A) 1 %; Eosinophils # (A) 0.2 k/uL (0-0.7); Eosinophils % (A) 2 %; HCT 39.5 % (34.0-46.0); HGB 12.7 gm/dL (11.4-16.0); Lymphocytes # (A) 2.4 k/uL (1.0-4.8); Lymphocytes % (A) 27 %; MCH 32.5 pg (25.0-35.0); MCHC 32.2 g/dL (31.0-37.0); MCV 101.1 fL (80.0-100.0); Mean Platelet Volume 8.4; Monocytes # (A) 0.6 k/uL (0-1.0); Monocytes % (A) 6 %; Neutrophils # (A) 5.4 k/uL (1.3-7.7); Neutrophils % (A) 61 %; Platelet Count 165 k/uL (150-450); RDW 12.7 % (11.5-15.5); WBC 8.8 k/uL (3.8-10.6)
[2020-02-11 07:56] LABS: Calcium 10.4 mg/dL (8.4-10.2); Potassium 4.4 mmol/L (3.5-5.1)
[2020-02-11] MEDS: METOCLOPRAMIDE 5 MG TAB PO SCH (09:16)
[2020-02-11] MEDS: LINAGLIPTIN 5 MG TABLET PO SCH (09:16)
[2020-02-11] MEDS: busPIRone HCl 5 MG TAB PO SCH (09:16)
[2020-02-11] MEDS: ATORVASTATIN 20 MG TAB PO SCH (09:16)
[2020-02-11] MEDS: DESVENLAFAXINE SUCCINATE 50 MG TAB.ER.24H PO SCH (09:17)
[2020-02-11] MEDS: DIVALPROEX 250 MG TABLET.DR PO SCH (09:17)
[2020-02-11] MEDS: LOSARTAN 50 MG TAB PO SCH (09:17)
[2020-02-11] MEDS: ASPIRIN 81 MG PO SCH (09:17)
[2020-02-11] MEDS: MULTIVITAMINS, THERA 1 EACH TAB PO SCH (09:17)
[2020-02-11] MEDS: PROPRANOLOL LA 60 MG CAP.SA.24H PO SCH (09:17)
[2020-02-11] MEDS: FOLIC ACID 1 MG TAB PO SCH (09:17)
[2020-02-11] MEDS: MAGNESIUM OXIDE 400 MG TAB PO SCH (09:17)
[2020-02-11] MEDS: INSULIN DETEMIR (LEVEMIR) 100 UNIT/ML SYR SQ SCH (09:17)
[2020-02-11 09:29] VITALS: RESP 16
[2020-02-11 11:31] LABS: Glucose,Whole Blood 131 mg/dL (75-99)
[2020-02-11 13:21] VITALS: BP 113/56; PULSE 89; TEMP 98.5
--- NOTE | 2020-02-11 14:55 | US ---
EXAMINATION TYPE: US kidneys/renal and bladder DATE OF EXAM: 02/11/2020 COMPARISON: CT abdomen and pelvis December 26, 2019. CTA chest from yesterday. CLINICAL HISTORY: kidney mass; on CTA Discharge pending. EXAM MEASUREMENTS: Right Kidney: 9.3 x 4.3 x 4.4 Left Kidney: 10.1 x 4.8 x 5.0 Right Kidney: No hydronephrosis. Cystic area visualized upper pole measuring 1.6 x 1.2 x 1.5 cm Left Kidney: No hydronephrosis or masses seen Bladder: wnl Bilateral Jets seen: Yes There is no evidence for hydronephrosis at this point in time. No nephrolithiasis is seen. The urin demetri bladder is anechoic. There is 1.6 x 1.2 cm simple appearing thin-walled cyst upper pole level medially right kidney which correlates with area of concern on recent CTA chest study.Stable from older CT abdomen and pelvis swathi dy December 25, 2009, more prominent from older studies. No suspicious solid component or thickened sept a seen. IMPRESSION: Probable 1.6 cm simple appearing thin-walled cyst upper pole level medially right kidney. Consider ultrasound follow-up in 1 year time to reassess.
--- NOTE | 2020-02-11 16:30 | P.PN ---
Subjective Progress Note Date: 02/11/20 This is a 69-year-old patient admitted to the hospital with atypical chest discomfort, enzymes were negative and d-dimer was negative. She was seen in consultation by Dr. Mcwilliams over the weekend. She does have a history of diabetes, hypertension, prior DVT. An echocardiogram with Doppler study was performed and is yet pending. Blood pressure 120/70, heart rate in the 80s, 96% on room air. 02/11/2020 Patient seen and examined this morning, hemodynamically stable. Echocardiogram with Doppler study has been performed but remains pending. Objective - Vital Signs Vital signs: Vital Signs Temp 98.5 F 02/11/20 12:00 Pulse 89 02/11/20 12:00 Resp 16 02/11/20 12:00 BP 113/56 02/11/20 12:00 Pulse Ox 94 L 02/11/20 12:00 Intake & Output 02/10/20 02/11/20 02/11/20 18:59 06:59 18:59 Intake Total 1400 10 120 Balance 1400 10 120 Weight 96.5 kg Intake: IV 10 Invasive Line 2 10 Oral 1400 120 Other: Voiding Method Toilet # Voids 2 2 # Bowel Movements 0 - Exam PHYSICAL EXAMINATION: GENERAL: 69-year-old female in no acute distress at the time of my examination HEENT: Head is atraumatic, normocephalic. Pupils equal, round. Sclera anicteric. Conjunctiva are clear. Mucous membranes of the mouth are moist. Neck is supple. There is no elevated jugular venous pressure. No carotid bruit is heard. HEART EXAMINATION: Heart S1, S2 normal. No murmur or gallop heard. CHEST EXAMINATION: Lungs are clear to auscultation and precussion. No chest wall tenderness is noted on palpation or with deep breathing. ABDOMEN: Soft, nontender. Bowel sounds are heard. No organomegaly noted. EXTREMITIES: 2+ peripheral pulses with no evidence of peripheral edema and no calf tenderness noted. NEUROLOGIC patient is awake, alert and oriented 3 . . - Labs CBC & Chem 7: 02/11/20 07:12 02/11/20 07:12 Labs: Abnormal Lab Results - Last 24 Hours (Table) 02/10/20 02/11/20 02/11/20 Range/Units 17:16 07:09 07:12 MCV 101.1 H (80.0-100.0) fL Sodium (137-145) mmol/L BUN (7-17) mg/dL Glucose (74-99) mg/dL POC Glucose (mg/dL) 134 H 155 H (75-99) mg/dL Calcium (8.4-10.2) mg/dL 02/11/20 02/11/20 Range/Units 07:12 11:30 MCV (80.0-100.0) fL Sodium 136 L (137-145) mmol/L BUN 21 H (7-17) mg/dL Glucose 147 H (74-99) mg/dL POC Glucose (mg/dL) 131 H (75-99) mg/dL Calcium 10.4 H (8.4-10.2) mg/dL Assessment and Plan Plan: Assessment and plan #1 atypical chest pain, normal cardiac enzymes, normal d-dimer #2 systolic murmur Plan Patient's echocardiogram with Doppler study remains pending, they she may be able to be discharged home. Regardless of that. To follow-up post discharge. DNP note has been reviewed, I agree with a documented findings and plan of care. Patient was seen and examined.
--- NOTE | 2020-02-11 21:02 | ECHOF ---
Referral Reason:chf MEASUREMENTS -------- HEIGHT: 157.5 cm WEIGHT: 90.7 kg BP: IVSd: 1.1 cm (0.6 - 1.1) LVIDd: 3.6 cm (3.9 - 5.3) LVPWd: 1.0 cm (0.6 - 1.1) IVSs: 1.5 cm LVIDs: 2.1 cm LVPWs: 1.3 cm LA Diam: 3.0 cm (2.7 - 3.8) RVIDd: 2.8 cm (< 3.3) Ao Diam: 2.4 cm (2.0 - 3.7) AV Cusp: 1.8 cm (1.5 - 2.6) EPSS: 0.4 cm MV E Jaspreet: 1.03 m/s MV DecT: 198 ms MV A Jaspreet: 0.90 m/s MV E/A Ratio: 1.14 RAP: 5.00 mmHg RVSP: 32.12 mmHg MV EF SLOPE: 67.17 mm/s (70 - 150) MV EXCURSION: 9.89 mm (> 18.000) FINDINGS -------- Sinus rhythm. This was a technically good study. The left ventricular size is normal. There is borderline concentric left ventricular hypertrophy. Overall left ventricular systolic function is normal with, an EF between 60 - 65 %. The right ventricle is normal in size. The left atrial size is normal. The right atrium is normal in size. Interatrial and interventricular septum intact. The aortic valve is trileaflet and appears structurally normal. The mitral valve is normal. Mild tricuspid regurgitation present. Right ventricular systolic pressure is normal at < 35 mmHg. Trace/mild (physiologic) pulmonic regurgitation. The aortic root size is normal. Normal inferior vena cava with normal inspiratory collapse consistent with estimated right atrial pre ssure of 5 mmHg. There is no pericardial effusion. CONCLUSIONS -------- 1. Sinus rhythm. 2. This was a technically good study. 3. The left ventricular size is normal. 4. There is borderline concentric left ventricular hypertrophy. 5. Overall left ventricular systolic function is normal with, an EF between 60 - 65 %. 6. The right ventricle is normal in size. 7. The left atrial size is normal. 8. The right atrium is normal in size. 9. Interatrial and interventricular septum intact. 10. The aortic valve is trileaflet and appears structurally normal. 11. The mitral valve is normal. 12. Mild tricuspid regurgitation present. 13. Right ventricular systolic pressure is normal at < 35 mmHg. 14. Trace/mild (physiologic) pulmonic regurgitation. 15. The aortic root size is normal. 16. Normal inferior vena cava with normal inspiratory collapse consistent with estimated right atrial pressure of 5 mmHg. 17. There is no pericardial effusion. GRANITE WORKER: Josefina Cai RDCS
--- NOTE | 2020-02-12 14:55 | P.DS ---
Providers Date of admission: 02/10/20 09:00 Expected date of discharge: 02/11/20 Attending physician: Lori Esteves Consults: 02/08/20 15:10 Consult Physician Urgent Consulting Provider: [facility] Consult Reason/Comments: acute chest pain, possible ACS Do you want consulting provider notified?: Yes Primary care physician: Estrada [facility] Course: Final diagnosis Chest pain, possible unstable angina Hypoxia, resting, possible atelectasis, improved Sinus tachycardia Diabetes mellitus type 2 History of DVT and pulmonary embolism History of gastroesophageal reflux disease Anxiety state Hypertension Hyperlipidemia history of seizure disorder History of gastric ulcer History of migraines History of hiatal hernia History of degenerative joint disease History of depression Remote history of nicotine dependence Obesity with a body mass index of 37.7 Hypercalcemia Full code Discharge disposition Patient is being discharged in a stable condition with guarded prognosis to home and will follow-up with Dr. Estrada Fernandes upon discharge. Patient will also follow-up with Dr. Mcwilliams in the outpatient setting. Patient instructed to follow-up with urology in the outpatient setting as well. Total time taken is 35 minutes. History of present illness This is a 69-year-old female who was recently admitted with chest pain and was being closely monitored. Patient was also found to have significant anxiety and tachycardia along with some hypoxia on room air. Cardiology following the patient. Patient underwent a chest x-ray showing no acute abnormalities along with a CTA that was negative for any pulmonary embolisms. On the CT showed a suspicious right upper pole renal mass measuring 1.7 cm and obtained a renal ultrasound showing a probable 1.6 cm simple appearing thin-walled cyst in the upper pole and recommending a possible ultrasound in one year to reassess. Recommended patient to follow-up with urology in the outpatient setting along with discussing this finding with her primary care provider. Patient also underwent echo showing overall left ventricular systolic function is normal with an EF between 60 and 65% along with some mild tricuspid regurgitation present and a trace of pulmonic regurgitation noted. Patient will be following up with cardiology in the outpatient setting. Currently no reports of chest pain, worsening shortness of breath, or palpitations. Patient is afebrile. No reports of nausea or vomiting and patient is tolerating diet. Patient is requesting to go home today. Guarded prognosis. On exam vital signs are stable. Temp is 98.5F, pulse is 89, respirations are 16, blood pressure is 113/56, oxygen saturation is 94 % on room air. Cardio S1, S2 are muffled. Respiratory system shows diminished breath sounds at the bases with no crackles or rhonchi noted. Abdomen is soft and nontender. Nervous system shows no focal deficits. Please refer to medication reconciliation sheet for a list of medications. Patient Condition at Discharge: Stable Plan - Discharge Summary Discharge Rx Participant: No New Discharge Prescriptions: Continue Simvastatin [Zocor] 40 mg PO DAILY Propranolol HCl [Inderal LA] 60 mg PO DAILY sitaGLIPtin [Januvia] 100 mg PO DAILY Divalproex Sodium 250 mg PO BID Insulin Degludec [Tresiba] 40 units SQ DAILY Desvenlafaxine [Pristiq ER] 100 mg PO DAILY busPIRone HCL 15 mg PO BID Losartan Potassium [Cozaar] 50 mg PO DAILY Metoclopramide [Reglan] 5 mg PO TID Insulin Lispro [humaLOG Kwikpen] 10 unit SQ AC-BID levETIRAcetam [Keppra] 750 mg PO BID Magnesium Oxide [Mag-Ox] 400 mg PO BID Aspirin EC [Ecotrin Low Dose] 81 mg PO DAILY Multivitamins, Thera [Multivitamin (formulary)] 1 tab PO DAILY Folic Acid 1 mg PO DAILY Discharge Medication List Simvastatin [Zocor] 40 mg PO DAILY 07/23/14 [History] Divalproex Sodium 250 mg PO BID 04/13/18 [History] Propranolol HCl [Inderal LA] 60 mg PO DAILY 04/13/18 [History] sitaGLIPtin [Januvia] 100 mg PO DAILY 04/13/18 [History] Insulin Degludec [Tresiba] 40 units SQ DAILY 04/01/19 [History] Desvenlafaxine [Pristiq ER] 100 mg PO DAILY 08/06/19 [History] Losartan Potassium [Cozaar] 50 mg PO DAILY 09/03/19 [History] Metoclopramide [Reglan] 5 mg PO TID 09/03/19 [History] busPIRone HCL 15 mg PO BID 09/03/19 [History] Insulin Lispro [humaLOG Kwikpen] 10 unit SQ AC-BID 12/20/19 [History] levETIRAcetam [Keppra] 750 mg PO BID 12/20/19 [History] Aspirin EC [Ecotrin Low Dose] 81 mg PO DAILY 02/08/20 [History] Folic Acid 1 mg PO DAILY 02/08/20 [History] Magnesium Oxide [Mag-Ox] 400 mg PO BID 02/08/20 [History] Multivitamins, Thera [Multivitamin (formulary)] 1 tab PO DAILY 02/08/20 [History] Follow up Appointment(s)/Referral(s): Reyes Mcwilliams MD [STAFF PHYSICIAN] - 02/25/20 8:15 am Estrada Fernandes DO [Primary Care Provider] - 02/19/20 2:00 pm Partha Parker MD [STAFF PHYSICIAN] - 2 Weeks (Please call the office to schedule an appointment) Patient Instructions/Handouts: Chest Pain (DC) Activity/Diet/Wound Care/Special Instructions: Activity Limited until follow-up Continue current diet Continue to monitor blood sugars Follow-up with urology in the outpatient setting for possible renal mass noted on CT to discuss further testing and/or possible biopsy Follow-up with primary care provider in the outpatient setting Follow-up with cardiology in 1-2 weeks in the outpatient setting Discharge Disposition: HOME SELF-CARE
== END 2020-02-11 16:25 | disposition home or self-care (01) | DRG 311 ==
LOC: EC 13:30 → 3SCARD 15:11 → OBSVTOIN 02-10 09:00
PROVIDERS: ADMIT Hospitalist; ATTEND Hospitalist
DX: I20.0 Unstable angina (principal); J98.11 Atelectasis; E11.9 Type 2 diabetes mellitus without complications; Z79.4 Long term (current) use of insulin; R09.02 Hypoxemia; Z20.828 Contact with and (suspected) exposure to other viral communicable diseases; I10 Essential (primary) hypertension; E83.52 Hypercalcemia; E78.5 Hyperlipidemia, unspecified; F32.9 Major depressive disorder, single episode, unspecified; F41.9 Anxiety disorder, unspecified; R00.0 Tachycardia, unspecified; K21.9 Gastro-esophageal reflux disease without esophagitis; G40.909 Epilepsy, unspecified, not intractable, without status epilepticus; N28.89 Other specified disorders of kidney and ureter; K44.9 Diaphragmatic hernia without obstruction or gangrene; I07.1 Rheumatic tricuspid insufficiency; E66.9 Obesity, unspecified; Z68.38 Body mass index [BMI] 38.0-38.9, adult; M19.90 Unspecified osteoarthritis, unspecified site; Z79.82 Long term (current) use of aspirin; Z79.899 Other long term (current) drug therapy; Z86.718 Personal history of other venous thrombosis and embolism; Z86.711 Personal history of pulmonary embolism; Z87.11 Personal history of peptic ulcer disease; Z86.69 Personal history of other diseases of the nervous system and sense organs; Z90.49 Acquired absence of other specified parts of digestive tract; Z87.891 Personal history of nicotine dependence; Z87.81 Personal history of (healed) traumatic fracture; Z86.2 Personal history of diseases of the blood and blood-forming organs and certain disorders involving the immune mechanism; Z98.51 Tubal ligation status; Z98.42 Cataract extraction status, left eye; Z98.41 Cataract extraction status, right eye; Z88.5 Allergy status to narcotic agent; Z88.1 Allergy status to other antibiotic agents
CPT/HCPCS: 36415; 71046; 71275; 76770; 80048; 80053; 80306; 81001; 83735; 84484; 85025; 85379; 85610; 85730; 87635; 93005; 93306; 96374; 96375; 99285

== ENCOUNTER 2020-04-14 14:00 | Emergency (ER) | payer MEDICARE, OTHER ==
[2020-04-14 14:09] VITALS: RESP 18; TEMP 98.1
[2020-04-14] MEDS ORDERED: SODIUM CHLORIDE 0.9% 1,000 ML IV STA (14:38)
[2020-04-14] MEDS ORDERED: ONDANSETRON 4 MG/2 ML VIAL IVP STA (14:39)
[2020-04-14] MEDS ORDERED: MORPHINE SULFATE 4 MG/ML SYRINGE IVP STA (14:49)
[2020-04-14] MEDS ORDERED: PANTOPRAZOLE 40 MG/10 ML VIAL IVP STA (14:49)
--- NOTE | 2020-04-14 14:51 | ED ---
Abdominal Pain HPI - General Chief Complaint: Abdominal Pain Stated Complaint: Upper chest pain Time Seen by Provider: 04/14/20 14:27 Source: patient Mode of arrival: ambulatory Limitations: no limitations - History of Present Illness Initial Comments: Patient is 69-year-old female presenting to the emergency department with a chief complaint of abdominal pain. Patient said the abdominal pain is mostly located in the left upper quadrant epigastric region with occasional radiation to the epigastric region. Patient states she is been having this pain for the past several months. Patient states she was diagnosed with a gastric ulcer after an EGD by and was subsequently started on medications. Patient states she has a follow-up with the general surgeon in 1 week. Patient states the pain is not getting better. Patient states she's had decreased appetite with occasional nausea but no vomiting. Denies any diarrhea. Denies any vaginal or urinary symptoms. Denies any night sweats or chills. Denies any chest pain or shortness of breath at this time. Denies hematuria, hematochezia or melena. - Related Data Home Medications Medication Instructions Recorded Confirmed Simvastatin [Zocor] 40 mg PO DAILY 07/23/14 04/14/20 Divalproex Sodium 250 mg PO BID 04/13/18 04/14/20 Propranolol HCl [Inderal LA] 60 mg PO DAILY 04/13/18 04/14/20 sitaGLIPtin [Januvia] 100 mg PO DAILY 04/13/18 04/14/20 Desvenlafaxine [Pristiq ER] 100 mg PO DAILY 08/06/19 04/14/20 Metoclopramide [Reglan] 5 mg PO TID 09/03/19 04/14/20 busPIRone HCL 15 mg PO BID 09/03/19 04/14/20 Insulin Lispro [humaLOG Kwikpen] 10 unit SQ AC-BID 12/20/19 04/14/20 levETIRAcetam [Keppra] 750 mg PO BID 12/20/19 04/14/20 Aspirin EC [Ecotrin Low Dose] 81 mg PO DAILY 02/08/20 04/14/20 Folic Acid 1 mg PO DAILY 02/08/20 04/14/20 Magnesium Oxide [Mag-Ox] 400 mg PO BID 02/08/20 04/14/20 Multivitamins, Thera [Multivitamin 1 tab PO DAILY 02/08/20 04/14/20 (formulary)] Insulin Degludec [Tresiba 40 units SQ DAILY 04/14/20 04/14/20 Flextouch U-200] Losartan Potassium 50 mg PO DAILY 04/14/20 04/14/20 Omeprazole 20 mg PO DAILY 04/14/20 04/14/20 Sucralfate [Carafate] 1 gm PO AC-TID 04/14/20 04/14/20 methocarbamoL [Robaxin] 500 mg PO TID 04/14/20 04/14/20 Previous Rx's Medication Instructions Recorded HYDROcodone/APAP 5-325MG [[place] 5] 1 each PO Q6HR PRN 3 Days #12 tab 04/14/20 Ondansetron Odt [Zofran Odt] 4 mg PO Q8HR PRN #14 tab 04/14/20 Allergies Allergy/AdvReac Type Severity Reaction Status Date / Time codeine AdvReac shakiness Verified 04/14/20 15:50 doxycycline AdvReac shakiness Verified 04/14/20 15:50 tramadol [From Ultram] AdvReac shakiness Verified 04/14/20 15:50 Review of Systems ROS Statement: Those systems with pertinent positive or pertinent negative responses have been documented in the HPI. ROS Other: All systems not noted in ROS Statement are negative. Past Medical History Past Medical History: Chest Pain / Angina, Diabetes Mellitus, Deep Vein Thrombosis (DVT), GERD/Reflux, Hyperlipidemia, Hypertension, Pulmonary Embolus (PE), Seizure Disorder Additional Past Medical History / Comment(s): gastric ulcer,intermittent abdominal pain, HX MIGRAINES, HIATAL HERNIA. SEIZURE 03/2018- NONE SINCE. heart murmer, "pancreas is acting up", hx anemia History of Any Multi-Drug Resistant Organisms: None Reported Past Surgical History: Cholecystectomy, Orthopedic Surgery, Tubal Ligation Additional Past Surgical History / Comment(s): NECK SURGERY, REPAIR FX RT LEG SURGERY 1997, EGD, COLONOSCOPY. arturo cataracts Past Anesthesia/Blood Transfusion Reactions: No Reported Reaction Past Psychological History: Depression Smoking Status: Former smoker Past Alcohol Use History: None Reported Past Drug Use History: None Reported - Past Family History Mother Family Medical History: No Reported History General Exam Limitations: no limitations General appearance: alert, in no apparent distress Head exam: Present: atraumatic, normocephalic, normal inspection Eye exam: Present: normal appearance, PERRL, EOMI Pupils: Present: normal accommodation ENT exam: Present: normal exam, normal oropharynx, mucous membranes dry, TM's normal bilaterally, normal external ear exam Neck exam: Present: normal inspection, full ROM. Absent: tenderness Respiratory exam: Present: normal lung sounds bilaterally. Absent: respiratory distress, wheezes, rales Cardiovascular Exam: Present: regular rate, normal rhythm, normal heart sounds GI/Abdominal exam: Present: soft, tenderness (Epigastric and left upper quadrant abdominal pain.), normal bowel sounds. Absent: distended, guarding, rebound, rigid Extremities exam: Present: normal inspection, full ROM, normal capillary refill. Absent: tenderness Back exam: Present: normal inspection, full ROM. Absent: tenderness, CVA tenderness (R), CVA tenderness (L) Neurological exam: Present: alert, oriented X3, normal gait Psychiatric exam: Present: normal affect, anxious Skin exam: Present: warm, dry, intact, normal color Course Vital Signs 04/14/20 04/14/20 04/14/20 14:06 14:45 17:15 Temperature 98.1 F Pulse Rate 78 78 74 Respiratory 18 18 18 Rate Blood Pressure 114/67 126/80 117/47 O2 Sat by Pulse 95 95 95 Oximetry Medical Decision Making - Medical Decision Making Patient is 69-year-old female presenting to emergency Department with a chief and abdominal pain. On exam patient is epigastric and left upper quadrant abdominal pain. Patient is diagnosed with a peptic ulcer via EGD by . Patient is currently taking medication for peptic ulcer. CBC CMP and UA are unremarkable. CT abdomen and pelvis reveals a renal mass that has remained unchanged. Patient was given antiemetics, fluids and analgesia. On reevaluation patient reports some improvement in symptoms. Patient will be discharged with [place] for pain. Patient states she is unable to tolerate Tylenol 3. Patient advised to avoid eating acidic foods. Patient is set to see within this week. No chest pain or shortness of breath. Return parameters were thoroughly discussed with patient is understanding and agreeable. Case discussed with physician. - Lab Data Result diagrams: 04/14/20 15:08 04/14/20 15:08 Lab Results 04/14/20 04/14/20 04/14/20 Range/Units 15:08 15:08 15:08 WBC 8.0 (3.8-10.6) k/uL RBC 4.14 (3.80-5.40) m/uL Hgb 13.3 (11.4-16.0) gm/dL Hct 40.4 (34.0-46.0) % MCV 97.6 (80.0-100.0) fL MCH 32.1 (25.0-35.0) pg MCHC 32.9 (31.0-37.0) g/dL RDW 12.4 (11.5-15.5) % Plt Count 199 (150-450) k/uL Neutrophils % 52 % Lymphocytes % 36 % Monocytes % 5 % Eosinophils % 3 % Basophils % 1 % Neutrophils # 4.2 (1.3-7.7) k/uL Lymphocytes # 2.9 (1.0-4.8) k/uL Monocytes # 0.4 (0-1.0) k/uL Eosinophils # 0.2 (0-0.7) k/uL Basophils # 0.1 (0-0.2) k/uL Sodium 136 L (137-145) mmol/L Potassium 4.1 (3.5-5.1) mmol/L Chloride 104 (98-107) mmol/L Carbon Dioxide 27 (22-30) mmol/L Anion Gap 5 mmol/L BUN 21 H (7-17) mg/dL Creatinine 0.90 (0.52-1.04) mg/dL Est GFR (CKD-EPI)AfAm 76 (>60 ml/min/1.73 sqM) Est GFR (CKD-EPI)NonAf 66 (>60 ml/min/1.73 sqM) Glucose 120 H (74-99) mg/dL Calcium 10.2 (8.4-10.2) mg/dL Total Bilirubin 0.3 (0.2-1.3) mg/dL AST 20 (14-36) U/L ALT 13 (4-34) U/L Alkaline Phosphatase 97 (38-126) U/L Total Protein 6.8 (6.3-8.2) g/dL Albumin 4.0 (3.5-5.0) g/dL Lipase 116 (23-300) U/L Urine Color Yellow Urine Appearance Cloudy H (Clear) Urine pH 6.5 (5.0-8.0) Ur Specific [place] 1.031 (1.001-1.035) Urine Protein Trace H (Negative) Urine Glucose (UA) Negative (Negative) Urine Ketones Trace H (Negative) Urine Blood Negative (Negative) Urine Nitrite Negative (Negative) Urine Bilirubin Negative (Negative) Urine Urobilinogen <2.0 (<2.0) mg/dL Ur Leukocyte Esterase Small H (Negative) Urine WBC 3 (0-5) /hpf Ur Squamous Epith Cells 6 H (0-4) /hpf Amorphous Sediment Rare H (None) /hpf Urine Mucus Rare H (None) /hpf - EKG Data EKG Comments: Sinus rhythm, no ST or T-wave changes. Ventricular rate 75, AK 144, QRS 74, QTC 402. Disposition Clinical Impression: Abdominal pain Disposition: HOME SELF-CARE Condition: Good Instructions (If sedation given, give patient instructions): Peptic Ulcer (ED), Abdominal Pain (ED) Additional Instructions: Continue with your appointment with . Return to emergency department if symptoms worsen. Take prescribed medication as directed. Do not drive or operative machinery taking medication. Prescriptions: HYDROcodone/APAP 5-325MG [[place] 5] 1 each PO Q6HR PRN 3 Days #12 tab PRN Reason: Pain Ondansetron Odt [Zofran Odt] 4 mg PO Q8HR PRN #14 tab PRN Reason: Nausea Is patient prescribed a controlled substance at d/c from ED?: Yes If prescribed controlled substance>3 days was MAPS reviewed?: Prescribed <3 Days Referrals: Estrada Fernandes DO [Primary Care Provider] - 1-2 days Time of Disposition: 16:59
[2020-04-14 15:18] LABS: Basophils # (A) 0.1 k/uL (0-0.2); Basophils % (A) 1 %; Eosinophils # (A) 0.2 k/uL (0-0.7); Eosinophils % (A) 3 %; HCT 40.4 % (34.0-46.0); HGB 13.3 gm/dL (11.4-16.0); Lymphocytes # (A) 2.9 k/uL (1.0-4.8); Lymphocytes % (A) 36 %; MCH 32.1 pg (25.0-35.0); MCHC 32.9 g/dL (31.0-37.0); MCV 97.6 fL (80.0-100.0); Mean Platelet Volume 8.1; Monocytes # (A) 0.4 k/uL (0-1.0); Monocytes % (A) 5 %; Neutrophils # (A) 4.2 k/uL (1.3-7.7); Neutrophils % (A) 52 %; Platelet Count 199 k/uL (150-450); RBC 4.14 m/uL (3.80-5.40); RDW 12.4 % (11.5-15.5)
[2020-04-14 15:20] LABS: Amorphous Sediment,Urine Rare /hpf; Appearance,Urine Cloudy (Clear); Bilirubin,Urine Negative (Negative); Blood,Urine Negative (Negative); Color,Urine Yellow; Glucose,Urine (UA) Negative (Negative); Ketones,Urine Trace (Negative); Leukocyte Esterase,Urine Small (Negative); Mucus,Urine Rare /hpf; Nitrite,Urine Negative (Negative); PH, Urine 6.5 (5.0-8.0); Protein,Urine Trace (Negative); Specific Gravity,Urine 1.031 (1.001-1.035); Squamous Epithelial Cell,Urine 6 /hpf (0-4); Urobilinogen,Urine <2.0 mg/dL (<2.0); WBC,Urine 3 /hpf (0-5)
[2020-04-14 15:28] LABS: Calcium 10.2 mg/dL (8.4-10.2); Potassium 4.1 mmol/L (3.5-5.1); Total Bilirubin 0.3 mg/dL (0.2-1.3); Total Protein 6.8 g/dL (6.3-8.2)
--- NOTE | 2020-04-14 16:14 | CT ---
EXAMINATION TYPE: CT abdomen pelvis w con DATE OF EXAM: 04/14/2020 COMPARISON: 12/26/2019 CT abdomen pelvis. Renal ultrasound 02/11/2020 HISTORY: Epigastric pain. CT DLP: 1361.2 mGycm Automated exposure control for dose reduction was used. TECHNIQUE: Helical acquisition of images was performed from the lung bases through the pelvis. CONTRAST: Performed without Oral Contrast and with IV Contrast, patient injected with 100 mL of Isovue 300. FINDINGS: LUNG BASES: No significant abnormality is appreciated. LIVER: Normal liver. BILIARY SYSTEM: Status post cholecystectomy. No intrahepatic or extrahepatic biliary ductal dilatatio n. PANCREAS: Fatty atrophy. SPLEEN: Normal. ADRENALS: Normal. KIDNEYS: No hydronephrosis. Redemonstrated complex right renal cyst. BOWEL: Small hiatal hernia. No evidence of bowel obstruction or inflammation. Mild scattered colonic diverticulosis. No acute diverticulitis. PERITONEUM: No free air is visualized. No free fluid. ADENOPATHY: No lymphadenopathy. PELVIS: Uterus and adnexa are normal. Underdistended urinary bladder. VASCULATURE: No abdominal aortic aneurysm. MUSCULOSKELETAL: Degenerative changes of the spine. IMPRESSION: 1. No acute findings to explain patient's epigastric abdominal pain. 2. Redemonstrated complex cyst of the right kidney. Recommend follow-up renal ultrasound in one year for stability.
[2020-04-14 17:51] VITALS: BP 117/47; PULSE 74
== END 2020-04-14 17:50 | disposition home or self-care (01) ==
LOC: EC 14:00
DX: K27.9 Peptic ulcer, site unspecified, unspecified as acute or chronic, without hemorrhage or perforation (principal); N28.89 Other specified disorders of kidney and ureter; F32.9 Major depressive disorder, single episode, unspecified; I20.9 Angina pectoris, unspecified; E11.9 Type 2 diabetes mellitus without complications; K21.9 Gastro-esophageal reflux disease without esophagitis; E78.5 Hyperlipidemia, unspecified; I10 Essential (primary) hypertension; G40.909 Epilepsy, unspecified, not intractable, without status epilepticus; G43.909 Migraine, unspecified, not intractable, without status migrainosus; Z79.4 Long term (current) use of insulin; Z79.82 Long term (current) use of aspirin; Z79.899 Other long term (current) drug therapy; Z88.2 Allergy status to sulfonamides; Z88.5 Allergy status to narcotic agent; Z88.6 Allergy status to analgesic agent; Z98.42 Cataract extraction status, left eye; Z98.41 Cataract extraction status, right eye; Z86.718 Personal history of other venous thrombosis and embolism; Z86.711 Personal history of pulmonary embolism; Z87.891 Personal history of nicotine dependence
CPT/HCPCS: 36415; 93005; 80053; 83690; 85025; 81001; 74177; 99284; 96374; 96375 ×2; 96361; J2270; J2405; C9113; Q9967

== ENCOUNTER 2020-04-21 06:38 | Day surgery (SDC) | payer MEDICARE, OTHER ==
[2020-04-20 10:11] VITALS: BMI 35.4
[~2020-04-21 06:38] MED LIST changes: -DEXAMETHASONE SOD PHOSPHATE 10 MG/ML 1 ML VIAL IV ONE; -GLYCOPYRROLATE 0.2 MG/ML 2 ML VIAL ONE; -HEPARIN SODIUM,PORCINE 5,000 UNIT/ML 1 ML VIAL SQ SCH; -HYDROmorphone 0.5 MG/0.5 ML SYRINGE IVP PRN; -LACTATED RINGERS 1,000 ML IV ONE; -LIDOCAINE 1% 20 ML VIAL (10MG/ML) FOR IV START INTRADERMA PRN; -LIDOCAINE 1% INJ 10MG/ML (20 ML MDV) ONE; -LIDOCAINE 1%-EPI 1:100,000 20 ML VIAL SQ ONE; -MIDAZOLAM 2 MG/2 ML VIAL ONE; -NALOXONE 0.4 MG/ML 1 ML VIAL ONE; -NEOSTIGMINE 1 MG/ML 10 ML VIAL ONE; -ONDANSETRON 4 MG/2 ML VIAL IVP ONE; -PROPOFOL 10 MG/ML 20 ML VIAL IV ONE; -Pre Op ABX Message 1 EACH MISC MISCELLANE ONE; -ROCURONIUM BROMIDE 10 MG/ML 10 ML VIAL IV ONE; -SUCCINYLCHOLINE CHLORIDE 100 MG/5 ML SYR IV ONE; -ePHEDrine SULFATE/0.9% NACL/PF 50 MG/5 ML SYRINGE IV ONE; -fentaNYL (PF) 50 MCG/ML 2 ML AMP IV PRN; -fentaNYL (PF) 50 MCG/ML 2 ML AMP ONE
[2020-04-21 07:00] VITALS: TEMP 97.6
[2020-04-21] MEDS ORDERED: LIDOCAINE 1% (10MG/ML) FOR IV START INTRADERMA ONE (07:00)
[2020-04-21] MEDS ORDERED: LACTATED RINGERS 1,000 ML IV ONE (07:00)
[2020-04-21 07:11] LABS: Glucose,Whole Blood 182 mg/dL (75-99)
[2020-04-21] MEDS ORDERED: LIDOCAINE 1% INJ 10MG/ML (20 ML MDV) ONE (07:37)
[2020-04-21] MEDS ORDERED: PROPOFOL 10 MG/ML 20 ML VIAL IV ONE (07:37)
--- NOTE | 2020-04-21 07:41 | P.GSHP ---
History of Present Illness H&P Date: 04/21/20 CHIEF COMPLAINT: Gastric ulcer and abdominal pain HISTORY OF PRESENT ILLNESS: The patient is a 69-year-old female who presents with gastric ulcers and abdominal pain. Upper endoscopy was offered for further evaluation and management. PAST MEDICAL HISTORY: Please see list. PAST SURGICAL HISTORY: Please see list. MEDICATIONS: Please see list. ALLERGIES: Please see list. SOCIAL HISTORY: No illicit drug use FAMILY HISTORY: No reports of Crohn disease or ulcerative colitis. REVIEW OF ORGAN SYSTEMS: CONSTITUTIONAL: No reports of fevers or chills. PHYSICAL EXAM: VITAL SIGNS: Stable GENERAL: Well-developed and pleasant in no acute distress. HEENT: No scleral icterus. Extraocular movements grossly intact. Moist buccal mucosa. NECK: Supple without lymphadenopathy. CHEST: Unlabored respirations. Equal bilateral excursions. CARDIOVASCULAR: Regular rate and rhythm. Distal 2+ pulses. ABDOMEN: Soft, nondistended. MUSCULOSKELETAL: No clubbing, cyanosis, or edema. ASSESSMENT: 1. Gastric ulcer 2. Epigastric abdominal pain PLAN: 1. Recommend proceeding with an upper endoscopy Past Medical History Past Medical History: Chest Pain / Angina, Diabetes Mellitus, GERD/Reflux, Hyperlipidemia, Hypertension, Osteoarthritis (OA), Pulmonary Embolus (PE), Seizure Disorder Additional Past Medical History / Comment(s): ulcer,constant abdominal pain, occ. MIGRAINES, HIATAL HERNIA. SEIZURE 03/2018- NONE SINCE. heart murmer, History of Any Multi-Drug Resistant Organisms: None Reported Past Surgical History: Cholecystectomy, Orthopedic Surgery, Tonsillectomy, Tubal Ligation Additional Past Surgical History / Comment(s): NECK SURGERY, REPAIR FX RT LEG SURGERY, EGD, COLONOSCOPY. arturo cataracts Past Anesthesia/Blood Transfusion Reactions: No Reported Reaction Smoking Status: Former smoker - Past Family History Mother Family Medical History: No Reported History Medications and Allergies Home Medications Medication Instructions Recorded Confirmed Type Simvastatin [Zocor] 40 mg PO DAILY 07/23/14 04/20/20 History Divalproex Sodium 250 mg PO BID 04/13/18 04/20/20 History Propranolol HCl [Inderal LA] 60 mg PO DAILY 04/13/18 04/20/20 History sitaGLIPtin [Januvia] 100 mg PO DAILY 04/13/18 04/20/20 History Desvenlafaxine [Pristiq ER] 100 mg PO DAILY 08/06/19 04/20/20 History Metoclopramide [Reglan] 5 mg PO TID 09/03/19 04/20/20 History busPIRone HCL 15 mg PO BID 09/03/19 04/20/20 History Insulin Lispro [humaLOG Kwikpen] 15 unit SQ AC-BID 12/20/19 04/20/20 History levETIRAcetam [Keppra] 750 mg PO BID 12/20/19 04/20/20 History Folic Acid 1 mg PO DAILY 02/08/20 04/20/20 History Magnesium Oxide [Mag-Ox] 400 mg PO BID 02/08/20 04/20/20 History Multivitamins, Thera [Multivitamin 1 tab PO DAILY 02/08/20 04/20/20 History (formulary)] HYDROcodone/APAP 5-325MG [[place] 5] 1 each PO Q6HR PRN 3 Days #12 tab 04/14/20 04/20/20 Rx Insulin Degludec [Tresiba 40 units SQ DAILY 04/14/20 04/20/20 History Flextouch U-200] Losartan Potassium 50 mg PO DAILY 04/14/20 04/20/20 History Omeprazole 20 mg PO DAILY 04/14/20 04/20/20 History Ondansetron Odt [Zofran Odt] 4 mg PO Q8HR PRN #14 tab 04/14/20 04/20/20 Rx Sucralfate [Carafate] 1 gm PO AC-TID 04/14/20 04/20/20 History methocarbamoL [Robaxin] 500 mg PO TID 04/14/20 04/20/20 History Allergies Allergy/AdvReac Type Severity Reaction Status Date / Time codeine AdvReac shakiness Verified 04/20/20 10:00 doxycycline AdvReac shakiness Verified 04/20/20 10:00 tramadol [From Ultram] AdvReac shakiness Verified 04/20/20 10:00 Surgical - Exam Vital Signs Temp Pulse Resp BP Pulse Ox 97.6 F 87 18 174/90 97 04/21/20 06:59 04/21/20 06:59 04/21/20 06:59 04/21/20 06:59 04/21/20 06:59 Results - Labs Abnormal Lab Results - Last 24 Hours (Table) 04/21/20 Range/Units 07:09 POC Glucose (mg/dL) 182 H (75-99) mg/dL
--- NOTE | 2020-04-21 07:55 | P.PCN ---
Date of Procedure: 04/21/20 Description of Procedure: PREOPERATIVE DIAGNOSIS: History of gastric ulcers Epigastric abdominal pain POSTOPERATIVE DIAGNOSIS: Antral gastric ulcer Gastroesophageal reflux disease. Diaphragmatic hiatal hernia OPERATION: Esophagogastroduodenoscopy with biopsies along antrum. SURGEON: Mary Kate Coulter MD ANESTHESIA: MAC. INDICATIONS: The patient is a 69-year-old female who presents with a history of gastric ulcer. Benefits and risks of the procedure were described. Informed consent was obtained. DESCRIPTION: The patient was brought into the endoscopy suite and laid in the left lateral decubitus position. An Olympus gastroscope was passed along the posterior oropharynx down to the distal esophagus where the squamocolumnar junction was encountered at 36 cm from the incisors. The stomach was entered and no bile reflux was found. Additional findings are listed below. Biopsies with cold forc eps were obtained of the antrum. The first through third portion of the duodenum was examined and unremarkable. Retroflexion of the scope confirmed Hill grade 3 lower esophageal valve. The squamocolumnar junction demonstrated LA grade B erosive esophagitis. The stomach was desufflated. The patient tolerated the procedure well. FINDINGS: Squamocolumnar junction 36 cm from the incisors. Diaphragmatic hiatus at 38 cm. Hiatal hernia, 2 cm Hill grade 3 lower esophageal valve. LA grade B erosive esophagitis. No active duodenitis. Chronic gastritis with chronic gastric ulcer, antrum 5 mm RECOMMENDATIONS: 1. Increase omeprazole to 40 mg daily 2. Workup for gastric fistula advised Plan - Discharge Summary New Discharge Prescriptions: New Omeprazole [PriLOSEC] 40 mg PO DAILY #90 cap Continue Simvastatin [Zocor] 40 mg PO DAILY Propranolol HCl [Inderal LA] 60 mg PO DAILY sitaGLIPtin [Januvia] 100 mg PO DAILY Divalproex Sodium 250 mg PO BID Desvenlafaxine [Pristiq ER] 100 mg PO DAILY busPIRone HCL 15 mg PO BID Metoclopramide [Reglan] 5 mg PO TID Insulin Lispro [humaLOG Kwikpen] 15 unit SQ AC-BID levETIRAcetam [Keppra] 750 mg PO BID Magnesium Oxide [Mag-Ox] 400 mg PO BID Multivitamins, Thera [Multivitamin (formulary)] 1 tab PO DAILY Folic Acid 1 mg PO DAILY methocarbamoL [Robaxin] 500 mg PO TID Sucralfate [Carafate] 1 gm PO AC-TID Insulin Degludec [Tresiba Flextouch U-200] 40 units SQ DAILY Losartan Potassium 50 mg PO DAILY HYDROcodone/APAP 5-325MG [[place] 5-325] 1 each PO Q6HR PRN 3 Days #12 tab PRN Reason: Pain Ondansetron Odt [Zofran ODT] 4 mg PO Q8HR PRN #14 tab PRN Reason: Nausea Discontinued Omeprazole 20 mg PO DAILY Discharge Medication List Simvastatin [Zocor] 40 mg PO DAILY 07/23/14 [History] Divalproex Sodium 250 mg PO BID 04/13/18 [History] Propranolol HCl [Inderal LA] 60 mg PO DAILY 04/13/18 [History] sitaGLIPtin [Januvia] 100 mg PO DAILY 04/13/18 [History] Desvenlafaxine [Pristiq ER] 100 mg PO DAILY 08/06/19 [History] Metoclopramide [Reglan] 5 mg PO TID 09/03/19 [History] busPIRone HCL 15 mg PO BID 09/03/19 [History] Insulin Lispro [humaLOG Kwikpen] 15 unit SQ AC-BID 12/20/19 [History] levETIRAcetam [Keppra] 750 mg PO BID 12/20/19 [History] Folic Acid 1 mg PO DAILY 02/08/20 [History] Magnesium Oxide [Mag-Ox] 400 mg PO BID 02/08/20 [History] Multivitamins, Thera [Multivitamin (formulary)] 1 tab PO DAILY 02/08/20 [History] HYDROcodone/APAP 5-325MG [[place] 5-325] 1 each PO Q6HR PRN 3 Days #12 tab 04/14/20 [Rx] Insulin Degludec [Tresiba Flextouch U-200] 40 units SQ DAILY 04/14/20 [History] Losartan Potassium 50 mg PO DAILY 04/14/20 [History] Ondansetron Odt [Zofran ODT] 4 mg PO Q8HR PRN #14 tab 04/14/20 [Rx] Sucralfate [Carafate] 1 gm PO AC-TID 04/14/20 [History] methocarbamoL [Robaxin] 500 mg PO TID 04/14/20 [History] Omeprazole [PriLOSEC] 40 mg PO DAILY #90 cap 04/21/20 [Rx] Follow up Appointment(s)/Referral(s): Mary Kate Coulter MD [STAFF PHYSICIAN] - 05/11/20 Patient Instructions/Handouts: Peptic Ulcer (DC) Activity/Diet/Wound Care/Special Instructions: New prescription of omeprazole Discharge Disposition: HOME SELF-CARE
[2020-04-21 08:26] VITALS: BP 139/75; PULSE 73; RESP 16
== END 2020-04-21 08:35 | disposition home or self-care (01) ==
LOC: ORWHC2ENDO 06:38
PROVIDERS: ATTEND Surgery Plastic and Reconstructive Surgery
DX: K29.00 Acute gastritis without bleeding (principal); K29.50 Unspecified chronic gastritis without bleeding; K31.89 Other diseases of stomach and duodenum; K21.0 Gastro-esophageal reflux disease with esophagitis; K22.10 Ulcer of esophagus without bleeding; K44.9 Diaphragmatic hernia without obstruction or gangrene; I10 Essential (primary) hypertension; I25.10 Atherosclerotic heart disease of native coronary artery without angina pectoris; E78.5 Hyperlipidemia, unspecified; E11.9 Type 2 diabetes mellitus without complications; G40.909 Epilepsy, unspecified, not intractable, without status epilepticus; G43.909 Migraine, unspecified, not intractable, without status migrainosus; M19.90 Unspecified osteoarthritis, unspecified site; Z86.711 Personal history of pulmonary embolism; Z88.1 Allergy status to other antibiotic agents; Z88.5 Allergy status to narcotic agent; Z88.6 Allergy status to analgesic agent; Z88.8 Allergy status to other drugs, medicaments and biological substances; Z79.4 Long term (current) use of insulin; Z79.899 Other long term (current) drug therapy; Z90.49 Acquired absence of other specified parts of digestive tract; Z98.890 Other specified postprocedural states; Z98.51 Tubal ligation status; Z98.41 Cataract extraction status, right eye; Z98.42 Cataract extraction status, left eye; Z87.891 Personal history of nicotine dependence
CPT/HCPCS: 88305; 43239; J2001; J2704

== ENCOUNTER → 2020-08-23 | Outpatient (CLI) | payer MEDICARE, OTHER ==
--- NOTE | 2020-08-23 15:28 | XR ---
EXAMINATION TYPE: XR KUB DATE OF EXAM: 08/23/2020 3:12 PM CLINICAL HISTORY: Epigastric pain. TECHNIQUE: Two supine KUB images of the abdomen are obtained. COMPARISON: CT abdomen and pelvis April 14, 2020. FINDINGS: Elevated right hemidiaphragm redemonstrated. Scattered gas is seen in non-distended small a nd large bowel loops. Gas and fecal material seen in nondistended colon. Scattered bilateral pelvic p hleboliths. Disc space narrowing and spurring left L2-L3 level redemonstrated. No pneumoperitoneum. IMPRESSION: Overall nonobstructive bowel gas pattern.
== END | disposition home or self-care (01) ==
LOC: LABWHC1 14:59
PROVIDERS: ATTEND Nurse Practitioner Family
DX: R10.13 Epigastric pain (principal)
CPT/HCPCS: 74018

== ENCOUNTER 2020-08-28 23:10 | Emergency (ER) | payer MEDICARE, OTHER ==
[2020-08-28 23:21] VITALS: TEMP 98.4
[2020-08-28] MEDS ORDERED: ONDANSETRON 4 MG/2 ML VIAL IVP STA (23:33)
[2020-08-28] MEDS ORDERED: PANTOPRAZOLE 40 MG/10 ML VIAL IVP STA (23:33)
[2020-08-28] MEDS ORDERED: SODIUM CHLORIDE 0.9% 1,000 ML IV STA (23:33)
[2020-08-28] MEDS ORDERED: MORPHINE SULFATE 4 MG/ML SYRINGE IV STA (23:33)
--- NOTE | 2020-08-28 23:43 | ED ---
Abdominal Pain HPI - General Chief Complaint: Abdominal Pain Stated Complaint: Chest Pain Time Seen by Provider: 08/28/20 23:27 Source: patient, EMS, RN notes reviewed, old records reviewed Mode of arrival: EMS Limitations: no limitations - History of Present Illness Initial Comments: This is a 69-year-old female presenting for evaluation of epigastric abdominal pain. Patient states she has history of similar pain in the past usually related to ulcers, no other surgeries of her gallbladder. Patient has had history daily DF adhesion surgery. No nausea or vomiting. No fevers. MD Complaint: abdominal pain -: days(s) Location: periumbilical, epigastric Radiation: epigastric Migration to: no migration Severity: moderate Severity scale (1-10): 4 Quality: aching Consistency: constant Improves With: nothing Worsens With: nothing Context: other Associated Symptoms: nausea - Related Data Home Medications Medication Instructions Recorded Confirmed Simvastatin [Zocor] 40 mg PO DAILY 07/23/14 04/20/20 Divalproex Sodium 250 mg PO BID 04/13/18 04/20/20 Propranolol HCl [Inderal LA] 60 mg PO DAILY 04/13/18 04/20/20 sitaGLIPtin [Januvia] 100 mg PO DAILY 04/13/18 04/20/20 Desvenlafaxine [Pristiq ER] 100 mg PO DAILY 08/06/19 04/20/20 Metoclopramide [Reglan] 5 mg PO TID 09/03/19 04/20/20 busPIRone HCL 15 mg PO BID 09/03/19 04/20/20 Insulin Lispro [humaLOG Kwikpen] 15 unit SQ AC-BID 12/20/19 04/20/20 levETIRAcetam [Keppra] 750 mg PO BID 12/20/19 04/20/20 Folic Acid 1 mg PO DAILY 02/08/20 04/20/20 Magnesium Oxide [Mag-Ox] 400 mg PO BID 02/08/20 04/20/20 Multivitamins, Thera [Multivitamin 1 tab PO DAILY 02/08/20 04/20/20 (formulary)] Insulin Degludec [Tresiba 40 units SQ DAILY 04/14/20 04/20/20 Flextouch U-200] Losartan Potassium 50 mg PO DAILY 04/14/20 04/20/20 Sucralfate [Carafate] 1 gm PO AC-TID 04/14/20 04/20/20 methocarbamoL [Robaxin] 500 mg PO TID 04/14/20 04/20/20 Previous Rx's Medication Instructions Recorded HYDROcodone/APAP 5-325MG [[place] 1 each PO Q6HR PRN 3 Days #12 tab 04/14/20 5-325] Ondansetron Odt [Zofran ODT] 4 mg PO Q8HR PRN #14 tab 04/14/20 Omeprazole [PriLOSEC] 40 mg PO DAILY #90 cap 04/21/20 Allergies Allergy/AdvReac Type Severity Reaction Status Date / Time codeine AdvReac shakiness Verified 04/20/20 10:00 doxycycline AdvReac shakiness Verified 04/20/20 10:00 tramadol [From Ultram] AdvReac shakiness Verified 04/20/20 10:00 Review of Systems ROS Statement: Those systems with pertinent positive or pertinent negative responses have been documented in the HPI. ROS Other: All systems not noted in ROS Statement are negative. Past Medical History Past Medical History: Chest Pain / Angina, Diabetes Mellitus, GERD/Reflux, Hyperlipidemia, Hypertension, Osteoarthritis (OA), Pulmonary Embolus (PE), Seizure Disorder Additional Past Medical History / Comment(s): ulcer,constant abdominal pain, occ. MIGRAINES, HIATAL HERNIA. SEIZURE 03/2018- NONE SINCE. heart murmer, History of Any Multi-Drug Resistant Organisms: None Reported Past Surgical History: Cholecystectomy, Orthopedic Surgery, Tonsillectomy, Tubal Ligation Additional Past Surgical History / Comment(s): NECK SURGERY, REPAIR FX RT LEG SURGERY, EGD, COLONOSCOPY. arturo cataracts Past Anesthesia/Blood Transfusion Reactions: No Reported Reaction Past Psychological History: Depression Smoking Status: Former smoker Past Alcohol Use History: None Reported Past Drug Use History: Marijuana - Past Family History Mother Family Medical History: No Reported History General Exam Limitations: no limitations General appearance: alert, in no apparent distress Head exam: Present: atraumatic, normocephalic, normal inspection Eye exam: Present: normal appearance, PERRL, EOMI. Absent: scleral icterus, conjunctival injection, periorbital swelling ENT exam: Present: normal exam, mucous membranes moist Neck exam: Present: normal inspection. Absent: tenderness, meningismus, lymphadenopathy Respiratory exam: Present: normal lung sounds bilaterally. Absent: respiratory distress, wheezes, rales, rhonchi, stridor Cardiovascular Exam: Present: regular rate, normal rhythm, normal heart sounds. Absent: systolic murmur, diastolic murmur, rubs, gallop, clicks GI/Abdominal exam: Present: soft, normal bowel sounds. Absent: distended, tenderness, guarding, rebound, rigid Extremities exam: Present: normal inspection, full ROM, normal capillary refill. Absent: tenderness, pedal edema, joint swelling, calf tenderness Back exam: Present: normal inspection Neurological exam: Present: alert, oriented X3, CN II-XII intact Psychiatric exam: Present: normal affect, normal mood Skin exam: Present: warm, dry, intact, normal color. Absent: rash Course Vital Signs 08/28/20 08/28/20 08/29/20 23:17 23:50 01:34 Temperature 98.4 F Pulse Rate 76 87 67 Respiratory 16 16 19 Rate Blood Pressure 169/78 152/71 145/83 O2 Sat by Pulse 94 L 94 L 96 Oximetry - Reevaluation(s) Reevaluation #1: 08/29/20 02:29 Medical record is reviewed Reevaluation #2: 08/29/20 02:29 Patient symptoms are significantly improved Reevaluation #3: 08/29/20 02:29 Informed results, questions have been answered Medical Decision Making - Medical Decision Making 69 female DF epigastric abdominal pain nausea vomiting patient has likely recu rrent of ulcers. CT is otherwise negative - Lab Data Result diagrams: 08/28/20 23:47 08/28/20 23:47 Lab Results 08/28/20 08/28/20 08/28/20 Range/Units 23:35 23:47 23:47 WBC 8.8 (3.8-10.6) k/uL RBC 3.87 (3.80-5.40) m/uL Hgb 12.9 (11.4-16.0) gm/dL Hct 37.5 (34.0-46.0) % MCV 97.1 (80.0-100.0) fL MCH 33.4 (25.0-35.0) pg MCHC 34.3 (31.0-37.0) g/dL RDW 12.6 (11.5-15.5) % Plt Count 179 (150-450) k/uL MPV 8.1 Neutrophils % 57 % Lymphocytes % 29 % Monocytes % 7 % Eosinophils % 4 % Basophils % 1 % Neutrophils # 5.0 (1.3-7.7) k/uL Lymphocytes # 2.5 (1.0-4.8) k/uL Monocytes # 0.7 (0-1.0) k/uL Eosinophils # 0.4 (0-0.7) k/uL Basophils # 0.1 (0-0.2) k/uL Sodium 138 (137-145) mmol/L Potassium 4.2 (3.5-5.1) mmol/L Chloride 104 (98-107) mmol/L Carbon Dioxide 30 (22-30) mmol/L Anion Gap 4 mmol/L BUN 27 H (7-17) mg/dL Creatinine 1.03 (0.52-1.04) mg/dL Est GFR (CKD-EPI)AfAm 64 (>60 ml/min/1.73 sqM) Est GFR (CKD-EPI)NonAf 56 (>60 ml/min/1.73 sqM) Glucose 151 H (74-99) mg/dL Plasma Lactic Acid Prasanth (0.7-2.0) mmol/L Calcium 10.4 H (8.4-10.2) mg/dL Total Bilirubin 0.4 (0.2-1.3) mg/dL AST 23 (14-36) U/L ALT 12 (4-34) U/L Alkaline Phosphatase 80 (38-126) U/L Total Protein 6.9 (6.3-8.2) g/dL Albumin 3.9 (3.5-5.0) g/dL Amylase 60 (30-110) U/L Lipase 115 (23-300) U/L Urine Color Yellow Urine Appearance Cloudy H (Clear) Urine pH 6.0 (5.0-8.0) Ur Specific [place] 1.035 (1.001-1.035) Urine Protein 1+ H (Negative) Urine Glucose (UA) Negative (Negative) Urine Ketones Trace H (Negative) Urine Blood Negative (Negative) Urine Nitrite Negative (Negative) Urine Bilirubin Negative (Negative) Urine Urobilinogen 2.0 (<2.0) mg/dL Ur Leukocyte Esterase Large H (Negative) Urine WBC 43 H (0-5) /hpf Ur Squamous Epith Cells 27 H (0-4) /hpf Amorphous Sediment Few H (None) /hpf Urine Bacteria Occasional H (None) /hpf Urine Mucus Rare H (None) /hpf 08/28/20 Range/Units 23:47 WBC (3.8-10.6) k/uL RBC (3.80-5.40) m/uL Hgb (11.4-16.0) gm/dL Hct (34.0-46.0) % MCV (80.0-100.0) fL MCH (25.0-35.0) pg MCHC (31.0-37.0) g/dL RDW (11.5-15.5) % Plt Count (150-450) k/uL MPV Neutrophils % % Lymphocytes % % Monocytes % % Eosinophils % % Basophils % % Neutrophils # (1.3-7.7) k/uL Lymphocytes # (1.0-4.8) k/uL Monocytes # (0-1.0) k/uL Eosinophils # (0-0.7) k/uL Basophils # (0-0.2) k/uL Sodium (137-145) mmol/L Potassium (3.5-5.1) mmol/L Chloride (98-107) mmol/L Carbon Dioxide (22-30) mmol/L Anion Gap mmol/L BUN (7-17) mg/dL Creatinine (0.52-1.04) mg/dL Est GFR (CKD-EPI)AfAm (>60 ml/min/1.73 sqM) Est GFR (CKD-EPI)NonAf (>60 ml/min/1.73 sqM) Glucose (74-99) mg/dL Plasma Lactic Acid Prasanth 1.0 (0.7-2.0) mmol/L Calcium (8.4-10.2) mg/dL Total Bilirubin (0.2-1.3) mg/dL AST (14-36) U/L ALT (4-34) U/L Alkaline Phosphatase (38-126) U/L Total Protein (6.3-8.2) g/dL Albumin (3.5-5.0) g/dL Amylase (30-110) U/L Lipase (23-300) U/L Urine Color Urine Appearance (Clear) Urine pH (5.0-8.0) Ur Specific [place] (1.001-1.035) Urine Protein (Negative) Urine Glucose (UA) (Negative) Urine Ketones (Negative) Urine Blood (Negative) Urine Nitrite (Negative) Urine Bilirubin (Negative) Urine Urobilinogen (<2.0) mg/dL Ur Leukocyte Esterase (Negative) Urine WBC (0-5) /hpf Ur Squamous Epith Cells (0-4) /hpf Amorphous Sediment (None) /hpf Urine Bacteria (None) /hpf Urine Mucus (None) /hpf - EKG Data -: EKG Interpreted by Me (EKG shows sinus rhythm 78 KS 134 QRS 76 QTC 424) - Radiology Data Radiology results: report reviewed (CT chest abdomen pelvis negative for acute disease), image reviewed Disposition Clinical Impression: Abdominal pain Disposition: HOME SELF-CARE Condition: Good Instructions (If sedation given, give patient instructions): Abdominal Pain (ED) Is patient prescribed a controlled substance at d/c from ED?: No Referrals: Estrada Fernandes DO [Primary Care Provider] - 1-2 days
[2020-08-29 00:04] LABS: Basophils # (A) 0.1 k/uL (0-0.2); Basophils % (A) 1 %; Eosinophils # (A) 0.4 k/uL (0-0.7); Eosinophils % (A) 4 %; HCT 37.5 % (34.0-46.0); HGB 12.9 gm/dL (11.4-16.0); Lymphocytes # (A) 2.5 k/uL (1.0-4.8); Lymphocytes % (A) 29 %; MCH 33.4 pg (25.0-35.0); MCHC 34.3 g/dL (31.0-37.0); MCV 97.1 fL (80.0-100.0); Mean Platelet Volume 8.1; Monocytes # (A) 0.7 k/uL (0-1.0); Monocytes % (A) 7 %; Neutrophils % (A) 57 %; Platelet Count 179 k/uL (150-450); RBC 3.87 m/uL (3.80-5.40); RDW 12.6 % (11.5-15.5); WBC 8.8 k/uL (3.8-10.6)
[2020-08-29 00:21] LABS: Amorphous Sediment,Urine Few /hpf; Appearance,Urine Cloudy (Clear); Bacteria,Urine Occasional /hpf; Bilirubin,Urine Negative (Negative); Blood,Urine Negative (Negative); Color,Urine Yellow; Glucose,Urine (UA) Negative (Negative); Ketones,Urine Trace (Negative); Leukocyte Esterase,Urine Large (Negative); Mucus,Urine Rare /hpf; Nitrite,Urine Negative (Negative); Protein,Urine 1+ (Negative); Specific Gravity,Urine 1.035 (1.001-1.035); Squamous Epithelial Cell,Urine 27 /hpf (0-4); WBC,Urine 43 /hpf (0-5)
[2020-08-29 00:21] LABS: Albumin 3.9 g/dL (3.5-5.0); Calcium 10.4 mg/dL (8.4-10.2); Potassium 4.2 mmol/L (3.5-5.1); Total Bilirubin 0.4 mg/dL (0.2-1.3); Total Protein 6.9 g/dL (6.3-8.2)
[2020-08-29] MEDS ORDERED: cefTRIAXone IN SWFI 1,000 MG/10 ML SYRINGE IVP STA (00:44)
--- NOTE | 2020-08-29 01:01 | CT ---
EXAM: CT Head Without Intravenous Contrast CLINICAL HISTORY: ITS.REASON CT Reason: pain TECHNIQUE: Axial computed tomography images of the head/brain without intravenous contrast. CTDI is 49.27 mGy and DLP is 1017.4 mGy-cm. This CT exam was performed using one or more of the following dose reduction techniques: automated exposure control, adjustment of the mA and/or kV according to patient size, and/or use of iterative reconstruction technique. COMPARISON: 04/13/2018 FINDINGS: Brain: No acute intracranial hemorrhage. Warner-white differentiation is preserved throughout the cerebral hemispheres. Posterior fossa is symmetric. Ventricles: Unremarkable. No ventriculomegaly. Basilar cisterns are widely patent. Bones/joints: Unremarkable. No acute fracture. Soft tissues: Unremarkable. Sinuses: Unremarkable as visualized. No acute sinusitis. Mastoid air cells: Unremarkable as visualized. No mastoid effusion. IMPRESSION: No acute intracranial abnormality.
--- NOTE | 2020-08-29 01:12 | CT ---
EXAM: CT Angiography Chest With Intravenous Contrast CLINICAL HISTORY: ITS.REASON CT Reason: pain TECHNIQUE: Axial computed tomographic angiography images of the chest with intravenous contrast. CTDI is 22.485 mGy and DLP is 823.55 mGy-cm. This CT exam was performed using one or more of the following dose reduction techniques: automated exposure control, adjustment of the mA and/or kV according to patient size, and/or use of iterative reconstruction technique. MIP reconstructed images were created and reviewed. COMPARISON: 02/10/2020 FINDINGS: Pulmonary arteries: No pulmonary embolism. Aorta: No acute findings. No thoracic aortic aneurysm. Lungs: Elevated right hemidiaphragm with right base atelectasis. No mass. No consolidation. Pleural space: Unremarkable. No significant effusion. No pneumothorax. Heart: Unremarkable. No cardiomegaly. No significant pericardial effusion. Bones/joints: No acute fracture. No dislocation. Soft tissues: Unremarkable. Lymph nodes: Unremarkable. No enlarged lymph nodes. IMPRESSION: 1. No acute pulmonary embolism. 2. No acute intrathoracic process. Elevated right hemidiaphragm with right base atelectasis.
[2020-08-29] MEDS ORDERED: MORPHINE SULFATE 4 MG/ML SYRINGE IVP STA (01:17)
--- NOTE | 2020-08-29 01:17 | CT ---
EXAM: CT Abdomen and Pelvis With Intravenous Contrast CLINICAL HISTORY: ITS.REASON CT Reason: pain TECHNIQUE: Axial computed tomography images of the abdomen and pelvis with intravenous contrast. CTDI is 22.485 mGy and DLP is 823.55 mGy-cm. This CT exam was performed using one or more of the following dose reduction techniques: automated exposure control, adjustment of the mA and/or kV according to patient size, and/or use of iterative reconstruction technique. COMPARISON: 04/14/2020 FINDINGS: Lung bases: Unremarkable. No mass. No consolidation. ABDOMEN: Liver: Unremarkable. No mass. Gallbladder and bile ducts: Surgically absent. No ductal dilation. Pancreas: Unremarkable. No mass. No ductal dilation. Spleen: Unremarkable. No splenomegaly. Adrenals: Unremarkable. No mass. Kidneys and ureters: Right superior pole 2.3 cm renal cyst with thin septation, unchanged from 04/14/2020. No solid mass. No hydronephrosis. Stomach and bowel: Unremarkable. No obstruction. No mucosal thickening. PELVIS: Appendix: No findings to suggest acute appendicitis. Appendix is decompressed and normal in caliber in the right lower quadrant. Bladder: Unremarkable. No mass. Reproductive: Unremarkable as visualized. ABDOMEN and PELVIS: Intraperitoneal space: Unremarkable. No free air. No significant fluid collection. Bones/joints: No acute fracture. No dislocation. Soft tissues: Unremarkable. Vasculature: Unremarkable. No abdominal aortic aneurysm. Lymph nodes: Unremarkable. No enlarged lymph nodes. IMPRESSION: No acute intra-abdominal process.
[2020-08-29 01:36] VITALS: BP 145/83; PULSE 67; RESP 19
[2020-08-29] MEDS ORDERED: ACET/COD 300 MG/30 MG STARTER PACK 6 TAB BTL PO STA (01:48)
== END 2020-08-29 02:03 | disposition home or self-care (01) ==
LOC: EC 23:10
DX: R10.13 Epigastric pain (principal); R11.2 Nausea with vomiting, unspecified; E11.9 Type 2 diabetes mellitus without complications; K21.9 Gastro-esophageal reflux disease without esophagitis; E78.5 Hyperlipidemia, unspecified; I10 Essential (primary) hypertension; F32.9 Major depressive disorder, single episode, unspecified; I20.9 Angina pectoris, unspecified; M19.90 Unspecified osteoarthritis, unspecified site; G40.909 Epilepsy, unspecified, not intractable, without status epilepticus; Z79.4 Long term (current) use of insulin; Z79.899 Other long term (current) drug therapy; Z86.69 Personal history of other diseases of the nervous system and sense organs; Z98.42 Cataract extraction status, left eye; Z98.41 Cataract extraction status, right eye; Z90.49 Acquired absence of other specified parts of digestive tract; Z87.891 Personal history of nicotine dependence; Z88.1 Allergy status to other antibiotic agents; Z88.5 Allergy status to narcotic agent
CPT/HCPCS: 36415; 80053; 82150; 83605; 83690; 85025; 81001; 87086; 70450; 71275; 74177; 99285; 96374; 96375 ×3; 96376; 96361; J2270 ×2; J2405; J0696; C9113; Q9967

== ENCOUNTER 2020-09-13 16:47 | Inpatient (IN) | payer MEDICARE, OTHER ==
[2020-09-13] MEDS ORDERED: MORPHINE SULFATE 4 MG/ML SYRINGE IV STA (17:29)
[2020-09-13] MEDS ORDERED: SODIUM CHLORIDE 0.9% 500 ML 500 ML IV STA (17:29)
[2020-09-13] MEDS ORDERED: ONDANSETRON 4 MG/2 ML VIAL IVP STA (17:29)
[2020-09-13] MEDS ORDERED: FAMOTIDINE 20 MG/2 ML VIAL IV STA (17:30)
--- NOTE | 2020-09-13 18:03 | ED ---
General Adult HPI - General Chief complaint: Back Pain/Injury Stated complaint: back pain Time Seen by Provider: 09/13/20 16:56 Source: patient Mode of arrival: ambulatory Limitations: no limitations - History of Present Illness Initial comments: 69-year-old female patient presents to the emergency department today for evaluation of upper abdominal pain and lower back pain. Patient states the pain started couple of months ago and has not improved. States that it is become unbearable over the last couple of days. She reports nausea with no vomiting. States the pain does worsen when she eats. States that her primary care physician believes she may have kidney stones or an ulcer. States that she needs to scheduled to have an EGD performed. She denies any fever or chills. Denies any vomiting. States she has decreased appetite. She denies any radiation of the back pain down her legs. Denies lower extremity numbness or tingling. Denies saddle anesthesia. Patient states she was receiving percocet regularly until a couple of months ago. Patient denies any recent rash, fever, chills, cough, shortness of breath, chest pain, diarrhea, constipation, numbness, tingling, dizziness, weakness, hematuria, dysuria, urinary urgency, urinary frequency, headache, visual changes, or any other complaints. - Related Data Home Medications Medication Instructions Recorded Confirmed Simvastatin [Zocor] 40 mg PO DAILY 07/23/14 09/13/20 Divalproex Sodium 250 mg PO BID 04/13/18 09/13/20 Propranolol HCl [Inderal LA] 60 mg PO DAILY 04/13/18 09/13/20 sitaGLIPtin [Januvia] 100 mg PO DAILY 04/13/18 09/13/20 Desvenlafaxine [Pristiq ER] 100 mg PO DAILY 08/06/19 09/13/20 Metoclopramide [Reglan] 5 mg PO TID 09/03/19 09/13/20 busPIRone HCL 15 mg PO BID 09/03/19 09/13/20 Insulin Lispro [humaLOG Kwikpen] 10 unit SQ BID-W/MEALS 12/20/19 09/13/20 levETIRAcetam [Keppra] 750 mg PO BID 12/20/19 09/13/20 Folic Acid 1 mg PO DAILY 02/08/20 09/13/20 Magnesium Oxide [Mag-Ox] 400 mg PO BID 02/08/20 09/13/20 Multivitamins, Thera [Multivitamin 1 tab PO DAILY 02/08/20 09/13/20 (formulary)] Insulin Degludec [Tresiba 40 units SQ DAILY 04/14/20 09/13/20 Flextouch U-200] Losartan Potassium 50 mg PO DAILY 04/14/20 09/13/20 Omeprazole [PriLOSEC] 40 mg PO DAILY 09/06/20 09/13/20 Acetaminophen [Tylenol Extra 1,000 mg PO Q6H PRN 09/13/20 09/13/20 Strength] Aspirin EC [Ecotrin Low Dose] 81 mg PO DAILY 09/13/20 09/13/20 Allergies Allergy/AdvReac Type Severity Reaction Status Date / Time codeine AdvReac shakiness Verified 09/13/20 18:34 doxycycline AdvReac shakiness Verified 09/13/20 18:34 tramadol [From Ultram] AdvReac shakiness Verified 09/13/20 18:34 Review of Systems ROS Statement: Those systems with pertinent positive or pertinent negative responses have been documented in the HPI. ROS Other: All systems not noted in ROS Statement are negative. Past Medical History Past Medical History: Chest Pain / Angina, Diabetes Mellitus, GERD/Reflux, Hyperlipidemia, Hypertension, Osteoarthritis (OA), Pulmonary Embolus (PE), Seizure Disorder Additional Past Medical History / Comment(s): ulcer,constant abdominal pain, occ. MIGRAINES, HIATAL HERNIA. SEIZURE 03/2018- NONE SINCE. heart murmer History of Any Multi-Drug Resistant Organisms: None Reported Past Surgical History: Cholecystectomy, Orthopedic Surgery, Tonsillectomy, Tubal Ligation Additional Past Surgical History / Comment(s): NECK SURGERY, REPAIR FX RT LEG SURGERY, EGD, COLONOSCOPY. arturo cataracts Past Anesthesia/Blood Transfusion Reactions: No Reported Reaction Past Psychological History: Depression Smoking Status: Former smoker - Past Family History Mother Family Medical History: No Reported History General Exam Limitations: no limitations General appearance: alert, in no apparent distress, other (Physical well- developed, well-nourished adult female patient in no acute distress. Vital signs upon presentation are temperature 98.9F, pulse 69, respirations 18, blood pressure 155/70, pulse ox 98% on room air.) Respiratory exam: Present: normal lung sounds bilaterally. Absent: respiratory distress, wheezes, rales, rhonchi, stridor Cardiovascular Exam: Present: regular rate, normal rhythm, normal heart sounds. Absent: systolic murmur, diastolic murmur, rubs, gallop, clicks GI/Abdominal exam: Present: soft, tenderness (Upper abdominal tenderness), normal bowel sounds. Absent: distended, guarding, rebound, rigid Neurological exam: Present: alert, oriented X3, CN II-XII intact Psychiatric exam: Present: normal affect, normal mood Skin exam: Present: warm, dry, intact, normal color. Absent: rash Course Vital Signs 09/13/20 09/13/20 16:50 20:38 Temperature 98.9 F Pulse Rate 69 74 Respiratory 18 16 Rate Blood Pressure 155/70 146/94 O2 Sat by Pulse 98 96 Oximetry Medical Decision Making - Medical Decision Making 69-year-old female patient presents to the emergency department today reporting upper abdominal pain and vomiting. Physical examination revealed midepigastric, right upper quadrant tenderness. Patient does have history of cholecystectomy and gastric ulcer. She was scheduled to undergo EGD on 1222 but was unable to keep the appointment due to frequent vomiting. Labs here were relatively unremarkable. CT of the pelvis is negative. She'll be admitted for intractable pain we will consult Dr. Coulter. - Lab Data Result diagrams: 09/13/20 18:09 09/13/20 18:09 Lab Results 09/13/20 09/13/20 09/13/20 Range/Units 18:09 18:09 18:09 WBC 7.5 (3.8-10.6) k/uL RBC 3.92 (3.80-5.40) m/uL Hgb 13.1 (11.4-16.0) gm/dL Hct 38.0 (34.0-46.0) % MCV 97.1 (80.0-100.0) fL MCH 33.5 (25.0-35.0) pg MCHC 34.5 (31.0-37.0) g/dL RDW 12.4 (11.5-15.5) % Plt Count 183 (150-450) k/uL MPV 7.5 Neutrophils % 57 % Lymphocytes % 30 % Monocytes % 7 % Eosinophils % 4 % Basophils % 1 % Neutrophils # 4.3 (1.3-7.7) k/uL Lymphocytes # 2.2 (1.0-4.8) k/uL Monocytes # 0.5 (0-1.0) k/uL Eosinophils # 0.3 (0-0.7) k/uL Basophils # 0.1 (0-0.2) k/uL Sodium 138 (137-145) mmol/L Potassium 4.8 (3.5-5.1) mmol/L Chloride 106 (98-107) mmol/L Carbon Dioxide 28 (22-30) mmol/L Anion Gap 4 mmol/L BUN 18 H (7-17) mg/dL Creatinine 0.80 (0.52-1.04) mg/dL Est GFR (CKD-EPI)AfAm 87 (>60 ml/min/1.73 sqM) Est GFR (CKD-EPI)NonAf 76 (>60 ml/min/1.73 sqM) Glucose 123 H (74-99) mg/dL Plasma Lactic Acid Prasanth 1.0 (0.7-2.0) mmol/L Calcium 10.1 (8.4-10.2) mg/dL Total Bilirubin 0.6 (0.2-1.3) mg/dL AST 27 (14-36) U/L ALT 12 (4-34) U/L Alkaline Phosphatase 89 (38-126) U/L Total Protein 7.7 (6.3-8.2) g/dL Albumin 4.3 (3.5-5.0) g/dL Lipase 103 (23-300) U/L Urine Color Urine Appearance (Clear) Urine pH (5.0-8.0) Ur Specific [place] (1.001-1.035) Urine Protein (Negative) Urine Glucose (UA) (Negative) Urine Ketones (Negative) Urine Blood (Negative) Urine Nitrite (Negative) Urine Bilirubin (Negative) Urine Urobilinogen (<2.0) mg/dL Ur Leukocyte Esterase (Negative) Urine RBC (0-5) /hpf Urine WBC (0-5) /hpf Ur Squamous Epith Cells (0-4) /hpf Urine Bacteria (None) /hpf Urine Mucus (None) /hpf 09/13/20 Range/Units 20:18 WBC (3.8-10.6) k/uL RBC (3.80-5.40) m/uL Hgb (11.4-16.0) gm/dL Hct (34.0-46.0) % MCV (80.0-100.0) fL MCH (25.0-35.0) pg MCHC (31.0-37.0) g/dL RDW (11.5-15.5) % Plt Count (150-450) k/uL MPV Neutrophils % % Lymphocytes % % Monocytes % % Eosinophils % % Basophils % % Neutrophils # (1.3-7.7) k/uL Lymphocytes # (1.0-4.8) k/uL Monocytes # (0-1.0) k/uL Eosinophils # (0-0.7) k/uL Basophils # (0-0.2) k/uL Sodium (137-145) mmol/L Potassium (3.5-5.1) mmol/L Chloride (98-107) mmol/L Carbon Dioxide (22-30) mmol/L Anion Gap mmol/L BUN (7-17) mg/dL Creatinine (0.52-1.04) mg/dL Est GFR (CKD-EPI)AfAm (>60 ml/min/1.73 sqM) Est GFR (CKD-EPI)NonAf (>60 ml/min/1.73 sqM) Glucose (74-99) mg/dL Plasma Lactic Acid Prasanth (0.7-2.0) mmol/L Calcium (8.4-10.2) mg/dL Total Bilirubin (0.2-1.3) mg/dL AST (14-36) U/L ALT (4-34) U/L Alkaline Phosphatase (38-126) U/L Total Protein (6.3-8.2) g/dL Albumin (3.5-5.0) g/dL Lipase (23-300) U/L Urine Color Light Yellow Urine Appearance Cloudy H (Clear) Urine pH 6.5 (5.0-8.0) Ur Specific [place] >1.050 H (1.001-1.035) Urine Protein Negative (Negative) Urine Glucose (UA) Negative (Negative) Urine Ketones Negative (Negative) Urine Blood Negative (Negative) Urine Nitrite Negative (Negative) Urine Bilirubin Negative (Negative) Urine Urobilinogen <2.0 (<2.0) mg/dL Ur Leukocyte Esterase Moderate H (Negative) Urine RBC 1 (0-5) /hpf Urine WBC 10 H (0-5) /hpf Ur Squamous Epith Cells 7 H (0-4) /hpf Urine Bacteria Rare H (None) /hpf Urine Mucus Rare H (None) /hpf - Radiology Data Radiology results: report reviewed, image reviewed CT abdomen and pelvis with contrast was obtained. Report is reviewed in its entirety. Impression by Dr. Hopkins shows mild atelectasis at the right lung base unchanged. No acute abnormality within the abdomen and pelvis. Disposition Clinical Impression: Intractable abdominal pain Disposition: ADMITTED IP TO THIS [facility] Condition: Serious Referrals: Estrada Fernandes DO [Primary Care Provider] - 1-2 days Decision to Admit Reason: Admit from EC Decision Date: 09/13/20 Decision Time: 21:17
[2020-09-13 18:13] LABS: Basophils # (A) 0.1 k/uL (0-0.2); Basophils % (A) 1 %; Eosinophils # (A) 0.3 k/uL (0-0.7); Eosinophils % (A) 4 %; HGB 13.1 gm/dL (11.4-16.0); Lymphocytes # (A) 2.2 k/uL (1.0-4.8); Lymphocytes % (A) 30 %; MCH 33.5 pg (25.0-35.0); MCHC 34.5 g/dL (31.0-37.0); MCV 97.1 fL (80.0-100.0); Mean Platelet Volume 7.5; Monocytes # (A) 0.5 k/uL (0-1.0); Monocytes % (A) 7 %; Neutrophils # (A) 4.3 k/uL (1.3-7.7); Neutrophils % (A) 57 %; Platelet Count 183 k/uL (150-450); RBC 3.92 m/uL (3.80-5.40); RDW 12.4 % (11.5-15.5); WBC 7.5 k/uL (3.8-10.6)
[2020-09-13 18:22] LABS: Albumin 4.3 g/dL (3.5-5.0); Calcium 10.1 mg/dL (8.4-10.2); Potassium 4.8 mmol/L (3.5-5.1); Total Bilirubin 0.6 mg/dL (0.2-1.3); Total Protein 7.7 g/dL (6.3-8.2)
--- NOTE | 2020-09-13 19:21 | CT ---
EXAMINATION TYPE: CT abdomen pelvis w con DATE OF EXAM: 09/13/2020 COMPARISON: 08/29/2020 HISTORY: Abdominal pain CT DLP: 1312.5 mGycm Automated exposure control for dose reduction was used. CONTRAST: Performed with IV Contrast, patient injected with 100 mL of Isovue 300. There is some mild atelectasis at the right lung base. There is no pleural effusion. There is no callie cardial effusion. Heart size is normal. There are clips from cholecystectomy. The bile ducts are not dilated. Spleen stomach pancreas appear normal. There is no adrenal mass. Kidneys show satisfactory contrast opacification. There is no hydronephrosi s. Ureters are not dilated. Bladder distends smoothly. Uterus is anteverted. There is no free fluid i n the pelvis. There is no sign of a pelvic mass. Appendix is not definitely seen. There is no sign of thickened appendix. Lumbar vertebra have normal alignment. There is degenerative disc space narrowing at L2-3 with spur f ormation. Appendix is not definitely seen. There is no sign of thickened appendix. IMPRESSION: There is some mild atelectasis at the right lung base unchanged. No acute abnormality within the abdo men pelvis.
[2020-09-13] MEDS ORDERED: HYDROmorphone 1 MG/ML 1 ML SYRINGE IVP STA (20:34)
[2020-09-13 20:45] LABS: Appearance,Urine Cloudy (Clear); Bacteria,Urine Rare /hpf; Bilirubin,Urine Negative (Negative); Blood,Urine Negative (Negative); Color,Urine Light Yellow; Glucose,Urine (UA) Negative (Negative); Ketones,Urine Negative (Negative); Leukocyte Esterase,Urine Moderate (Negative); Mucus,Urine Rare /hpf; Nitrite,Urine Negative (Negative); PH, Urine 6.5 (5.0-8.0); Protein,Urine Negative (Negative); RBC,Urine 1 /hpf (0-5); Squamous Epithelial Cell,Urine 7 /hpf (0-4); Urobilinogen,Urine <2.0 mg/dL (<2.0); WBC,Urine 10 /hpf (0-5)
[2020-09-13 20:46] LABS: Specific Gravity,Urine >1.050 (1.001-1.035)
[2020-09-13] MEDS ORDERED: MAG HYDROX/AL HYDROX/SIMETH 30 ML, HYOSCYAMINE ELIXIR 10 ML, LIDOCAINE VISCOUS 2% 10 ML PO STA ×3 (21:09)
[2020-09-13] MEDS ORDERED: NALOXONE 0.4 MG/ML 1 ML VIAL IV PRN (21:15)
[2020-09-13] MEDS ORDERED: SODIUM CHLORIDE 0.9% 500 ML 500 ML IV ONE (21:37)
[2020-09-13] MEDS: HYDROmorphone 1 MG/ML 1 ML SYRINGE IVP PRN (23:14)
[2020-09-13] MEDS: SODIUM CHLORIDE 0.9% 1,000 ML IV SCH (23:18)
[2020-09-14] MEDS: HYDROmorphone 1 MG/ML 1 ML SYRINGE IVP PRN ×7 (02:54→23:16)
[2020-09-14] MEDS: ONDANSETRON 4 MG/2 ML VIAL IVP PRN ×2 (02:55→09:09)
[2020-09-14 03:07] LABS: Glucose,Whole Blood 195 mg/dL (75-99)
[2020-09-14 06:11] LABS: Glucose,Whole Blood 195 mg/dL (75-99)
[2020-09-14] MEDS ORDERED: NON FORMULARY DRUG (Omeprazole 40 MG Capsule.Dr) PO SCH (09:00)
[2020-09-14] MEDS ORDERED: METOCLOPRAMIDE 5 MG TAB PO SCH (09:00)
[2020-09-14] MEDS: PANTOPRAZOLE 40 MG/10 ML VIAL IVP SCH (09:13)
[2020-09-14] MEDS: INSULIN ASPART (NovoLOG) 100 UNIT/ML VIAL SQ SCH ×2 (09:18→17:29)
[2020-09-14] MEDS: INSULIN DETEMIR (LEVEMIR) 100 UNIT/ML SYR SQ SCH (09:22)
[2020-09-14 11:50] LABS: Glucose,Whole Blood 163 mg/dL (75-99)
[2020-09-14] MEDS: MULTIVITAMINS, THERA 1 EACH TAB PO SCH (12:34)
[2020-09-14] MEDS: DIVALPROEX 250 MG TABLET.DR PO SCH ×2 (13:23→21:02)
[2020-09-14] MEDS: ATORVASTATIN 20 MG TAB PO SCH (13:23)
[2020-09-14] MEDS: busPIRone HCl 5 MG TAB PO SCH ×2 (13:23→20:43)
[2020-09-14] MEDS: ASPIRIN 81 MG PO SCH (13:23)
[2020-09-14] MEDS: FOLIC ACID 1 MG TAB PO SCH (13:23)
[2020-09-14] MEDS: DESVENLAFAXINE SUCCINATE 50 MG TAB.ER.24H PO SCH (13:23)
--- NOTE | 2020-09-14 13:23 | P.HPIM ---
History of Present Illness H&P Date: 09/14/20 Chief Complaint: Abdominal pain nausea and vomiting This is a 69-year-old female came into emergency department with ongoing symptoms of pain which is going on for several weeks lately having nausea and vomiting, pain is predominantly present in epigastric area, her labs reviewed which are within normal limit computed tomography scan of the abdominal pelvis also normal, general surgery and GI has been consulted for further evaluation, patient has been recommended for endoscopy in the past but she declined Review of Systems All systems: negative Past Medical History Past Medical History: Chest Pain / Angina, Diabetes Mellitus, GERD/Reflux, Hyperlipidemia, Hypertension, Osteoarthritis (OA), Pulmonary Embolus (PE), Seizure Disorder Additional Past Medical History / Comment(s): ulcer,constant abdominal pain, occ. MIGRAINES, HIATAL HERNIA. SEIZURE 03/2018- NONE SINCE. heart murmer History of Any Multi-Drug Resistant Organisms: None Reported Past Surgical History: Cholecystectomy, Orthopedic Surgery, Tonsillectomy, Tubal Ligation Additional Past Surgical History / Comment(s): NECK SURGERY, REPAIR FX RT LEG SURGERY, EGD, COLONOSCOPY. arturo cataracts Past Anesthesia/Blood Transfusion Reactions: No Reported Reaction Past Psychological History: Depression Smoking Status: Never smoker Past Alcohol Use History: None Reported Additional Past Alcohol Use History / Comment(s): SMOKED BRIEFLY A TEENAGER FOR A FEW MONTHS Past Drug Use History: Marijuana Additional Drug Use History / Comment(s): uses marijuana daily - Past Family History Mother Family Medical History: No Reported History Medications and Allergies Home Medications Medication Instructions Recorded Confirmed Type Simvastatin [Zocor] 40 mg PO DAILY 07/23/14 09/13/20 History Divalproex Sodium 250 mg PO BID 04/13/18 09/13/20 History Propranolol HCl [Inderal LA] 60 mg PO DAILY 04/13/18 09/13/20 History sitaGLIPtin [Januvia] 100 mg PO DAILY 04/13/18 09/13/20 History Desvenlafaxine [Pristiq ER] 100 mg PO DAILY 08/06/19 09/13/20 History Metoclopramide [Reglan] 5 mg PO TID 09/03/19 09/13/20 History busPIRone HCL 15 mg PO BID 09/03/19 09/13/20 History Insulin Lispro [humaLOG Kwikpen] 10 unit SQ BID-W/MEALS 12/20/19 09/13/20 History levETIRAcetam [Keppra] 750 mg PO BID 12/20/19 09/13/20 History Folic Acid 1 mg PO DAILY 02/08/20 09/13/20 History Magnesium Oxide [Mag-Ox] 400 mg PO BID 02/08/20 09/13/20 History Multivitamins, Thera [Multivitamin 1 tab PO DAILY 02/08/20 09/13/20 History (formulary)] Insulin Degludec [Tresiba 40 units SQ DAILY 04/14/20 09/13/20 History Flextouch U-200] Losartan Potassium 50 mg PO DAILY 04/14/20 09/13/20 History Omeprazole [PriLOSEC] 40 mg PO DAILY 09/06/20 09/13/20 History Acetaminophen [Tylenol Extra 1,000 mg PO Q6H PRN 09/13/20 09/13/20 History Strength] Aspirin EC [Ecotrin Low Dose] 81 mg PO DAILY 09/13/20 09/13/20 History Allergies Allergy/AdvReac Type Severity Reaction Status Date / Time codeine AdvReac shakiness Verified 09/13/20 18:34 doxycycline AdvReac shakiness Verified 09/13/20 18:34 tramadol [From Ultram] AdvReac shakiness Verified 09/13/20 18:34 Physical Exam Vitals: Vital Signs Temp Pulse Pulse Resp BP BP BP 09/14/20 09:17 120/55 09/14/20 09:15 98.8 F 92 18 09/14/20 09:00 18 09/14/20 02:49 98.6 F 90 18 152/85 09/13/20 23:08 147/82 09/13/20 22:55 99.2 F 76 18 170/87 09/13/20 22:33 75 16 176/97 09/13/20 20:38 74 16 146/94 09/13/20 16:50 98.9 F 69 18 155/70 Pulse Ox 09/14/20 09:17 09/14/20 09:15 100 09/14/20 09:00 09/14/20 02:49 95 09/13/20 23:08 09/13/20 22:55 96 09/13/20 22:33 98 09/13/20 20:38 96 09/13/20 16:50 98 Intake and Output 09/13/20 09/14/20 09/14/20 22:59 06:59 14:59 Output Total 170 Balance -170 Output: Emesis 170 Other: Voiding Method Toilet Toilet # Voids 1 Weight 87.997 kg - Constitutional General appearance: average body habitus, cooperative, disheveled - EENT Eyes: PERRLA Ears: bilateral: normal - Neck Neck: normal ROM Carotids: bilateral: upstroke normal Thyroid: bilateral: normal size - Respiratory Respiratory: bilateral: CTA - Cardiovascular Rhythm: regular Heart sounds: normal: S1, S2 - Gastrointestinal General gastrointestinal: decreased bowel sounds, distended Localized gastrointestinal: tender: diffuse, epigastric periumbilical - Integumentary Integumentary: normal turgor - Neurologic Neurologic: CNII-XII intact - Musculoskeletal Musculoskeletal: gait normal, generalized weakness, strength equal bilaterally - Psychiatric Psychiatric: A&O x's 3, appropriate affect, intact judgment & insight Results CBC & Chem 7: 09/13/20 18:09 09/13/20 18:09 Labs: Abnormal Lab Results - Last 24 Hours (Table) 09/13/20 09/13/20 09/14/20 Range/Units 18:09 20:18 03:02 BUN 18 H (7-17) mg/dL Glucose 123 H (74-99) mg/dL POC Glucose (mg/dL) 195 H (75-99) mg/dL Urine Appearance Cloudy H (Clear) Ur Specific [place] >1.050 H (1.001-1.035) Ur Leukocyte Esterase Moderate H (Negative) Urine WBC 10 H (0-5) /hpf Ur Squamous Epith Cells 7 H (0-4) /hpf Urine Bacteria Rare H (None) /hpf Urine Mucus Rare H (None) /hpf 09/14/20 09/14/20 Range/Units 06:08 11:49 BUN (7-17) mg/dL Glucose (74-99) mg/dL POC Glucose (mg/dL) 195 H 163 H (75-99) mg/dL Urine Appearance (Clear) Ur Specific [place] (1.001-1.035) Ur Leukocyte Esterase (Negative) Urine WBC (0-5) /hpf Ur Squamous Epith Cells (0-4) /hpf Urine Bacteria (None) /hpf Urine Mucus (None) /hpf CT scan - abdomen: report reviewed Thrombosis Risk Factor Assmnt - Choose All That Apply Each Risk Factor Represents 2 Points: Age 61-74 years Thrombosis Risk Factor Assessment Total Risk Factor Score: 2 Thrombosis Risk Factor Assessment Level: Low Risk Assessment and Plan Assessment: Epigastric pain Ongoing nausea vomiting likely peptic ulcer disease Dyslipidemia Depression Type 2 diabetes mellitus Hypertension hypertensive cardiovascular disease Seizure disorder UTI Plan: Consult GI and general surgery Proton pump inhibitor Keep patient nothing by mouth might undergo endoscopy V Rocephin Continue home medications Time with Patient: Greater than 30
[2020-09-14] MEDS: LINAGLIPTIN 5 MG TABLET PO SCH (13:24)
[2020-09-14] MEDS: MAGNESIUM OXIDE 400 MG TAB PO SCH ×2 (13:24→20:43)
[2020-09-14] MEDS: LOSARTAN 50 MG TAB PO SCH (13:24)
[2020-09-14] MEDS ORDERED: DEXAMETHASONE SOD PHOSPHATE 10 MG/ML 1 ML VIAL IV STA (14:56)
--- NOTE | 2020-09-14 15:04 | P.GSCN ---
History of Present Illness Consult date: 09/14/20 History of present illness: CHIEF COMPLAINT: Intractable nausea and vomiting HISTORY OF PRESENT ILLNESS: The patient is a 69 year old female with chronic abdominal pain along the epigastrium. She does have personal history of gastric ulcers. In the past she has been treated with Protonix including Carafate. She was doing well up until 3-4 months ago. She was placed on Carafate. She stopped taking her Carafate. She reports in the past week having severe epiga stric abdominal pain radiates to her back. She presents emergency room with intractable nausea and vomiting with bilious emesis. She is unable to keep her pills down. She reports the pain is moderate to severe. She is admitted for intractable nausea and vomiting with abdominal pain. PAST MEDICAL HISTORY: See list and reviewed PAST SURGICAL HISTORY: See list and reviewed MEDICATIONS: See list and reviewed ALLERGIES: See list and reviewed SOCIAL HISTORY: See list and reviewed FAMILY HISTORY: See list and reviewed REVIEW OF ORGAN SYSTEMS: CONSTITUTIONAL: No fevers or chills. EYES: Denies any trouble with vision. No glasses. HEENT: No difficulties with hearing. No nosebleeds. RESPIRATORY: Denies pneumonia. Denies any troubles with breathing or dyspnea on exertion. CARDIOVASCULAR: Denies any chest pain, palpitations, or recent heart attacks. GASTROINTESTINAL: As above. History of gastric ulcers including gastroesophageal reflux disease GENITOURINARY: Denies any blood in urine or increased urinary frequency. NEUROLOGICAL: Denies any numbness or tingling along the distal extremities. Has seizure disorders. MUSCULOSKELETAL: Has back pain, stiffness or joint arthritis. SKIN: No current skin cancer. No rash. PSYCHIATRIC: Has depression. No suicidal thoughts. ENDOCRINE: Denies current thyroid disorders. Has sugar glucose intolerance. HEME/LYMPHATIC: Denies any lumps and bumps around the neck. No recent deep venous thrombosis. PHYSICAL EXAM: VITALS: Reviewed CONSTITUTIONAL: Well developed and in no acute distress. EYES: Conjuctivae without sclera icterus. Pupils are equally round and reactive to light. Extraocular movements grossly intact. HEAD, EARS, NOSE, THROAT: Moist buccal mucosa. Head is atraumatic, normocephalic. Hears conversational speech. No nasal drainage. NECK: Supple. No JV distention. No thyroidomegaly. RESPIRATORY: Non-labored respirations and equal bilateral excursions. No gross wheezes. CARDIOVASCULAR: Regular rate and rhythm. Palpable 2+ radial pulses. ABDOMEN: Soft. Non-tender. Nondistended. LYMPH: No neck lymphadenopathy. MUSCULOSKELETAL:Nail and fingers with good capillary refill. SKIN: Warm and well perfused with good skin turgor. NEUROLOGIC: Cranial nerves II through XII grossly intact. Sensation upper and extremities intact. No focal or lateralizing signs. PSYCH: Appropriate affect. Alert and oriented to person, place and time. Displays appropriate insight. CLINCAL LABS: Reviewed. WBC within normal limits IMAGING: Independently reviewed CT of the abdomen and pelvis demonstrating no inflammatory changes along the epigastrium. Small hiatal hernia identified. RADIOLOGY: Report reviewed reports unremarkable abdominal findings from CT of the abdomen and pelvis ASSESSMENT: 1. Personal history of gastric ulcers 2. Intractable nausea and vomiting 3. Intractable epigastric abdominal pain PLAN: 1. She had come off her regimen of Carafate including Protonix therefore at higher risk for recurrent gastric ulcers. Recommend repeat upper endoscopy. 2. She has intractable nausea and vomiting with poor by mouth intake. IV fluid hydration advised. 3. Antiemetics with Reglan, Zofran, Decadron prescribed. 4. Pending clinical course, may need additional GI consultation. Thank you for this kind consultation. Past Medical History Past Medical History: Chest Pain / Angina, Diabetes Mellitus, GERD/Reflux, Hyperlipidemia, Hypertension, Osteoarthritis (OA), Pulmonary Embolus (PE), Seizure Disorder Additional Past Medical History / Comment(s): ulcer,constant abdominal pain, occ. MIGRAINES, HIATAL HERNIA. SEIZURE 03/2018- NONE SINCE. heart murmer History of Any Multi-Drug Resistant Organisms: None Reported Past Surgical History: Cholecystectomy, Orthopedic Surgery, Tonsillectomy, Tubal Ligation Additional Past Surgical History / Comment(s): NECK SURGERY, REPAIR FX RT LEG SURGERY, EGD, COLONOSCOPY. arturo cataracts Past Anesthesia/Blood Transfusion Reactions: No Reported Reaction Past Psychological History: Depression Smoking Status: Never smoker Past Alcohol Use History: None Reported Additional Past Alcohol Use History / Comment(s): SMOKED BRIEFLY A TEENAGER FOR A FEW MONTHS Past Drug Use History: Marijuana Additional Drug Use History / Comment(s): uses marijuana daily - Past Family History Mother Family Medical History: No Reported History Medications and Allergies Home Medications Medication Instructions Recorded Confirmed Type Simvastatin [Zocor] 40 mg PO DAILY 07/23/14 09/13/20 History Divalproex Sodium 250 mg PO BID 04/13/18 09/13/20 History Propranolol HCl [Inderal LA] 60 mg PO DAILY 04/13/18 09/13/20 History sitaGLIPtin [Januvia] 100 mg PO DAILY 04/13/18 09/13/20 History Desvenlafaxine [Pristiq ER] 100 mg PO DAILY 08/06/19 09/13/20 History Metoclopramide [Reglan] 5 mg PO TID 09/03/19 09/13/20 History busPIRone HCL 15 mg PO BID 09/03/19 09/13/20 History Insulin Lispro [humaLOG Kwikpen] 10 unit SQ BID-W/MEALS 12/20/19 09/13/20 History levETIRAcetam [Keppra] 750 mg PO BID 12/20/19 09/13/20 History Folic Acid 1 mg PO DAILY 02/08/20 09/13/20 History Magnesium Oxide [Mag-Ox] 400 mg PO BID 02/08/20 09/13/20 History Multivitamins, Thera [Multivitamin 1 tab PO DAILY 02/08/20 09/13/20 History (formulary)] Insulin Degludec [Tresiba 40 units SQ DAILY 04/14/20 09/13/20 History Flextouch U-200] Losartan Potassium 50 mg PO DAILY 04/14/20 09/13/20 History Omeprazole [PriLOSEC] 40 mg PO DAILY 09/06/20 09/13/20 History Acetaminophen [Tylenol Extra 1,000 mg PO Q6H PRN 09/13/20 09/13/20 History Strength] Aspirin EC [Ecotrin Low Dose] 81 mg PO DAILY 09/13/20 09/13/20 History Allergies Allergy/AdvReac Type Severity Reaction Status Date / Time codeine AdvReac shakiness Verified 09/13/20 18:34 doxycycline AdvReac shakiness Verified 09/13/20 18:34 tramadol [From Ultram] AdvReac shakiness Verified 09/13/20 18:34 Surgical - Exam Vital Signs Temp Pulse Resp BP Pulse Ox 98.9 F 69 18 155/70 98 09/13/20 16:50 09/13/20 16:50 09/13/20 16:50 09/13/20 16:50 09/13/20 16:50 Results - Labs 09/13/20 18:09 09/13/20 18:09 Abnormal Lab Results - Last 24 Hours (Table) 09/13/20 09/13/20 09/14/20 Range/Units 18:09 20:18 03:02 BUN 18 H (7-17) mg/dL Glucose 123 H (74-99) mg/dL POC Glucose (mg/dL) 195 H (75-99) mg/dL Urine Appearance Cloudy H (Clear) Ur Specific [place] >1.050 H (1.001-1.035) Ur Leukocyte Esterase Moderate H (Negative) Urine WBC 10 H (0-5) /hpf Ur Squamous Epith Cells 7 H (0-4) /hpf Urine Bacteria Rare H (None) /hpf Urine Mucus Rare H (None) /hpf 09/14/20 09/14/20 Range/Units 06:08 11:49 BUN (7-17) mg/dL Glucose (74-99) mg/dL POC Glucose (mg/dL) 195 H 163 H (75-99) mg/dL Urine Appearance (Clear) Ur Specific [place] (1.001-1.035) Ur Leukocyte Esterase (Negative) Urine WBC (0-5) /hpf Ur Squamous Epith Cells (0-4) /hpf Urine Bacteria (None) /hpf Urine Mucus (None) /hpf Diabetes panel 09/13/20 Range/Units 18:09 Sodium 138 (137-145) mmol/L Potassium 4.8 (3.5-5.1) mmol/L Chloride 106 (98-107) mmol/L Carbon Dioxide 28 (22-30) mmol/L BUN 18 H (7-17) mg/dL Creatinine 0.80 (0.52-1.04) mg/dL Glucose 123 H (74-99) mg/dL Calcium 10.1 (8.4-10.2) mg/dL AST 27 (14-36) U/L ALT 12 (4-34) U/L Alkaline Phosphatase 89 (38-126) U/L Total Protein 7.7 (6.3-8.2) g/dL Albumin 4.3 (3.5-5.0) g/dL Calcium panel 09/13/20 Range/Units 18:09 Calcium 10.1 (8.4-10.2) mg/dL Albumin 4.3 (3.5-5.0) g/dL Pituitary panel 09/13/20 Range/Units 18:09 Sodium 138 (137-145) mmol/L Potassium 4.8 (3.5-5.1) mmol/L Chloride 106 (98-107) mmol/L Carbon Dioxide 28 (22-30) mmol/L BUN 18 H (7-17) mg/dL Creatinine 0.80 (0.52-1.04) mg/dL Glucose 123 H (74-99) mg/dL Calcium 10.1 (8.4-10.2) mg/dL Adrenal panel 09/13/20 Range/Units 18:09 Sodium 138 (137-145) mmol/L Potassium 4.8 (3.5-5.1) mmol/L Chloride 106 (98-107) mmol/L Carbon Dioxide 28 (22-30) mmol/L BUN 18 H (7-17) mg/dL Creatinine 0.80 (0.52-1.04) mg/dL Glucose 123 H (74-99) mg/dL Calcium 10.1 (8.4-10.2) mg/dL Total Bilirubin 0.6 (0.2-1.3) mg/dL AST 27 (14-36) U/L ALT 12 (4-34) U/L Alkaline Phosphatase 89 (38-126) U/L Total Protein 7.7 (6.3-8.2) g/dL Albumin 4.3 (3.5-5.0) g/dL Assessment and Plan (1) Nausea & vomiting Current Visit: Yes Status: Acute Code(s): R11.2 - NAUSEA WITH VOMITING, UNSPECIFIED SNOMED Code(s): 89032183 (2) Intractable abdominal pain Current Visit: Yes Status: Acute Code(s): R10.9 - UNSPECIFIED ABDOMINAL PAIN SNOMED Code(s): 99719142 (3) Abdominal pain Current Visit: No Status: Acute Code(s): R10.9 - UNSPECIFIED ABDOMINAL PAIN SNOMED Code(s): 38033902 (4) Gastric ulcer Current Visit: Yes Status: Acute Code(s): K25.9 - GASTRIC ULCER, UNSP ACUTE OR CHRONIC, W/O HEMOR OR PERF SNOMED Code(s): 893264824
[2020-09-14 15:29] LABS: Hemoglobin A1C 5.1 % (4.0-6.0)
[2020-09-14] MEDS: PROPRANOLOL LA 60 MG CAP.SA.24H PO SCH (15:31)
[2020-09-14] MEDS: SODIUM CHLORIDE 0.9% 1,000 ML IV SCH ×3 (15:35→20:39)
[2020-09-14 16:35] LABS: Glucose,Whole Blood 150 mg/dL (75-99)
[2020-09-14] MEDS: SUCRALFATE 1 GM TAB PO SCH ×2 (17:43→20:43)
[2020-09-14 21:06] LABS: Glucose,Whole Blood 153 mg/dL (75-99)
[2020-09-15] MEDS: SODIUM CHLORIDE 0.9% 1,000 ML IV SCH ×2 (02:55→16:22)
[2020-09-15] MEDS: HYDROmorphone 1 MG/ML 1 ML SYRINGE IVP PRN ×5 (02:57→21:24)
[2020-09-15 06:09] LABS: Glucose,Whole Blood 131 mg/dL (75-99)
[2020-09-15] MEDS: MAGNESIUM SULFATE-D5W PMX 1 GM in DEXTROSE/WATER 1 100ML.BAG IVPB SCH ×4 (07:57→12:25)
[2020-09-15] MEDS: INSULIN ASPART (NovoLOG) 100 UNIT/ML VIAL SQ SCH ×2 (09:11→18:02)
[2020-09-15] MEDS: INSULIN DETEMIR (LEVEMIR) 100 UNIT/ML SYR SQ SCH (09:11)
[2020-09-15] MEDS: LOSARTAN 50 MG TAB PO SCH (09:16)
[2020-09-15] MEDS: busPIRone HCl 5 MG TAB PO SCH ×2 (09:16→21:22)
[2020-09-15] MEDS: ASPIRIN 81 MG PO SCH (09:16)
[2020-09-15] MEDS: ATORVASTATIN 20 MG TAB PO SCH (09:16)
[2020-09-15] MEDS: MULTIVITAMINS, THERA 1 EACH TAB PO SCH (09:17)
[2020-09-15] MEDS: FOLIC ACID 1 MG TAB PO SCH (09:17)
[2020-09-15] MEDS: SUCRALFATE 1 GM TAB PO SCH ×4 (09:18→21:23)
[2020-09-15] MEDS: PROPRANOLOL LA 60 MG CAP.SA.24H PO SCH (09:19)
[2020-09-15] MEDS: DESVENLAFAXINE SUCCINATE 50 MG TAB.ER.24H PO SCH (09:19)
[2020-09-15] MEDS: DIVALPROEX 250 MG TABLET.DR PO SCH ×2 (09:20→21:23)
[2020-09-15] MEDS: LINAGLIPTIN 5 MG TABLET PO SCH (09:21)
[2020-09-15] MEDS: PANTOPRAZOLE 40 MG/10 ML VIAL IVP SCH (09:28)
[2020-09-15] MEDS: MAGNESIUM OXIDE 400 MG TAB PO SCH ×2 (09:28→21:23)
[2020-09-15] MEDS: ONDANSETRON 4 MG/2 ML VIAL IVP PRN ×2 (10:34→16:22)
[2020-09-15 12:25] LABS: Glucose,Whole Blood 157 mg/dL (75-99)
--- NOTE | 2020-09-15 14:30 | P.PN ---
Subjective Progress Note Date: 09/15/20 Principal diagnosis: Ongoing nausea vomiting likely peptic ulcer disease Dyslipidemia Depression Type 2 diabetes mellitus Hypertension hypertensive cardiovascular disease Seizure disorder UTI 09/15/2020, patient is still have her nausea and vomiting, abdominal pain is going on labs reviewed surgical services following, This is a 69-year-old female came into emergency department with ongoing symptoms of pain which is going on for several weeks lately having nausea and vomiting, pain is predominantly present in epigastric area, her labs reviewed which are within normal limit computed tomography scan of the abdominal pelvis also normal, general surgery and GI has been consulted for further evaluation, patient has been recommended for endoscopy in the past but she declined Objective - Vital Signs Vital signs: Vital Signs Temp 98.7 F 09/15/20 08:04 Pulse 87 09/15/20 08:04 Resp 18 09/15/20 08:04 BP 126/76 09/15/20 08:04 Pulse Ox 95 09/15/20 08:04 Intake & Output 09/14/20 09/15/20 09/15/20 18:59 06:59 18:59 Intake Total 120 500 Balance 120 500 Intake: Intake, IV Titration 500 Amount Magnesium Sulfate-D5w Pmx 400 1 gm In Dextrose/Water 1 100ml.bag @ 100 mls/hr IVPB Q1H RUBIO Rx#: [id number] cefTRIAXone 1 gm In 100 Sodium Chloride 0.9% 50 ml @ 100 mls/hr IVPB Q12HR RUBIO Rx#:[id number] Oral 120 0 Other: Voiding Method Toilet Toilet # Voids 1 1 1 - Exam - Constitutional General appearance: average body habitus, cooperative, disheveled - EENT Eyes: PERRLA Ears: bilateral: normal - Neck Neck: normal ROM Carotids: bilateral: upstroke normal Thyroid: bilateral: normal size - Respiratory Respiratory: bilateral: CTA - Cardiovascular Rhythm: regular Heart sounds: normal: S1, S2 - Gastrointestinal General gastrointestinal: decreased bowel sounds, distended Localized gastrointestinal: tender: diffuse, epigastric periumbilical - Integumentary Integumentary: normal turgor - Neurologic Neurologic: CNII-XII intact - Musculoskeletal Musculoskeletal: gait normal, generalized weakness, strength equal bilaterally - Psychiatric Psychiatric: A&O x's 3, appropriate affect, intact judgment & insight - Labs CBC & Chem 7: 09/13/20 18:09 09/13/20 18:09 Labs: Abnormal Lab Results - Last 24 Hours (Table) 09/14/20 09/14/20 09/14/20 Range/Units 15:45 16:34 21:04 POC Glucose (mg/dL) 150 H 153 H (75-99) mg/dL Magnesium 1.5 L (1.6-2.3) mg/dL 09/15/20 09/15/20 Range/Units 06:07 12:23 POC Glucose (mg/dL) 131 H 157 H (75-99) mg/dL Magnesium (1.6-2.3) mg/dL Assessment and Plan Assessment: Epigastric pain Ongoing nausea vomiting likely peptic ulcer disease Dyslipidemia Depression Type 2 diabetes mellitus Hypertension hypertensive cardiovascular disease Seizure disorder UTI Plan: Consult GI and general surgery Proton pump inhibitor Keep patient nothing by mouth might undergo endoscopy iV Rocephin Continue home medications Time with Patient: Greater than 30
[2020-09-15 17:05] LABS: Glucose,Whole Blood 120 mg/dL (75-99)
--- NOTE | 2020-09-15 18:25 | P.PN ---
Subjective Progress Note Date: 09/15/20 Principal diagnosis: Abdominal pain Patient complaining of intractable vomiting. Describes epigastric pain. Emesis is bilious. Patient was scheduled for EGD today. Dr. Macdonald unfortunately came down 6 today and had to cancel the procedure for that reason. Last EGD performed in April showed a small antral ulcer. Patient was on both Protonix and Carafate. Denies melanotic stools. Objective - Vital Signs Vital signs: Vital Signs Temp 97.3 F L 09/15/20 15:00 Pulse 96 09/15/20 15:00 Resp 18 09/15/20 15:00 BP 169/73 09/15/20 15:00 Pulse Ox 96 09/15/20 15:00 Intake & Output 09/14/20 09/15/20 09/15/20 18:59 06:59 18:59 Intake Total 120 500 Balance 120 500 Intake: Intake, IV Titration 500 Amount Magnesium Sulfate-D5w Pmx 400 1 gm In Dextrose/Water 1 100ml.bag @ 100 mls/hr IVPB Q1H RUBIO Rx#: [id number] cefTRIAXone 1 gm In 100 Sodium Chloride 0.9% 50 ml @ 100 mls/hr IVPB Q12HR RUBIO Rx#:[id number] Oral 120 0 Other: Voiding Method Toilet Toilet # Voids 1 1 1 - Exam Abdomen: Soft, nondistended, mild epigastric tenderness - Labs CBC & Chem 7: 09/13/20 18:09 09/13/20 18:09 Labs: Abnormal Lab Results - Last 24 Hours (Table) 09/14/20 09/15/20 09/15/20 Range/Units 21:04 06:07 12:23 POC Glucose (mg/dL) 153 H 131 H 157 H (75-99) mg/dL 09/15/20 Range/Units 17:04 POC Glucose (mg/dL) 120 H (75-99) mg/dL Assessment and Plan (1) Intractable abdominal pain Narrative/Plan: Patient with ongoing abdominal pain. Last EGD in April. GI has been consulted. Agree with plans for repeat EGD which could be performed either by myself for GI. Current Visit: Yes Status: Acute Code(s): R10.9 - UNSPECIFIED ABDOMINAL PAIN SNOMED Code(s): 84289712
[2020-09-15 21:32] LABS: Glucose,Whole Blood 144 mg/dL (75-99)
[2020-09-16] MEDS: ONDANSETRON 4 MG/2 ML VIAL IVP PRN (03:31)
[2020-09-16] MEDS: HYDROmorphone 1 MG/ML 1 ML SYRINGE IVP PRN ×2 (03:31→08:28)
[2020-09-16] MEDS: SODIUM CHLORIDE 0.9% 1,000 ML IV SCH (03:33)
[2020-09-16 06:06] LABS: Glucose,Whole Blood 150 mg/dL (75-99)
[2020-09-16] MEDS: INSULIN DETEMIR (LEVEMIR) 100 UNIT/ML SYR SQ SCH (08:08)
[2020-09-16] MEDS: INSULIN ASPART (NovoLOG) 100 UNIT/ML VIAL SQ SCH (08:08)
[2020-09-16] MEDS: busPIRone HCl 5 MG TAB PO SCH (08:25)
[2020-09-16] MEDS: MULTIVITAMINS, THERA 1 EACH TAB PO SCH (08:25)
[2020-09-16] MEDS: ATORVASTATIN 20 MG TAB PO SCH (08:25)
[2020-09-16] MEDS: MAGNESIUM OXIDE 400 MG TAB PO SCH (08:25)
[2020-09-16] MEDS: LOSARTAN 50 MG TAB PO SCH (08:25)
[2020-09-16] MEDS: SUCRALFATE 1 GM TAB PO SCH ×3 (08:26→15:54)
[2020-09-16] MEDS: PROPRANOLOL LA 60 MG CAP.SA.24H PO SCH (08:26)
[2020-09-16] MEDS: FOLIC ACID 1 MG TAB PO SCH (08:26)
[2020-09-16] MEDS: DIVALPROEX 250 MG TABLET.DR PO SCH (08:27)
[2020-09-16] MEDS: DESVENLAFAXINE SUCCINATE 50 MG TAB.ER.24H PO SCH (08:27)
[2020-09-16] MEDS: ASPIRIN 81 MG PO SCH (08:39)
[2020-09-16] MEDS: LINAGLIPTIN 5 MG TABLET PO SCH (08:39)
[2020-09-16 08:43] VITALS: TEMP 98
[2020-09-16] MEDS ORDERED: PANTOPRAZOLE 40 MG TABLET PO SCH ×2 (09:00→17:30)
[2020-09-16] MEDS ORDERED: IV FLUID CONTINUATION 300 ML IV ONE (09:34)
[2020-09-16] MEDS ORDERED: diphenhydrAMINE 50 MG/ML 1 ML VIAL ONE (09:37)
[2020-09-16] MEDS ORDERED: LIDOCAINE 1% INJ 10MG/ML (20 ML MDV) ONE (09:37)
[2020-09-16] MEDS ORDERED: ONDANSETRON 4 MG/2 ML VIAL ONE (09:37)
[2020-09-16] MEDS ORDERED: PROPOFOL 10 MG/ML 20 ML VIAL IV ONE (09:37)
--- NOTE | 2020-09-16 09:46 | P.CONS ---
History of Present Illness - Reason for Consult Consult date: 09/15/20 Peptic ulcer disease Requesting physician: Mary Kate Coulter - Chief Complaint Abdominal pain - History of Present Illness 69-year-old female with a medical history significant for seizure disorder, GERD, hyperlipidemia, hypertension, diabetes mellitus and prior history of peptic ulcer disease who presented to the hospital with complaints of abdominal pain. She reported epigastric abdominal pain which is present over the past few months. This is become worse over the past few days and she presented for further evaluation. The patient has been noted to have gastric ulcers which were last evaluated in 05/2020 at which time the ulcer appeared to be improving. The patient has been on treatment with Protonix therapy and Carafate and was doing well up until 3-4 months ago when he Carafate was stopped. She presented to the hospital with complaints of worsening pain as stated. She denies any change in bowel habits, blood per rectum but does report nausea and vomiting associated with the abdominal pain. Review of Systems REVIEW OF SYSTEMS: CONSTITUTIONAL: Denies any fevers, chills, weight change or fatigue. CARDIOVASCULAR: Denies any chest pain, palpitations high or low blood pressures RESPIRATORY: Denies any shortness of breath, hemoptysis or cough. GENITOURINARY: No dysuria or hematuria. MUSCULOSKELETAL: No weakness reported. SKIN: Denies any new rashes or lesions, jaundice or pallor. PSYCHIATRIC: Denies any depression or anxiety. NEUROLOGY: Denies headache, denies any new focal deficits. EARS/NOSE/THROAT: No recent hearing change, congestion, nasal discharge or sore throat. EYES: No pain in eyes, discharge or change in vision. GASTROINTESTINAL: As per HPI. Past Medical History Past Medical History: Chest Pain / Angina, Diabetes Mellitus, GERD/Reflux, Hyperlipidemia, Hypertension, Osteoarthritis (OA), Pulmonary Embolus (PE), Seizure Disorder Additional Past Medical History / Comment(s): ulcer,constant abdominal pain, occ. MIGRAINES, HIATAL HERNIA. SEIZURE 03/2018- NONE SINCE. heart [place]mer History of Any Multi-Drug Resistant Organisms: None Reported Past Surgical History: Cholecystectomy, Orthopedic Surgery, Tonsillectomy, Tubal Ligation Additional Past Surgical History / Comment(s): NECK SURGERY, REPAIR FX RT LEG SURGERY, EGD, COLONOSCOPY. arturo cataracts Past Anesthesia/Blood Transfusion Reactions: No Reported Reaction Past Psychological History: Depression Smoking Status: Never smoker Past Alcohol Use History: None Reported Additional Past Alcohol Use History / Comment(s): SMOKED [employer] FOR A FEW MONTHS Past Drug Use History: Marijuana Additional Drug Use History / Comment(s): uses marijuana daily - Past Family History Mother Family Medical History: No Reported History Medications and Allergies Home Medications Medication Instructions Recorded Confirmed Type Simvastatin [Zocor] 40 mg PO DAILY 07/23/14 09/13/20 History Divalproex Sodium 250 mg PO BID 04/13/18 09/13/20 History Propranolol HCl [Inderal LA] 60 mg PO DAILY 04/13/18 09/13/20 History sitaGLIPtin [Januvia] 100 mg PO DAILY 04/13/18 09/13/20 History Desvenlafaxine [Pristiq ER] 100 mg PO DAILY 08/06/19 09/13/20 History Metoclopramide [Reglan] 5 mg PO TID 09/03/19 09/13/20 History busPIRone HCL 15 mg PO BID 09/03/19 09/13/20 History Insulin Lispro [humaLOG Kwikpen] 10 unit SQ BID-W/MEALS 12/20/19 09/13/20 History levETIRAcetam [Keppra] 750 mg PO BID 12/20/19 09/13/20 History Folic Acid 1 mg PO DAILY 02/08/20 09/13/20 History Magnesium Oxide [Mag-Ox] 400 mg PO BID 02/08/20 09/13/20 History Multivitamins, Thera [Multivitamin 1 tab PO DAILY 02/08/20 09/13/20 History (formulary)] Insulin Degludec [Tresiba 40 units SQ DAILY 04/14/20 09/13/20 History Flextouch U-200] Losartan Potassium 50 mg PO DAILY 04/14/20 09/13/20 History Omeprazole [PriLOSEC] 40 mg PO DAILY 09/06/20 09/13/20 History Acetaminophen [Tylenol Extra 1,000 mg PO Q6H PRN 09/13/20 09/13/20 History Strength] Aspirin EC [Ecotrin Low Dose] 81 mg PO DAILY 09/13/20 09/13/20 History Allergies Allergy/AdvReac Type Severity Reaction Status Date / Time codeine AdvReac shakiness Verified 09/13/20 18:34 doxycycline AdvReac shakiness Verified 09/13/20 18:34 tramadol [From Ultram] AdvReac shakiness Verified 09/13/20 18:34 Physical Exam Vitals: Vital Signs Temp Pulse Resp BP BP Pulse Ox 09/15/20 15:00 97.3 F L 96 18 169/73 96 09/15/20 08:04 98.7 F 87 18 126/76 95 09/15/20 03:00 98.4 F 94 16 133/63 92 L 09/14/20 21:00 97.8 F 113 H 20 150/69 94 L Intake and Output 09/15/20 09/15/20 09/15/20 06:59 14:59 22:59 Intake Total 500 Balance 500 Intake: Intake, IV Titration 500 Amount Magnesium Sulfate-D5w Pmx 400 1 gm In Dextrose/Water 1 100ml.bag @ 100 mls/hr IVPB Q1H RUBIO Rx#: [id number] cefTRIAXone 1 gm In 100 Sodium Chloride 0.9% 50 ml @ 100 mls/hr IVPB Q12HR RUBIO Rx#:[id number] Oral 0 Other: Voiding Method Toilet # Voids 1 1 On physical examination, patient appears comfortable in no apparent distress. HEAD: Normocephalic, atraumatic. EYES: No scleral icterus. No conjunctival injection. MOUTH: No lesions, tongue midline. NECK: Trachea midline, no gross abnormalities. CHEST: Clear to auscultation with no wheezing or rhonchi appreciated. HEART: Regular rate and rhythm. ABDOMEN: Soft, obese, with epigastric abdominal pain on palpation. Bowel sounds are positive. No organomegaly. No guarding or rigidity. EXTREMITIES: No pedal edema. SKIN: No rashes, no jaundice. NEUROLOGIC: Alert and oriented x3. No focal deficits. Results CBC & Chem 7: 09/13/20 18:09 09/13/20 18:09 Labs: Abnormal Lab Results - Last 24 Hours (Table) 09/14/20 09/15/20 09/15/20 Range/Units 21:04 06:07 12:23 POC Glucose (mg/dL) 153 H 131 H 157 H (75-99) mg/dL 09/15/20 Range/Units 17:04 POC Glucose (mg/dL) 120 H (75-99) mg/dL CT scan - abdomen: report reviewed (No acute intra-abdominal process with atelectasis noted on computed tomography scan abdomen.) Assessment and Plan (1) Gastric ulcer Narrative/Plan: 69-year-old female with multiple medical comorbidities and known history of peptic ulcer disease last evaluated in 05/2020 at which time findings of esophagitis, hiatal hernia and healing gastric ulcer were noted. She presented to the hospital with worsening abdominal pain over the past few months which became unbearable prior to presentation. Unclear etiology, may be related to peptic ulcer disease, esophagitis, functional bowel disorder or other etiology. Computed tomography scan of the abdomen which was performed in evaluation was negative for any acute intra-abdominal process. Current Visit: Yes Status: Acute Code(s): K25.9 - GASTRIC ULCER, UNSP ACUTE OR CHRONIC, W/O HEMOR OR PERF SNOMED Code(s): 817698850 (2) Intractable abdominal pain Current Visit: Yes Status: Acute Code(s): R10.9 - UNSPECIFIED ABDOMINAL PAIN SNOMED Code(s): 40214259 (3) Nausea & vomiting Current Visit: Yes Status: Acute Code(s): R11.2 - NAUSEA WITH VOMITING, UNSPECIFIED SNOMED Code(s): 79176828 Plan: Supportive care Clear liquid diet Nothing by mouth after midnight Continue Protonix twice a day Continue Carafate before meals and at bedtime Plan for EGD for evaluation tomorrow Surgical service for following the patient Thank you for allowing us to participate in the care of the patient
--- NOTE | 2020-09-16 10:23 | P.PCN ---
Date of Procedure: 09/16/20 Description of Procedure: BRIEF HISTORY: 69-year-old female with a medical history significant for seizure disorder, GERD, hyperlipidemia, hypertension, diabetes mellitus and prior history of peptic ulcer disease who presented to the hospital with complaints of abdominal pain. She reported epigastric abdominal pain which is present over the past few months. This is become worse over the past few days and she presented for further evaluation. The patient has been noted to have gastric ulcers which were last evaluated in 05/2020 at which time the ulcer appeared to be improving. The patient has been on treatment with Protonix therapy and Carafate and was doing well up until 3-4 months ago when he Carafate was stopped. She presented to the hospital with complaints of worsening pain as stated. She denies any change in bowel habits, blood per rectum but does report nausea and vomiting associated with the abdominal pain. PROCEDURE PERFORMED: Esophagogastroduodenoscopy with biopsy. PREOPERATIVE DIAGNOSIS: Intractable abdominal pain, epigastric abdominal pain, history of peptic ulcer disease. ESTIMATED BLOOD LOSS: Minimal. IV sedation per anesthesia. PROCEDURE: After informed consent was obtained, the patient was brought into the endoscopy unit. IV sedation was administered by Anesthesia under continuous monitoring. Initially the Olympus GIF-190 video endoscope was inserted into the mouth. Esophagus intubated without any difficulty. It was gradually advanced into the stomach and duodenum and carefully examined. The bulb and the second part of the duodenum appeared normal. The scope at this time was withdrawn to the stomach, adequately insufflated with air, and upon careful examination, mucosa of the antrum, body, cardia and the fundus appeared normal, except for severe erythema in the antrum suggestive of severe antritis and a 1 cm linear antral ulcer with biopsies taken of the antrum and the ulcer . The scope was then withdrawn into the esophagus. The GE junction was located at 39 cm from the incisors. The esophagus appeared normal. There were no erosions or ulcerations seen and the patient tolerated the procedure well. IMPRESSION: 1. Severe antritis. 2. Nonbleeding antral ulcer without high-risk stigmata for bleeding. 3. Biopsies taken of the antrum and ulcer. RECOMMENDATIONS: The findings of this examination were discussed with the patient. Okay for full liquid diet. Continue Protonix daily and Carafate therapy. Would recommend repeat EGD with Dr. Coulter in 6-8 weeks to check for ulcer healing and if still here patient will benefit from referral for endoscopic ultrasound for further evaluation.
--- NOTE | 2020-09-16 10:31 | P.PN ---
Subjective Progress Note Date: 09/16/20 Principal diagnosis: Abdominal pain Patient just returned from upper endoscopy. Patient had evidence of gastritis with antral ulceration. Still having some pain. No melanotic stools or rectal bleeding. Objective - Vital Signs Vital signs: Vital Signs Temp 98.0 F 09/16/20 08:41 Pulse 87 09/16/20 09:15 Resp 20 09/16/20 09:15 BP 156/73 09/16/20 09:15 Pulse Ox 95 09/16/20 09:15 Intake & Output 09/15/20 09/16/20 09/16/20 18:59 06:59 18:59 Intake Total 500 100 Balance 500 100 Intake: IV 100 Intake, IV Titration 500 Amount Magnesium Sulfate-D5w Pmx 400 1 gm In Dextrose/Water 1 100ml.bag @ 100 mls/hr IVPB Q1H RUBIO Rx#: [id number] cefTRIAXone 1 gm In 100 Sodium Chloride 0.9% 50 ml @ 100 mls/hr IVPB Q12HR RUBIO Rx#:[id number] Oral 0 Other: Voiding Method Toilet Toilet # Voids 1 1 - Exam Abdomen: Soft, nondistended, mild epigastric tenderness - Labs CBC & Chem 7: 09/13/20 18:09 09/13/20 18:09 Labs: Abnormal Lab Results - Last 24 Hours (Table) 09/15/20 09/15/20 09/15/20 Range/Units 12:23 17:04 21:31 POC Glucose (mg/dL) 157 H 120 H 144 H (75-99) mg/dL 09/16/20 Range/Units 06:05 POC Glucose (mg/dL) 150 H (75-99) mg/dL Assessment and Plan (1) Intractable abdominal pain Narrative/Plan: EGD results noted. Await biopsy results. Continue antiacid therapy. Resume d iet. May discharge from our standpoint. Current Visit: Yes Status: Acute Code(s): R10.9 - UNSPECIFIED ABDOMINAL PAIN SNOMED Code(s): 43082240
[2020-09-16 12:00] VITALS: RESP 16
[2020-09-16 12:20] VITALS: BP 140/81; PULSE 71
[2020-09-16 12:27] LABS: Glucose,Whole Blood 125 mg/dL (75-99)
--- NOTE | 2020-09-16 14:31 | P.DS ---
Providers Date of admission: 09/16/20 13:29 Expected date of discharge: 09/16/20 Attending physician: Lew Emery Consults: 09/13/20 21:15 Consult Physician Routine Consulting Provider: Mary Kate Coulter Consult Reason/Comments: Intractable abdominal pain Do you want consulting provider notified?: Yes 09/15/20 07:00 Consult Physician Urgent Consulting Provider: Nash Miranda Consult Reason/Comments: History of gastric ulcers, abdominal pain Do you want consulting provider notified?: Yes Primary care physician: [facility] Course: 09/16/2020, patient seen eval examined during the rounds labs reviewed medications reviewed care plan discussed, patient is still waking up from anesthesia, endoscopy is done this morning EEG D patient found to have a nonbleeding antral ulcer biopsies has been done patient tolerated procedure well, recommended to follow up with GI as outpatient no more nausea and vomiting has been seen pain is stable, patient will be discharged home follow with primary care provider Alba BRUNO 09/15/2020, patient is still have her nausea and vomiting, abdominal pain is going on labs reviewed surgical services following, This is a 69-year-old female came into emergency department with ongoing symptoms of pain which is going on for several weeks lately having nausea and vomiting, pain is predominantly present in epigastric area, her labs reviewed which are within normal limit computed tomography scan of the abdominal pelvis also normal, general surgery and GI has been consulted for further evaluation, patient has been recommended for endoscopy in the past but she declined Assessment: Nonbleeding antral ulcer is status post biopsy GI Epigastric pain Ongoing nausea vomiting likely peptic ulcer disease Dyslipidemia Depression Type 2 diabetes mellitus Hypertension hypertensive cardiovascular disease Seizure disorder UTI Patient Condition at Discharge: Fair Plan - Discharge Summary New Discharge Prescriptions: Continue Simvastatin [Zocor] 40 mg PO DAILY Propranolol HCl [Inderal LA] 60 mg PO DAILY sitaGLIPtin [Januvia] 100 mg PO DAILY Divalproex Sodium 250 mg PO BID Desvenlafaxine [Pristiq ER] 100 mg PO DAILY busPIRone HCL 15 mg PO BID Metoclopramide [Reglan] 5 mg PO TID Insulin Lispro [humaLOG Kwikpen] 10 unit SQ BID-W/MEALS levETIRAcetam [Keppra] 750 mg PO BID Magnesium Oxide [Mag-Ox] 400 mg PO BID Multivitamins, Thera [Multivitamin (formulary)] 1 tab PO DAILY Folic Acid 1 mg PO DAILY Insulin Degludec [Tresiba Flextouch U-200] 40 units SQ DAILY Losartan Potassium 50 mg PO DAILY Omeprazole [PriLOSEC] 40 mg PO DAILY Aspirin EC [Ecotrin Low Dose] 81 mg PO DAILY Acetaminophen [Tylenol Extra Strength] 1,000 mg PO Q6H PRN PRN Reason: Pain Discharge Medication List Simvastatin [Zocor] 40 mg PO DAILY 07/23/14 [History] Divalproex Sodium 250 mg PO BID 04/13/18 [History] Propranolol HCl [Inderal LA] 60 mg PO DAILY 04/13/18 [History] sitaGLIPtin [Januvia] 100 mg PO DAILY 04/13/18 [History] Desvenlafaxine [Pristiq ER] 100 mg PO DAILY 08/06/19 [History] Metoclopramide [Reglan] 5 mg PO TID 09/03/19 [History] busPIRone HCL 15 mg PO BID 09/03/19 [History] Insulin Lispro [humaLOG Kwikpen] 10 unit SQ BID-W/MEALS 12/20/19 [History] levETIRAcetam [Keppra] 750 mg PO BID 12/20/19 [History] Folic Acid 1 mg PO DAILY 02/08/20 [History] Magnesium Oxide [Mag-Ox] 400 mg PO BID 02/08/20 [History] Multivitamins, Thera [Multivitamin (formulary)] 1 tab PO DAILY 02/08/20 [History] Insulin Degludec [Tresiba Flextouch U-200] 40 units SQ DAILY 04/14/20 [History] Losartan Potassium 50 mg PO DAILY 04/14/20 [History] Omeprazole [PriLOSEC] 40 mg PO DAILY 09/06/20 [History] Acetaminophen [Tylenol Extra Strength] 1,000 mg PO Q6H PRN 09/13/20 [History] Aspirin EC [Ecotrin Low Dose] 81 mg PO DAILY 09/13/20 [History] Follow up Appointment(s)/Referral(s): Estrada Fernandes DO [Primary Care Provider] - 1-2 days Discharge Disposition: HOME SELF-CARE
== END 2020-09-16 16:40 | disposition home or self-care (01) | DRG 392 ==
LOC: EC 16:47 → 1SOBS 22:04 → OBSVTOIN 09-16 13:29
PROVIDERS: ADMIT Internal Medicine Sleep Medicine; ATTEND Internal Medicine Sleep Medicine
PROC: 0DB78ZX Excision of Stomach, Pylorus, Via Natural or Artificial Opening Endoscopic, Diagnostic (ICD-10-PCS; principal; 2020-09-16 07:30)
DX: K29.00 Acute gastritis without bleeding (principal); N39.0 Urinary tract infection, site not specified; K21.9 Gastro-esophageal reflux disease without esophagitis; M19.90 Unspecified osteoarthritis, unspecified site; F32.9 Major depressive disorder, single episode, unspecified; E78.5 Hyperlipidemia, unspecified; E11.9 Type 2 diabetes mellitus without complications; I11.9 Hypertensive heart disease without heart failure; G89.29 Other chronic pain; G40.909 Epilepsy, unspecified, not intractable, without status epilepticus; K29.70 Gastritis, unspecified, without bleeding; Z79.899 Other long term (current) drug therapy; Z79.82 Long term (current) use of aspirin; Z79.4 Long term (current) use of insulin; Z88.1 Allergy status to other antibiotic agents; Z88.5 Allergy status to narcotic agent; Z88.8 Allergy status to other drugs, medicaments and biological substances; Z87.891 Personal history of nicotine dependence; Z87.11 Personal history of peptic ulcer disease; Z86.711 Personal history of pulmonary embolism; Z90.49 Acquired absence of other specified parts of digestive tract; Z90.89 Acquired absence of other organs; Z98.51 Tubal ligation status; Z98.890 Other specified postprocedural states; Z98.42 Cataract extraction status, left eye; Z98.41 Cataract extraction status, right eye
CPT/HCPCS: 36415; 43239; 74177; 80053; 81001; 83036; 83605; 83690; 83735; 84425; 85025; 88305; 96361; 96374; 96375; 99284

== ENCOUNTER 2020-10-03 12:48 | Inpatient (IN) | payer MEDICARE, OTHER ==
[2020-10-03] MEDS ORDERED: DEXTROSE 50% SYRINGE 50 ML IVP STA ×2 (12:50→13:57)
[2020-10-03] MEDS ORDERED: SODIUM CHLORIDE 0.9% 1,000 ML IV STA (12:57)
[2020-10-03 12:59] LABS: Glucose,Whole Blood 169 mg/dL (75-99)
[2020-10-03] MEDS ORDERED: LORazepam 2 MG/ML INJ IV STA (13:09)
--- NOTE | 2020-10-03 13:17 | ED ---
Seizure HPI - General Chief Complaint: Seizure Stated Complaint: Seizure Time Seen by Provider: 10/03/20 12:54 Source: EMS Mode of arrival: EMS Limitations: altered mental status - History of Present Illness Initial Comments: 69-year-old female past medical history of diabetes, hypertension, seizure disorder who presents emergency Department with seizure activity. EMS states that family called an ambulance just as the patient began seizing. She does have a history of seizure disorder last one was approximately a year ago. Unknown if the patient is taking her medications. Does appear that she is on valproic acid and Keppra. They did perform a Accu-Chek and the patient's glucose was 23. Unable to obtain a line. Patient presents emergency Department actively seizing. No family at bedside to help provide history. No other alleviating, precipitating or modifying factors - Related Data Home Medications Medication Instructions Recorded Confirmed Simvastatin [Zocor] 40 mg PO DAILY 07/23/14 10/03/20 Divalproex Sodium 250 mg PO BID 04/13/18 10/03/20 Desvenlafaxine [Pristiq ER] 100 mg PO DAILY 08/06/19 10/03/20 busPIRone HCL 15 mg PO BID 09/03/19 10/03/20 Insulin Lispro [humaLOG Kwikpen] 10 unit SQ BID-W/MEALS 12/20/19 10/03/20 levETIRAcetam [Keppra] 750 mg PO BID 12/20/19 10/03/20 Folic Acid 1 mg PO DAILY 02/08/20 10/03/20 Magnesium Oxide [Mag-Ox] 400 mg PO BID 02/08/20 10/03/20 Losartan Potassium 50 mg PO DAILY 04/14/20 10/03/20 Omeprazole [PriLOSEC] 40 mg PO DAILY 09/06/20 10/03/20 Aspirin EC [Ecotrin Low Dose] 81 mg PO DAILY 09/13/20 10/03/20 Cyclobenzaprine [Flexeril] 10 mg PO BID 10/03/20 10/03/20 Metoclopramide [Reglan] 5 mg PO TID 10/03/20 10/03/20 Propranolol HCl [Propranolol HCl 60 mg PO DAILY 10/03/20 10/03/20 ER] sitaGLIPtin PHOSPHATE [Januvia] 100 mg PO DAILY 10/03/20 10/03/20 Cyclobenzaprine [Flexeril] 10 mg PO BID PRN 10/04/20 10/04/20 Allergies Allergy/AdvReac Type Severity Reaction Status Date / Time codeine AdvReac shakiness Verified 10/03/20 14:22 doxycycline AdvReac shakiness Verified 10/03/20 14:22 tramadol [From Ultram] AdvReac shakiness Verified 10/03/20 14:22 Review of Systems ROS Statement: Those systems with pertinent positive or pertinent negative responses have been documented in the HPI. ROS Other: All systems not noted in ROS Statement are negative. Past Medical History Past Medical History: Chest Pain / Angina, Diabetes Mellitus, GERD/Reflux, Hyperlipidemia, Hypertension, Osteoarthritis (OA), Pulmonary Embolus (PE), Seizure Disorder Additional Past Medical History / Comment(s): ulcer,constant abdominal pain, occ. MIGRAINES, HIATAL HERNIA. SEIZURE 03/2018- NONE SINCE. heart murmer History of Any Multi-Drug Resistant Organisms: None Reported Past Surgical History: Cholecystectomy, Orthopedic Surgery, Tonsillectomy, Tubal Ligation Additional Past Surgical History / Comment(s): NECK SURGERY, REPAIR FX RT LEG SURGERY, EGD, COLONOSCOPY. arturo cataracts Past Anesthesia/Blood Transfusion Reactions: No Reported Reaction Past Psychological History: Depression Smoking Status: Never smoker Past Alcohol Use History: None Reported Past Drug Use History: Marijuana - Past Family History Mother Family Medical History: No Reported History General Exam Limitations: altered mental status General appearance: obtunded, other (seizing) Head exam: Present: atraumatic, normocephalic, normal inspection Eye exam: Present: normal appearance, PERRL, EOMI. Absent: scleral icterus, conjunctival injection, periorbital swelling ENT exam: Present: other (tongue ecchymosis bilaterally) Neck exam: Present: normal inspection. Absent: tenderness, meningismus, lymphadenopathy Respiratory exam: Present: normal lung sounds bilaterally. Absent: respiratory distress, wheezes, rales, rhonchi, stridor Cardiovascular Exam: Present: regular rate, normal rhythm, normal heart sounds. Absent: systolic murmur, diastolic murmur, rubs, gallop, clicks GI/Abdominal exam: Present: soft, normal bowel sounds. Absent: distended, tenderness, guarding, rebound, rigid Neurological exam: Present: altered, other (actively seizing) Skin exam: Present: warm, dry, intact, normal color. Absent: rash Course Vital Signs 10/03/20 10/03/20 10/03/20 12:52 13:11 13:55 Temperature 98.2 F Pulse Rate 72 66 68 Respiratory 24 20 18 Rate Blood Pressure 142/95 151/84 161/88 O2 Sat by Pulse 95 96 98 Oximetry 10/03/20 10/03/20 15:36 15:41 Temperature 98.2 F Pulse Rate 66 66 Respiratory 18 18 Rate Blood Pressure 126/67 126/67 O2 Sat by Pulse 98 98 Oximetry Medical Decision Making - Medical Decision Making Upon arrival patient is probably placed into trauma bay 2. She is actively seizing. We did obtain 2 peripheral IVs. Patient was given an amp of dextrose as her glucose is 22 upon our evaluation. Patient was also given 2 mg of Ativan. Seizing does cease the patient becomes post ictal. Laboratory studies were conducted. After approximately 30 minutes the patient is able to answer questions appropriately. States she did not take her insulin today. Reports she did take her seizure medications. Laboratory studies are reviewed. Lactic acid is 2.4. Valproic acid is 43.6. After approximately an hour and half the patient does have a decrease in her mentation. Repeat Accu-Chek demonstrates the patient's glucose to be 35. She is given a second amp of dextrose and went arousable is given food. CT of the patient's brain was performed which demonstrates no acute and cranial findings. Did recommend admission for breakthrough seizure and recurrent hypoglycemia. Patient agreed to this. Spoke with Dr. lopez who agreed to admit the patient. Accu-Cheks will be performed every 1 hour. I will consult Dr. Pickeirng. Patient remained in stable condition without any further seizure activity awaiting a bed on the floor - Lab Data Result diagrams: 10/04/20 06:30 10/04/20 06:30 Lab Results 10/03/20 10/03/20 10/03/20 Range/Units 12:49 12:58 13:02 WBC 11.8 H (3.8-10.6) k/uL RBC 4.01 (3.80-5.40) m/uL Hgb 12.5 (11.4-16.0) gm/dL Hct 39.6 (34.0-46.0) % MCV 98.8 (80.0-100.0) fL MCH 31.3 (25.0-35.0) pg MCHC 31.7 (31.0-37.0) g/dL RDW 12.9 (11.5-15.5) % Plt Count 267 (150-450) k/uL MPV 9.0 Neutrophils % 44 % Lymphocytes % 43 % Monocytes % 8 % Eosinophils % 3 % Basophils % 1 % Neutrophils # 5.2 (1.3-7.7) k/uL Lymphocytes # 5.1 H (1.0-4.8) k/uL Monocytes # 0.9 (0-1.0) k/uL Eosinophils # 0.4 (0-0.7) k/uL Basophils # 0.1 (0-0.2) k/uL Manual Slide Review Performed PT (9.0-12.0) sec INR (<1.2) APTT (22.0-30.0) sec Sodium (137-145) mmol/L Potassium (3.5-5.1) mmol/L Chloride (98-107) mmol/L Carbon Dioxide (22-30) mmol/L Anion Gap mmol/L BUN (7-17) mg/dL Creatinine (0.52-1.04) mg/dL Est GFR (CKD-EPI)AfAm (>60 ml/min/1.73 sqM) Est GFR (CKD-EPI)NonAf (>60 ml/min/1.73 sqM) Glucose (74-99) mg/dL POC Glucose (mg/dL) 22 L 169 H (75-99) mg/dL POC Glu Salesperson Books ID Miri Witt [address] Glu mg/dL Hemoglobin A1c (4.0-6.0) % Lactic Ac Sepsis Rflx Plasma Lactic Acid Prasanth (0.7-2.0) mmol/L Calcium (8.4-10.2) mg/dL Total Bilirubin (0.2-1.3) mg/dL AST (14-36) U/L ALT (4-34) U/L Alkaline Phosphatase (38-126) U/L Creatine Kinase (30-135) U/L Troponin I (0.000-0.034) ng/mL Total Protein (6.3-8.2) g/dL Albumin (3.5-5.0) g/dL TSH (0.465-4.680) mIU/L Urine Color Urine Appearance (Clear) Urine pH (5.0-8.0) Ur Specific [place] (1.001-1.035) Urine Protein (Negative) Urine Glucose (UA) (Negative) Urine Ketones (Negative) Urine Blood (Negative) Urine Nitrite (Negative) Urine Bilirubin (Negative) Urine Urobilinogen (<2.0) mg/dL Ur Leukocyte Esterase (Negative) Valproic Acid ug/mL 10/03/20 10/03/20 10/03/20 Range/Units 13:02 13:02 13:02 WBC (3.8-10.6) k/uL RBC (3.80-5.40) m/uL Hgb (11.4-16.0) gm/dL Hct (34.0-46.0) % MCV (80.0-100.0) fL MCH (25.0-35.0) pg MCHC (31.0-37.0) g/dL RDW (11.5-15.5) % Plt Count (150-450) k/uL MPV Neutrophils % % Lymphocytes % % Monocytes % % Eosinophils % % Basophils % % Neutrophils # (1.3-7.7) k/uL Lymphocytes # (1.0-4.8) k/uL Monocytes # (0-1.0) k/uL Eosinophils # (0-0.7) k/uL Basophils # (0-0.2) k/uL Manual Slide Review PT (9.0-12.0) sec INR (<1.2) APTT (22.0-30.0) sec Sodium 137 (137-145) mmol/L Potassium 4.8 (3.5-5.1) mmol/L Chloride 103 (98-107) mmol/L Carbon Dioxide 26 (22-30) mmol/L Anion Gap 8 mmol/L BUN 27 H (7-17) mg/dL Creatinine 0.83 (0.52-1.04) mg/dL Est GFR (CKD-EPI)AfAm 84 (>60 ml/min/1.73 sqM) Est GFR (CKD-EPI)NonAf 73 (>60 ml/min/1.73 sqM) Glucose 246 H (74-99) mg/dL POC Glucose (mg/dL) (75-99) mg/dL POC Glu Salesperson Books ID Estimated Ave Glu mg/dL Hemoglobin A1c (4.0-6.0) % Lactic Ac Sepsis Rflx Plasma Lactic Acid Prasanth 2.4 H* (0.7-2.0) mmol/L Calcium 9.9 (8.4-10.2) mg/dL Total Bilirubin 0.7 (0.2-1.3) mg/dL AST 38 H (14-36) U/L ALT 12 (4-34) U/L Alkaline Phosphatase 51 (38-126) U/L Creatine Kinase 37 (30-135) U/L Troponin I (0.000-0.034) ng/mL Total Protein 7.0 (6.3-8.2) g/dL Albumin 3.9 (3.5-5.0) g/dL TSH 1.010 (0.465-4.680) mIU/L Urine Color Yellow Urine Appearance Clear (Clear) Urine pH 7.0 (5.0-8.0) Ur Specific [place] 1.019 (1.001-1.035) Urine Protein Trace H (Negative) Urine Glucose (UA) 1+ H (Negative) Urine Ketones Negative (Negative) Urine Blood Negative (Negative) Urine Nitrite Negative (Negative) Urine Bilirubin Negative (Negative) Urine Urobilinogen <2.0 (<2.0) mg/dL Ur Leukocyte Esterase Negative (Negative) Valproic Acid 43.6 ug/mL 10/03/20 10/03/20 10/03/20 Range/Units 13:02 13:02 13:40 WBC (3.8-10.6) k/uL RBC (3.80-5.40) m/uL Hgb (11.4-16.0) gm/dL Hct (34.0-46.0) % MCV (80.0-100.0) fL MCH (25.0-35.0) pg MCHC (31.0-37.0) g/dL RDW (11.5-15.5) % Plt Count (150-450) k/uL MPV Neutrophils % % Lymphocytes % % Monocytes % % Eosinophils % % Basophils % % Neutrophils # (1.3-7.7) k/uL Lymphocytes # (1.0-4.8) k/uL Monocytes # (0-1.0) k/uL Eosinophils # (0-0.7) k/uL Basophils # (0-0.2) k/uL Manual Slide Review PT 10.8 (9.0-12.0) sec INR 1.0 (<1.2) APTT 23.0 (22.0-30.0) sec Sodium (137-145) mmol/L Potassium (3.5-5.1) mmol/L Chloride (98-107) mmol/L Carbon Dioxide (22-30) mmol/L Anion Gap mmol/L BUN (7-17) mg/dL Creatinine (0.52-1.04) mg/dL Est GFR (CKD-EPI)AfAm (>60 ml/min/1.73 sqM) Est GFR (CKD-EPI)NonAf (>60 ml/min/1.73 sqM) Glucose (74-99) mg/dL POC Glucose (mg/dL) (75-99) mg/dL POC Glu Salesperson Books ID Estimated Ave Glu mg/dL Hemoglobin A1c (4.0-6.0) % Lactic Ac Sepsis Rflx Y Plasma Lactic Acid Prasanth (0.7-2.0) mmol/L Calcium (8.4-10.2) mg/dL Total Bilirubin (0.2-1.3) mg/dL AST (14-36) U/L ALT (4-34) U/L Alkaline Phosphatase (38-126) U/L Creatine Kinase (30-135) U/L Troponin I <0.012 (0.000-0.034) ng/mL Total Protein (6.3-8.2) g/dL Albumin (3.5-5.0) g/dL TSH (0.465-4.680) mIU/L Urine Color Urine Appearance (Clear) Urine pH (5.0-8.0) Ur Specific [place] (1.001-1.035) Urine Protein (Negative) Urine Glucose (UA) (Negative) Urine Ketones (Negative) Urine Blood (Negative) Urine Nitrite (Negative) Urine Bilirubin (Negative) Urine Urobilinogen (<2.0) mg/dL Ur Leukocyte Esterase (Negative) Valproic Acid ug/mL 10/03/20 10/03/20 10/03/20 Range/Units 13:52 14:23 15:35 WBC (3.8-10.6) k/uL RBC (3.80-5.40) m/uL Hgb (11.4-16.0) gm/dL Hct (34.0-46.0) % MCV (80.0-100.0) fL MCH (25.0-35.0) pg MCHC (31.0-37.0) g/dL RDW (11.5-15.5) % Plt Count (150-450) k/uL MPV Neutrophils % % Lymphocytes % % Monocytes % % Eosinophils % % Basophils % % Neutrophils # (1.3-7.7) k/uL Lymphocytes # (1.0-4.8) k/uL Monocytes # (0-1.0) k/uL Eosinophils # (0-0.7) k/uL Basophils # (0-0.2) k/uL Manual Slide Review PT (9.0-12.0) sec INR (<1.2) APTT (22.0-30.0) sec Sodium (137-145) mmol/L Potassium (3.5-5.1) mmol/L Chloride (98-107) mmol/L Carbon Dioxide (22-30) mmol/L Anion Gap mmol/L BUN (7-17) mg/dL Creatinine (0.52-1.04) mg/dL Est GFR (CKD-EPI)AfAm (>60 ml/min/1.73 sqM) Est GFR (CKD-EPI)NonAf (>60 ml/min/1.73 sqM) Glucose (74-99) mg/dL POC Glucose (mg/dL) 35 L 99 121 H (75-99) mg/dL POC Glu Salesperson Books Miri Gar, Miri Chapman [address] Glu mg/dL Hemoglobin A1c (4.0-6.0) % Lactic Ac Sepsis Rflx Plasma Lactic Acid Prasanth (0.7-2.0) mmol/L Calcium (8.4-10.2) mg/dL Total Bilirubin (0.2-1.3) mg/dL AST (14-36) U/L ALT (4-34) U/L Alkaline Phosphatase (38-126) U/L Creatine Kinase (30-135) U/L Troponin I (0.000-0.034) ng/mL Total Protein (6.3-8.2) g/dL Albumin (3.5-5.0) g/dL TSH (0.465-4.680) mIU/L Urine Color Urine Appearance (Clear) Urine pH (5.0-8.0) Ur Specific [place] (1.001-1.035) Urine Protein (Negative) Urine Glucose (UA) (Negative) Urine Ketones (Negative) Urine Blood (Negative) Urine Nitrite (Negative) Urine Bilirubin (Negative) Urine Urobilinogen (<2.0) mg/dL Ur Leukocyte Esterase (Negative) Valproic Acid ug/mL 10/03/20 10/03/20 10/03/20 Range/Units 16:03 16:19 16:23 WBC (3.8-10.6) k/uL RBC (3.80-5.40) m/uL Hgb (11.4-16.0) gm/dL Hct (34.0-46.0) % MCV (80.0-100.0) fL MCH (25.0-35.0) pg MCHC (31.0-37.0) g/dL RDW (11.5-15.5) % Plt Count (150-450) k/uL MPV Neutrophils % % Lymphocytes % % Monocytes % % Eosinophils % % Basophils % % Neutrophils # (1.3-7.7) k/uL Lymphocytes # (1.0-4.8) k/uL Monocytes # (0-1.0) k/uL Eosinophils # (0-0.7) k/uL Basophils # (0-0.2) k/uL Manual Slide Review PT (9.0-12.0) sec INR (<1.2) APTT (22.0-30.0) sec Sodium (137-145) mmol/L Potassium (3.5-5.1) mmol/L Chloride (98-107) mmol/L Carbon Dioxide (22-30) mmol/L Anion Gap mmol/L BUN (7-17) mg/dL Creatinine (0.52-1.04) mg/dL Est GFR (CKD-EPI)AfAm (>60 ml/min/1.73 sqM) Est GFR (CKD-EPI)NonAf (>60 ml/min/1.73 sqM) Glucose (74-99) mg/dL POC Glucose (mg/dL) 64 L 71 L (75-99) mg/dL POC Glu Salesperson Books Rula Ortega Sher[address] Glu mg/dL Hemoglobin A1c (4.0-6.0) % Lactic Ac Sepsis Rflx Plasma Lactic Acid Prasanth 1.6 (0.7-2.0) mmol/L Calcium (8.4-10.2) mg/dL Total Bilirubin (0.2-1.3) mg/dL AST (14-36) U/L ALT (4-34) U/L Alkaline Phosphatase (38-126) U/L Creatine Kinase (30-135) U/L Troponin I (0.000-0.034) ng/mL Total Protein (6.3-8.2) g/dL Albumin (3.5-5.0) g/dL TSH (0.465-4.680) mIU/L Urine Color Urine Appearance (Clear) Urine pH (5.0-8.0) Ur Specific [place] (1.001-1.035) Urine Protein (Negative) Urine Glucose (UA) (Negative) Urine Ketones (Negative) Urine Blood (Negative) Urine Nitrite (Negative) Urine Bilirubin (Negative) Urine Urobilinogen (<2.0) mg/dL Ur Leukocyte Esterase (Negative) Valproic Acid ug/mL 10/03/20 10/03/20 10/03/20 Range/Units 17:29 18:29 20:37 WBC (3.8-10.6) k/uL RBC (3.80-5.40) m/uL Hgb (11.4-16.0) gm/dL Hct (34.0-46.0) % MCV (80.0-100.0) fL MCH (25.0-35.0) pg MCHC (31.0-37.0) g/dL RDW (11.5-15.5) % Plt Count (150-450) k/uL MPV Neutrophils % % Lymphocytes % % Monocytes % % Eosinophils % % Basophils % % Neutrophils # (1.3-7.7) k/uL Lymphocytes # (1.0-4.8) k/uL Monocytes # (0-1.0) k/uL Eosinophils # (0-0.7) k/uL Basophils # (0-0.2) k/uL Manual Slide Review PT (9.0-12.0) sec INR (<1.2) APTT (22.0-30.0) sec Sodium (137-145) mmol/L Potassium (3.5-5.1) mmol/L Chloride (98-107) mmol/L Carbon Dioxide (22-30) mmol/L Anion Gap mmol/L BUN (7-17) mg/dL Creatinine (0.52-1.04) mg/dL Est GFR (CKD-EPI)AfAm (>60 ml/min/1.73 sqM) Est GFR (CKD-EPI)NonAf (>60 ml/min/1.73 sqM) Glucose (74-99) mg/dL POC Glucose (mg/dL) 144 H 161 H 223 H (75-99) mg/dL POC Glu Salesperson Books Rula Ortega, Rula Chávez, Libby James [address] Glu mg/dL Hemoglobin A1c (4.0-6.0) % Lactic Ac Sepsis Rflx Plasma Lactic Acid Prasanth (0.7-2.0) mmol/L Calcium (8.4-10.2) mg/dL Total Bilirubin (0.2-1.3) mg/dL AST (14-36) U/L ALT (4-34) U/L Alkaline Phosphatase (38-126) U/L Creatine Kinase (30-135) U/L Troponin I (0.000-0.034) ng/mL Total Protein (6.3-8.2) g/dL Albumin (3.5-5.0) g/dL TSH (0.465-4.680) mIU/L Urine Color Urine Appearance (Clear) Urine pH (5.0-8.0) Ur Specific [place] (1.001-1.035) Urine Protein (Negative) Urine Glucose (UA) (Negative) Urine Ketones (Negative) Urine Blood (Negative) Urine Nitrite (Negative) Urine Bilirubin (Negative) Urine Urobilinogen (<2.0) mg/dL Ur Leukocyte Esterase (Negative) Valproic Acid ug/mL 10/04/20 10/04/20 10/04/20 Range/Units 01:31 05:52 06:30 WBC (3.8-10.6) k/uL RBC (3.80-5.40) m/uL Hgb (11.4-16.0) gm/dL Hct (34.0-46.0) % MCV (80.0-100.0) fL MCH (25.0-35.0) pg MCHC (31.0-37.0) g/dL RDW (11.5-15.5) % Plt Count (150-450) k/uL MPV Neutrophils % % Lymphocytes % % Monocytes % % Eosinophils % % Basophils % % Neutrophils # (1.3-7.7) k/uL Lymphocytes # (1.0-4.8) k/uL Monocytes # (0-1.0) k/uL Eosinophils # (0-0.7) k/uL Basophils # (0-0.2) k/uL Manual Slide Review PT (9.0-12.0) sec INR (<1.2) APTT (22.0-30.0) sec Sodium (137-145) mmol/L Potassium (3.5-5.1) mmol/L Chloride (98-107) mmol/L Carbon Dioxide (22-30) mmol/L Anion Gap mmol/L BUN (7-17) mg/dL Creatinine (0.52-1.04) mg/dL Est GFR (CKD-EPI)AfAm (>60 ml/min/1.73 sqM) Est GFR (CKD-EPI)NonAf (>60 ml/min/1.73 sqM) Glucose (74-99) mg/dL POC Glucose (mg/dL) 142 H 153 H (75-99) mg/dL POC Glu Salesperson Books ID Erika Chávez Candy Traub, Rainey, Candy [address] Glu mg/dL 134 Hemoglobin A1c 6.3 H (4.0-6.0) % Lactic Ac Sepsis Rflx Plasma Lactic Acid Prasanth (0.7-2.0) mmol/L Calcium (8.4-10.2) mg/dL Total Bilirubin (0.2-1.3) mg/dL AST (14-36) U/L ALT (4-34) U/L Alkaline Phosphatase (38-126) U/L Creatine Kinase (30-135) U/L Troponin I (0.000-0.034) ng/mL Total Protein (6.3-8.2) g/dL Albumin (3.5-5.0) g/dL TSH (0.465-4.680) mIU/L Urine Color Urine Appearance (Clear) Urine pH (5.0-8.0) Ur Specific [place] (1.001-1.035) Urine Protein (Negative) Urine Glucose (UA) (Negative) Urine Ketones (Negative) Urine Blood (Negative) Urine Nitrite (Negative) Urine Bilirubin (Negative) Urine Urobilinogen (<2.0) mg/dL Ur Leukocyte Esterase (Negative) Valproic Acid ug/mL 10/04/20 10/04/20 10/04/20 Range/Units 06:30 06:30 11:53 WBC 7.4 (3.8-10.6) k/uL RBC 3.78 L (3.80-5.40) m/uL Hgb 12.1 (11.4-16.0) gm/dL Hct 37.2 (34.0-46.0) % MCV 98.5 (80.0-100.0) fL MCH 32.1 (25.0-35.0) pg MCHC 32.6 (31.0-37.0) g/dL RDW 12.6 (11.5-15.5) % Plt Count 157 (150-450) k/uL MPV 8.3 Neutrophils % 62 % Lymphocytes % 26 % Monocytes % 7 % Eosinophils % 2 % Basophils % 0 % Neutrophils # 4.6 (1.3-7.7) k/uL Lymphocytes # 1.9 (1.0-4.8) k/uL Monocytes # 0.5 (0-1.0) k/uL Eosinophils # 0.1 (0-0.7) k/uL Basophils # 0.0 (0-0.2) k/uL Manual Slide Review PT (9.0-12.0) sec INR (<1.2) APTT (22.0-30.0) sec Sodium 135 L (137-145) mmol/L Potassium 4.5 (3.5-5.1) mmol/L Chloride 103 (98-107) mmol/L Carbon Dioxide 27 (22-30) mmol/L Anion Gap 5 mmol/L BUN 18 H (7-17) mg/dL Creatinine 0.72 (0.52-1.04) mg/dL Est GFR (CKD-EPI)AfAm >90 (>60 ml/min/1.73 sqM) Est GFR (CKD-EPI)NonAf 87 (>60 ml/min/1.73 sqM) Glucose 163 H (74-99) mg/dL POC Glucose (mg/dL) 164 H (75-99) mg/dL POC Glu Salesperson Books ID Annabelle Altamirano [address] Glu mg/dL Hemoglobin A1c (4.0-6.0) % Lactic Ac Sepsis Rflx Plasma Lactic Acid Prasanth (0.7-2.0) mmol/L Calcium 9.8 (8.4-10.2) mg/dL Total Bilirubin (0.2-1.3) mg/dL AST (14-36) U/L ALT (4-34) U/L Alkaline Phosphatase (38-126) U/L Creatine Kinase (30-135) U/L Troponin I (0.000-0.034) ng/mL Total Protein (6.3-8.2) g/dL Albumin (3.5-5.0) g/dL TSH (0.465-4.680) mIU/L Urine Color Urine Appearance (Clear) Urine pH (5.0-8.0) Ur Specific [place] (1.001-1.035) Urine Protein (Negative) Urine Glucose (UA) (Negative) Urine Ketones (Negative) Urine Blood (Negative) Urine Nitrite (Negative) Urine Bilirubin (Negative) Urine Urobilinogen (<2.0) mg/dL Ur Leukocyte Esterase (Negative) Valproic Acid ug/mL 10/04/20 10/04/20 10/05/20 Range/Units 16:43 20:27 01:21 WBC (3.8-10.6) k/uL RBC (3.80-5.40) m/uL Hgb (11.4-16.0) gm/dL Hct (34.0-46.0) % MCV (80.0-100.0) fL MCH (25.0-35.0) pg MCHC (31.0-37.0) g/dL RDW (11.5-15.5) % Plt Count (150-450) k/uL MPV Neutrophils % % Lymphocytes % % Monocytes % % Eosinophils % % Basophils % % Neutrophils # (1.3-7.7) k/uL Lymphocytes # (1.0-4.8) k/uL Monocytes # (0-1.0) k/uL Eosinophils # (0-0.7) k/uL Basophils # (0-0.2) k/uL Manual Slide Review PT (9.0-12.0) sec INR (<1.2) APTT (22.0-30.0) sec Sodium (137-145) mmol/L Potassium (3.5-5.1) mmol/L Chloride (98-107) mmol/L Carbon Dioxide (22-30) mmol/L Anion Gap mmol/L BUN (7-17) mg/dL Creatinine (0.52-1.04) mg/dL Est GFR (CKD-EPI)AfAm (>60 ml/min/1.73 sqM) Est GFR (CKD-EPI)NonAf (>60 ml/min/1.73 sqM) Glucose (74-99) mg/dL POC Glucose (mg/dL) 145 H 161 H 177 H (75-99) mg/dL POC Glu [employer]person [employer] ID Annabelle Altamirano Rainey, Candy Hudson, Christen [address] Glu mg/dL Hemoglobin A1c (4.0-6.0) % Lactic Ac Sepsis Rflx Plasma Lactic Acid Prasanth (0.7-2.0) mmol/L Calcium (8.4-10.2) mg/dL Total Bilirubin (0.2-1.3) mg/dL AST (14-36) U/L ALT (4-34) U/L Alkaline Phosphatase (38-126) U/L Creatine Kinase (30-135) U/L Troponin I (0.000-0.034) ng/mL Total Protein (6.3-8.2) g/dL Albumin (3.5-5.0) g/dL TSH (0.465-4.680) mIU/L Urine Color Urine Appearance (Clear) Urine pH (5.0-8.0) Ur Specific [place] (1.001-1.035) Urine Protein (Negative) Urine Glucose (UA) (Negative) Urine Ketones (Negative) Urine Blood (Negative) Urine Nitrite (Negative) Urine Bilirubin (Negative) Urine Urobilinogen (<2.0) mg/dL Ur Leukocyte Esterase (Negative) Valproic Acid ug/mL 10/05/20 Range/Units 06:50 WBC (3.8-10.6) k/uL RBC (3.80-5.40) m/uL Hgb (11.4-16.0) gm/dL Hct (34.0-46.0) % MCV (80.0-100.0) fL MCH (25.0-35.0) pg MCHC (31.0-37.0) g/dL RDW (11.5-15.5) % Plt Count (150-450) k/uL MPV Neutrophils % % Lymphocytes % % Monocytes % % Eosinophils % % Basophils % % Neutrophils # (1.3-7.7) k/uL Lymphocytes # (1.0-4.8) k/uL Monocytes # (0-1.0) k/uL Eosinophils # (0-0.7) k/uL Basophils # (0-0.2) k/uL Manual Slide Review PT (9.0-12.0) sec INR (<1.2) APTT (22.0-30.0) sec Sodium (137-145) mmol/L Potassium (3.5-5.1) mmol/L Chloride (98-107) mmol/L Carbon Dioxide (22-30) mmol/L Anion Gap mmol/L BUN (7-17) mg/dL Creatinine (0.52-1.04) mg/dL Est GFR (CKD-EPI)AfAm (>60 ml/min/1.73 sqM) Est GFR (CKD-EPI)NonAf (>60 ml/min/1.73 sqM) Glucose (74-99) mg/dL POC Glucose (mg/dL) 167 H (75-99) mg/dL POC Glu Salesperson Books ID Bladimir Cevallos [address] Glu mg/dL Hemoglobin A1c (4.0-6.0) % Lactic Ac Sepsis Rflx Plasma Lactic Acid Prasanth (0.7-2.0) mmol/L Calcium (8.4-10.2) mg/dL Total Bilirubin (0.2-1.3) mg/dL AST (14-36) U/L ALT (4-34) U/L Alkaline Phosphatase (38-126) U/L Creatine Kinase (30-135) U/L Troponin I (0.000-0.034) ng/mL Total Protein (6.3-8.2) g/dL Albumin (3.5-5.0) g/dL TSH (0.465-4.680) mIU/L Urine Color Urine Appearance (Clear) Urine pH (5.0-8.0) Ur Specific [place] (1.001-1.035) Urine Protein (Negative) Urine Glucose (UA) (Negative) Urine Ketones (Negative) Urine Blood (Negative) Urine Nitrite (Negative) Urine Bilirubin (Negative) Urine Urobilinogen (<2.0) mg/dL Ur Leukocyte Esterase (Negative) Valproic Acid ug/mL - EKG Data EKG Comments: EKG demonstrates a sinus rhythm with a ventricular rate of 66. SC interval 142. QRS 80. QTC of 406. No acute ST segment elevations or depressions Disposition Clinical Impression: Breakthrough seizure, Hypoglycemia associated with type 2 diabetes mellitus Disposition: ADMITTED IP TO THIS [facility] Condition: Stable Is patient prescribed a controlled substance at d/c from ED?: No Decision to Admit Reason: Admit from EC Decision Date: 10/03/20 Decision Time: 14:40
[2020-10-03 13:31] LABS: Prothrombin Time 10.8 sec (9.0-12.0)
[2020-10-03 13:33] LABS: Albumin 3.9 g/dL (3.5-5.0); Calcium 9.9 mg/dL (8.4-10.2); Total Bilirubin 0.7 mg/dL (0.2-1.3)
[2020-10-03 13:36] LABS: Basophils # (A) 0.1 k/uL (0-0.2); Basophils % (A) 1 %; Eosinophils # (A) 0.4 k/uL (0-0.7); Eosinophils % (A) 3 %; HCT 39.6 % (34.0-46.0); HGB 12.5 gm/dL (11.4-16.0); Lymphocytes # (A) 5.1 k/uL (1.0-4.8); Lymphocytes % (A) 43 %; MCH 31.3 pg (25.0-35.0); MCHC 31.7 g/dL (31.0-37.0); MCV 98.8 fL (80.0-100.0); Monocytes # (A) 0.9 k/uL (0-1.0); Monocytes % (A) 8 %; Neutrophils # (A) 5.2 k/uL (1.3-7.7); Neutrophils % (A) 44 %; Platelet Count 267 k/uL (150-450); RBC 4.01 m/uL (3.80-5.40); RDW 12.9 % (11.5-15.5); WBC 11.8 k/uL (3.8-10.6)
[2020-10-03 13:38] LABS: Potassium 4.8 mmol/L (3.5-5.1)
[2020-10-03 13:39] LABS: Valproic Acid (Depakene) 43.6 ug/mL
[2020-10-03 14:04] LABS: Glucose,Whole Blood 35 mg/dL (75-99)
[2020-10-03 14:15] LABS: Appearance,Urine Clear (Clear); Bilirubin,Urine Negative (Negative); Blood,Urine Negative (Negative); Color,Urine Yellow; Glucose,Urine (UA) 1+ (Negative); Ketones,Urine Negative (Negative); Leukocyte Esterase,Urine Negative (Negative); Nitrite,Urine Negative (Negative); Protein,Urine Trace (Negative); Specific Gravity,Urine 1.019 (1.001-1.035); Urobilinogen,Urine <2.0 mg/dL (<2.0)
--- NOTE | 2020-10-03 14:33 | CT ---
EXAMINATION TYPE: CT brain wo con DATE OF EXAM: 10/03/2020 COMPARISON: 08/29/2020. HISTORY: seizure CT DLP: 1098.4 mGycm Automated exposure control for dose reduction was used. FINDINGS: There is no acute intracranial hemorrhage, mass effect, midline shift or hydrocephalus. The white mat ter is grossly preserved. The paranasal sinuses and mastoid air cells are adequately aerated. The calvarium is intact. IMPRESSION: NO ACUTE INTRACRANIAL ABNORMALITY.
[2020-10-03 14:34] LABS: Glucose,Whole Blood 99 mg/dL (75-99)
[2020-10-03] MEDS ORDERED: DEXTROSE 5%-0.45% NACL 1,000 ML IV ONE (14:34)
[2020-10-03] MEDS ORDERED: NALOXONE 0.4 MG/ML 1 ML VIAL IV PRN (14:40)
[2020-10-03 15:46] LABS: Glucose,Whole Blood 121 mg/dL (75-99)
[2020-10-03 16:05] LABS: Glucose,Whole Blood 64 mg/dL (75-99)
[2020-10-03 16:32] LABS: Glucose,Whole Blood 71 mg/dL (75-99)
[2020-10-03 17:32] LABS: Glucose,Whole Blood 144 mg/dL (75-99)
--- NOTE | 2020-10-03 17:58 | P.HPIM ---
History of Present Illness This is a pleasant 69 years old female with past medical history of seizure disorder, GERD, hyperlipidemia, hypertension, diabetes mellitus and prior history of peptic ulcer disease on 05/2020, repeat EGD on 09/16/2020 showed severe antritis, nonbleeding antral ulcer. With biopsy showing acute on chronic inflammation, negative for H. pylori, active antral gastritis. Patient presents with seizure activity and hypoglycemia with a glucose 23, she received in dextrose and 2 uncles of Ativan and she recovered, she became arousable however she could not know or remember what happened,no family not present at bedside. Patient was taken her seizure medication Keppra and valproic acid regularly but she could not remember if she took her medication yesterday or not. She does not have a seizure for the last 2 years, she does not follow up with the neurologist only with her PCP Dr. Fernandes. Also she sees Dr. Busby her windows application developer last time about 2 weeks ago Patient states also for the last 1 week she's been having epigastric pain 10/10 in severity nonradiating felt like sharp increased by eating. She had 1 regular bowel movement yesterday with no vomiting. Last time she was in the hospital she was discharged on Divalproex 250 mg twice a day, Keppra 750 mg twice daily, insulin Humalog 10 units with meals BID,Cristofer iba insulin 40 units by mouth daily. This morning she ate her breakfast of eggs and bowl of cereal. And she was taken her insulin medication and Januvia. EGD on 09/16/20 showing severe antritis with nonbleeding antral ulcer. She denies smoking, alcohol or illicit drugs Yao catheter was placed in the emergency room Vitas looks stable and patient is afebrile. Labs showing mild leukocytosis of 1 1.8 K, INR, BMP are unremarkable. Liver enzymes are within reference range, troponin is negative, TSH is normal at 1.0. Lactic acid only mildly elevated at 2.4. Urinalysis is not suspicious of infection. Valproic acid is 43.6 which is subtherapeutic Review of Systems CONSTITUTIONAL: No fever, no malaise, no fatigue. HEENT: No recent visual problems or hearing problems. Denied any sore throat. CARDIOVASCULAR: No orthopnea, PND, no palpitations, no syncope. PULMONARY: No shortness of breath, no cough, no hemoptysis. GASTROINTESTINAL: No diarrhea, no nausea, no vomiting, . Normoactive bowel sounds. NEUROLOGICAL: No headaches, no weakness, no numbness. HEMATOLOGICAL: Denies any bleeding or petechiae. GENITOURINARY: Denies any burning micturition, frequency, or urgency. MUSCULOSKELETAL/RHEUMATOLOGICAL: Denies any joint pain, swelling, or any muscle pain. ENDOCRINE: Denies any polyuria or polydipsia. Past Medical History Past Medical History: Chest Pain / Angina, Diabetes Mellitus, GERD/Reflux, Hyperlipidemia, Hypertension, Osteoarthritis (OA), Pulmonary Embolus (PE), Seizure Disorder Additional Past Medical History / Comment(s): ulcer,constant abdominal pain, occ. MIGRAINES, HIATAL HERNIA. SEIZURE 03/2018- NONE SINCE. heart murmer History of Any Multi-Drug Resistant Organisms: None Reported Past Surgical History: Cholecystectomy, Orthopedic Surgery, Tonsillectomy, Tubal Ligation Additional Past Surgical History / Comment(s): NECK SURGERY, REPAIR FX RT LEG SURGERY, EGD, COLONOSCOPY. arturo cataracts Past Anesthesia/Blood Transfusion Reactions: No Reported Reaction Past Psychological History: Depression Smoking Status: Never smoker Past Alcohol Use History: None Reported Past Drug Use History: Marijuana - Past Family History Mother Family Medical History: No Reported History Medications and Allergies Home Medications Medication Instructions Recorded Confirmed Type Simvastatin [Zocor] 40 mg PO DAILY 07/23/14 10/03/20 History Divalproex Sodium 250 mg PO BID 04/13/18 10/03/20 History Desvenlafaxine [Pristiq ER] 100 mg PO DAILY 08/06/19 10/03/20 History busPIRone HCL 15 mg PO BID 09/03/19 10/03/20 History Insulin Lispro [humaLOG Kwikpen] 10 unit SQ BID-W/MEALS 12/20/19 10/03/20 History levETIRAcetam [Keppra] 750 mg PO BID 12/20/19 10/03/20 History Folic Acid 1 mg PO DAILY 02/08/20 10/03/20 History Magnesium Oxide [Mag-Ox] 400 mg PO BID 02/08/20 10/03/20 History Losartan Potassium 50 mg PO DAILY 04/14/20 10/03/20 History Omeprazole [PriLOSEC] 40 mg PO DAILY 09/06/20 10/03/20 History Aspirin EC [Ecotrin Low Dose] 81 mg PO DAILY 09/13/20 10/03/20 History Cyclobenzaprine [Flexeril] 10 mg PO BID 10/03/20 10/03/20 History Metoclopramide [Reglan] 5 mg PO TID 10/03/20 10/03/20 History Propranolol HCl [Propranolol HCl 60 mg PO DAILY 10/03/20 10/03/20 History ER] sitaGLIPtin PHOSPHATE [Januvia] 100 mg PO DAILY 10/03/20 10/03/20 History Allergies Allergy/AdvReac Type Severity Reaction Status Date / Time codeine AdvReac shakiness Verified 10/03/20 14:22 doxycycline AdvReac shakiness Verified 10/03/20 14:22 tramadol [From Ultram] AdvReac shakiness Verified 10/03/20 14:22 Physical Exam Vitals: Vital Signs Temp Pulse Resp BP Pulse Ox 10/03/20 13:55 68 18 161/88 98 10/03/20 13:11 66 20 151/84 96 10/03/20 12:52 98.2 F 72 24 142/95 95 Intake and Output 10/02/20 10/03/20 10/03/20 22:59 06:59 14:59 Other: Weight 99.79 kg -GENERAL: The patient is alert and oriented x3, somewhat confused, not in any acute distress. Obese HEENT: Pupils are round and equally reacting to light. EOMI. No scleral icterus. No conjunctival pallor. Normocephalic, atraumatic. No pharyngeal erythema. No thyromegaly. CARDIOVASCULAR: S1 and S2 present. No murmurs, rubs, or gallops. PULMONARY: Chest is clear to auscultation, no wheezing or crackles. -ABDOMEN: Soft, epigastric pain and tenderness with no rebound tenderness, nondistended, normoactive bowel sounds. No palpable organomegaly. MUSCULOSKELETAL: No joint swelling or deformity. EXTREMITIES: No cyanosis, clubbing, or pedal edema. NEUROLOGICAL: Gross neurological examination did not reveal any focal deficits. SKIN: No rashes. No petechiae Results CBC & Chem 7: 10/03/20 13:02 10/03/20 13:02 Labs: Abnormal Lab Results - Last 24 Hours (Table) 10/03/20 10/03/20 10/03/20 Range/Units 12:58 13:02 13:02 WBC 11.8 H (3.8-10.6) k/uL Lymphocytes # 5.1 H (1.0-4.8) k/uL BUN 27 H (7-17) mg/dL Glucose 246 H (74-99) mg/dL POC Glucose (mg/dL) 169 H (75-99) mg/dL Plasma Lactic Acid Prasanth (0.7-2.0) mmol/L AST 38 H (14-36) U/L Urine Protein (Negative) Urine Glucose (UA) (Negative) 10/03/20 10/03/20 10/03/20 Range/Units 13:02 13:02 13:52 WBC (3.8-10.6) k/uL Lymphocytes # (1.0-4.8) k/uL BUN (7-17) mg/dL Glucose (74-99) mg/dL POC Glucose (mg/dL) 35 L (75-99) mg/dL Plasma Lactic Acid Prasanth 2.4 H* (0.7-2.0) mmol/L AST (14-36) U/L Urine Protein Trace H (Negative) Urine Glucose (UA) 1+ H (Negative) Assessment and Plan Assessment: Seizure disorder, with subtherapeutic valproic acid Diabetes mellitus with Hypoglycemia epigastric pain and tenderness with decreased appetite. mostly related to Recent history of recurrent peptic ulcer disease recent history of Severe enteritis GERD Hyperlipidemia. Hypertension Plan: This is a pleasant 69 years old female who presents with seizure and hypoglycemia. Hold insulin and continue with insulin sliding scale. Start the patient on D5 half-normal saline at 75 mL per hour, frequent Accu-Chek. Restart seizure medication of Keppra continue with valproic acidto 500 mg twice daily, neuro consult, seizure precaution Increase Protonix to 40 mg twice daily. Labs and medication were reviewed.. Continue same treatment. Continue with symptomatic treatment. Resume home medication. Monitor lytes and vitals. DVT and GI prophylaxis. Further recommendations depends on the clinical course of the patient DVT prophylaxis: Subcutaneous heparin GI Prophylaxis: Ppi Prognosis is guarded
[2020-10-03 18:41] LABS: Glucose,Whole Blood 161 mg/dL (75-99)
[2020-10-03] MEDS: busPIRone HCl 5 MG TAB PO SCH (20:17)
[2020-10-03] MEDS: PANTOPRAZOLE 40 MG/10 ML VIAL IVP SCH (20:17)
[2020-10-03] MEDS: DIVALPROEX 250 MG TABLET.DR PO SCH (20:17)
[2020-10-03 20:39] LABS: Glucose,Whole Blood 223 mg/dL (75-99)
[2020-10-04 01:32] LABS: Glucose,Whole Blood 142 mg/dL (75-99)
[2020-10-04 05:54] LABS: Glucose,Whole Blood 153 mg/dL (75-99)
[2020-10-04] MEDS ORDERED: PANTOPRAZOLE 40 MG TABLET PO SCH (07:30)
[2020-10-04 07:32] LABS: African American GFR (CKD) >90 (>60 ml/min/1.73 sqM); Anion Gap 5 mmol/L; Basophils % (A) 0 %; Blood Urea Nitrogen 18 mg/dL (7-17); Calcium 9.8 mg/dL (8.4-10.2); Carbon Dioxide 27 mmol/L (22-30); Chloride 103 mmol/L (98-107); Eosinophils # (A) 0.1 k/uL (0-0.7); Eosinophils % (A) 2 %; Glucose 163 mg/dL (74-99); HCT 37.2 % (34.0-46.0); HGB 12.1 gm/dL (11.4-16.0); Lymphocytes # (A) 1.9 k/uL (1.0-4.8); Lymphocytes % (A) 26 %; MCH 32.1 pg (25.0-35.0); MCHC 32.6 g/dL (31.0-37.0); MCV 98.5 fL (80.0-100.0); Mean Platelet Volume 8.3; Monocytes # (A) 0.5 k/uL (0-1.0); Monocytes % (A) 7 %; Neutrophils # (A) 4.6 k/uL (1.3-7.7); Neutrophils % (A) 62 %; Non-African American GFR(CKD) 87 (>60 ml/min/1.73 sqM); Platelet Count 157 k/uL (150-450); Potassium 4.5 mmol/L (3.5-5.1); RBC 3.78 m/uL (3.80-5.40); RDW 12.6 % (11.5-15.5); Sodium 135 mmol/L (137-145); WBC 7.4 k/uL (3.8-10.6)
[2020-10-04 08:05] LABS: Glucose,Whole Blood 22 mg/dL (75-99)
[2020-10-04] MEDS: LOSARTAN 50 MG TAB PO SCH (08:32)
[2020-10-04] MEDS: FOLIC ACID 1 MG TAB PO SCH (08:32)
[2020-10-04] MEDS: ATORVASTATIN 20 MG TAB PO SCH (08:32)
[2020-10-04] MEDS: PANTOPRAZOLE 40 MG/10 ML VIAL IVP SCH (08:32)
[2020-10-04] MEDS: ASPIRIN 81 MG PO SCH (08:32)
[2020-10-04] MEDS: busPIRone HCl 5 MG TAB PO SCH ×2 (08:32→20:53)
[2020-10-04] MEDS: PROPRANOLOL LA 60 MG CAP.SA.24H PO SCH (08:33)
[2020-10-04] MEDS: DIVALPROEX 250 MG TABLET.DR PO SCH ×2 (08:33→22:02)
--- NOTE | 2020-10-04 09:53 | P.PN ---
Subjective This is a pleasant 69 years old female with past medical history of seizure disorder, GERD, hyperlipidemia, hypertension, diabetes mellitus and prior history of peptic ulcer disease on 05/2020, repeat EGD on 09/16/2020 showed severe antritis, nonbleeding antral ulcer. With biopsy showing acute on chronic inflammation, negative for H. pylori, active antral gastritis. Patient presents with seizure activity and hypoglycemia with a glucose 23, she received in dextrose and 2 uncles of Ativan and she recovered, she became arousable however she could not know or remember what happened,no family not present at bedside. Patient was taken her seizure medication Keppra and valproic acid regularly but she could not remember if she took her medication yesterday or not. She does not have a seizure for the last 2 years, she does not follow up with the neurologist only with her PCP Dr. Fernandes. 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 She had 1 regular bowel movement yesterday with no vomiting. Last time she was in the hospital she was discharged on Divalproex 250 mg twice a day, Keppra 750 mg twice daily, insulin Humalog 10 units with meals BID,Tresiba insulin 40 units by mouth daily. This morning she ate her breakfast of eggs and bowl of cereal. And she was prudencio en her insulin medication and Januvia. EGD on 09/16/20 showing severe antritis with nonbleeding antral ulcer. She denies smoking, alcohol or illicit drugs Yao catheter was placed in the emergency room Vitas looks stable and patient is afebrile. Labs showing mild leukocytosis of 11.8 K, INR, BMP are unremarkable. Liver enzymes are within reference range, troponin is negative, TSH is normal at 1.0. Lactic acid only mildly elevated at 2.4. Urinalysis is not suspicious of infection. Valproic acid is 43.6 which is subtherapeutic 10/04/2020 Patient is seen in [facility] unit, she is more awake and yesterday when I saw her in the emergency room. She couldn't remember better than yesterday No more seizure activity however she still complaining of from epigastric pain and tenderness although she was able to finish most of her breakfast. She rates her pain as 8/10 in severity and she's been having it for about 3 weeks. She denies any recent use of Motrin or other NSAIDs. She supposed to follow up with Dr. Busby from GI in 1 week. Patient already was placed on Protonix twice daily and are going to consult GI team Patient confirmed to me she was taken her seizure medication of Keppra and valproic acid as she supposed to however she could not remember if she took it yesterday morning or no. . I asked her about her diabetes mellitus medication and she takes guardians and another diabetic pedal she cannot remember the name, she was also taking tresiba insulin 40 units and 10 units of humolog with meals BID however she stopped it that day because she was not eating well from her abdominal pain. She checked her sugar on the day of seizure and it was 1:30 5 in the morning and 80 5 in the evening. CBC and BMP from today are stable. Sugar is controlled. She ate most of her breakfast. IV fluids of D5 half normal saline was stopped. Neurology team were consulted Review of Systems CONSTITUTIONAL: No fever, no malaise, no fatigue. HEENT: No recent visual problems or hearing problems. Denied any sore throat. CARDIOVASCULAR: No orthopnea, PND, no palpitations, no syncope. PULMONARY: No shortness of breath, no cough, no hemoptysis. GASTROINTESTINAL: No diarrhea, no nausea, no vomiting, . Normoactive bowel sounds. NEUROLOGICAL: No headaches, no weakness, no numbness. Active Medications Generic Name Dose Route Start Last Admin Trade Name Diegoq PRN Reason Stop Dose Admin Acetaminophen 650 mg 10/04/20 08:41 Acetaminophen Tab 325 Mg Tab PO Q4HR PRN Fever and/ or Pain Aspirin 81 mg 10/04/20 09:00 10/04/20 08:32 Aspirin 81 Mg PO 81 mg DAILY RUBIO Administration Atorvastatin Calcium 20 mg 10/04/20 09:00 10/04/20 08:32 Atorvastatin 20 Mg Tab PO 20 mg DAILY RUBIO Administration Buspirone HCl 15 mg 10/03/20 21:00 10/04/20 08:32 Buspirone Hcl 5 Mg Tab PO 15 mg BID RUBIO Administration Divalproex Sodium 250 mg 10/03/20 21:00 10/04/20 08:33 Divalproex 250 Mg Tablet. PO 250 mg BID RUBIO Administration Folic Acid 1 mg 10/04/20 09:00 10/04/20 08:32 Folic Acid 1 Mg Tab PO 1 mg DAILY RUBIO Administration Levetiracetam 750 mg 10/03/20 21:00 10/04/20 08:32 Levetiracetam 750 Mg Tab PO 750 mg BID RUBIO Administration Losartan Potassium 50 mg 10/04/20 09:00 10/04/20 08:32 Losartan 50 Mg Tab PO 50 mg DAILY RUBIO Administration Naloxone HCl 0.2 mg 10/03/20 14:40 Naloxone 0.4 Mg/Ml 1 Ml Vial IV Q2M PRN Opioid Reversal Pantoprazole Sodium 40 mg 10/04/20 17:30 Pantoprazole 40 Mg Tablet PO AC-BID RUBIO Propranolol HCl 60 mg 10/04/20 09:00 10/04/20 08:33 Propranolol La 60 Mg Cap.Sa.24h PO 60 mg DAILY RUBIO Administration Objective - Vital Signs Vital signs: Vital Signs Temp 98.5 F 10/04/20 08:30 Pulse 86 10/04/20 08:30 Resp 16 10/04/20 08:30 BP 146/67 10/04/20 08:30 Pulse Ox 95 10/04/20 08:30 Intake & Output 10/03/20 10/04/20 10/04/20 18:59 06:59 18:59 Intake Total 118 Output Total 1100 Balance 118 -1100 Weight 99.79 kg 86.5 kg Intake: Oral 118 Output: Urine 1100 Other: Voiding Method Indwelling Catheter Indwelling Catheter - Exam GENERAL: The patient is alert and oriented x3, not in any acute distress. Well developed, well nourished. HEENT: Pupils are round and equally reacting to light. EOMI. No scleral icterus. No conjunctival pallor. Normocephalic, atraumatic. No pharyngeal erythema. No thyromegaly. CARDIOVASCULAR: S1 and S2 present. No murmurs, rubs, or gallops. PULMONARY: Chest is clear to auscultation, no wheezing or crackles. ABDOMEN: Soft, nontender, nondistended, normoactive bowel sounds. No palpable organomegaly. MUSCULOSKELETAL: No joint swelling or deformity. EXTREMITIES: No cyanosis, clubbing, or pedal edema. NEUROLOGICAL: Gross neurological examination did not reveal any focal deficits. SKIN: No rashes. no petechiae. - Labs CBC & Chem 7: 10/04/20 06:30 10/04/20 06:30 Labs: Abnormal Lab Results - Last 24 Hours (Table) 10/03/20 10/03/20 10/03/20 Range/Units 12:49 12:58 13:02 WBC 11.8 H (3.8-10.6) k/uL RBC (3.80-5.40) m/uL Lymphocytes # 5.1 H (1.0-4.8) k/uL Sodium (137-145) mmol/L BUN (7-17) mg/dL Glucose (74-99) mg/dL POC Glucose (mg/dL) 22 L 169 H (75-99) mg/dL Plasma Lactic Acid Prasanth (0.7-2.0) mmol/L AST (14-36) U/L Urine Protein (Negative) Urine Glucose (UA) (Negative) 10/03/20 10/03/20 10/03/20 Range/Units 13:02 13:02 13:02 WBC (3.8-10.6) k/uL RBC (3.80-5.40) m/uL Lymphocytes # (1.0-4.8) k/uL Sodium (137-145) mmol/L BUN 27 H (7-17) mg/dL Glucose 246 H (74-99) mg/dL POC Glucose (mg/dL) (75-99) mg/dL Plasma Lactic Acid Prasanth 2.4 H* (0.7-2.0) mmol/L AST 38 H (14-36) U/L Urine Protein Trace H (Negative) Urine Glucose (UA) 1+ H (Negative) 10/03/20 10/03/20 10/03/20 Range/Units 13:52 15:35 16:03 WBC (3.8-10.6) k/uL RBC (3.80-5.40) m/uL Lymphocytes # (1.0-4.8) k/uL Sodium (137-145) mmol/L BUN (7-17) mg/dL Glucose (74-99) mg/dL POC Glucose (mg/dL) 35 L 121 H 64 L (75-99) mg/dL Plasma Lactic Acid Prasanth (0.7-2.0) mmol/L AST (14-36) U/L Urine Protein (Negative) Urine Glucose (UA) (Negative) 10/03/20 10/03/20 10/03/20 Range/Units 16:19 17:29 18:29 WBC (3.8-10.6) k/uL RBC (3.80-5.40) m/uL Lymphocytes # (1.0-4.8) k/uL Sodium (137-145) mmol/L BUN (7-17) mg/dL Glucose (74-99) mg/dL POC Glucose (mg/dL) 71 L 144 H 161 H (75-99) mg/dL Plasma Lactic Acid Prasanth (0.7-2.0) mmol/L AST (14-36) U/L Urine Protein (Negative) Urine Glucose (UA) (Negative) 10/03/20 10/04/20 10/04/20 Range/Units 20:37 01:31 05:52 WBC (3.8-10.6) k/uL RBC (3.80-5.40) m/uL Lymphocytes # (1.0-4.8) k/uL Sodium (137-145) mmol/L BUN (7-17) mg/dL Glucose (74-99) mg/dL POC Glucose (mg/dL) 223 H 142 H 153 H (75-99) mg/dL Plasma Lactic Acid Prasanth (0.7-2.0) mmol/L AST (14-36) U/L Urine Protein (Negative) Urine Glucose (UA) (Negative) 10/04/20 10/04/20 Range/Units 06:30 06:30 WBC (3.8-10.6) k/uL RBC 3.78 L (3.80-5.40) m/uL Lymphocytes # (1.0-4.8) k/uL Sodium 135 L (137-145) mmol/L BUN 18 H (7-17) mg/dL Glucose 163 H (74-99) mg/dL POC Glucose (mg/dL) (75-99) mg/dL Plasma Lactic Acid Prasanth (0.7-2.0) mmol/L AST (14-36) U/L Urine Protein (Negative) Urine Glucose (UA) (Negative) Assessment and Plan Assessment: Seizure disorder, with subtherapeutic valproic acid Diabetes mellitus with Hypoglycemia epigastric pain and tenderness with decreased appetite. mostly related to Recent history of recurrent peptic ulcer disease recent history of Severe enteritis GERD Hyperlipidemia. Hypertension Plan: This is a pleasant 69 years old female who presents with seizure and hypoglycemia. Hold insulin and continue with insulin sliding scale. Continue with diet and monitor sugar. Restart seizure medication of Keppra continue with valproic acidto 500 mg twice daily, neuro consult, seizure precaution. Increase Protonix to 40 mg twice daily. Consults GI team Labs and medication were reviewed.. Continue same treatment. Continue with symptomatic treatment. Resume home medication. Monitor lytes and vitals. DVT and GI prophylaxis. Further recommendations depends on the clinical course of the patient DVT prophylaxis: Subcutaneous heparin GI Prophylaxis: Ppi Prognosis is guarded
--- NOTE | 2020-10-04 10:28 | P.CNNES ---
History of Present Illness Consult date: 10/04/20 Requesting physician: Jessie Henderson Reason for Consult: break-through seizure History of Present Illness: This is a 69-year-old woman with medical history of seizures order, diabetes, hypertension, peptic ulcer disease and 2019 that presented to the emergency department on 10/03/2020 for breakthrough seizure. Per medical documentation it is noted that family contacted EMS because the patient was seizing. EMS did an Accu-Chek and the glucose was 23. The patient takes the Keppra 750mg 1 tab bid as well as valproic acid 250mg 1 tab bid and she notified me that she did not miss them but but per ED note they documented that unsure if she took her medication the day prior to presentation. Her last seizure was about 2 years ago but she does not follow up with a neurologist. Upon presenting to the emergency department the patient was seizing. As a result the patient was given 2 mg of Ativan in the ED stat as well as the patient was given dextrose 50 mL then was started on the dextrose with half normal saline drip. The patient became more arousable after that but did not did not know what transpired. P atient denies missing any of her seizure medications Patient notified me that the she is compliant taking her Keppra 750 mg 1 tablet twice a day as well as Depakote 250 mg 1 tablet twice a day. She stated that these medications were started by Dr. Caicedo was team and the last time as she saw them was in December 2018. She stated that her last seizure was in 2017. She said that she had seizures and that her age of 60s but never as a childhood. She denies any family history of seizures. She denies any aura prior to seizure. Regarding her history she said that she was a product of normal vaginal delivery it was term and there is no complication. She denies driving. As she resides with her son as well as his girlfriend. Workup in the hospital consisted of: Initial vital signs: Blood pressure of 142/95, heart rate of 72, respiratory of 24, temperature of 98.2 Fahrenheit rectal and pulse ox of 95% at room air. CT of the head was reported as no acute intracranial abnormality. EKG is reported as normal sinus rhythm. Nonspecific ST abnormality. Abnormal EKG. Initial white blood cells 11.8 and the and the repeated on today is normal which was 7.4. On presented to the hospital her initial POC glucose is 22. The repeat it was 169. The plasma lactic acid vein is 2.4 AST of 38 and the ALT of 12. TSH of 1.010. Valproic acid level is 43.6 which is considered subtherapeutic and normal range is between 50-120 Upon reviewing medical record the patient had a routine EEG on 04/15/2018 in our facility and was reported as normal. There is no asymmetry, apical discharges or seizure on the EEG. Also she was seen by the neurology staff in our facility on 04/14/2018 and it seems that the patient was started on IV Keppra because of the seizure. It seems that the patient was not on any antiepileptic drugs for several years per the neurology note. Also she comes in with left-sided weakness or so they're concerning stroke. The MRI brain was done on the 04/15/2018 and was reported no acute/subacute process. Review of Systems Review of system: The 12 point system was reviewed and apparent positive and negative per HPI. Past Medical History Past Medical History: Chest Pain / Angina, Diabetes Mellitus, GERD/Reflux, Hyperlipidemia, Hypertension, Osteoarthritis (OA), Pulmonary Embolus (PE), Seizure Disorder Additional Past Medical History / Comment(s): ulcer,constant abdominal pain, occ. MIGRAINES, HIATAL HERNIA. SEIZURE 03/2018- NONE SINCE. heart murmer History of Any Multi-Drug Resistant Organisms: None Reported Past Surgical History: Cholecystectomy, Orthopedic Surgery, Tonsillectomy, Tubal Ligation Additional Past Surgical History / Comment(s): NECK SURGERY, REPAIR FX RT LEG S URGERY, EGD, COLONOSCOPY. arturo cataracts Past Anesthesia/Blood Transfusion Reactions: No Reported Reaction Past Psychological History: Depression Smoking Status: Never smoker Past Alcohol Use History: None Reported Past Drug Use History: Marijuana - Past Family History Mother Family Medical History: No Reported History Medications and Allergies Home Medications Medication Instructions Recorded Confirmed Type Simvastatin [Zocor] 40 mg PO DAILY 07/23/14 10/03/20 History Divalproex Sodium 250 mg PO BID 04/13/18 10/03/20 History Desvenlafaxine [Pristiq ER] 100 mg PO DAILY 08/06/19 10/03/20 History busPIRone HCL 15 mg PO BID 09/03/19 10/03/20 History Insulin Lispro [humaLOG Kwikpen] 10 unit SQ BID-W/MEALS 12/20/19 10/03/20 History levETIRAcetam [Keppra] 750 mg PO BID 12/20/19 10/03/20 History Folic Acid 1 mg PO DAILY 02/08/20 10/03/20 History Magnesium Oxide [Mag-Ox] 400 mg PO BID 02/08/20 10/03/20 History Losartan Potassium 50 mg PO DAILY 04/14/20 10/03/20 History Omeprazole [PriLOSEC] 40 mg PO DAILY 09/06/20 10/03/20 History Aspirin EC [Ecotrin Low Dose] 81 mg PO DAILY 09/13/20 10/03/20 History Cyclobenzaprine [Flexeril] 10 mg PO BID 10/03/20 10/03/20 History Metoclopramide [Reglan] 5 mg PO TID 10/03/20 10/03/20 History Propranolol HCl [Propranolol HCl 60 mg PO DAILY 10/03/20 10/03/20 History ER] sitaGLIPtin PHOSPHATE [Januvia] 100 mg PO DAILY 10/03/20 10/03/20 History Cyclobenzaprine [Flexeril] 10 mg PO BID PRN 10/04/20 10/04/20 History Allergies Allergy/AdvReac Type Severity Reaction Status Date / Time codeine AdvReac shakiness Verified 10/03/20 14:22 doxycycline AdvReac shakiness Verified 10/03/20 14:22 tramadol [From Ultram] AdvReac shakiness Verified 10/03/20 14:22 Physical Examination - Vital Signs Vital Signs: Vital Signs Temp Pulse Pulse Resp BP BP Pulse Ox 10/04/20 04:00 97.7 F 89 16 147/73 98 10/04/20 01:58 88 16 10/04/20 00:00 98.1 F 88 16 122/58 95 10/03/20 20:00 98.1 F 84 16 136/73 97 10/03/20 16:00 83 19 10/03/20 15:45 97.6 F 83 19 142/92 95 10/03/20 15:41 98.2 F 66 18 126/67 98 10/03/20 15:36 66 18 126/67 98 10/03/20 13:55 68 18 161/88 98 01/17/21 13:11 66 20 151/84 96 10/03/20 12:52 98.2 F 72 24 142/95 95 Intake and Output 10/03/20 10/04/20 10/04/20 22:59 06:59 14:59 Intake Total 118 Output Total 1100 Balance 118 -1100 Intake: Oral 118 Output: Urine 1100 Other: Voiding Method Indwelling Catheter Indwelling Catheter Weight 99.79 kg 86.5 kg GENERAL: The patient is lying in bed and is not in acute distress. CHEST: The heart rate is regular rate rhythm. No murmurs to auscultation. LUNG: Clear to auscultation bilaterally no wheezing noted throughout. Not labored breathing. ABDOMEN/GI: Bowel sounds present in all 4 quadrants. No tenderness to palpation throughout. NEUROLOGICAL: Higher mental function: The patient is awake, alert, oriented to self, place and time. Patient is following commands. No aphasia and no neglect. Cranial nerves: The pupils are round, equal and reactive to light and accommodation. Visual almazan are full to confrontation throughout. Extraocular movement is intact no nystagmus is noted. Facial sensation is normal to touch throughout. The facial strength is normal throughout. Hearing is normal bilaterally to hand rub. Tongue is midline and moved [id number] without any difficulty. No dysarthria is noted. Shoulder shrug is normal bilaterally. Motor: Gait is deferred. The strength is 5 over 5 throughout. Normal tone and bulk. Cerebellum: Normal finger to nose bilaterally. Sensation: Sensation is normal to touch throughout. Reflexes (right/left): 2+ throughout except ankles are 1+ bilaterally. Plantars is downgoing on the right but is upgoing baseline on the left. Results Coagulation study: PT of 10.8, INR 1.0 and PTT is 23.0. Urine drug screen is negative for urinary tract infection - Laboratory Findings CBC and BMP: 10/04/20 06:30 10/04/20 06:30 Abnormal Lab Findings: Abnormal Labs 10/03/20 10/03/20 10/03/20 12:49 12:58 13:02 WBC 11.8 H RBC Lymphocytes # 5.1 H Sodium BUN Glucose POC Glucose (mg/dL) 22 L 169 H Plasma Lactic Acid Prasanth AST Urine Protein Urine Glucose (UA) 10/03/20 10/03/20 10/03/20 13:02 13:02 13:02 WBC RBC Lymphocytes # Sodium BUN 27 H Glucose 246 H POC Glucose (mg/dL) Plasma Lactic Acid Prasanth 2.4 H* AST 38 H Urine Protein Trace H Urine Glucose (UA) 1+ H 10/03/20 10/03/20 10/03/20 13:52 15:35 16:03 WBC RBC Lymphocytes # Sodium BUN Glucose POC Glucose (mg/dL) 35 L 121 H 64 L Plasma Lactic Acid Prasanth AST Urine Protein Urine Glucose (UA) 10/03/20 10/03/20 10/03/20 16:19 17:29 18:29 WBC RBC Lymphocytes # Sodium BUN Glucose POC Glucose (mg/dL) 71 L 144 H 161 H Plasma Lactic Acid Prasanth AST Urine Protein Urine Glucose (UA) 10/03/20 10/04/20 10/04/20 20:37 01:31 05:52 WBC RBC Lymphocytes # Sodium BUN Glucose POC Glucose (mg/dL) 223 H 142 H 153 H Plasma Lactic Acid Prasanth AST Urine Protein Urine Glucose (UA) 10/04/20 10/04/20 06:30 06:30 WBC RBC 3.78 L Lymphocytes # Sodium 135 L BUN 18 H Glucose 163 H POC Glucose (mg/dL) Plasma Lactic Acid Prasanth AST Urine Protein Urine Glucose (UA) Assessment and Plan Assessment: This is a 69-year-old woman with multiple medical problems that presented to the emergency department on 10/03/2020 for breakthrough seizure. Her glucose level was at in the 20s. Upon presenting to the emergency department that she was seizing as a result she received 2 mg Ativan as well as she received dextrose and started on IV dextrose with normal saline. Provoke seizure due to hypoglycemia History of seizure Reported history of ?stroke/TIA 2018 for left side weakness (MRI Brain negative for acute/subatcute stroke) Hypoglycemia--resolved Diabetes mellitus Hypertension Hyperlipidemia Peptic ulcer disease Plan: Continue Keppra 750 mg 1 tablet twice a day as well as valproic acid 250 mg 1 tablet twice a day. Valproic acid level is 43.6 which is considered subtherapeutic since on low dose. If patient continues to have further seizures then recommend to go-up on valproic acid from 250 1 tablet twice a day to 500 mg 1 tablet twice a day which can help with the seizures as well as her history of mood disorder. I recommend avoiding the going up on the Keppra at this time because of the history of depression which Keppra can the worsen the patient's mood disorder An EEG is not warranted because of the patient known history of seizure as well as she is back to baseline. Currently the patient is continuing aspirin 81 mg and Lipitor 20 mg for her strokelike symptoms in 2018. We'll defer the management of the hypoglycemia as well as the rest of the medical management to the primary team. Upon discharge recommend for the patient to follow-up with a neurologist (Dr. Caicedo's team) within 1-2 weeks. Plan we'll discussed with the patient as well as the patient's nurse. Thank you for consultation Helio Jordan MD Neuro-Hospitalist Time with Patient: Greater than 30
[2020-10-04 11:55] LABS: Glucose,Whole Blood 164 mg/dL (75-99)
[2020-10-04] MEDS: ACETAMINOPHEN TAB 325 MG TAB PO PRN ×2 (12:10→20:53)
[2020-10-04] MEDS: SUCRALFATE 1 GM TAB PO SCH ×3 (12:11→20:56)
[2020-10-04 14:45] LABS: Hemoglobin A1C 6.3 % (4.0-6.0)
--- NOTE | 2020-10-04 15:29 | CONS ---
CONSULTATION DATE OF DICTATION: October 04, 2020. REASON FOR CONSULTATION: Severe epigastric pain. HISTORY OF PRESENT ILLNESS: The patient is a 69-year-old pleasant white female with history of seizure disorder, history of GERD, hypertension, hyperlipidemia and diabetes mellitus was admitted to the hospital because of an episode of seizure followed by severe hypoglycemia with blood sugars of 23. She came to the emergency room and subsequently admitted to the hospital for further evaluation. Since being in the hospital, she has been complaining of severe epigastric pain. On further questioning, the patient states that she did have an upper endoscopy with Dr. Coulter in March of 2020 and was diagnosed with antral ulcer. She had a repeat upper endoscopy done by Dr. Miranda on September 16, 2020 that revealed nonbleeding 1 cm linear antral ulcer and severe gastritis. The patient has been on Prilosec 20 mg daily and was treated intermittently with Carafate. However for the last one week, her pain has been getting worse. The pain is mostly located in the epigastric area with no radiation. It is worse with eating. Some nausea, but no emesis. She denies any change in her bowel habits. No rectal bleeding or melena. She denies any NSAID use. PAST MEDICAL HISTORY: Her past medical history is significant for coronary artery disease, diabetes mellitus, GERD, hypertension, hyperlipidemia, seizure disorder, history of pulmonary embolism. PAST SURGICAL HISTORY: Cholecystectomy, tonsillectomy, tubal ligation, EGD, colonoscopy, bilateral cataract surgeries. MEDICATIONS: Medications at home include Pristiq, Zocor, buspirone, insulin Lispro, Keppra, magnesium oxide, losartan, Prilosec, aspirin, Flexeril, metoclopramide, propranolol, and Januvia. ALLERGIES: Allergies to CODEINE, DOXYCYCLINE, and ULTRAM. SOCIAL HISTORY: No smoking. No alcohol use. FAMILY HISTORY: Unremarkable. REVIEW OF SYSTEMS: CARDIOPULMONARY: She denies any chest pain. No shortness of breath. GENITOURINARY: No dysuria or hematuria. MUSCULOSKELETAL: Chronic back pain and complains of left shoulder pain. NEUROLOGY: Recent episode of seizure in this lady who has history of seizure disorder. ENT/VISION: Unremarkable. CONSTITUTIONAL: No recent weight loss. No fever, chills, night sweats. HEMATOLOGY: Unremarkable. PSYCHIATRIC: Unremarkable. PHYSICAL EXAMINATION: She appears comfortable. No apparent distress. Vital signs are stable. Blood pressure 146/67, pulse 86, temperature 98.5. HEENT EXAMINATION: Unremarkable. Conjunctivae pink. Sclerae anicteric. Oral cavity no lesions. NECK: No JVD or lymph node enlargement. CHEST: Was clear to auscultation. HEART: Regular rate and rhythm. ABDOMEN: Soft. There was tenderness in the epigastric area. The rest of the abdomen was benign. Bowel sounds are positive. EXTREMITIES: No pedal edema. SKIN: No rashes. NEUROLOGIC: Alert and oriented x3. No focal deficits. LABS: WBC 11.8, hemoglobin 12.5, platelets normal. The rest of the labs showed basic metabolic panel that was within normal limits. BUN is 27, creatinine 0.83. T-bilirubin is 0.7. AST and ALT are 38 and 12 respectively. Alkaline phosphatase is within normal limits. IMPRESSION: 1. Chronic epigastric pain of several months duration with worsening symptoms for the last one week. Patient's last upper endoscopy was on September 16, [address] Miranda that revealed nonbleeding 1 cm antral ulcer. The patient has been maintained on Prilosec 20 mg daily at home and recently has been having worsening epigastric pain. 2. Seizure disorder for which Neurology has been consulted. 3. History of hypertension and hyperlipidemia. RECOMMENDATIONS: 1. Stop the Prilosec and start on Protonix 40 mg twice daily. 2. We will add Carafate 1 gram 4 times daily. 3. No plans on repeat upper endoscopy at the present time. 4. Avoid NSAIDs. 5. We will follow with you closely. Thank you for this consultation. MMODL / IJN: [id number] /
[2020-10-04] MEDS: PANTOPRAZOLE 40 MG TABLET PO SCH (16:31)
[2020-10-04 16:46] LABS: Glucose,Whole Blood 145 mg/dL (75-99)
[2020-10-04] MEDS: CYCLOBENZAPRINE 10 MG TAB PO PRN ×2 (17:40→23:13)
[2020-10-04 20:35] LABS: Glucose,Whole Blood 161 mg/dL (75-99)
[2020-10-04] MEDS: HEPARIN SODIUM,PORCINE 5,000 UNIT/ML 1 ML VIAL SQ SCH (20:52)
[2020-10-05 01:23] LABS: Glucose,Whole Blood 177 mg/dL (75-99)
[2020-10-05] MEDS: ACETAMINOPHEN TAB 325 MG TAB PO PRN (01:40)
[2020-10-05 06:53] LABS: Glucose,Whole Blood 167 mg/dL (75-99)
[2020-10-05] MEDS: DIVALPROEX 250 MG TABLET.DR PO SCH ×2 (09:14→20:28)
[2020-10-05] MEDS: ASPIRIN 81 MG PO SCH (09:14)
[2020-10-05] MEDS: HEPARIN SODIUM,PORCINE 5,000 UNIT/ML 1 ML VIAL SQ SCH ×2 (09:14→20:29)
[2020-10-05] MEDS: busPIRone HCl 5 MG TAB PO SCH ×2 (09:15→20:28)
[2020-10-05] MEDS: SUCRALFATE 1 GM TAB PO SCH ×4 (09:15→20:28)
[2020-10-05] MEDS: LOSARTAN 50 MG TAB PO SCH (09:15)
[2020-10-05] MEDS: PROPRANOLOL LA 60 MG CAP.SA.24H PO SCH (09:15)
[2020-10-05] MEDS: ATORVASTATIN 20 MG TAB PO SCH (09:15)
[2020-10-05] MEDS: PANTOPRAZOLE 40 MG TABLET PO SCH ×2 (09:15→16:28)
[2020-10-05] MEDS: FOLIC ACID 1 MG TAB PO SCH (09:17)
[2020-10-05] MEDS: CYCLOBENZAPRINE 10 MG TAB PO PRN ×2 (09:38→21:23)
--- NOTE | 2020-10-05 11:32 | P.PN ---
Subjective This is a pleasant 69 years old female with past medical history of seizure disorder, GERD, hyperlipidemia, hypertension, diabetes mellitus and prior history of peptic ulcer disease on 05/2020, repeat EGD on 09/16/2020 showed severe antritis, nonbleeding antral ulcer. With biopsy showing acute on chronic inflammation, negative for H. pylori, active antral gastritis. Patient presents with seizure activity and hypoglycemia with a glucose 23, she received in dextrose and 2 uncles of Ativan and she recovered, she became arousable however she could not know or remember what happened,no family not present at bedside. Patient was taken her seizure medication Keppra and valproic acid regularly but she could not remember if she took her medication yesterday or not. She does not have a seizure for the last 2 years, she does not follow up with the neurologist only with her PCP Dr. Fernandes. Also she sees Dr. Busby her boiler control technician last time about 2 weeks ago Patient states also for the last 1 week she's been having epigastric pain 10/10 in severity nonradiating felt like sharp increased by eating. She had 1 regular bowel movement yesterday with no vomiting. Last time she was in the hospital she was discharged on Divalproex 250 mg twice a day, Keppra 750 mg twice daily, insulin Humalog 10 units with meals BID,Tresiba insulin 40 units by mouth daily. This morning she ate her breakfast of eggs and bowl of cereal. And she was prudencio en her insulin medication and Januvia. EGD on 09/16/20 showing severe antritis with nonbleeding antral ulcer. She denies smoking, alcohol or illicit drugs Yao catheter was placed in the emergency room Vitas looks stable and patient is afebrile. Labs showing mild leukocytosis of 11.8 K, INR, BMP are unremarkable. Liver enzymes are within reference range, troponin is negative, TSH is normal at 1.0. Lactic acid only mildly elevated at 2.4. Urinalysis is not suspicious of infection. Valproic acid is 43.6 which is subtherapeutic 10/04/2020 Patient is seen in [facility] unit, she is more awake and yesterday when I saw her in the emergency room. She couldn't remember better than yesterday No more seizure activity however she still complaining of from epigastric pain and tenderness although she was able to finish most of her breakfast. She rates her pain as 8/10 in severity and she's been having it for about 3 weeks. She denies any recent use of Motrin or other NSAIDs. She supposed to follow up with Dr. Busby from GI in 1 week. Patient already was placed on Protonix twice daily and are going to consult GI team Patient confirmed to me she was taken her seizure medication of Keppra and valproic acid as she supposed to however she could not remember if she took it yesterday morning or no. . I asked her about her diabetes mellitus medication and she takes guardians and another diabetic pedal she cannot remember the name, she was also taking tresiba insulin 40 units and 10 units of humolog with meals BID however she stopped it that day because she was not eating well from her abdominal pain. She checked her sugar on the day of seizure and it was 1:30 5 in the morning and 80 5 in the evening. CBC and BMP from today are stable. Sugar is controlled. She ate most of her breakfast. IV fluids of D5 half normal saline was stopped. Neurology team were consulted 10/05/2020 Patient presents with seizure thought secondary to hypoglycemia by neurologist. She was taking combination of Januvia, 40 units of long acting insulin and 10 units of Humalog with meals twice a day. However her hemoglobin A1c 6.3%, and her sugar is currently controlled 140-177 while off all her diabetic medication. Neurologist recommended to keep Keppra 750 and valproic acid to 250 mg MONITORIN G She still has epigastric pain and tenderness thought it is related to her recent diagnosis of peptic ulcer 2-3 months ago, she is currently on Protonix and Carafate was added by GI team She feels generally weak this morning, with going to recommend physical therapy evaluation Review of Systems CONSTITUTIONAL: No fever, no malaise, no fatigue. HEENT: No recent visual problems or hearing problems. Denied any sore throat. CARDIOVASCULAR: No orthopnea, PND, no palpitations, no syncope. PULMONARY: No shortness of breath, no cough, no hemoptysis. GASTROINTESTINAL: No diarrhea, no nausea, no vomiting, . Normoactive bowel sounds. NEUROLOGICAL: No headaches, no weakness, no numbness. Active Medications Generic Name Dose Route Start Last Admin Trade Name Freq PRN Reason Stop Dose Admin Acetaminophen 650 mg 10/04/20 08:41 10/05/20 01:40 Acetaminophen Tab 325 Mg Tab PO 650 mg Q4HR PRN Administration Fever and/ or Pain Aspirin 81 mg 10/04/20 09:00 10/05/20 09:14 Aspirin 81 Mg PO 81 mg DAILY RUBIO Administration Atorvastatin Calcium 20 mg 10/04/20 09:00 10/05/20 09:15 Atorvastatin 20 Mg Tab PO 20 mg DAILY RUBIO Administration Buspirone HCl 15 mg 10/03/20 21:00 10/05/20 09:15 Buspirone Hcl 5 Mg Tab PO 15 mg BID RUBIO Administration Cyclobenzaprine HCl 10 mg 10/04/20 16:39 10/05/20 09:38 Cyclobenzaprine 10 Mg Tab PO 10 mg BID PRN Administration Pain Divalproex Sodium 250 mg 10/03/20 21:00 10/05/20 09:14 Divalproex 250 Mg Tablet.Dr PO 250 mg BID RUBIO Administration Folic Acid 1 mg 10/04/20 09:00 10/05/20 09:17 Folic Acid 1 Mg Tab PO 1 mg DAILY RUBIO Administration Heparin Sodium (Porcine) 5,000 unit 10/04/20 21:00 10/05/20 09:14 Heparin Sodium,Porcine 5,000 Unit/Ml 1 Ml Vial SQ 5,000 unit Q12HR RUBIO Administration Levetiracetam 750 mg 10/03/20 21:00 10/05/20 09:38 Levetiracetam 750 Mg Tab PO 750 mg BID RUBIO Administration Losartan Potassium 50 mg 10/04/20 09:00 10/05/20 09:15 Losartan 50 Mg Tab PO 50 mg DAILY RUBIO Administration Naloxone HCl 0.2 mg 10/03/20 14:40 Naloxone 0.4 Mg/Ml 1 Ml Vial IV Q2M PRN Opioid Reversal Pantoprazole Sodium 40 mg 10/04/20 17:30 10/05/20 09:15 Pantoprazole 40 Mg Tablet PO 40 mg AC-BID RUBIO Administration Propranolol HCl 60 mg 10/04/20 09:00 10/05/20 09:15 Propranolol La 60 Mg Cap.Sa.24h PO 60 mg DAILY RUBIO Administration Sucralfate 1 gm 10/04/20 12:30 10/05/20 09:15 Sucralfate 1 Gm Tab PO 1 gm ACHS RUBIO Administration Objective - Vital Signs Vital signs: Vital Signs Temp 97.8 F 10/05/20 07:38 Pulse 75 10/05/20 07:38 Resp 20 10/05/20 07:38 BP 149/84 10/05/20 07:38 Pulse Ox 97 10/05/20 07:38 Intake & Output 10/04/20 10/05/20 10/05/20 18:59 06:59 18:59 Intake Total 480 100 Output Total 1100 Balance -620 100 Weight 88 kg Intake: Oral 480 100 Output: Urine 1100 Other: Voiding Method Indwelling Catheter Indwelling Catheter # Voids 2 # Bowel Movements 1 - Exam GENERAL: The patient is alert and oriented x3, not in any acute distress. Well developed, well nourished. HEENT: Pupils are round and equally reacting to light. EOMI. No scleral icterus. No conjunctival pallor. Normocephalic, atraumatic. No pharyngeal erythema. No thyromegaly. CARDIOVASCULAR: S1 and S2 present. No murmurs, rubs, or gallops. PULMONARY: Chest is clear to auscultation, no wheezing or crackles. ABDOMEN: Soft, nontender, nondistended, normoactive bowel sounds. No palpable organomegaly. MUSCULOSKELETAL: No joint swelling or deformity. EXTREMITIES: No cyanosis, clubbing, or pedal edema. NEUROLOGICAL: Gross neurological examination did not reveal any focal deficits. SKIN: No rashes. no petechiae. - Labs CBC & Chem 7: 10/04/20 06:30 10/04/20 06:30 Labs: Abnormal Lab Results - Last 24 Hours (Table) 10/04/20 10/04/20 10/04/20 Range/Units 06:30 11:53 16:43 POC Glucose (mg/dL) 164 H 145 H (75-99) mg/dL Hemoglobin A1c 6.3 H (4.0-6.0) % 10/04/20 10/05/20 10/05/20 Range/Units 20:27 01: 06:50 POC Glucose (mg/dL) 161 H 177 H 167 H (75-99) mg/dL Hemoglobin A1c (4.0-6.0) % Assessment and Plan Assessment: Seizure disorder, secondary to hypoglycemia Diabetes mellitus with Hypoglycemia epigastric pain and tenderness with decreased appetite. mostly related to Recent history of recurrent peptic ulcer disease recent history of Severe enteritis GERD Hyperlipidemia. Hypertension Plan: This is a pleasant 69 years old female who presents with seizure and hypoglycemia. Hold insulin and continue with insulin sliding scale. Continue with diet and monitor sugar. Restart seizure medication of Keppra continue with valproic acidto 250 mg twice daily perneuro consult, seizure precaution. Increase Protonix to 40 mg twice daily. Consults GI team did correlate Labs and medication were reviewed.. Continue same treatment. Continue with symptomatic treatment. Resume home medication. Monitor lytes and vitals. DVT and GI prophylaxis. Further recommendations depends on the clinical course of the patient DVT prophylaxis: Subcutaneous heparin GI Prophylaxis: Ppi Dr. Jensen resume the care of this patient tomorrow
--- NOTE | 2020-10-05 12:41 | P.PN ---
Subjective Progress Note Date: 10/05/20 Principal diagnosis: Severe epigastric pain This is a 69-year-old pleasant white female with a history of seizure disorder and GERD. The patient admitted after having a seizure at home. While in hospital she reports she continues to have severe epigastric pain. She is status post upper endoscopy most recently 09/16/[address] Miranda which revealed a nonbleeding 1 cm linear antral ulcer and severe gastritis. The patient was supposed be started on Carafate, however she states she did not have a prescription but had an old one that she took. She was also currently taking Prilosec. Yesterday the patient was started on Protonix 40 mg 3 times a day and Carafate. The patient states she is still having epigastric pain, however denies any nausea or vomiting. She denies any dark tarry stools. She is able to tolerate her diet. Objective - Vital Signs Vital signs: Vital Signs Temp 97.8 F 10/05/20 07:38 Pulse 75 10/05/20 07:38 Resp 20 10/05/20 07:38 BP 149/84 10/05/20 07:38 Pulse Ox 97 10/05/20 07:38 Intake & Output 10/04/20 10/05/20 10/05/20 18:59 06:59 18:59 Intake Total 480 100 Output Total 1100 Balance -620 100 Weight 88 kg Intake: Oral 480 100 Output: Urine 1100 Other: Voiding Method Indwelling Catheter Indwelling Catheter # Voids 2 # Bowel Movements 1 - Exam General appearance: The patient is alert, oriented, in no acute distress. HET: Head is normocephalic and atraumatic. Conjunctiva pink. Sclera and icteric. Neck: Supple without lymphadenopathy. Abdomen: Soft, gastric tenderness, nondistended with bowel sounds. No guarding or rigidity. Extremities: Normal skin color and turgor. No pedal edema Neurological: No focal deficits. Alert and oriented 3. - Labs CBC & Chem 7: 10/04/20 06:30 10/04/20 06:30 Labs: Abnormal Lab Results - Last 24 Hours (Table) 10/04/20 10/04/20 10/04/20 Range/Units 06:30 11:53 16:43 POC Glucose (mg/dL) 164 H 145 H (75-99) mg/dL Hemoglobin A1c 6.3 H (4.0-6.0) % 10/04/20 10/05/20 10/05/20 Range/Units 20:27 01:21 06:50 POC Glucose (mg/dL) 161 H 177 H 167 H (75-99) mg/dL Hemoglobin A1c (4.0-6.0) % Assessment and Plan (1) Epigastric pain Narrative/Plan: The patient who has chronic epigastric pain of several months duration with worsening symptoms for the last 1 week. Patient's last upper endoscopy was on 09/16/[address] Miranda which revealed a nonbleeding 1 cm antral ulcer. The patient has been maintained on Prilosec 20 mg daily at home and recently has been having worsening epigastric pain. Patient will be changed from Prilosec to Protonix 40 mg twice a day with Carafate added. Patient was scheduled by her primary care physician for an outpatient colonoscopy tomorrow, this has been canceled. Will reevaluate and if pain not improved patient would like to proceed with colonoscopy while inpatient. Current Visit: Yes Status: Acute Code(s): R10.13 - EPIGASTRIC PAIN SNOMED Code(s): 46622470 (2) Seizure disorder Narrative/Plan: History of seizure disorder for which neurology she has been consulted and following Current Visit: Yes Status: Acute Code(s): G40.909 - EPILEPSY, UNSP, NOT INTRACTABLE, WITHOUT STATUS EPILEPTICUS SNOMED Code(s): 822748514 Plan: 1. Protonix 40 mg twice daily 2. Carafate 1 g 4 times daily 3. Avoid NSAIDs 4. No plans on repeat upper endoscopy at the present time 5. Clear liquid diet tomorrow 6. If patient continues to have severe abdominal pain we'll consider proceeding with colonoscopy as patient was scheduled for outpatient colonoscopy tomorrow. 7. We'll continue to follow with you closely Dr. Lupis Busby I agree with the dictator's note, documented as a scribe by Amarilys Barrera.
--- NOTE | 2020-10-05 14:21 | P.PN ---
Subjective Progress Note Date: 10/05/20 The patient was seen at bedside and the patient has not had any further seizures since patient has been in the hospital. She states that she's doing well and denies of any new weakness, numbness or visual disturbance. Objective - Vital Signs Vital signs: Vital Signs Temp 97.8 F 10/05/20 07:38 Pulse 75 10/05/20 07:38 Resp 20 10/05/20 07:38 BP 149/84 10/05/20 07:38 Pulse Ox 97 10/05/20 07:38 Intake & Output 10/04/20 10/05/20 10/05/20 18:59 06:59 18:59 Intake Total 480 100 Output Total 1100 Balance -620 100 Weight 88 kg Intake: Oral 480 100 Output: Urine 1100 Other: Voiding Method Indwelling Catheter Indwelling Catheter # Voids 2 # Bowel Movements 1 - Exam GENERAL: The patient is lying in bed and is not in acute distress. NEUROLOGICAL: Higher mental function: The patient is awake, alert, oriented to self, place and time. Patient is following commands. No aphasia and no neglect. Cranial nerves: The pupils are round, equal and reactive to light and accommodation. Visual almazan are full to confrontation throughout. Extraocular movement is intact no nystagmus is noted. Facial sensation is normal to touch throughout. The facial strength is normal throughout. Hearing is normal bilaterally to hand rub. Tongue is midline and moved [id number] without any difficulty. No dysarthria is noted. Shoulder shrug is normal bilaterally. Motor: Gait is deferred. The strength is 5 over 5 throughout. Normal tone and bulk. Cerebellum: Normal finger to nose bilaterally. Sensation: Sensation is normal to touch throughout. Reflexes (right/left): 2+ throughout except ankles are 1+ bilaterally. Plantars is downgoing on the right but is upgoing baseline on the left. - Labs CBC & Chem 7: 10/04/20 06:30 10/04/20 06:30 Labs: Abnormal Lab Results - Last 24 Hours (Table) 10/04/20 10/04/20 10/04/20 Range/Units 06:30 16:43 20:27 POC Glucose (mg/dL) 145 H 161 H (75-99) mg/dL Hemoglobin A1c 6.3 H (4.0-6.0) % 10/05/20 10/05/20 Range/Units 01:21 06:50 POC Glucose (mg/dL) 177 H 167 H (75-99) mg/dL Hemoglobin A1c (4.0-6.0) % Assessment and Plan Assessment: This is a 69-year-old woman with multiple medical problems that presented to the emergency department on 10/03/2020 for breakthrough seizure. Her glucose level was at in the 20s. Upon presenting to the emergency department that she was seizing as a result she received 2 mg Ativan as well as she received dextrose and started on IV dextrose with normal saline. Provoke seizure due to hypoglycemia History of seizure Reported history of ?stroke/TIA 2018 for left side weakness (MRI Brain negative for acute/subatcute stroke) Hypoglycemia--resolved Diabetes mellitus Hypertension Hyperlipidemia Peptic ulcer disease Plan: Continue Keppra 750 mg 1 tablet twice a day as well as valproic acid 250 mg 1 tablet twice a day. Valproic acid level is 43.6 which is considered subtherapeutic since on low dose. If patient continues to have further seizures then recommend to go-up on valproic acid from 250 1 tablet twice a day to 500 mg 1 tablet twice a day which can help with the seizures as well as her history of mood disorder. I recommend avoiding the going up on the Keppra at this time because of the history of depression which Keppra can the worsen the patient's mood disorder An EEG is not warranted because of the patient known history of seizure as well as she is back to baseline. Currently the patient is continuing aspirin 81 mg and Lipitor 20 mg for her strokelike symptoms in 2018. We'll defer the management of the hypoglycemia as well as the rest of the medical management to the primary team. Upon discharge recommend for the patient to follow-up with a neurologist (Dr. Caicedo's team) within 1-2 weeks. We'll follow-up with patient sporadically. Helio Jordan MD Neuro-Hospitalist Time with Patient: Less than 30
[2020-10-05 15:04] LABS: Glucose,Whole Blood 168 mg/dL (75-99)
[2020-10-05 16:55] LABS: Glucose,Whole Blood 156 mg/dL (75-99)
[2020-10-05] MEDS: polyethylene glycoL 3350 17 GM POWD.PACK PO SCH (20:28)
[2020-10-05 21:32] LABS: Glucose,Whole Blood 164 mg/dL (75-99)
[2020-10-06 07:15] LABS: Glucose,Whole Blood 176 mg/dL (75-99)
[2020-10-06] MEDS: ATORVASTATIN 20 MG TAB PO SCH (09:00)
[2020-10-06] MEDS: busPIRone HCl 5 MG TAB PO SCH ×2 (09:00→20:39)
[2020-10-06] MEDS: FOLIC ACID 1 MG TAB PO SCH (09:00)
[2020-10-06] MEDS: LOSARTAN 50 MG TAB PO SCH (09:00)
[2020-10-06] MEDS: SUCRALFATE 1 GM TAB PO SCH ×4 (09:00→20:17)
[2020-10-06] MEDS: DIVALPROEX 250 MG TABLET.DR PO SCH ×2 (09:01→20:38)
[2020-10-06] MEDS: PROPRANOLOL LA 60 MG CAP.SA.24H PO SCH (09:01)
[2020-10-06] MEDS: ASPIRIN 81 MG PO SCH (09:01)
[2020-10-06] MEDS: HEPARIN SODIUM,PORCINE 5,000 UNIT/ML 1 ML VIAL SQ SCH ×2 (09:01→20:35)
[2020-10-06] MEDS: PANTOPRAZOLE 40 MG TABLET PO SCH ×2 (09:01→16:46)
[2020-10-06] MEDS: CYCLOBENZAPRINE 10 MG TAB PO PRN (09:07)
[2020-10-06 11:23] LABS: Glucose,Whole Blood 173 mg/dL (75-99)
[2020-10-06] MEDS ORDERED: PEG 3350-NA SULF,BICARB,CL/KCL 4,000 ML BOTTLE PO ONE (14:00)
--- NOTE | 2020-10-06 15:21 | P.PN ---
Subjective Progress Note Date: 10/06/20 Principal diagnosis: Severe epigastric pain This is a 69-year-old pleasant white female with a history of seizure disorder and GERD. The patient admitted after having a seizure at home. While in hospital she reports she continues to have severe epigastric pain. She is status post upper endoscopy most recently 09/16/[address] Miranda which revealed a nonbleeding 1 cm linear antral ulcer and severe gastritis. The patient was supposed be started on Carafate, however she states she did not have a prescription but had an old one that she took. She was also currently taking Prilosec. She was started on Protonix 40 mg 3 times a day and Carafate. The patient states she is still having epigastric pain, however denies any nausea or vomiting. States the pain is worse today than yesterday. She denies any dark tarry stools. She is able to tolerate her diet. Objective - Vital Signs Vital signs: Vital Signs Temp 97.6 F 10/06/20 06:57 Pulse 84 10/06/20 06:57 Resp 18 10/06/20 06:57 BP 157/81 10/06/20 06:57 Pulse Ox 99 10/06/20 06:57 Intake & Output 10/05/20 10/06/20 10/06/20 18:59 06:59 18:59 Other: Voiding Method Indwelling Catheter # Voids 2 - Exam General appearance: The patient is alert, oriented, in no acute distress. HET: Head is normocephalic and atraumatic. Conjunctiva pink. Sclera anicteric. Neck: Supple without lymphadenopathy. Abdomen: Soft, epigastric tenderness, nondistended with bowel sounds. No guarding or rigidity. Extremities: Normal skin color and turgor. No pedal edema Neurological: No focal deficits. Alert and oriented 3. - Labs CBC & Chem 7: 10/04/20 06:30 10/04/20 06:30 Labs: Abnormal Lab Results - Last 24 Hours (Table) 10/05/20 10/05/20 10/05/20 Range/Units 15:02 16:52 21:31 POC Glucose (mg/dL) 168 H 156 H 164 H (75-99) mg/dL 10/06/20 Range/Units 06:58 POC Glucose (mg/dL) 176 H (75-99) mg/dL Assessment and Plan (1) Epigastric pain Narrative/Plan: The patient who has chronic epigastric pain of several months duration with worsening symptoms for the last 1 week. Patient's last upper endoscopy was on 09/16/[address] Miranda which revealed a nonbleeding 1 cm antral ulcer. The patient has been maintained on Prilosec 20 mg daily at home and recently has been having worsening epigastric pain. Patient will be changed from Prilosec to Protonix 40 mg twice a day with Carafate added. Patient was scheduled by her primary care physician for an outpatient colonoscopy, due to improvement in patient's epigastric pain patient would like to proceed with colonoscopy. Patient will be scheduled for colonoscopy tomorrow, bowel prep Current Visit: Yes Status: Acute Code(s): R10.13 - EPIGASTRIC PAIN SNOMED Code(s): 57202588 (2) Seizure disorder Narrative/Plan: History of seizure disorder for which neurology she has been consulted and following Current Visit: Yes Status: Acute Code(s): G40.909 - EPILEPSY, UNSP, NOT INTRACTABLE, WITHOUT STATUS EPILEPTICUS SNOMED Code(s): 784219299 Plan: 1. Protonix 40 mg twice daily 2. Carafate 1 g 4 times daily 3. Avoid NSAIDs 4. Clear liquid diet, nothing by mouth after midnight 5. Bowel prep this afternoon 6. Will proceed with colonoscopy tomorrow. 7. We'll continue to follow with you closely Dr. Lupis Busby I agree with the dictator's note, documented as a scribe by Amarilys Barrera.
[2020-10-06] MEDS: ONDANSETRON 4 MG/2 ML VIAL IVP PRN (16:46)
[2020-10-06 17:09] LABS: Glucose,Whole Blood 133 mg/dL (75-99)
[2020-10-06] MEDS ORDERED: HYDROmorphone 0.5 MG/0.5 ML SYRINGE IVP PRN (18:24)
[2020-10-06] MEDS: polyethylene glycoL 3350 17 GM POWD.PACK PO SCH (19:09)
--- NOTE | 2020-10-06 19:45 | XR ---
EXAMINATION TYPE: XR abdomen acute w cxr DATE OF EXAM: 10/06/2020 COMPARISON: 08/23/2020 HISTORY: Abdominal pain TECHNIQUE: 4 views FINDINGS: There is mild elevation of the right diaphragm. Heart size is normal. There is no heart hugh lure. There is slight blunting right costophrenic angle. There are clips from cholecystectomy. There is no sign of intestinal obstruction or pneumoperitoneum. Fecal pattern is normal. There are numerous phlebolith in the pelvis. There is no evidence of a mass . There is mild lumbar dextroscoliosis. There is osteoarthritis in both hip joints. IMPRESSION: Mild chronic elevation of the right diaphragm unchanged and consistent with paralysis. Mi ld pleural reaction right lung base. No heart failure. Nonacute abdomen. Abdomen unchanged compared to old exam.
[2020-10-06 20:18] LABS: Glucose,Whole Blood 153 mg/dL (75-99)
--- NOTE | 2020-10-06 22:59 | P.PN ---
Progress Note - Text Progress Note Date: 10/06/20 Presenting complaint: Seizures Interval history: Per DrSarah Sheet: "This is a pleasant 69 years old female with past medical history of seizure disorder, GERD, hyperlipidemia, hypertension, diabetes mellitus and prior history of peptic ulcer disease on 05/2020, repeat EGD on 09/16/2020 showed sever e antritis, nonbleeding antral ulcer. With biopsy showing acute on chronic inflammation, negative for H. pylori, active antral gastritis. Patient presents with seizure activity and hypoglycemia with a glucose 23, she received in dextrose and 2 uncles of Ativan and she recovered, she became arousable however she could not know or remember what happened,no family not present at bedside. Patient was taken her seizure medication Keppra and valproic acid regularly but she could not remember if she took her medication yesterday or not. She does not have a seizure for the last 2 years, she does no t follow up with the neurologist only with her PCP Dr. Fernandes. Also she sees Dr. Busby her centrifuge separator tender last time about 2 weeks ago Patient states also for the last 1 week she's been having epigastric pain 10/10 in severity nonradiating felt like sharp increased by eating. She had 1 regular bowel movement yesterday with no vomiting. Last time she was in the hospital she was discharged on Divalproex 250 mg twice a day, Keppra 750 mg twice daily, insulin Humalog 10 units with meals BID,Tresiba insulin 40 units by mouth daily." Today-feeling better. Some abdominal pain.. Comfortable. Recent upper endoscopy on 09/16/[address] Rousseau showed nonbleeding 1 cm linear antral ulcer with severe gastritis. Patient has been on Carafate. And Prilosec. Review of systems: Was done for constitutional, cardiovascular, GI, pulmonary. relevant finding as above On examination: VITAL SIGNS: 98.4, 85, 18, 1 3581, 98% room air GENERAL APPEARANCE: Average build. Lying in bed, not in distress. HEENT: Normal external appearance of nose and ear. Oral cavity normal EYES: Pupils equal. Conjunctiva normal. NECK: JVD not raised. Mass not palpable. RESPIRATORY: Respiratory effort normal. Lungs clear to auscultation. CARDIOVASCULAR: First and second sounds normal. No edema. ABDOMEN: Soft. Liver and spleen not palpable. No tenderness. No mass palpable. PSYCHIATRY: Alert and oriented x3. Mood and affect normal. INVESTIGATIONS, reviewed in the clinical context: October 06: Accu-Cheks 176, 173, 133, 153 White count 7.4 hemoglobin 12.1 potassium 4.5 creatinine 0.7 to Assessment: -Seizures related to hypoglycemia -Abdominal pain from gastritis and ulcer -Gastric antral ulcer with severe gastritis -Diabetes mellitus type 2 -GERD -Hyperlipidemia -Essential hypertension Primary osteoarthritis Seizure disorder, with breakthrough seizures with glucose being the 20s. Plan: The patient's Accu-Cheks closely for next 24 hours. Continue current medication treatment plan. Decrease Januvia to 25 mg daily. Starting tomorrow. Add liquid Tums. Around the clock
[2020-10-06] MEDS: CALCIUM CARBONATE LIQUID 500 MG/5 ML CUP PO SCH (23:30)
[2020-10-07] MEDS: CYCLOBENZAPRINE 10 MG TAB PO PRN (02:00)
[2020-10-07 07:10] LABS: Glucose,Whole Blood 138 mg/dL (75-99)
[2020-10-07] MEDS: HEPARIN SODIUM,PORCINE 5,000 UNIT/ML 1 ML VIAL SQ SCH (07:46)
[2020-10-07] MEDS: SUCRALFATE 1 GM TAB PO SCH ×2 (07:56→13:00)
[2020-10-07] MEDS: ONDANSETRON 4 MG/2 ML VIAL IVP PRN (07:57)
[2020-10-07] MEDS: LOSARTAN 50 MG TAB PO SCH (07:57)
[2020-10-07] MEDS: ASPIRIN 81 MG PO SCH (07:57)
[2020-10-07] MEDS: CALCIUM CARBONATE LIQUID 500 MG/5 ML CUP PO SCH ×2 (07:57→13:00)
[2020-10-07] MEDS: ACETAMINOPHEN TAB 325 MG TAB PO PRN (07:57)
[2020-10-07] MEDS: DIVALPROEX 250 MG TABLET.DR PO SCH (07:58)
[2020-10-07] MEDS: busPIRone HCl 5 MG TAB PO SCH (07:58)
[2020-10-07] MEDS: ATORVASTATIN 20 MG TAB PO SCH (07:58)
[2020-10-07] MEDS: PROPRANOLOL LA 60 MG CAP.SA.24H PO SCH (07:58)
[2020-10-07] MEDS ORDERED: PANTOPRAZOLE 40 MG/10 ML VIAL IVP SCH (09:00)
[2020-10-07] MEDS ORDERED: LIDOCAINE 1% INJ 10MG/ML (20 ML MDV) ONE (09:56)
[2020-10-07] MEDS ORDERED: PROPOFOL 10 MG/ML 20 ML VIAL IV ONE (09:56)
[2020-10-07] MEDS ORDERED: SODIUM CHLORIDE 0.9% 500 ML 500 ML IV ONE (09:57)
--- NOTE | 2020-10-07 10:19 | P.PCN ---
Date of Procedure: 10/07/20 Procedure(s) Performed: BRIEF HISTORY: Patient is a 69-year-old pleasant female admitted to the hospital hospital with seizures and severe epigastric pain for the last several months duration. Her last upper endoscopy in August 2020 revealed superficial antral ulcer for which She is currently on Protonix as well as Carafate. She was scheduled for an outpatient colonoscopy 2 days ago but was canceled as she was admitted to the hospital. However she continues to have persistent abdominal pain she is scheduled for an colonosas an inpatient. PROCEDURE PERFORMED: Colonoscopy. PREOPERATIVE DIAGNOSIS: Severe abdominal pain a few months duration IV sedation per Anesthesia. PROCEDURE: After informed consent was obtained, the patient, was brought into the endoscopy unit. IV sedation was administered by Anesthesia under continuous monitoring. Digital rectal examination was normal. Initially the Olympus CF-160 flexible video colonoscope was then inserted in the rectum, gradually advanced into the cecum without any difficulty. Careful examination was performed as the scope was gradually being withdrawn. Ileocecal valve and the appendiceal orifice were visualized and appeared normal. Prep was excellent. Mucosa of the cecum, ascending colon, transverse colon, descending colon, sigmoid colon, and rectum appeared normal. scattered diffuse diverticulosis seen. Retroflexion was performed in the rectum and no lesions were seen. The patient tolerated the procedure well. IMPRESSION: Normal-appearing colon from rectum to cecum with no evidence of colitis or colorectal neoplasia Scattered diffuse diverticulosis . RECOMMENDATIONS: Findings of this examination were discussed with the patient . Her diet will be advanced as tolerated. In the meantime he'll continue with current medications and follow her closely..
[2020-10-07 11:31] LABS: Glucose,Whole Blood 130 mg/dL (75-99)
[2020-10-07 11:35] VITALS: RESP 17
[2020-10-07] MEDS: FOLIC ACID 1 MG TAB PO SCH (13:00)
[2020-10-07 13:55] VITALS: BP 108/77; PULSE 94; TEMP 98.3
--- NOTE | 2020-10-07 20:46 | P.DS ---
Providers Date of admission: 10/05/20 09:15 Expected date of discharge: 10/07/20 Attending physician: Patrick Jensen Consults: 10/03/20 14:41 Consult Physician Urgent Consulting Provider: Dee Dee Pickering Consult Reason/Comments: acute breakthrough seizure, hx seizure disorder Do you want consulting provider notified?: Yes 10/04/20 09:36 Consult Physician Urgent Consulting Provider: Pearl Busby Consult Reason/Comments: recent PUD , ongoing epigastric pain and tenderness Do you want consulting provider notified?: Yes Primary care physician: Estrada Fernandes [facility] Course: Presenting complaint: Seizures Interval history: Per Sheet: "This is a pleasant 69 years old female with past medical history of seizure disorder, GERD, hyperlipidemia, hypertension, diabetes mellitus and prior history of peptic ulcer disease on 05/2020, repeat EGD on 09/16/2020 showed severe antritis, nonbleeding antral ulcer. With biopsy showing acute on chronic inflammation, negative for H. pylori, active antral gastritis. Patient presents with seizure activity and hypoglycemia with a glucose 23, she received in dextrose and 2 uncles of Ativan and she recovered, she became arousable however she could not know or remember what happened,no family not present at bedside. Patient was taken her seizure medication Keppra and valproic acid regularly but she could not remember if she took her medication yesterday or not. She does not have a seizure for the last 2 years, she does not follow up with the neurologist only with her PCP Dr. Fernandes. Also she sees Dr. Busby her life skills teacher last time about 2 weeks ago Patient states also for the last 1 week she's been having epigastric pain 10/10 in severity nonradiating felt like sharp increased by eating. She had 1 regular bowel movement yesterday with no vomiting. Last time she was in the hospital she was discharged on Divalproex 250 mg twice a day, Keppra 750 mg twice daily, insulin Humalog 10 units with meals BID,Cristofer iba insulin 40 units by mouth daily." upper endoscopy on 09/16/[address] Rousseau showed nonbleeding 1 cm linear antral ulcer with severe gastritis. Today- underwent colonoscopy. Showed scattered diverticulosis. Discussed with Dr. Lupis Busby. Okay to DC the Carafate as per indication. Patient told to use scheduled Tums. Also uses Bentyl for any spasms.. Patient also educated to hold off Januvia for right now. Follow Accu-Cheks closely. And follow-up with PCP. Soft bland diet. Discussion and discharge planning more than 35 minutes Consultation: Dr. Lupis Busby from GI On examination: VITAL SIGNS: 97.4, 89, 17, 121/83, 36% room air GENERAL APPEARANCE: In bed, comfortable HEENT: Normal external appearance of nose and ear. Oral cavity normal EYES: Pupils equal. Conjunctiva normal. NECK: JVD not raised. Mass not palpable. RESPIRATORY: Respiratory effort normal. Lungs clear to auscultation. CARDIOVASCULAR: First and second sounds normal. No edema. ABDOMEN: Soft. Liver and spleen not palpable. Minimal tenderness. No mass palpable. PSYCHIATRY: Alert and oriented x3. Mood and affect normal. INVESTIGATIONS, reviewed in the clinical context: October 06: Accu-Cheks 176, 173, 133, 153 White count 7.4 hemoglobin 12.1 potassium 4.5 creatinine 0.7 to Assessment: -Seizures related to hypoglycemia -Abdominal pain from gastritis and gastric ulcer -Gastric antral ulcer with severe gastritis -Diabetes mellitus type 2, uncontrolled with hypoglycemia -GERD -Hyperlipidemia -Essential hypertension Primary osteoarthritis Seizure disorder, with breakthrough seizures with glucose being the 20s. Disposition: Home Patient Condition at Discharge: Stable Plan - Discharge Summary Discharge Rx Participant: No New Discharge Prescriptions: New Dicyclomine [Bentyl] 10 mg PO TID #60 capsule polyethylene glycoL 3350 [Miralax] 17 gm PO HS powd.pack Calcium Carbonate [Tums] 500 mg PO TID #90 chewable Continue Simvastatin [Zocor] 40 mg PO DAILY Divalproex Sodium 250 mg PO BID Desvenlafaxine [Pristiq ER] 100 mg PO DAILY busPIRone HCL 15 mg PO BID levETIRAcetam [Keppra] 750 mg PO BID Magnesium Oxide [Mag-Ox] 400 mg PO BID Folic Acid 1 mg PO DAILY Losartan Potassium 50 mg PO DAILY Aspirin EC [Ecotrin Low Dose] 81 mg PO DAILY Propranolol HCl [Propranolol HCl ER] 60 mg PO DAILY Cyclobenzaprine [Flexeril] 10 mg PO BID PRN PRN Reason: Pain Changed Omeprazole [PriLOSEC] 20 mg PO BID #0 Discontinued Insulin Lispro [humaLOG Kwikpen] 10 unit SQ BID-W/MEALS sitaGLIPtin PHOSPHATE [Januvia] 100 mg PO DAILY Metoclopramide [Reglan] 5 mg PO TID Cyclobenzaprine [Flexeril] 10 mg PO BID Discharge Medication List Simvastatin [Zocor] 40 mg PO DAILY 07/23/14 [History] Divalproex Sodium 250 mg PO BID 04/13/18 [History] Desvenlafaxine [Pristiq ER] 100 mg PO DAILY 08/06/19 [History] busPIRone HCL 15 mg PO BID 09/03/19 [History] levETIRAcetam [Keppra] 750 mg PO BID 12/20/19 [History] Folic Acid 1 mg PO DAILY 02/08/20 [History] Magnesium Oxide [Mag-Ox] 400 mg PO BID 02/08/20 [History] Losartan Potassium 50 mg PO DAILY 04/14/20 [History] Aspirin EC [Ecotrin Low Dose] 81 mg PO DAILY 09/13/20 [History] Propranolol HCl [Propranolol HCl ER] 60 mg PO DAILY 10/03/20 [History] Cyclobenzaprine [Flexeril] 10 mg PO BID PRN 10/04/20 [History] Calcium Carbonate [Tums] 500 mg PO TID #90 chewable 10/07/20 [Rx] Dicyclomine [Bentyl] 10 mg PO TID #60 capsule 10/07/20 [Rx] Omeprazole [PriLOSEC] 20 mg PO BID #0 10/07/20 [Rx] polyethylene glycoL 3350 [Miralax] 17 gm PO HS powd.pack 10/07/20 [Rx] Follow up Appointment(s)/Referral(s): Pearl Busby MD [STAFF PHYSICIAN] - 10/13/20 3:30 pm Estrada Fernandes DO [Primary Care Provider] - 1-2 days (Please call and make follow up appointment.) Buck Caicedo MD [Medical Doctor] - 1 Week (Please call and make follow up appointment.) Patient Instructions/Handouts: Gastritis (DC), Diverticulosis (DC), Diet for Stomach Ulcers and Gastritis (GEN), Acute Abdominal Pain (DC), Type 2 Diabetes in the Older Adult (DC) Activity/Diet/Wound Care/Special Instructions: heart healthy diet activity is restricted till you see your doctor We are comment avoid NSAIDs, like normal treatment, Mobic, naprosen, ibuprofen and others We recommend to recheck your glucose 4 times a day before each meal and at bedtime. Keep the results in a log book and bring continue her doctor on your appointment date Glucose less than 70 or more than 400 then call 911 on come to the emergency room oneil isbell f/u with pcp mateusz child hs...keep log Discharge Disposition: HOME SELF-CARE
== END 2020-10-07 14:42 | disposition home or self-care (01) | DRG 384 ==
LOC: EC 12:48 → 3SCARD 14:40 → 5NMEDONC 10-05 01:35 → OBSVTOIN 10-05 09:15
PROVIDERS: ADMIT Hospitalist; ATTEND Hospitalist
PROC: 0DJD8ZZ Inspection of Lower Intestinal Tract, Via Natural or Artificial Opening Endoscopic (ICD-10-PCS; principal; 2020-10-07 11:50)
DX: K25.9 Gastric ulcer, unspecified as acute or chronic, without hemorrhage or perforation (principal); I69.354 Hemiplegia and hemiparesis following cerebral infarction affecting left non-dominant side; E11.649 Type 2 diabetes mellitus with hypoglycemia without coma; G40.909 Epilepsy, unspecified, not intractable, without status epilepticus; Z79.4 Long term (current) use of insulin; K29.70 Gastritis, unspecified, without bleeding; K57.30 Diverticulosis of large intestine without perforation or abscess without bleeding; G43.909 Migraine, unspecified, not intractable, without status migrainosus; K44.9 Diaphragmatic hernia without obstruction or gangrene; K21.9 Gastro-esophageal reflux disease without esophagitis; I25.10 Atherosclerotic heart disease of native coronary artery without angina pectoris; G89.29 Other chronic pain; D72.829 Elevated white blood cell count, unspecified; E78.5 Hyperlipidemia, unspecified; I10 Essential (primary) hypertension; M19.91 Primary osteoarthritis, unspecified site; F32.9 Major depressive disorder, single episode, unspecified; Z79.82 Long term (current) use of aspirin; Z79.899 Other long term (current) drug therapy; Z86.711 Personal history of pulmonary embolism; Z90.89 Acquired absence of other organs; Z90.49 Acquired absence of other specified parts of digestive tract; Z98.51 Tubal ligation status; Z98.42 Cataract extraction status, left eye; Z98.41 Cataract extraction status, right eye; Z87.11 Personal history of peptic ulcer disease; Z87.81 Personal history of (healed) traumatic fracture; Z98.890 Other specified postprocedural states; Z88.1 Allergy status to other antibiotic agents; Z88.5 Allergy status to narcotic agent
CPT/HCPCS: 36415; 45378; 70450; 74022; 80048; 80053; 80164; 81003; 82550; 83036; 83605; 84443; 84484; 85025; 85610; 85730; 93005; 96361; 96374; 96375; 96376; 99285

== ENCOUNTER 2021-06-07 17:06 | Emergency (ER) | payer MEDICARE, OTHER ==
--- NOTE | 2021-06-07 18:30 | ED ---
General Adult HPI - General Chief complaint: Shortness of Breath Stated complaint: Dyspnea Time Seen by Provider: 06/07/21 18:10 Source: patient Mode of arrival: ambulatory Limitations: no limitations - History of Present Illness Initial comments: Dictation was produced using [employer] dictation software. please excuse any grammatical, word or spelling errors. Chief Complaint: 70-year-old female past medical history of right lower extr emity DVT and PE presents to the emergency department for PE evaluation History of Present Illness: And is a 70-year-old female she has has past medical history of pulmonary embolus. In 1997 she had dramatic injury to her right lower extremity. She developed a DVT in that leg which ultimately led to PE. She was treated accordingly. She has not had any PEs since. She for the last 2 weeks she's been feeling worsening dyspnea. Denies any fever. No cough or runny nose. No obvious exposure to anybody with coronavirus. She went to see her primary care physician Dr. Fernandes who told her to come to the emergency room for CT. Patient states she has no active symptoms to her legs at this time however she does get episodes of cramping in her right calf, popliteal knee and medial thigh. The ROS documented in this emergency department record has been reviewed and confirmed by me. Those systems with pertinent positive or negative responses have been documented in the HPI. All other systems are other negative and/or noncontributory. PHYSICAL EXAM: General Impression: Alert and oriented x3, not in acute distress HEENT: Normocephalic atraumatic, extra-ocular movements intact, pupils equal and reactive to light bilaterally, mucous membranes moist. Cardiovascular: Heart regular rate and rhythm Chest: Able to complete full sentences, no retractions, no tachypnea Abdomen: abdomen soft, non-tender, non-distended, no organomegaly Musculoskeletal: Pulses present and equal in all extremities, no peripheral edema Motor: no focal deficits noted Neurological: CN II-XII grossly intact, no focal motor or sensory deficits noted Skin: Intact with no visualized rashes Psych: Normal affect and mood ED course: 70-year-old well-appearing female presents to the emergency department from primary care physician's office for PE workup. She does have a history of DVT and PE. She's been short of breath for the last 2 weeks. She denies any active DVT symptoms at this time. Laboratory evaluation obtained. CBC shows mild stress leukocytosis of 11.2. Coag panel is negative. D-dimer is elevated 1.01. Metabolic panel is within acceptable limits. Coronavirus negative. EKG interpretation: Ventricular rate 77, normal sinus rhythm,. Interval 1:30, QRS 78, QTC 421. No KS prolongation, no QTC prolongation, no ST or T-wave changes noted. EKG compared to 10/03/2020 showing no changes. Overall, this EKG is unremarkable CT angios the chest shows no PE. There is however suspicion of infiltrate versus atelectasis. Patient has no fever. She has no cough. Unlikely to be pulmonary infection given that spent 2 weeks she has no symptoms besides shortness of breath. She is advised follow-up with primary care doctor. Patient reevaluated bedside at 9:07 PM found to be stable medical condition. She is not dyspneic or in any acute distress. Patient is here to be discharge. - Related Data Home Medications Medication Instructions Recorded Confirmed Simvastatin [Zocor] 40 mg PO DAILY 07/23/14 06/07/21 Divalproex Sodium 250 mg PO BID 04/13/18 06/07/21 Desvenlafaxine [Pristiq ER] 100 mg PO DAILY 08/06/19 06/07/21 busPIRone HCL 15 mg PO BID 09/03/19 06/07/21 levETIRAcetam [Keppra] 750 mg PO BID 12/20/19 06/07/21 Folic Acid 1 mg PO DAILY@1200 02/08/20 06/07/21 Magnesium Oxide [Mag-Ox] 400 mg PO DAILY 02/08/20 06/07/21 Aspirin EC [Ecotrin Low Dose] 81 mg PO DAILY 09/13/20 06/07/21 Propranolol HCl [Propranolol HCl 60 mg PO HS 10/03/20 06/07/21 ER] Cyclobenzaprine [Flexeril] 10 mg PO BID 10/04/20 06/07/21 Insulin Degludec [Tresiba 55 units SQ DAILY 06/07/21 06/07/21 Flextouch U-200 Pen] Losartan [Cozaar] 50 mg PO DAILY@1200 06/07/21 06/07/21 Metoclopramide [Reglan] 5 mg PO TID 06/07/21 06/07/21 Multivitamins, Thera [Multivitamin 1 tab PO DAILY@1200 06/07/21 06/07/21 (formulary)] Omeprazole [PriLOSEC] 40 mg PO DAILY 06/07/21 06/07/21 hydroCHLOROthiazide [Hydrodiuril] 25 mg PO DAILY 06/07/21 06/07/21 sitaGLIPtin [Januvia] 100 mg PO DAILY 06/07/21 06/07/21 Previous Rx's Medication Instructions Recorded Dicyclomine [Bentyl] 10 mg PO TID #60 capsule 10/07/20 Allergies Allergy/AdvReac Type Severity Reaction Status Date / Time No Known Allergies Allergy Verified 06/07/21 19:39 Review of Systems ROS Statement: Those systems with pertinent positive or pertinent negative responses have been documented in the HPI. ROS Other: All systems not noted in ROS Statement are negative. Past Medical History Past Medical History: Chest Pain / Angina, Diabetes Mellitus, GERD/Reflux, Hyperlipidemia, Hypertension, Osteoarthritis (OA), Pulmonary Embolus (PE), Seizure Disorder Additional Past Medical History / Comment(s): ulcer,constant abdominal pain, occ. MIGRAINES, HIATAL HERNIA. SEIZURE 03/2018- NONE SINCE. heart murmer History of Any Multi-Drug Resistant Organisms: None Reported Past Surgical History: Cholecystectomy, Orthopedic Surgery, Tonsillectomy, Tubal Ligation Additional Past Surgical History / Comment(s): NECK SURGERY, REPAIR FX RT LEG SURGERY, EGD, COLONOSCOPY. arturo cataracts Past Anesthesia/Blood Transfusion Reactions: No Reported Reaction Past Psychological History: Depression Smoking Status: Never smoker Past Alcohol Use History: None Reported Past Drug Use History: Marijuana - Past Family History Mother Family Medical History: No Reported History General Exam Limitations: no limitations Course Vital Signs 06/07/21 06/07/21 17:58 19:58 Temperature 98.3 F 98.1 F Pulse Rate 81 98 Respiratory 19 18 Rate Blood Pressure 133/71 137/69 O2 Sat by Pulse 99 97 Oximetry Medical Decision Making - Lab Data Result diagrams: 06/07/21 18:45 06/07/21 18:45 Lab Results 06/07/21 06/07/21 06/07/21 Range/Units 18:45 18:45 18:45 WBC 11.2 H (3.8-10.6) k/uL RBC 4.44 (3.80-5.40) m/uL Hgb 14.1 (11.4-16.0) gm/dL Hct 42.4 (34.0-46.0) % MCV 95.4 (80.0-100.0) fL MCH 31.6 (25.0-35.0) pg MCHC 33.1 (31.0-37.0) g/dL RDW 12.9 (11.5-15.5) % Plt Count 218 (150-450) k/uL MPV 8.2 Neutrophils % 56 % Lymphocytes % 30 % Monocytes % 7 % Eosinophils % 5 % Basophils % 1 % Neutrophils # 6.2 (1.3-7.7) k/uL Lymphocytes # 3.4 (1.0-4.8) k/uL Monocytes # 0.8 (0-1.0) k/uL Eosinophils # 0.5 (0-0.7) k/uL Basophils # 0.1 (0-0.2) k/uL PT 10.0 (9.0-12.0) sec INR 0.9 (<1.2) APTT 22.7 (22.0-30.0) sec D-Dimer 1.01 H (<0.60) mg/L FEU Sodium 133 L (137-145) mmol/L Potassium 4.8 (3.5-5.1) mmol/L Chloride 98 (98-107) mmol/L Carbon Dioxide 25 (22-30) mmol/L Anion Gap 10 mmol/L BUN 19 H (7-17) mg/dL Creatinine 1.08 H (0.52-1.04) mg/dL Est GFR (CKD-EPI)AfAm 60 (>60 ml/min/1.73 sqM) Est GFR (CKD-EPI)NonAf 52 (>60 ml/min/1.73 sqM) Glucose 198 H (74-99) mg/dL Calcium 9.8 (8.4-10.2) mg/dL Troponin I (0.000-0.034) ng/mL NT-Pro-B Natriuret Pep pg/mL Coronavirus (PCR) (Not Detectd) 06/07/21 06/07/21 06/07/21 Range/Units 18:45 18:45 18:57 WBC (3.8-10.6) k/uL RBC (3.80-5.40) m/uL Hgb (11.4-16.0) gm/dL Hct (34.0-46.0) % MCV (80.0-100.0) fL MCH (25.0-35.0) pg MCHC (31.0-37.0) g/dL RDW (11.5-15.5) % Plt Count (150-450) k/uL MPV Neutrophils % % Lymphocytes % % Monocytes % % Eosinophils % % Basophils % % Neutrophils # (1.3-7.7) k/uL Lymphocytes # (1.0-4.8) k/uL Monocytes # (0-1.0) k/uL Eosinophils # (0-0.7) k/uL Basophils # (0-0.2) k/uL PT (9.0-12.0) sec INR (<1.2) APTT (22.0-30.0) sec D-Dimer (<0.60) mg/L FEU Sodium (137-145) mmol/L Potassium (3.5-5.1) mmol/L Chloride (98-107) mmol/L Carbon Dioxide (22-30) mmol/L Anion Gap mmol/L BUN (7-17) mg/dL Creatinine (0.52-1.04) mg/dL Est GFR (CKD-EPI)AfAm (>60 ml/min/1.73 sqM) Est GFR (CKD-EPI)NonAf (>60 ml/min/1.73 sqM) Glucose (74-99) mg/dL Calcium (8.4-10.2) mg/dL Troponin I <0.012 (0.000-0.034) ng/mL NT-Pro-B Natriuret Pep 83 pg/mL Coronavirus (PCR) Not Detected (Not Detectd) Disposition Clinical Impression: Dyspnea Disposition: HOME SELF-CARE Condition: Good Instructions (If sedation given, give patient instructions): Dyspnea (ED) Is patient prescribed a controlled substance at d/c from ED?: No Referrals: Estrada Fernandes DO [Primary Care Provider] - 1-2 days
[2021-06-07 18:54] LABS: Basophils # (A) 0.1 k/uL (0-0.2); Basophils % (A) 1 %; Eosinophils # (A) 0.5 k/uL (0-0.7); Eosinophils % (A) 5 %; HCT 42.4 % (34.0-46.0); HGB 14.1 gm/dL (11.4-16.0); Lymphocytes # (A) 3.4 k/uL (1.0-4.8); Lymphocytes % (A) 30 %; MCH 31.6 pg (25.0-35.0); MCHC 33.1 g/dL (31.0-37.0); MCV 95.4 fL (80.0-100.0); Mean Platelet Volume 8.2; Monocytes # (A) 0.8 k/uL (0-1.0); Monocytes % (A) 7 %; Neutrophils # (A) 6.2 k/uL (1.3-7.7); Neutrophils % (A) 56 %; Platelet Count 218 k/uL (150-450); RBC 4.44 m/uL (3.80-5.40); RDW 12.9 % (11.5-15.5); WBC 11.2 k/uL (3.8-10.6)
[2021-06-07 19:02] LABS: Calcium 9.8 mg/dL (8.4-10.2); Potassium 4.8 mmol/L (3.5-5.1)
[2021-06-07 19:46] LABS: INR 0.9 (<1.2); Partial Thromboplastin Time 22.7 sec (22.0-30.0)
[2021-06-07 20:13] VITALS: PULSE 98; RESP 18
[2021-06-07] MEDS ORDERED: KETOROLAC 15 MG/ML 1 ML VIAL IVP STA (20:31)
--- NOTE | 2021-06-07 20:47 | CT ---
EXAMINATION TYPE: CT angio chest DATE OF EXAM: 06/07/2021 7:32 PM COMPARISON: CT 08/29/2020. Radiographs 10/06/2020. HISTORY: Shortness of breath and Upper left chest pain. CT DLP: 460 mGycm Automated exposure control for dose reduction was used. CONTRAST: CTA scan of the thorax is performed with IV Contrast, patient injected with 80 mL of Isovue 300, pulm onary embolism protocol. MIP images are created and reviewed. FINDINGS: LUNGS: There are small somewhat patchy opacities in the bilateral lower lobes. There is elevation of the right hemidiaphragm. No suspicious pulmonary nodule. There is no pleural effusion or pneumothora x seen. The tracheobronchial tree is patent. MEDIASTINUM: There is satisfactory enhancement of the pulmonary artery and its branches, there is no CT evidence for pulmonary embolism. There are no greater than 1 cm hilar or mediastinal lymph nodes. No pericardial effusion is seen. OTHER: No additional significant abnormality is seen. Cholecystectomy noted. IMPRESSION: NO ACUTE ABNORMALITY. MILD BIBASILAR SOMEWHAT PATCHY OPACITIES. CORRELATE FOR ATELECTASIS VERSUS DEVELOPING INFILTRATES. CHRONIC ELEVATION OF THE RIGHT HEMIDIAPHRAGM, HOWEVER MORE PRONOUNCED COMPARED TO PRIOR SEPTEMBER 2020 STUDY.
[2021-06-07 21:49] VITALS: BP 143/73; TEMP 98.3
== END 2021-06-07 21:53 | disposition home or self-care (01) ==
LOC: EC 17:06
DX: R06.02 Shortness of breath (principal); E11.9 Type 2 diabetes mellitus without complications; K21.9 Gastro-esophageal reflux disease without esophagitis; E78.5 Hyperlipidemia, unspecified; I10 Essential (primary) hypertension; M19.90 Unspecified osteoarthritis, unspecified site; F32.9 Major depressive disorder, single episode, unspecified; F12.90 Cannabis use, unspecified, uncomplicated; Z86.711 Personal history of pulmonary embolism; Z86.718 Personal history of other venous thrombosis and embolism; Z79.82 Long term (current) use of aspirin; Z79.4 Long term (current) use of insulin; Z90.49 Acquired absence of other specified parts of digestive tract; Z90.89 Acquired absence of other organs; Z98.51 Tubal ligation status; Z79.899 Other long term (current) drug therapy; Z20.822 Contact with and (suspected) exposure to COVID-19
CPT/HCPCS: 99285; 96374; 36415; 93005; 85379; 83880; 80048; 84484; 85025; 85610; 85730; 87635; 71275; J1885; Q9967

== ENCOUNTER → 2021-07-18 | Outpatient (CLI) | payer MEDICARE, OTHER ==
--- NOTE | 2021-07-19 10:34 | ECHOF ---
Referral Reason:R06.09 Other forms of dyspnea MEASUREMENTS -------- HEIGHT: 157.5 cm WEIGHT: 101.2 kg BP: RVIDd: 3.8 cm (< 3.3) IVSd: 1.1 cm (0.6 - 1.1) LVIDd: 3.5 cm (3.9 - 5.3) LVPWd: 1.0 cm (0.6 - 1.1) IVSs: 1.4 cm LVIDs: 1.9 cm LVPWs: 1.5 cm LAESV Index (A-L): 7.53 ml/m Ao Diam: 2.2 cm (2.0 - 3.7) AV Cusp: 1.6 cm (1.5 - 2.6) MV EXCURSION: 10.629 mm (> 18.000) MV EF SLOPE: 36 mm/s (70 - 150) EPSS: 0.5 cm MV E Jaspreet: 0.90 m/s MV DecT: 182 ms MV A Jaspreet: 1.13 m/s MV E/A Ratio: 0.80 RAP: 5.00 mmHg RVSP: 31.29 mmHg FINDINGS -------- Sinus rhythm. This was a technically adequate study. The left ventricular size is normal. There is mild concentric left ventricular hypertrophy. Overa ll left ventricular systolic function is normal with, an EF between 55 - 60 %. The right ventricle is mild to moderately enlarged. Normal LA size by volume 22+/-6 ml/m2. The right atrial size is normal. Interatrial and interventricular septum intact. There is no evidence of aortic regurgitation. There is no evidence of aortic stenosis. No mitral regurgitation. Mild tricuspid regurgitation present. There is no evidence of pulmonary hypertension. The right v entricular systolic pressure, as measured by Doppler, is 31.29mmHg. There is no pulmonic regurgitation present. The aortic root size is normal. IVC Not well visulized. There is no pericardial effusion. CONCLUSIONS -------- 1. The left ventricular size is normal. 2. There is mild concentric left ventricular hypertrophy. 3. Overall left ventricular systolic function is normal with, an EF between 55 - 60 %. 4. The right ventricle is mild to moderately enlarged. 5. Mild tricuspid regurgitation present. DECKHAND ENGINEER: Shanthi Francisco RDCS
== END | disposition home or self-care (01) ==
LOC: RADECHMAIN 14:48
PROVIDERS: ATTEND Family Medicine
DX: I36.1 Nonrheumatic tricuspid (valve) insufficiency (principal)
CPT/HCPCS: 93306

== ENCOUNTER → 2021-08-23 | Outpatient (CLI) | payer MEDICARE, OTHER ==
--- NOTE | 2021-08-23 11:47 | FL ---
EXAMINATION TYPE: FL sniff test without CXR DATE OF EXAM: 08/23/2021 COMPARISON: CT chest June 07, 2021 and older CTs back through 2010.. HISTORY: Elevated diaphragm. Chronic shortness of breath. TECHNIQUE: Fluoroscopy assisted sniff test. Approximately 30 seconds of fluoroscopic time. 28 images saved to PACS. FINDINGS: Chronic Elevated right hemidiaphragm is redemonstrated. On rapid and deep inspiration and e xpiration there is diminished movement of the right diaphragm versus opposite left diaphragm but no p aradoxical or abnormal movement identified. Images saved to PACS. IMPRESSION: As Above.
== END | disposition home or self-care (01) ==
LOC: RADFLMAIN 10:13
PROVIDERS: ATTEND Internal Medicine Critical Care Medicine
DX: J98.6 Disorders of diaphragm (principal)
CPT/HCPCS: 76000

== ENCOUNTER → 2021-11-21 | Outpatient (CLI) | payer MEDICARE, OTHER ==
--- NOTE | 2021-11-21 22:00 | XR ---
EXAMINATION TYPE: XR thoracic spine 3V, XR lumbar spine 3V XR knee complete 3 views RT DATE OF EXAM: 11/21/2021 COMPARISON: NONE HISTORY: 70-year-old female M54.50 M25.561 FINDINGS: Thoracic spine: Partially visualized ACDF hardware. There is levoconvex scoliosis of the upper third thoracic spine. Asymmetric elevation right hemidiaphragm. 12 rib-bearing thoracic vertebral bodies. Mild to moderate degenerative disc disease mid to lower thoracic spine. Alignment for the reservoir, vertebral body he ights are preserved and alignment appears maintained. Lumbar spine: Cholecystectomy clips. Estimated convex scoliosis of the lumbar spine. 5 lumbar type vertebral bodies . Large body habitus results in underpenetration along the lower lumbar spine. Moderate degenerative disc disease especially mid lumbar spine along with multilevel hypertrophic facet arthropathy. There is degenerative grade 1 retrolisthesis L1-L2 and L2-L3. Remaining alignment is maintained and vertebr al body heights are preserved. Right knee: Meniscal chondrocalcinosis. Osteopenia. No knee joint effusion. Extensor mechanism is intact. Minimal degenerative spurring within the 3 compartments of the knee. No acute fracture, subluxation, or disl ocation seen. IMPRESSION: 1. Thoracic spine: Reverse S-shaped scoliosis thoracolumbar spine. Mild to moderate degenerative disc disease mid to lower thoracic spine. No vertebral compression collapse or malalignment. 2. Thoracic spine: Asymmetric elevation right hemidiaphragm. If concern for hemidiaphragmatic paralys is, a fluoroscopic sniff test could be performed. 3. Lumbar spine: Scoliosis as above. Moderate degenerative disc disease especially mid lumbar spine a nd multilevel hypertrophic facet arthropathy. Degenerative grade 1 retrolisthesis L1-L2 and L2-L3. 4. Right knee: Very mild degenerative change of the knee. Meniscal chondrocalcinosis could be idiopat hic or could reflect CPPD. No knee joint effusion.
== END | disposition home or self-care (01) ==
LOC: RADXRMAIN 17:12
PROVIDERS: ATTEND Family Medicine
DX: M51.34 Other intervertebral disc degeneration, thoracic region (principal); M51.36 Other intervertebral disc degeneration, lumbar region; M47.816 Spondylosis without myelopathy or radiculopathy, lumbar region; M43.16 Spondylolisthesis, lumbar region; M11.261 Other chondrocalcinosis, right knee; M17.11 Unilateral primary osteoarthritis, right knee; M41.85 Other forms of scoliosis, thoracolumbar region; J98.6 Disorders of diaphragm
CPT/HCPCS: 72070; 72100

== ENCOUNTER 2021-12-19 12:21 | Observation (INO) | payer MEDICARE, OTHER ==
[2021-12-19] MEDS ORDERED: NITROGLYCERIN OINT 1 INCH/GM PACKET TOPICAL STA (12:34)
[2021-12-19] MEDS ORDERED: SODIUM CHLORIDE 0.9% 500 ML 500 ML IV STA (12:34)
[2021-12-19] MEDS ORDERED: ASPIRIN 81 MG PO STA (12:34)
--- NOTE | 2021-12-19 12:36 | ED ---
General Adult HPI - General Source: patient, RN notes reviewed, old records reviewed Mode of arrival: wheelchair Limitations: no limitations <Tito Cevallos - Last Filed: 12/19/21 16:10> <Michael De La Cruz - Last Filed: 12/19/21 17:20> - General Chief complaint: Chest Pain Stated complaint: chest pain Time Seen by Provider: 12/19/21 12:30 - History of Present Illness Initial comments: This is a 70-year-old female presents emergency Department complaining of shortness of breath and chest pain since last evening. Patient states the pain radiates down her left arm. Patient states she is a diabetic who is hyp ertensive and has high cholesterol. Patient denies any history of heart disease patient denies any smoking patient denies any family history of heart disease. Patient denies any recent fever chills or cough. Patient states the pain is been pretty constant since last evening. Patient states she has no abdominal pain no nausea no vomiting or diarrhea. Patient denies any back pain. Patient denies any swelling to the legs or calf tenderness. (Tito Cevallos) - Related Data Home Medications Medication Instructions Recorded Confirmed Simvastatin [Zocor] 40 mg PO DAILY 07/23/14 12/19/21 Divalproex Sodium 250 mg PO BID 04/13/18 12/19/21 Desvenlafaxine [Pristiq ER] 100 mg PO DAILY 08/06/19 12/19/21 busPIRone HCL 15 mg PO BID 09/03/19 12/19/21 levETIRAcetam [Keppra] 750 mg PO BID 12/20/19 12/19/21 Folic Acid 1 mg PO DAILY 02/08/20 12/19/21 Magnesium Oxide [Mag-Ox] 400 mg PO DAILY 02/08/20 12/19/21 Aspirin EC [Ecotrin Low Dose] 81 mg PO DAILY 09/13/20 12/19/21 Propranolol HCl [Propranolol HCl 60 mg PO DAILY 10/03/20 12/19/21 ER] Cyclobenzaprine [Flexeril] 10 mg PO BID PRN 10/04/20 12/19/21 Insulin Degludec [Tresiba 60 units SQ DAILY 06/07/21 12/19/21 Flextouch U-200 Pen] Metoclopramide [Reglan] 5 mg PO TID 06/07/21 12/19/21 Multivitamins, Thera [Multivitamin 1 tab PO DAILY 06/07/21 12/19/21 (formulary)] Omeprazole [PriLOSEC] 40 mg PO DAILY 06/07/21 12/19/21 sitaGLIPtin [Januvia] 100 mg PO DAILY 06/07/21 12/19/21 Acetaminophen Tab [Tylenol] 650 mg PO Q4H PRN 12/19/21 12/19/21 Albuterol Inhaler [Ventolin Hfa 1 puff INHALATION RT-Q6H PRN 12/19/21 12/19/21 Inhaler] Albuterol Nebulized [Ventolin 2.5 mg INHALATION RT-Q4H PRN 12/19/21 12/19/21 Nebulized] Dicyclomine [Bentyl] 10 mg PO TID-W/MEALS 12/19/21 12/19/21 Fluticasone/Umeclidin/Vilanter 1 puff INHALATION RT-DAILY 12/19/21 12/19/21 [Trelegy Ellipta 200-62.5-25] Furosemide [Lasix] 40 mg PO DAILY 12/19/21 12/19/21 Losartan Potassium 100 mg PO DAILY 12/19/21 12/19/21 traMADol HCL 50 mg PO BID PRN 12/19/21 12/19/21 Allergies Allergy/AdvReac Type Severity Reaction Status Date / Time No Known Allergies Allergy Verified 12/19/21 12:26 Review of Systems ROS Other: All systems not noted in ROS Statement are negative. <Tito Cevallos - Last Filed: 12/19/21 16:10> ROS Other: All systems not noted in ROS Statement are negative. <Michael De La Cruz - Last Filed: 12/19/21 17:20> ROS Statement: Those systems with pertinent positive or pertinent negative responses have been documented in the HPI. Past Medical History Past Medical History: Chest Pain / Angina, Diabetes Mellitus, GERD/Reflux, Hyperlipidemia, Hypertension, Osteoarthritis (OA), Pulmonary Embolus (PE), Seizure Disorder Additional Past Medical History / Comment(s): ulcer,constant abdominal pain, occ. MIGRAINES, HIATAL HERNIA. SEIZURE 03/2018- NONE SINCE. heart murmer History of Any Multi-Drug Resistant Organisms: None Reported Past Surgical History: Cholecystectomy, Orthopedic Surgery, Tonsillectomy, Tubal Ligation Additional Past Surgical History / Comment(s): NECK SURGERY, REPAIR FX RT LEG SURGERY, EGD, COLONOSCOPY. arturo cataracts Past Anesthesia/Blood Transfusion Reactions: No Reported Reaction Past Psychological History: Depression Smoking Status: Never smoker Past Alcohol Use History: None Reported Past Drug Use History: Marijuana - Past Family History Mother Family Medical History: No Reported History <Tito Cevallos - Last Filed: 12/19/21 16:10> General Exam Limitations: no limitations <Tito Cevallos - Last Filed: 12/19/21 16:10> - General Exam Comments Initial Comments: GENERAL: Patient is well-developed and well-nourished. Patient is nontoxic and well- hydrated and is in mild distress. ENT: Neck is soft and supple. No significant lymphadenopathy is noted. Oropharynx is clear. Moist mucous membranes. Neck has full range of motion without eliciting any pain. EYES: The sclera were anicteric and conjunctiva were pink and moist. Extraocular movements were intact and pupils were equal round and reactive to light. Eyelids were unremarkable. PULMONARY: Unlabored respirations. Good breath sounds bilaterally. No audible rales rhonchi or wheezing was noted. CARDIOVASCULAR: Patient is tachycardic at 125 bpm. ABDOMEN: Soft and nontender with normal bowel sounds. SKIN: Skin is clear with no lesions or rashes and otherwise unremarkable. NEUROLOGIC: Patient is alert and oriented x3. Cranial nerves II through XII are grossly intact. Motor and sensory are also intact. Normal speech, volume and content. Symmetrical smile. MUSCULOSKELETAL: Normal extremities with adequate strength and full range of motion. No lower extremity swelling or edema. No calf tenderness. LYMPHATICS: No significant lymphadenopathy is noted PSYCHIATRIC: Normal psychiatric evaluation. (Tito Cevallos) Course Vital Signs 12/19/21 12/19/21 12/19/21 12:22 12:46 14:30 Temperature 97.5 F L Pulse Rate 122 H 120 H 109 H Pulse Rate [ 120 H [facility] ] Respiratory 26 H 30 H 18 Rate Blood Pressure 147/68 111/63 113/76 O2 Sat by Pulse 95 97 96 Oximetry 12/19/21 12/19/21 15:05 16:18 Temperature Pulse Rate 108 H 108 H Pulse Rate [ [facility] ] Respiratory 18 32 H Rate Blood Pressure 118/64 100/80 O2 Sat by Pulse 98 98 Oximetry Medical Decision Making - Lab Data Result diagrams: 12/19/21 12:46 12/19/21 15:15 <Tito Cevallos - Last Filed: 12/19/21 16:10> - Lab Data Result diagrams: 12/19/21 12:46 12/19/21 15:15 <Michael De La Cruz - Last Filed: 12/19/21 17:20> - Medical Decision Making EKG shows sinus tachycardia at 121 bpm NH interval 224 QRS is 74 QT interval is 288 QTC is 360. Patient's EKG shows no ST segment elevation or depression. Dr. De La Cruz be taking over the care of this patient at 4:00. (Tito Cevallos) Patient signed out to me pending results of CT imaging. She originally presente d with what appears to be somewhat atypical chest pain since yesterday afternoon. This hasn't with shortness of breath. Cardiac workup is largely unremarkable, including a negative troponin. ENT is within normal limits. D- dimer was slightly elevated and therefore CT PE was ordered. Patient does appear to be having a mild AK eye with an elevated BUN/creatinine. Remainder of her labs are unremarkable. EKG was interpreted by private physician is unremarkable except for sinus tachycardia. I would agree with this interpretation. 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 No other acute findings. Chest CT angiogram revealed no acute PE. There are chronic lung changes to the right lung secondary to the paralyzed right hemidiaphragm. There is basilar atelectasis. On reevaluation, patient is still having mild chest pain. She does endorse me that she is under a lot of stress lately, being evicted from her home. We will tend to treat her pain with Ativan, as so far nitro, aspirin, morphine have not helped. She was in agreement with this plan. She'll be admitted based on her risk factors, as her heart score is moderate at 4. She was in agreement with the admission. Patient needs observation admission criteria. She'll be admitted to an observation telemetry bed. Therefore patient will be admitted under sounds physician group, Dr. Mora but I spoke with over the phone accepted the admission. We will trend her troponins. (Michael De La Cruz) - Lab Data Lab Results 12/19/21 12/19/21 12/19/21 Range/Units 12:46 12:46 12:46 WBC 9.4 (3.8-10.6) k/uL RBC 3.85 (3.80-5.40) m/uL Hgb 12.6 (11.4-16.0) gm/dL Hct 36.7 (34.0-46.0) % MCV 95.5 (80.0-100.0) fL MCH 32.6 (25.0-35.0) pg MCHC 34.2 (31.0-37.0) g/dL RDW 13.7 (11.5-15.5) % Plt Count 232 (150-450) k/uL MPV 8.0 Neutrophils % 50 % Lymphocytes % 39 % Monocytes % 5 % Eosinophils % 2 % Basophils % 1 % Neutrophils # 4.7 (1.3-7.7) k/uL Lymphocytes # 3.7 (1.0-4.8) k/uL Monocytes # 0.5 (0-1.0) k/uL Eosinophils # 0.2 (0-0.7) k/uL Basophils # 0.0 (0-0.2) k/uL PT 10.1 (9.0-12.0) sec INR 0.9 (<1.2) APTT 23.4 (22.0-30.0) sec D-Dimer 1.12 H (<0.60) mg/L FEU Sodium (137-145) mmol/L Potassium (3.5-5.1) mmol/L Chloride (98-107) mmol/L Carbon Dioxide (22-30) mmol/L Anion Gap mmol/L BUN (7-17) mg/dL Creatinine (0.52-1.04) mg/dL Est GFR (CKD-EPI)AfAm (>60 ml/min/1.73 sqM) Est GFR (CKD-EPI)NonAf (>60 ml/min/1.73 sqM) Glucose (74-99) mg/dL Calcium (8.4-10.2) mg/dL Magnesium (1.6-2.3) mg/dL Total Bilirubin (0.2-1.3) mg/dL AST (14-36) U/L ALT (4-34) U/L Alkaline Phosphatase (38-126) U/L Troponin I (0.000-0.034) ng/mL NT-Pro-B Natriuret Pep 52 pg/mL Total Protein (6.3-8.2) g/dL Albumin (3.5-5.0) g/dL 12/19/21 12/19/21 Range/Units 15:15 15:15 WBC (3.8-10.6) k/uL RBC (3.80-5.40) m/uL Hgb (11.4-16.0) gm/dL Hct (34.0-46.0) % MCV (80.0-100.0) fL MCH (25.0-35.0) pg MCHC (31.0-37.0) g/dL RDW (11.5-15.5) % Plt Count (150-450) k/uL MPV Neutrophils % % Lymphocytes % % Monocytes % % Eosinophils % % Basophils % % Neutrophils # (1.3-7.7) k/uL Lymphocytes # (1.0-4.8) k/uL Monocytes # (0-1.0) k/uL Eosinophils # (0-0.7) k/uL Basophils # (0-0.2) k/uL PT (9.0-12.0) sec INR (<1.2) APTT (22.0-30.0) sec D-Dimer (<0.60) mg/L FEU Sodium 134 L (137-145) mmol/L Potassium 4.8 (3.5-5.1) mmol/L Chloride 97 L (98-107) mmol/L Carbon Dioxide 29 (22-30) mmol/L Anion Gap 8 mmol/L BUN 28 H (7-17) mg/dL Creatinine 1.39 H (0.52-1.04) mg/dL Est GFR (CKD-EPI)AfAm 44 (>60 ml/min/1.73 sqM) Est GFR (CKD-EPI)NonAf 39 (>60 ml/min/1.73 sqM) Glucose 192 H (74-99) mg/dL Calcium 9.3 (8.4-10.2) mg/dL Magnesium 1.5 L (1.6-2.3) mg/dL Total Bilirubin 0.4 (0.2-1.3) mg/dL AST 23 (14-36) U/L ALT 19 (4-34) U/L Alkaline Phosphatase 145 H (38-126) U/L Troponin I <0.012 (0.000-0.034) ng/mL NT-Pro-B Natriuret Pep pg/mL Total Protein 7.2 (6.3-8.2) g/dL Albumin 3.8 (3.5-5.0) g/dL Disposition <Tito Cevallos - Last Filed: 12/19/21 16:10> <Michael De La Cruz - Last Filed: 12/19/21 17:20> Clinical Impression: Hypomagnesemia, Chest pain of unknown etiology, Anxiety, QUOC (acute kidney injury) Disposition: ADMITTED IP TO THIS [facility] Condition: Stable Referrals: Estrada Fernandes DO [Primary Care Provider] - 1-2 days
[2021-12-19 13:12] LABS: Basophils % (A) 1 %; Eosinophils # (A) 0.2 k/uL (0-0.7); Eosinophils % (A) 2 %; HCT 36.7 % (34.0-46.0); HGB 12.6 gm/dL (11.4-16.0); Lymphocytes # (A) 3.7 k/uL (1.0-4.8); Lymphocytes % (A) 39 %; MCH 32.6 pg (25.0-35.0); MCHC 34.2 g/dL (31.0-37.0); MCV 95.5 fL (80.0-100.0); Monocytes # (A) 0.5 k/uL (0-1.0); Monocytes % (A) 5 %; Neutrophils # (A) 4.7 k/uL (1.3-7.7); Neutrophils % (A) 50 %; Platelet Count 232 k/uL (150-450); RBC 3.85 m/uL (3.80-5.40); RDW 13.7 % (11.5-15.5); WBC 9.4 k/uL (3.8-10.6)
--- NOTE | 2021-12-19 13:13 | XR ---
EXAMINATION TYPE: XR chest 2V DATE OF EXAM: 12/19/2021 COMPARISON: 02/08/2020 HISTORY: 70-year-old female with chest pain TECHNIQUE: AP and lateral views FINDINGS: Continued asymmetric elevation right hemidiaphragm. There is some strandy atelectasis at the right ba se. Otherwise, no consolidation or pleural effusion seen. Moderate degenerative change right AC joint . Heart overall normal size. IMPRESSION: 1. Continued prominent asymmetric elevation right hemidiaphragm may be secondary to partial paresis. 2. There is strandy right basilar atelectasis and volume loss.
[2021-12-19 13:26] LABS: INR 0.9 (<1.2); Partial Thromboplastin Time 23.4 sec (22.0-30.0); Prothrombin Time 10.1 sec (9.0-12.0)
[2021-12-19] MEDS ORDERED: MORPHINE SULFATE 2 MG/ML SYRINGE IVP STA (15:15)
[2021-12-19 15:29] LABS: Albumin 3.8 g/dL (3.5-5.0); Calcium 9.3 mg/dL (8.4-10.2); Magnesium 1.5 mg/dL (1.6-2.3); Potassium 4.8 mmol/L (3.5-5.1); Total Bilirubin 0.4 mg/dL (0.2-1.3); Total Protein 7.2 g/dL (6.3-8.2)
[2021-12-19] MEDS ORDERED: SODIUM CHLORIDE 0.9% 500 ML 500 ML IV ONE (15:37)
[2021-12-19] MEDS ORDERED: MAGNESIUM SULFATE-D5W PMX 1 GM in DEXTROSE/WATER 1 100ML.BAG IVPB ONE (15:38)
[2021-12-19] MEDS ORDERED: LORazepam 0.5 MG TAB PO STA (16:23)
--- NOTE | 2021-12-19 16:25 | CT ---
EXAMINATION TYPE: CT chest angio for PE DATE OF EXAM: 12/19/2021 COMPARISON: CT chest June 07, 2021 HISTORY: Shortness of breath, chest pain. CT DLP: 563.9 mGycm. Automated Exposure Control for Dose Reduction was Utilized. CONTRAST: CTA scan of the thorax is performed with IV Contrast, patient injected with 80 mL of Isovue 370, pulm onary embolism protocol. MIP Images are created on CT scanner and reviewed. FINDINGS: LUNGS: There is elevated right hemidiaphragm with right basilar atelectasis and/or chronic consolidat ion redemonstrated. Left lung shows mild linear atelectasis and/or developing consolidation in the ba se just above the diaphragm. No pleural effusion or pneumothorax seen bilaterally. MEDIASTINUM: There is satisfactory enhancement of the pulmonary artery and its branches, there is no CT evidence for pulmonary embolism. There are no new greater than 1 cm hilar or mediastinal lymph n odes. No cardiomegaly or pericardial effusion is seen. OTHER: Cholecystectomy clips are present. IMPRESSION: No CT evidence for acute pulmonary embolism. Chronic changes to right lung redemonstrated . Left basilar findings favor atelectasis.
[2021-12-19] MEDS ORDERED: LORazepam 2 MG/ML INJ IV STA (17:02)
[2021-12-19] MEDS ORDERED: ONDANSETRON 4 MG/2 ML VIAL IVP PRN (17:11)
[2021-12-19] MEDS ORDERED: NALOXONE 0.4 MG/ML 1 ML VIAL IV PRN (17:11)
[2021-12-19] MEDS ORDERED: MORPHINE SULFATE 4 MG/ML SYRINGE IV PRN (17:11)
[2021-12-19] MEDS ORDERED: ALBUTEROL NEBULIZED 2.5 MG/3 ML INHALATION PRN (17:46)
[2021-12-19] MEDS ORDERED: traMADol 50 MG TAB PO PRN (17:46)
[2021-12-19] MEDS ORDERED: CYCLOBENZAPRINE 10 MG TAB PO PRN (17:46)
--- NOTE | 2021-12-19 18:17 | P.HPIM ---
History of Present Illness H&P Date: 12/19/21 History of Presenting Illness: Patient is a very pleasant 70-year-old female with a past medical history of hypertension, hyperlipidemia, pulmonary emboli no longer on anticoagulation as it was associated with a long bone fracture, seizure disorder, GERD, anxiety, and insulin-dependent diabetes mellitus type 2. She presented to the emergency department with a chief complaint of shortness of breath. Patient reports that she has been short of breath times one year and states that it is significantly worsened over the past 2 months. Patient reports that she was seen by a p ulmonologist, Dr. Jordan and was informed that the right side of her diaphragm is paralyzed and that she would need to be seen by a surgeon. Patient states that she made an appointment with Dr. Mir on December 22, but states today her shortness of breath seemed to be much worse and she didn't feel that she is going to make it to see the surgeon so she came into the emergency department for evaluation. In the emergency department, patient underwent full evaluation. Chest x-ray was completed revealing continued prominent asymmetric elevation of right hemidiaphragm possibly secondary to parietal paresis. Labs completed revealing normal CBC, BMP revealing mild hyponatremia with sodium of 134 and slightly elevated renal function with BUN 28, creatinine 1.39, and GFR of 39 with baseline Creatinine 0.8 . Troponin negative at less than 0.012. ProBNP 52. D-dimer slightly elevated at 1.12. CTA chest negative for pulmonary emboli showing chronic changes of elevated right hemidiaphragm with right basilar atelectasis and/or chronic consolidation redemonstrated. EKG completed showing sinus tachycardia at 121 bpm with no noted T-wave or ST abnormalities. Patient seen and fully evaluated at bedside in the emergency department, patient appeared very anxious reporting "I cannot breathe." Patient was tachycardic at 112 bpm, tachypneic with respiratory rate of 28, and expressed feeling very anxious. Patient reassured that she is doing well and is currently on 2 L O2 via nasal cannula and currently SpO2 is 100%. Patient being given Ativan by [employer] for treatment of this anxiety at this time. Patient speaking in full sentences without noted difficulty. Patient reports that in addition to her shortness of breath she was also having some pain throughout her chest radiating down her left arm which has improved but remains slightly. She also reports having a chronic cough but denies any increases in or changes in baseline cough. Patient denies having any headache, lightheadedness, dizziness, chills, diaphoresis, fevers, palpitations, abdominal pain, nausea, vomiting, or experiencing any numbness/tingling/weakness/swelling in her extremities. Patient has been admitted under our services with consultation to pulmonology. Review of systems: Pertinent positives and negatives as discussed in HPI, a complete review of systems was performed and all other systems are negative. Physical exam: Vital signs reviewed and stable. General: Nontoxic, no distress and appears stated age. Obese. Derm: Skin warm and dry, normal coloration for ethnicity. Head: Atraumatic, normocephalic and symmetric. Eyes: EOMs intact, no lid lag, and anicteric sclera Mouth: no lip lesions, mucus membranes moist Cardiovascular: regular rate and rhythm with normal S1S2, no murmur, positive posterior tibial pulses bilaterally, and cap refill < 2 seconds. Lungs: Respirations even, regular, and unlabored on room air. Lungs CTA bilaterally, no rhonchi, no rales, no wheezing, and no accessory muscle usage. Abdominal: obese abdomen soft, nontender to palpation, no guarding, no appreciable organomegaly Ext: ROM intact. No gross muscle atrophy, no edema, no contractures Neuro: Speech clear, face symmetrical and CN II-XII grossly intact with no noted focal neuro deficits Psych: Alert and oriented to person, place, time, and situation Anxious affect. Assessment and Plan of Care: Acute on chronic respiratory failure with right-sided hemidiaphragm partial paralysis -D-dimer slightly elevated at 1.12. CTA chest negative for pulmonary emboli showing chronic changes of elevated right hemidiaphragm with right basilar atelectasis and/or chronic consolidation redemonstrated. -Chest x-ray was completed revealing continued prominent asymmetric elevation of right hemidiaphragm possibly secondary to parietal paresis. -Oxygenation to be administered and titrated as needed to maintain SPO2 equal to or greater than 92% -Telemetry monitoring. -Monitor Pulse-oximetry -Incentive Spirometry -Continue daily Ellipta along with duo nebs as needed for shortness of breath and/or wheezing. -Pulmonary consulted Acute kidney injury Hyponatremia -BMP revealing mild hyponatremia with sodium of 134 and slightly elevated renal function with BUN 28, creatinine 1.39, and GFR of 39 with baseline Creatinine 0.8 -Hold nephrotoxic medications including Lasix and Losartan. -Provide gentle hydration and we will continue to monitor closely with repeat a.m. labs. Seizure disorder -Continue daily medication regimen with Depakote and Keppra. -Seizure precautions Anxiety -Continue daily medication regimen with buspirone and Pristiq. Hypertension -Monitor vital signs and continue daily medication regimen. Hyperlipidemia -Continue daily medication regimen Insulin-dependent diabetes mellitus -Hold oral hypoglycemic medications and place patient on glycemic protocol with NovoLog sliding scale. GERD -Continue daily medication regimen with omeprazole 40 mg daily. The patient is admitted with an anticipated less than 2 midnight stay for evaluation of shortness of breath. CODE STATUS: Full code DVT prophylaxis: Heparin Discussed with: Patient and RN Anticipated discharge date: Likely tomorrow Anticipated discharge place: Home A total of 43 minutes was spent on the care of this complex patient more than 50% of the time was spent in counseling and care coordination. I reviewed the documentation as provided by the MICHELLE above, who is the original author of this note. I agree with the documented assessment and plan, with the following changes: None Past Medical History Past Medical History: Chest Pain / Angina, Diabetes Mellitus, GERD/Reflux, Hyperlipidemia, Hypertension, Osteoarthritis (OA), Pulmonary Embolus (PE), Seizure Disorder Additional Past Medical History / Comment(s): ulcer,constant abdominal pain, occ. MIGRAINES, HIATAL HERNIA. SEIZURE 03/2018- NONE SINCE. heart murmer History of Any Multi-Drug Resistant Organisms: None Reported Past Surgical History: Cholecystectomy, Orthopedic Surgery, Tonsillectomy, Tubal Ligation Additional Past Surgical History / Comment(s): NECK SURGERY, REPAIR FX RT LEG SURGERY, EGD, COLONOSCOPY. arturo cataracts Past Anesthesia/Blood Transfusion Reactions: No Reported Reaction Past Psychological History: Depression Smoking Status: Never smoker Past Alcohol Use History: None Reported Past Drug Use History: Marijuana - Past Family History Mother Family Medical History: No Reported History Medications and Allergies Home Medications Medication Instructions Recorded Confirmed Type Simvastatin [Zocor] 40 mg PO DAILY 07/23/14 12/19/21 History Divalproex Sodium 250 mg PO BID 04/13/18 12/19/21 History Desvenlafaxine [Pristiq ER] 100 mg PO DAILY 08/06/19 12/19/21 History busPIRone HCL 15 mg PO BID 09/03/19 12/19/21 History levETIRAcetam [Keppra] 750 mg PO BID 12/20/19 12/19/21 History Folic Acid 1 mg PO DAILY 02/08/20 12/19/21 History Magnesium Oxide [Mag-Ox] 400 mg PO DAILY 02/08/20 12/19/21 History Aspirin EC [Ecotrin Low Dose] 81 mg PO DAILY 09/13/20 12/19/21 History Propranolol HCl [Propranolol HCl 60 mg PO DAILY 10/03/20 12/19/21 History ER] Cyclobenzaprine [Flexeril] 10 mg PO BID PRN 10/04/20 12/19/21 History Insulin Degludec [Tresiba 60 units SQ DAILY 06/07/21 12/19/21 History Flextouch U-200 Pen] Metoclopramide [Reglan] 5 mg PO TID 06/07/21 12/19/21 History Multivitamins, Thera [Multivitamin 1 tab PO DAILY 06/07/21 12/19/21 History (formulary)] Omeprazole [PriLOSEC] 40 mg PO DAILY 06/07/21 12/19/21 History sitaGLIPtin [Januvia] 100 mg PO DAILY 06/07/21 12/19/21 History Acetaminophen Tab [Tylenol] 650 mg PO Q4H PRN 12/19/21 12/19/21 History Albuterol Inhaler [Ventolin Hfa 1 puff INHALATION RT-Q6H PRN 12/19/21 12/19/21 History Inhaler] Albuterol Nebulized [Ventolin 2.5 mg INHALATION RT-Q4H PRN 12/19/21 12/19/21 History Nebulized] Dicyclomine [Bentyl] 10 mg PO TID-W/MEALS 12/19/21 12/19/21 History Fluticasone/Umeclidin/Vilanter 1 puff INHALATION RT-DAILY 12/19/21 12/19/21 History [Trelegy Ellipta 200-62.5-25] Furosemide [Lasix] 40 mg PO DAILY 12/19/21 12/19/21 History Losartan Potassium 100 mg PO DAILY 12/19/21 12/19/21 History traMADol HCL 50 mg PO BID PRN 12/19/21 12/19/21 History Allergies Allergy/AdvReac Type Severity Reaction Status Date / Time No Known Allergies Allergy Verified 12/19/21 12:26 Physical Exam Osteopathic Statement: *. No significant issues noted on an osteopathic structural exam other than those noted in the History and Physical/Consult. Vitals: Vital Signs Temp Pulse Pulse Resp BP Pulse Ox 12/19/21 16:18 108 H 32 H 100/80 98 12/19/21 15:05 108 H 18 118/64 98 12/19/21 14:30 109 H 18 113/76 96 12/19/21 12:46 120 H 120 H 30 H 111/63 97 12/19/21 12:22 97.5 F L 122 H 26 H 147/68 95 Intake and Output 12/19/21 12/19/21 12/19/21 06:59 14:59 22:59 Other: Weight 104.326 kg Results CBC & Chem 7: 12/19/21 12:46 12/19/21 15:15 Labs: Abnormal Lab Results - Last 24 Hours (Table) 12/19/21 12/19/21 Range/Units 12:46 15:15 D-Dimer 1.12 H (<0.60) mg/L FEU Sodium 134 L (137-145) mmol/L Chloride 97 L (98-107) mmol/L BUN 28 H (7-17) mg/dL Creatinine 1.39 H (0.52-1.04) mg/dL Glucose 192 H (74-99) mg/dL Magnesium 1.5 L (1.6-2.3) mg/dL Alkaline Phosphatase 145 H (38-126) U/L
[2021-12-19] MEDS: SODIUM CHLORIDE 0.9% 1,000 ML IV SCH (18:37)
[2021-12-19 19:48] LABS: Glucose,Whole Blood 97 mg/dL (75-99)
[2021-12-19] MEDS: INSULIN ASPART (NovoLOG) 100 UNIT/ML VIAL SQ SCH (21:05)
[2021-12-19] MEDS: METOCLOPRAMIDE 5 MG TAB PO SCH (21:12)
[2021-12-19] MEDS: DIVALPROEX 250 MG TABLET.DR PO SCH (21:12)
[2021-12-19] MEDS: busPIRone HCl 5 MG TAB PO SCH (21:12)
[2021-12-20 00:57] LABS: Glucose,Whole Blood 214 mg/dL (75-99)
[2021-12-20] MEDS: INSULIN ASPART (NovoLOG) 100 UNIT/ML VIAL SQ SCH ×5 (01:20→21:10)
[2021-12-20] MEDS: HEPARIN SODIUM,PORCINE/PF 5,000 UNIT/0.5 ML SYRINGE SQ SCH ×3 (01:20→17:14)
[2021-12-20] MEDS: SODIUM CHLORIDE 0.9% 1,000 ML IV SCH ×2 (02:52→17:15)
[2021-12-20 06:57] LABS: Glucose,Whole Blood 200 mg/dL (75-99)
[2021-12-20] MEDS ORDERED: diazePAM 5 MG TAB PO STA (07:53)
[2021-12-20] MEDS: ACETAMINOPHEN TAB 325 MG TAB PO PRN ×2 (07:53→21:09)
[2021-12-20] MEDS: DIVALPROEX 250 MG TABLET.DR PO SCH ×2 (07:54→21:10)
[2021-12-20] MEDS: METOCLOPRAMIDE 5 MG TAB PO SCH ×3 (07:54→21:10)
[2021-12-20] MEDS: busPIRone HCl 5 MG TAB PO SCH ×2 (07:55→21:10)
[2021-12-20] MEDS: MULTIVITAMINS, THERA 1 EACH TAB PO SCH (07:55)
[2021-12-20] MEDS: PROPRANOLOL LA 60 MG CAP.SA.24H PO SCH (07:55)
[2021-12-20] MEDS: FOLIC ACID 1 MG TAB PO SCH (07:55)
[2021-12-20] MEDS: PANTOPRAZOLE 40 MG TABLET PO SCH (07:55)
[2021-12-20] MEDS: ATORVASTATIN 20 MG TAB PO SCH (07:55)
[2021-12-20] MEDS: ASPIRIN 81 MG PO SCH (07:56)
[2021-12-20] MEDS: MAGNESIUM OXIDE 400 MG TAB PO SCH (07:56)
[2021-12-20] MEDS ORDERED: NON FORMULARY DRUG (Fluticasone/Umeclidin/Vilanter [Trelegy Ellipta 200-62.5-25] 1 EACH Bl INHALATION SCH (08:00)
[2021-12-20] MEDS: IPRATROPIUM 0.5 MG/2.5 ML NEBU INHALATION SCH ×4 (08:24→19:27)
[2021-12-20] MEDS: SYMBICORT 160-4.5 MCG INHALER INHALATION SCH ×2 (08:25→19:26)
[2021-12-20] MEDS ORDERED: DESVENLAFAXINE SUCCINATE 50 MG TAB.ER.24H PO SCH (09:00)
[2021-12-20] MEDS ORDERED: INSULIN DETEMIR (LEVEMIR) 100 UNIT/ML SYR SQ SCH (09:00)
[2021-12-20 09:12] LABS: Basophils # (A) 0.03 X 10*3/uL (0.00-0.10); Basophils % (A) 0.3 %; Eosinophils # (A) 0.13 X 10*3/uL (0.04-0.35); Eosinophils % (A) 1.2 %; HCT 34.8 % (37.2-46.3); HGB 11.2 g/dL (12.0-15.0); Immature Grans, Automated 0.5 %; Lymphocytes # (A) 3.25 X 10*3/uL (0.90-5.00); Lymphocytes % (A) 30.5 %; MCH 30.9 pg (27.0-32.0); MCHC 32.2 g/dL (32.0-37.0); MCV 95.9 fL (80.0-97.0); Mean Platelet Volume 10.4 fL (9.5-12.2); Monocytes # (A) 0.91 X 10*3/uL (0.20-1.00); Monocytes % (A) 8.6 %; NRBC Per 100 WBC 0 /100 WBCS (0.0-0.0); Neutrophils # (A) 6.27 X 10*3/uL (1.80-7.70); Neutrophils % (A) 58.9 %; Platelet Count 206 X 10*3/uL (140-440); RBC 3.63 X 10*6/uL (4.10-5.20); RDW 13.1 % (11.5-14.5); WBC 10.64 X 10*3/uL (4.50-10.00)
[2021-12-20 10:11] LABS: Anion Gap 13.5 mmol/L (10.00-18.00); BUN/Creat Ratio 16.46 Ratio (12.00-20.00); Calcium 8.9 mg/dL (8.7-10.3); Non-African American GFR(CKD) 32.8 (60.0-200.0); Potassium 4.3 mmol/L (3.5-5.5)
[2021-12-20] MEDS: AZITHROMYCIN 500 MG TAB PO SCH (11:48)
[2021-12-20] MEDS: methylPREDNISolone SOD SUCCI 40 MG/ML 1 ML VIAL IV SCH ×2 (11:49→23:42)
[2021-12-20] MEDS: IPRATROPIUM-ALBUTEROL 3 ML NEB INHALATION SCH ×3 (11:56→19:24)
[2021-12-20 12:14] LABS: Glucose,Whole Blood 166 mg/dL (75-99)
--- NOTE | 2021-12-20 12:25 | P.CNPUL ---
History of Present Illness Consult date: 12/20/21 Requesting physician: Sahil Mora Reason for consult: dyspnea, abnormal CXR/CT Chief complaint: Shortness of breath, cough, congestion History of present illness: This is a very pleasant 70-year-old female patient who follows with Dr. Fernandes as her primary care provider. She has a history of diabetes mellitus, seizure disorder, hyperlipidemia, hypertension, migraines. She also has a history of progressive shortness of breath. She's been seen and evaluated by Dr. Jordan in our office. She is found to have a right hemidiaphragm elevation with the paralysis noted on a sniff test back in August 2021. Her FEV1 value is 53% of predicted. Based on her elevated exertional dyspnea. He was only able to walk about 424 feet and had to stop after 3 minutes secondary to heart rate response and O2 saturation 91% and significant shortness of breath. Following that she was referred to Dr. Pettit for possible diaphragm plication. She has a consultation appointment 12/23/2019. She had since developed ongoing issues with shortness of breath and developed cough and congestion and presented here to the emergency room yesterday for the same. X-ray did reveal asymmetric elevation of the right hemidiaphragm. There is also stranding right basilar atelectasis and volume loss. CT angiogram ruled out pulmonary embolism. There is chronic changes to the right lung where he demonstrated. Left basilar findings favor atelectasis. She is seen today in consultation on the regular medical floor. She is currently sitting up in bed. She does have a loose nonproductive cough. She is maintaining O2 saturations in the 90s on 2 L/m per nasal cannula. She's been afebrile. Hemodynamically stable. White count 10.6. Hemoglobin 11.2. Sodium 137. Potassium 4.3. BUN 26. Creatinine 1.6. Oseguera virus by PCR negative. Influenza screen negative. RSV screen negative. She's been initiated on bronchodilators. Review of Systems REVIEW OF SYSTEMS: CONSTITUTIONAL: Denies any recent significant weight loss or weight gain. EYES: Denies change in vision. EARS, NOSE, MOUTH, THROAT: Denies headaches, denies sore throat. CARDIOVASCULAR: Denies chest pain, palpitations or syncopal episodes. RESPIRATORY: Positive for shortness of breath, cough, congestion no hemoptysis. GASTROINTESTINAL: Denies change in appetite, denies abdominal pain GENITOURINARY: Denies hematuria, denies infections. MUSKULOSKELETAL: Denies pain, denies swelling. INTEGUMENTARY: Denies rash, denies eczema. NEUROLOGICAL: Denies recent memory loss, no recent seizure activity. PSYCHIATRIC: Denies anxiety, denies depression. HEMATOLOGIC/LYMPHATIC: Denies anemia, denies enlarged lymph nodes. Past Medical History Past Medical History: Chest Pain / Angina, Diabetes Mellitus, GERD/Reflux, Hyperlipidemia, Hypertension, Osteoarthritis (OA), Pulmonary Embolus (PE), Seizure Disorder Additional Past Medical History / Comment(s): ulcer,constant abdominal pain, occ. MIGRAINES, HIATAL HERNIA. SEIZURE 03/2018- NONE SINCE. heart murmer History of Any Multi-Drug Resistant Organisms: None Reported Past Surgical History: Cholecystectomy, Orthopedic Surgery, Tonsillectomy, Tubal Ligation Additional Past Surgical History / Comment(s): NECK SURGERY, REPAIR FX RT LEG SURGERY, EGD, COLONOSCOPY. 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 Past Drug Use History: Marijuana Additional Drug Use History / Comment(s): uses marijuana daily - Past Family History Mother Family Medical History: No Reported History Medications and Allergies Home Medications Medication Instructions Recorded Confirmed Type Simvastatin [Zocor] 40 mg PO DAILY 07/23/14 12/19/21 History Divalproex Sodium 250 mg PO BID 04/13/18 12/19/21 History Desvenlafaxine [Pristiq ER] 100 mg PO DAILY 08/06/19 12/19/21 History busPIRone HCL 15 mg PO BID 09/03/19 12/19/21 History levETIRAcetam [Keppra] 750 mg PO BID 12/20/19 12/19/21 History Folic Acid 1 mg PO DAILY 02/08/20 12/19/21 History Magnesium Oxide [Mag-Ox] 400 mg PO DAILY 02/08/20 12/19/21 History Aspirin EC [Ecotrin Low Dose] 81 mg PO DAILY 09/13/20 12/19/21 History Propranolol HCl [Propranolol HCl 60 mg PO DAILY 10/03/20 12/19/21 History ER] Cyclobenzaprine [Flexeril] 10 mg PO BID PRN 10/04/20 12/19/21 History Insulin Degludec [Tresiba 60 units SQ DAILY 06/07/21 12/19/21 History Flextouch U-200 Pen] Metoclopramide [Reglan] 5 mg PO TID 06/07/21 12/19/21 History Multivitamins, Thera [Multivitamin 1 tab PO DAILY 06/07/21 12/19/21 History (formulary)] Omeprazole [PriLOSEC] 40 mg PO DAILY 06/07/21 12/19/21 History sitaGLIPtin [Januvia] 100 mg PO DAILY 06/07/21 12/19/21 History Acetaminophen Tab [Tylenol] 650 mg PO Q4H PRN 12/19/21 12/19/21 History Albuterol Inhaler [Ventolin Hfa 1 puff INHALATION RT-Q6H PRN 12/19/21 12/19/21 History Inhaler] Albuterol Nebulized [Ventolin 2.5 mg INHALATION RT-Q4H PRN 12/19/21 12/19/21 History Nebulized] Dicyclomine [Bentyl] 10 mg PO TID-W/MEALS 12/19/21 12/19/21 History Fluticasone/Umeclidin/Vilanter 1 puff INHALATION RT-DAILY 12/19/21 12/19/21 History [Trelegy Ellipta 200-62.5-25] Furosemide [Lasix] 40 mg PO DAILY 12/19/21 12/19/21 History Losartan Potassium 100 mg PO DAILY 12/19/21 12/19/21 History traMADol HCL 50 mg PO BID PRN 12/19/21 12/19/21 History Allergies Allergy/AdvReac Type Severity Reaction Status Date / Time No Known Allergies Allergy Verified 12/19/21 12:26 Physical Exam Vitals: Vital Signs Temp Pulse Pulse Pulse Resp BP BP 12/20/21 12:06 98 12/20/21 11:56 106 H 12/20/21 08:38 118 H 12/20/21 08:29 12/20/21 08:25 116 H 12/20/21 08:00 124 H 124 H 22 12/20/21 07:00 97.8 F 120 H 20 12/20/21 00:49 97.7 F 123 H 22 147/78 12/20/21 00:20 115 H 24 120/68 12/19/21 21:03 115 H 24 116/44 12/19/21 20:29 22 12/19/21 18:33 98.2 F 108 H 24 116/76 12/19/21 16:18 108 H 32 H 100/80 12/19/21 15:05 108 H 18 118/64 12/19/21 14:30 109 H 18 113/76 12/19/21 12:46 120 H 120 H 30 H 111/63 12/19/21 12:22 97.5 F L 122 H 26 H 147/68 BP Pulse Ox 12/20/21 12:06 12/20/21 11:56 12/20/21 08:38 12/20/21 08:29 98 12/20/21 08:25 12/20/21 08:00 12/20/21 07:00 142/78 98 12/20/21 00:49 99 12/20/21 00:20 98 12/19/21 21:03 98 12/19/21 20:29 99 12/19/21 18:33 98 12/19/21 16:18 98 12/19/21 15:05 98 12/19/21 14:30 96 12/19/21 12:46 97 12/19/21 12:22 95 Intake and Output 12/19/21 12/20/21 12/20/21 22:59 06:59 14:59 Intake Total 118 Balance 118 Intake: Oral 118 Other: Voiding Method Bedside Commode # Voids 0 1 Weight 104.326 kg GENERAL EXAM: Alert, pleasant 70-year-old female patient, on 2 L nasal cannula, comfortable in no apparent distress. HEAD: Normocephalic. EYES: Normal reaction of pupils, equal size. NOSE: Clear with pink turbinates. THROAT: No erythema or exudates. NECK: No masses, no JVD. CHEST: No chest wall deformity. LUNGS: Equal air entry with diminished in the right lung base. CVS: S1 and S2 normal with no audible murmur, regular rhythm. ABDOMEN: No hepatosplenomegaly, normal bowel sounds, no guarding or rigidity. SPINE: No scoliosis or deformity SKIN: No rashes CENTRAL NERVOUS SYSTEM: No focal deficits, tone is normal in all 4 extremities. EXTREMITIES: There is no peripheral edema. No clubbing, no cyanosis. Peripheral pulses are intact. Results - Laboratory Findings CBC and BMP: 12/20/21 05:54 12/20/21 05:54 PT/INR, D-dimer PT 10.1 sec (9.0-12.0) 12/19/21 12:46 INR 0.9 (<1.2) 12/19/21 12:46 D-Dimer 1.12 mg/L FEU (<0.60) H 12/19/21 12:46 Abnormal lab findings: Abnormal Labs 12/19/21 12/19/21 12/20/21 12:46 15:15 00:55 WBC RBC Hgb Hct Immature Gran # D-Dimer 1.12 H Sodium 134 L Chloride 97 L BUN 28 H Creatinine 1.39 H Est GFR (CKD-EPI)AfAm Est GFR (CKD-EPI)NonAf Glucose 192 H POC Glucose (mg/dL) 214 H Magnesium 1.5 L Alkaline Phosphatase 145 H 12/20/21 12/20/21 12/20/21 05:54 05:54 06:55 WBC 10.64 H RBC 3.63 L Hgb 11.2 L Hct 34.8 L Immature Gran # 0.05 H D-Dimer Sodium Chloride BUN Creatinine 1.6 H Est GFR (CKD-EPI)AfAm 38.0 L Est GFR (CKD-EPI)NonAf 32.8 L Glucose 166 H POC Glucose (mg/dL) 200 H Magnesium Alkaline Phosphatase - Diagnostic Findings Chest x-ray: image reviewed CT scan - chest: image reviewed Assessment and Plan Assessment: 1 Acute hypoxemic respiratory failure secondary to an suspected purulent tracheobronchitis, complicated by a known right hemidiaphragm elevation. Proalcitonin pending. Coronavirus by PCR not detected. Influenza screen negative. RSV screen negative. 2 Atypical chest pain, troponins negative 3 3 History of right hemidiaphragm elevation, to be evaluated by outpatient thoracic surgery on 12/22/2021 4 Acute renal failure suspect secondary to dehydration 5 Diabetes mellitus 6 history of seizures 7 Hyperlipidemia 8 Hypertension 9 History of migraines 10 Previous history of neck surgery 11 Nonsmoker. Plan: The patient was seen and evaluated Chest x-ray, CAT scans and labs reviewed Add DuoNeb inhalations, continue Symbicort Add azithromycin for now Check a pro-calcitonin Add IV Solu-Medrol Coronavirus, influenza, RSV negative We will continue to follow and make further recommendations based on her clinical status I have personally seen and examined the patient, performed the documentation and the assessment and plan as written. Number of minutes spent on the visit: 20. This is a joint evaluation that was done along with a nurse practitioner. The patient is struggling with her breathing. 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 The patient has an additional tracheal bronchitis which has caused further decompensation shortness of breath. The patient will be treated accordingly with accommodation bronchodilators as and steroids. She will need also surgical repair of the diaphragmatic paralysis on the right a later stage. This evaluation was done more than 30 minutes. Records were reviewed. Chest x-ray was reviewed.
[2021-12-20] MEDS ORDERED: diazePAM 5 MG TAB PO PRN (15:33)
--- NOTE | 2021-12-20 15:42 | P.PN ---
Subjective Progress Note Date: 12/20/21 Hospital course: Patient is a very pleasant 70-year-old female with a past medical history of hypertension, hyperlipidemia, pulmonary emboli no longer on anticoagulation as it was associated with a long bone fracture, seizure disorder, GERD, anxiety, and insulin-dependent diabetes mellitus type 2. She presented to the emergency department with a chief complaint of shortness of breath. Patient reports that she has been short of breath times one year and states that it is significantly worsened over the past 2 months. Patient reports that she was seen by a yard person, Dr. Jordan and was informed that the right side of her diaphragm is paralyzed and that she would need to be seen by a surgeon. Patient states that she made an appointment with Dr. Mir on December 22, but states today her shortness of breath seemed to be much worse and she didn't feel that she is going to make it to see the surgeon so she came into the emergency department for evaluation. In the emergency department, patient underwent full evaluation. Chest x-ray was completed revealing continued prominent asymmetric elevation of right hemidiaphragm possibly secondary to parietal paresis. Labs completed revealing normal CBC, BMP revealing mild hyponatremia with sodium of 134 and slightly elevated renal function with BUN 28, creatinine 1.39, and GFR of 39 with baseline Creatinine 0.8 . Troponin negative at less than 0.012. ProBNP 52. D-dimer slightly elevated at 1.12. CTA chest negative for pulmonary emboli showing chronic changes of elevated right hemidiaphragm with right basilar atelectasis and/or chronic consolidation redemonstrated. EKG completed showing sinus tachycardia at 121 bpm with no noted T-wave or ST abnormalities. Patient was admitted under our services with consultation to pulmonology. Physical exam: Patient seen and fully evaluated at bedside this morning. Patient sitting up at bedside in chair. She continues to have increased respiratory effort. Patient was on 2 L O2 via nasal cannula maintaining SpO2 98-100%. Oxygen removed at this time and patient maintaining SpO2 at 94% on room air. Patient continues to appear very anxious order placed for oral Valium 5 mg to be given 1 dose to as sist with anxiety. Patient continues to deny having any headache, lightheadedness, dizziness, chest pain, palpitations, nausea, or experiencing any numbness/tingling/weakness in her extremities. She continues to report nonproductive cough and feeling so she is having a difficult time catching her breath. Continue daily Ellipta along with duo nebs as needed for shortness of breath and/or wheezing. Vital signs reviewed and stable. General: Nontoxic, no distress and appears stated age. Obese. Derm: Skin warm and dry, normal coloration for ethnicity. Head: Atraumatic, normocephalic and symmetric. Eyes: EOMs intact, no lid lag, and anicteric sclera Mouth: no lip lesions, mucus membranes moist Cardiovascular: regular rate and rhythm with normal S1S2, no murmur, positive posterior tibial pulses bilaterally, and cap refill < 2 seconds. Lungs: Respirations even, regular, and unlabored on room air. Lungs CTA bilaterally, no rhonchi, no rales, no wheezing, and no accessory muscle usage. Abdominal: obese abdomen soft, nontender to palpation, no guarding, no appreciable organomegaly Ext: ROM intact. No gross muscle atrophy, no edema, no contractures Neuro: Speech clear, face symmetrical and CN II-XII grossly intact with no noted focal neuro deficits Psych: Alert and oriented to person, place, time, and situation Anxious affect. Assessment and Plan of Care: Acute on chronic respiratory failure with right-sided hemidiaphragm partial paralysis -D-dimer slightly elevated at 1.12. CTA chest negative for pulmonary emboli showing chronic changes of elevated right hemidiaphragm with right basilar atelectasis and/or chronic consolidation redemonstrated. -Chest x-ray was completed revealing continued prominent asymmetric elevation of right hemidiaphragm possibly secondary to parietal paresis. -Oxygenation to be administered and titrated as needed to maintain SPO2 equal to or greater than 92%. Patient weaned off oxygen and currently on room air maintaining SpO2 92-94%. -Telemetry monitoring. -Monitor Pulse-oximetry -Incentive Spirometry -Continue daily Ellipta along with duo nebs as needed for shortness of breath and/or wheezing. -Pulmonary following, appreciate further recommendations. Acute kidney injury Hyponatremia -BMP revealing mild hyponatremia with sodium of 134 and slightly elevated renal function with BUN 28, creatinine 1.39, and GFR of 39 with baseline Creatinine 0.8 -Hold nephrotoxic medications including Lasix and Losartan. -Provide gentle hydration and we will continue to monitor closely with repeat a.m. labs. Seizure disorder -Continue daily medication regimen with Depakote and Keppra. -Seizure precautions Anxiety -Continue daily medication regimen with buspirone and Pristiq. Hypertension -Monitor vital signs and continue daily medication regimen. Hyperlipidemia -Continue daily medication regimen Insulin-dependent diabetes mellitus -Hold oral hypoglycemic medications and place patient on glycemic protocol with NovoLog sliding scale. GERD -Continue daily medication regimen with omeprazole 40 mg daily. CODE STATUS: Full code DVT prophylaxis: Heparin Discussed with: Patient and RN Anticipated discharge date: Likely tomorrow Anticipated discharge place: Home and recommend following up as scheduled with Dr. Diop on December 22 A total of 38 minutes was spent on the care of this complex patient more than 50% of the time was spent in counseling and care coordination. I reviewed the documentation as provided by the MICHELLE above, who is the original author of this note. I agree with the documented assessment and plan, with the following changes: None Objective - Vital Signs Vital signs: Vital Signs Temp 97.8 F 12/20/21 07:00 Pulse 118 H 12/20/21 08:38 Resp 22 12/20/21 08:00 BP 142/78 12/20/21 07:00 Pulse Ox 98 12/20/21 08:29 Intake & Output 12/19/21 12/20/21 12/20/21 18:59 06:59 18:59 Intake Total 118 Balance 118 Weight 104.326 kg 104.326 kg Intake: Oral 118 Other: Voiding Method Bedside Commode # Voids 0 1 - Labs CBC & Chem 7: 12/20/21 05:54 12/20/21 05:54 Labs: Abnormal Lab Results - Last 24 Hours (Table) 12/19/21 12/19/21 12/20/21 Range/Units 12:46 15:15 00:55 WBC (4.50-10.00) X 10*3/uL RBC (4.10-5.20) X 10*6/uL Hgb (12.0-15.0) g/dL Hct (37.2-46.3) % Immature Gran # (0.00-0.04) X 10*3/uL D-Dimer 1.12 H (<0.60) mg/L FEU Sodium 134 L (137-145) mmol/L Chloride 97 L (98-107) mmol/L BUN 28 H (7-17) mg/dL Creatinine 1.39 H (0.52-1.04) mg/dL Est GFR (CKD-EPI)AfAm (60.0-200.0) Est GFR (CKD-EPI)NonAf (60.0-200.0) Glucose 192 H (74-99) mg/dL POC Glucose (mg/dL) 214 H (75-99) mg/dL Magnesium 1.5 L (1.6-2.3) mg/dL Alkaline Phosphatase 145 H (38-126) U/L 12/20/21 12/20/21 12/20/21 Range/Units 05:54 05:54 06:55 WBC 10.64 H (4.50-10.00) X 10*3/uL RBC 3.63 L (4.10-5.20) X 10*6/uL Hgb 11.2 L (12.0-15.0) g/dL Hct 34.8 L (37.2-46.3) % Immature Gran # 0.05 H (0.00-0.04) X 10*3/uL D-Dimer (<0.60) mg/L FEU Sodium (137-145) mmol/L Chloride (98-107) mmol/L BUN (7-17) mg/dL Creatinine 1.6 H (0.52-1.04) mg/dL Est GFR (CKD-EPI)AfAm 38.0 L (60.0-200.0) Est GFR (CKD-EPI)NonAf 32.8 L (60.0-200.0) Glucose 166 H (74-99) mg/dL POC Glucose (mg/dL) 200 H (75-99) mg/dL Magnesium (1.6-2.3) mg/dL Alkaline Phosphatase (38-126) U/L
[2021-12-20 16:37] LABS: Glucose,Whole Blood 172 mg/dL (75-99)
[2021-12-20 20:42] LABS: Glucose,Whole Blood 291 mg/dL (75-99)
[2021-12-21] MEDS: HEPARIN SODIUM,PORCINE/PF 5,000 UNIT/0.5 ML SYRINGE SQ SCH ×2 (00:43→09:54)
[2021-12-21] MEDS: methylPREDNISolone SOD SUCCI 40 MG/ML 1 ML VIAL IV SCH ×2 (00:43→05:43)
[2021-12-21] MEDS: SODIUM CHLORIDE 0.9% 1,000 ML IV SCH ×2 (00:43→09:57)
[2021-12-21 07:19] LABS: ALT 22 U/L (4-34); AST 34 U/L (14-36); African American GFR (CKD) 60 (>60 ml/min/1.73 sqM); Albumin 3.4 g/dL (3.5-5.0); Alkaline Phosphatase 134 U/L (38-126); Anion Gap 10 mmol/L; Blood Urea Nitrogen 21 mg/dL (7-17); Carbon Dioxide 20 mmol/L (22-30); Chloride 108 mmol/L (98-107); Globulin 3.3 g/dL; Glucose 178 mg/dL (74-99); Magnesium 1.9 mg/dL (1.6-2.3); Non-African American GFR(CKD) 52 (>60 ml/min/1.73 sqM); Potassium 5.3 mmol/L (3.5-5.1); Sodium 138 mmol/L (137-145); Total Bilirubin 0.6 mg/dL (0.2-1.3); Total Protein 6.7 g/dL (6.3-8.2)
[2021-12-21 07:26] LABS: Glucose,Whole Blood 194 mg/dL (75-99)
[2021-12-21 07:27] VITALS: BP 134/77; PULSE 97; RESP 17; TEMP 97.8
[2021-12-21] MEDS: SYMBICORT 160-4.5 MCG INHALER INHALATION SCH (07:44)
[2021-12-21] MEDS: IPRATROPIUM 0.5 MG/2.5 ML NEBU INHALATION SCH (07:44)
[2021-12-21] MEDS: IPRATROPIUM-ALBUTEROL 3 ML NEB INHALATION SCH (07:44)
[2021-12-21 08:35] LABS: HCT 33.5 % (34.0-46.0); HGB 11.1 gm/dL (11.4-16.0); MCH 32.1 pg (25.0-35.0); MCHC 33.2 g/dL (31.0-37.0); MCV 96.7 fL (80.0-100.0); Mean Platelet Volume 8.9; Platelet Count 181 k/uL (150-450); RBC 3.46 m/uL (3.80-5.40); RDW 13.7 % (11.5-15.5); WBC 10.4 k/uL (3.8-10.6)
[2021-12-21] MEDS ORDERED: DESVENLAFAXINE SUCCINATE 50 MG TAB.ER.24H PO SCH (09:00)
[2021-12-21] MEDS: MAGNESIUM OXIDE 400 MG TAB PO SCH (09:55)
[2021-12-21] MEDS: INSULIN ASPART (NovoLOG) 100 UNIT/ML VIAL SQ SCH (09:55)
[2021-12-21] MEDS: PANTOPRAZOLE 40 MG TABLET PO SCH (09:55)
[2021-12-21] MEDS: ASPIRIN 81 MG PO SCH (09:55)
[2021-12-21] MEDS: DIVALPROEX 250 MG TABLET.DR PO SCH (09:56)
[2021-12-21] MEDS: PROPRANOLOL LA 60 MG CAP.SA.24H PO SCH (09:56)
[2021-12-21] MEDS: busPIRone HCl 5 MG TAB PO SCH (09:56)
[2021-12-21] MEDS: FOLIC ACID 1 MG TAB PO SCH (09:56)
[2021-12-21] MEDS: AZITHROMYCIN 500 MG TAB PO SCH (09:56)
[2021-12-21] MEDS: METOCLOPRAMIDE 5 MG TAB PO SCH (09:57)
[2021-12-21] MEDS: MULTIVITAMINS, THERA 1 EACH TAB PO SCH (09:57)
[2021-12-21] MEDS: ATORVASTATIN 20 MG TAB PO SCH (09:57)
--- NOTE | 2021-12-21 11:25 | P.DS ---
Providers Date of admission: 12/19/21 17:11 Expected date of discharge: 12/21/21 Attending physician: Sahil Mora MD Consults: 12/19/21 18:08 Consult Physician Routine Consulting Provider: Gil Jordan Consult Reason/Comments: increased SOB, pt follows Dr. Jordan has partial hemidiaphragm paralysis Do you want consulting provider notified?: Yes Primary care physician: [facility] Course: Discharge Diagnosis: Acute on chronic respiratory failure with right-sided hemidiaphragm partial paralysis. Patient to follow up as scheduled with cardiothoracic surgeon tomorrow morning. Elevated d-dimer, CTA chest negative for PE Acute kidney injury and hyperkalemia, improved. Losartan discontinued. Hyponatremia, resolved Seizure disorder, Continue daily medication regimen with Depakote and Keppra. Anxiety, Continue daily medication regimen with buspirone and Pristiq. Patient also given prescription consisting of 8 tablets of Valium 5 mg by mouth to be used twice daily as needed for severe anxiety. Hypertension, Monitor vital signs and continue daily medication regimen. Hyperlipidemia, Continue daily medication regimen Insulin-dependent diabetes mellitus, stable continue daily medication regimen with Januvia and Tresiba. GERD, Continue daily medication regimen with omeprazole 40 mg daily. Hospital Course: Patient is a very pleasant 70-year-old female with a past medical history of hypertension, hyperlipidemia, pulmonary emboli no longer on anticoagulation as it was associated with a long bone fracture, seizure disorder, GERD, anxiety, and insulin-dependent diabetes mellitus type 2. She presented to the emergency department with a chief complaint of shortness of breath. Patient reports that she has been short of breath times one year and states that it is significantly worsened over the past 2 months. Patient reports that she was seen by a rn cardiac, Dr. Jordan and was informed that the right side of her diaphragm is paralyzed and that she would need to be seen by a surgeon. Patient states that she made an appointment with Dr. Mir on December 22, but states today her shortness of breath seemed to be much worse and she didn't feel that she is going to make it to see the surgeon so she came into the emergency department for evaluation. In the emergency department, patient underwent full evaluation. Chest x-ray was completed revealing continued prominent asymmetric elevation of right hemidiaphragm possibly secondary to parietal paresis. Labs completed revealing normal CBC, BMP revealing mild hyponatremia with sodium of 134 and slightly elevated renal function with BUN 28, creatinine 1.39, and GFR of 39 with baseline Creatinine 0.8 . Troponin negative at less than 0.012. ProBNP 52. D-dimer slightly elevated at 1.12. CTA chest negative for pulmonary emboli showing chronic changes of elevated right hemidiaphragm with right basilar atelectasis and/or chronic consolidation redemonstrated. EKG completed showing sinus tachycardia at 121 bpm with no noted T-wave or ST abnormalities. Patient was admitted under our services with consultation to pulmonology. Patient was monitored over 2 nights and condition stable. Patient was found to be significantly anxious throughout stay. Patient was medicated with Valium 5 mg twice daily as needed and will be sent home with small prescription of this medication. Patient seen and evaluated by pulmonary. Patient is medically stable for discharge at this time and educated on the importance of continuing to follow up with her rn cardiac as well as cardiothoracic surgery tomorrow morning as scheduled. Physical exam: Vital signs reviewed and stable. General: Nontoxic, no distress and appears stated age. Obese. Derm: Skin warm and dry, normal coloration for ethnicity. Head: Atraumatic, normocephalic and symmetric. Eyes: EOMs intact, no lid lag, and anicteric sclera Mouth: no lip lesions, mucus membranes moist Cardiovascular: regular rate and rhythm with normal S1S2, no murmur, positive posterior tibial pulses bilaterally, and cap refill < 2 seconds. Lungs: Respirations even, regular, and unlabored on room air. Lungs CTA bilaterally, no rhonchi, no rales, no wheezing, and no accessory muscle usage. Abdominal: obese abdomen soft, nontender to palpation, no guarding, no appreciable organomegaly Ext: ROM intact. No gross muscle atrophy, no edema, no contractures Neuro: Speech clear, face symmetrical and CN II-XII grossly intact with no noted focal neuro deficits Psych: Alert and oriented to person, place, time, and situation Anxious affect. A total of 40 minutes of time were spent preparing this complex discharge summary. Patient Condition at Discharge: Stable Plan - Discharge Summary Discharge Rx Participant: No New Discharge Prescriptions: New Budesonide-Formot 160-4.5 Mcg [Symbicort 160-4.5 Mcg Inhaler] 2 puff INHALATION RT-BID #1 gm Azithromycin [Zithromax] 500 mg PO DAILY 3 Days #3 tab diazePAM [Valium] 5 mg PO BID PRN #8 tab PRN Reason: Anxiety Continue Simvastatin [Zocor] 40 mg PO DAILY Divalproex Sodium 250 mg PO BID Desvenlafaxine [Pristiq ER] 100 mg PO DAILY busPIRone HCL 15 mg PO BID levETIRAcetam [Keppra] 750 mg PO BID Magnesium Oxide [Mag-Ox] 400 mg PO DAILY Folic Acid 1 mg PO DAILY Aspirin EC [Ecotrin Low Dose] 81 mg PO DAILY Propranolol HCl [Propranolol HCl ER] 60 mg PO DAILY Cyclobenzaprine [Flexeril] 10 mg PO BID PRN PRN Reason: Muscle Pain Multivitamins, Thera [Multivitamin (formulary)] 1 tab PO DAILY Metoclopramide [Reglan] 5 mg PO TID sitaGLIPtin [Januvia] 100 mg PO DAILY Omeprazole [PriLOSEC] 40 mg PO DAILY Acetaminophen Tab [Tylenol] 650 mg PO Q4H PRN PRN Reason: Pain Albuterol Nebulized [Ventolin Nebulized] 2.5 mg INHALATION RT-Q4H PRN PRN Reason: Shortness Of Breath Fluticasone/Umeclidin/Vilanter [Trelegy Ellipta 200-62.5-25] 1 puff INHALATION RT-DAILY Insulin Degludec [Tresiba Flextouch U-200 Pen] 60 units SQ DAILY Albuterol Inhaler [Ventolin Hfa Inhaler] 1 puff INHALATION RT-Q6H PRN PRN Reason: Shortness Of Breath Dicyclomine [Bentyl] 10 mg PO TID-W/MEALS Furosemide [Lasix] 40 mg PO DAILY traMADol HCL 50 mg PO BID PRN PRN Reason: Pain Discontinued Losartan Potassium 100 mg PO DAILY Discharge Medication List Simvastatin [Zocor] 40 mg PO DAILY 07/23/14 [History] Divalproex Sodium 250 mg PO BID 04/13/18 [History] Desvenlafaxine [Pristiq ER] 100 mg PO DAILY 08/06/19 [History] busPIRone HCL 15 mg PO BID 09/03/19 [History] levETIRAcetam [Keppra] 750 mg PO BID 12/20/19 [History] Folic Acid 1 mg PO DAILY 02/08/20 [History] Magnesium Oxide [Mag-Ox] 400 mg PO DAILY 02/08/20 [History] Aspirin EC [Ecotrin Low Dose] 81 mg PO DAILY 09/13/20 [History] Propranolol HCl [Propranolol HCl ER] 60 mg PO DAILY 10/03/20 [History] Cyclobenzaprine [Flexeril] 10 mg PO BID PRN 10/04/20 [History] Insulin Degludec [Tresiba Flextouch U-200 Pen] 60 units SQ DAILY 06/07/21 [History] Metoclopramide [Reglan] 5 mg PO TID 06/07/21 [History] Multivitamins, Thera [Multivitamin (formulary)] 1 tab PO DAILY 06/07/21 [History] Omeprazole [PriLOSEC] 40 mg PO DAILY 06/07/21 [History] sitaGLIPtin [Januvia] 100 mg PO DAILY 06/07/21 [History] Acetaminophen Tab [Tylenol] 650 mg PO Q4H PRN 12/19/21 [History] Albuterol Inhaler [Ventolin Hfa Inhaler] 1 puff INHALATION RT-Q6H PRN 12/19/21 [History] Albuterol Nebulized [Ventolin Nebulized] 2.5 mg INHALATION RT-Q4H PRN 12/19/21 [History] Dicyclomine [Bentyl] 10 mg PO TID-W/MEALS 12/19/21 [History] Fluticasone/Umeclidin/Vilanter [Trelegy Ellipta 200-62.5-25] 1 puff INHALATION RT-DAILY 12/19/21 [History] Furosemide [Lasix] 40 mg PO DAILY 12/19/21 [History] traMADol HCL 50 mg PO BID PRN 12/19/21 [History] Azithromycin [Zithromax] 500 mg PO DAILY 3 Days #3 tab 12/21/21 [Rx] Budesonide-Formot 160-4.5 Mcg [Symbicort 160-4.5 Mcg Inhaler] 2 puff INHALATION RT-BID #1 gm 12/21/21 [Rx] diazePAM [Valium] 5 mg PO BID PRN #8 tab 12/21/21 [Rx] Follow up Appointment(s)/Referral(s): Estrada Fernandes DO [Primary Care Provider] - 1-2 days (please call to make an appointment Please follow up with Dr. Jordan as needed/scheduled Please keep appointment to see surgeon at [facility] tomorrow ) Patient Instructions/Handouts: Acute Bronchitis (GEN), Breathing Techniques (GEN), Shortness of Breath (DC) Activity/Diet/Wound Care/Special Instructions: Activity: As tolerated. Take breaks as needed. Diet: Heart healthy and carb consistent diet. Avoid salts, or foods with hidden salts such as canned or boxed foods and frozen dinners. Extra salt makes your heart work harder and traps the fluid in your body for longer. Special Instructions: Take all of your medications as directed and remember to keep all of your doctor's appointments and follow-up as needed. It is important to keep her appointment with her cardiothoracic surgeon Dr. Robertson tomorrow in [place]. Also as we discussed, anxiety can worsen your shortness of breath and make you feel worse. I will be sending you home with a few tablets of Valium as we discussed, this prescription can be picked up in our pharmacy prior to or after your discharge. Take this medication only as needed for severe anxiety. You cannot drive or operate a vehicle while taking these medications. Thank you for allowing us to participate in your care, it was truly a pleasure having you for our patient!!! Discharge Disposition: HOME SELF-CARE
== END 2021-12-21 11:06 | disposition home or self-care (01) ==
LOC: EC 12:21 → 6NMEDSUR 17:11
PROVIDERS: ADMIT Internal Medicine; ATTEND Internal Medicine
DX: J96.21 Acute and chronic respiratory failure with hypoxia (principal); Q79.1 Other congenital malformations of diaphragm; N17.9 Acute kidney failure, unspecified; E87.5 Hyperkalemia; E83.42 Hypomagnesemia; F41.9 Anxiety disorder, unspecified; E11.9 Type 2 diabetes mellitus without complications; I10 Essential (primary) hypertension; R00.0 Tachycardia, unspecified; E78.5 Hyperlipidemia, unspecified; F32.A Depression, unspecified; Z20.822 Contact with and (suspected) exposure to COVID-19; Z87.891 Personal history of nicotine dependence; E87.1 Hypo-osmolality and hyponatremia; J98.11 Atelectasis; E78.00 Pure hypercholesterolemia, unspecified; K21.9 Gastro-esophageal reflux disease without esophagitis; M19.90 Unspecified osteoarthritis, unspecified site; Z86.711 Personal history of pulmonary embolism; G40.909 Epilepsy, unspecified, not intractable, without status epilepticus; G43.909 Migraine, unspecified, not intractable, without status migrainosus; K44.9 Diaphragmatic hernia without obstruction or gangrene; Z90.49 Acquired absence of other specified parts of digestive tract; Z98.51 Tubal ligation status; Z98.42 Cataract extraction status, left eye; Z98.41 Cataract extraction status, right eye; Z87.81 Personal history of (healed) traumatic fracture; Z98.890 Other specified postprocedural states; Z79.84 Long term (current) use of oral hypoglycemic drugs; Z79.82 Long term (current) use of aspirin; Z79.4 Long term (current) use of insulin; Z79.899 Other long term (current) drug therapy
CPT/HCPCS: 96376 ×3; 96361 ×3; 96372 ×2; 96365; 96375; 99285; 36415; 94640 ×2; 94760; 93005; 85379; 83880; 80053 ×2; 80048; 83735 ×3; 84484; 85025 ×2; 85027; 85610; 85730; 87502; 84145; 87634; 87635; 71046; 71275; G0378 ×3; U0003; U0005; J2060; J2270 ×2; J2920 ×2; J3475; Q9967; J1644 ×2

== ENCOUNTER → 2021-12-28 | Outpatient (CLI) | payer MEDICARE, OTHER ==
--- NOTE | 2021-12-28 17:40 | FL ---
EXAMINATION TYPE: FL sniff test without CXR DATE OF EXAM: 12/28/2021 COMPARISON: Similar test dated 08/23/2021 HISTORY: Elevated diaphragm. Chronic shortness of breath. TECHNIQUE: Fluoroscopy assisted sniff test. Approximately 60 seconds of fluoroscopic time. 19 images saved to PACS. FINDINGS: Chronically elevated right hemidiaphragm is redemonstrated. This can be appreciated back to 2011 CT scan. On rapid and deep inspiration and expiration there is markedly diminished movement of the right hemidiaphragm as compared to left hemidiaphragm. No paradoxical movement identified. IMPRESSION: Chronically elevated right hemidiaphragm demonstrating markedly diminished movement as described james e. This is suggestive of chronic right hemidiaphragm paralysis/paresis, for clinical correlation and further workup.
== END | disposition home or self-care (01) ==
LOC: RADFLMAIN 10:36
PROVIDERS: ATTEND Thoracic Surgery (Cardiothoracic Vascular Surgery)
DX: J98.6 Disorders of diaphragm (principal)
CPT/HCPCS: 76000

== ENCOUNTER 2022-01-21 13:36 | Emergency (ER) | payer MEDICARE, OTHER ==
[2022-01-21 14:18] VITALS: TEMP 98.5
--- NOTE | 2022-01-21 14:46 | XR ---
EXAMINATION TYPE: XR foot complete LT DATE OF EXAM: 01/21/2022 COMPARISON: NONE HISTORY: Foot pain TECHNIQUE: 3 views FINDINGS: Metatarsals are intact. There is plantar calcaneal spurring. There is soft tissue swelling of the forefoot. No fracture nor dislocation. IMPRESSION: Soft tissue swelling. No fracture seen. Calcaneal spurring.
--- NOTE | 2022-01-21 14:50 | XR ---
EXAMINATION TYPE: XR ankle complete LT DATE OF EXAM: 01/21/2022 COMPARISON: NONE HISTORY: Foot and ankle pain TECHNIQUE: 3 view FINDINGS: There is soft tissue swelling around the ankle. There is a nondisplaced chip fracture of th e tip of the distal fibula. There is no dislocation. There is plantar and Achilles calcaneal spurring . IMPRESSION: Small chip fracture of the distal fibula. Soft tissue swelling.
--- NOTE | 2022-01-21 15:38 | US ---
EXAMINATION TYPE: US venous doppler duplex LE LT DATE OF EXAM: 01/21/2022 3:25 PM COMPARISON: NONE CLINICAL HISTORY: Injury. Pain left leg after fall SIDE PERFORMED: Left TECHNIQUE: The lower extremity deep venous system is examined utilizing real time linear array sonog kamila with graded compression, doppler sonography and color-flow sonography. VESSELS IMAGED: Common Femoral Vein Deep Femoral Vein Greater Saphenous Vein * Femoral Vein Popliteal Vein Small Saphenous Vein * Proximal Calf Veins (* superficial vessels) Morbidly obese pt, difficult exam Left Leg: Visualized portions appeared negative for DVT IMPRESSION: No evidence of deep vein thrombosis in the left leg.
[2022-01-21] MEDS ORDERED: IBUPROFEN 800 MG TAB PO STA (16:29)
--- NOTE | 2022-01-21 16:40 | ED ---
General Adult HPI - General Chief complaint: Extremity Injury, Lower Stated complaint: Poss DVT Time Seen by Provider: 01/21/22 16:15 Source: patient, RN notes reviewed, old records reviewed Mode of arrival: ambulatory Limitations: no limitations - History of Present Illness Initial comments: This is a pleasant 71-year-old female that presents to the emergency room with left ankle pain for one week. Patient states that she was walking in the driveway and stepped in a rut and hurt her ankle. She states she went to urgent care today due to increased swelling and pain and they recommended she come to the emergency room to rule out DVT. Patient denies any calf pain. She denies any chest pain or shortness of breath. She states that she has been ambulating with her walker at home since the injury. She does have a bruise to the left side of her face when she fell but no facial pain. -: week(s) (1) Location: left, lower extremity (ankle) Radiation: non-radiation Quality: aching Consistency: intermittent Improves with: immobilization Worsens with: movement Associated Symptoms: denies other symptoms Treatments Prior to Arrival: other (urgent care) - Related Data Home Medications Medication Instructions Recorded Confirmed Simvastatin [Zocor] 40 mg PO DAILY 07/23/14 12/19/21 Divalproex Sodium 250 mg PO BID 04/13/18 12/19/21 Desvenlafaxine [Pristiq ER] 100 mg PO DAILY 08/06/19 12/19/21 busPIRone HCL 15 mg PO BID 09/03/19 12/19/21 levETIRAcetam [Keppra] 750 mg PO BID 12/20/19 12/19/21 Folic Acid 1 mg PO DAILY 02/08/20 12/19/21 Magnesium Oxide [Mag-Ox] 400 mg PO DAILY 02/08/20 12/19/21 Aspirin EC [Ecotrin Low Dose] 81 mg PO DAILY 09/13/20 12/19/21 Propranolol HCl [Propranolol HCl 60 mg PO DAILY 10/03/20 12/19/21 ER] Cyclobenzaprine [Flexeril] 10 mg PO BID PRN 10/04/20 12/19/21 Insulin Degludec [Tresiba 60 units SQ DAILY 06/07/21 12/19/21 Flextouch U-200 Pen] Metoclopramide [Reglan] 5 mg PO TID 06/07/21 12/19/21 Multivitamins, Thera [Multivitamin 1 tab PO DAILY 06/07/21 12/19/21 (formulary)] Omeprazole [PriLOSEC] 40 mg PO DAILY 06/07/21 12/19/21 sitaGLIPtin [Januvia] 100 mg PO DAILY 06/07/21 12/19/21 Acetaminophen Tab [Tylenol] 650 mg PO Q4H PRN 12/19/21 12/19/21 Albuterol Inhaler [Ventolin Hfa 1 puff INHALATION RT-Q6H PRN 12/19/21 12/19/21 Inhaler] Albuterol Nebulized [Ventolin 2.5 mg INHALATION RT-Q4H PRN 12/19/21 12/19/21 Nebulized] Dicyclomine [Bentyl] 10 mg PO TID-W/MEALS 12/19/21 12/19/21 Fluticasone/Umeclidin/Vilanter 1 puff INHALATION RT-DAILY 12/19/21 12/19/21 [Trelegy Ellipta 200-62.5-25] Furosemide [Lasix] 40 mg PO DAILY 12/19/21 12/19/21 traMADol HCL 50 mg PO BID PRN 12/19/21 12/19/21 Previous Rx's Medication Instructions Recorded Azithromycin [Zithromax] 500 mg PO DAILY 3 Days #3 tab 12/21/21 Budesonide-Formot 160-4.5 Mcg 2 puff INHALATION RT-BID #1 gm 12/21/21 [Symbicort 160-4.5 Mcg Inhaler] diazePAM [Valium] 5 mg PO BID PRN #8 tab 12/21/21 Ibuprofen [Motrin] 800 mg PO Q6HR #30 tab 01/21/22 Allergies Allergy/AdvReac Type Severity Reaction Status Date / Time No Known Allergies Allergy Verified 01/21/22 14:18 Review of Systems ROS Statement: Those systems with pertinent positive or pertinent negative responses have been documented in the HPI. ROS Other: All systems not noted in ROS Statement are negative. Past Medical History Past Medical History: Chest Pain / Angina, Diabetes Mellitus, GERD/Reflux, Hyperlipidemia, Hypertension, Osteoarthritis (OA), Pulmonary Embolus (PE), Seizure Disorder Additional Past Medical History / Comment(s): ulcer,constant abdominal pain, occ. MIGRAINES, HIATAL HERNIA. SEIZURE 03/2018- NONE SINCE. heart murmer History of Any Multi-Drug Resistant Organisms: None Reported Past Surgical History: Cholecystectomy, Orthopedic Surgery, Tonsillectomy, Tubal Ligation Additional Past Surgical History / Comment(s): NECK SURGERY, REPAIR FX RT LEG SURGERY, EGD, COLONOSCOPY. arturo cataracts Past Anesthesia/Blood Transfusion Reactions: No Reported Reaction Past Psychological History: Depression Smoking Status: Former smoker Past Alcohol Use History: None Reported Past Drug Use History: Marijuana - Past Family History Mother Family Medical History: No Reported History General Exam Limitations: no limitations General appearance: alert, in no apparent distress Head exam: Present: atraumatic Eye exam: Present: normal appearance. Absent: scleral icterus, conjunctival injection, periorbital swelling ENT exam: Present: normal exam, normal oropharynx, mucous membranes moist Neck exam: Present: full ROM. Absent: tenderness, meningismus Respiratory exam: Absent: respiratory distress, accessory muscle use Cardiovascular Exam: Present: regular rate Extremities exam: Present: pedal edema (Bilateral) Left Ankle exam: Present: tenderness, swelling, ecchymosis. Absent: full ROM (limited range of motion related to pain and swelling), abrasion, laceration, crepitus, dislocation, erythema Foot/Toe exam: Present: swelling. Absent: tenderness, abrasion, laceration, deformity, erythema, calcaneal tenderness, tenderness at base of 5th metatarsal Neurovascular tendon exam: Present: no vascular compromise. Absent: extremity cold to touch, foot drop Neurological exam: Present: alert, oriented X3 Psychiatric exam: Present: normal affect, normal mood Skin exam: Present: warm, dry. Absent: cyanosis, diaphoretic, pallor Course Vital Signs 01/21/22 14:16 Temperature 98.5 F Pulse Rate 92 Respiratory 20 Rate Blood Pressure 149/67 O2 Sat by Pulse 98 Oximetry Medical Decision Making - Medical Decision Making Patient presents with 1 week of ankle pain after stepping in a rut in her driveway. XR shows a chip fracture of the distal fibula with no dislocation. There is no broken skin. Patient has no other complaints. Case discussed with Dr Henderson. Patient was placed in an ankle stirrup and given Motrin for pain. Directed to f/u with ortho next week. She states she has a walker that she uses at home and was directed to have minimal weight bearing until seen by ortho. She is agreeable to this plan of care. States norco at home for pain. Disposition Clinical Impression: Fracture, fibula Disposition: HOME SELF-CARE Condition: Good Instructions (If sedation given, give patient instructions): Ankle Fracture (ED) Additional Instructions: Rest, Ice and elevate leg, Wear splint and minimal weight bearing until seen by ortho next week. Motrin for pain and swelling. Return to the emergency room with any new or worsening symptoms. Prescriptions: Ibuprofen [Motrin] 800 mg PO Q6HR #30 tab Is patient prescribed a controlled substance at d/c from ED?: No Referrals: Estrada Fernandes DO [Primary Care Provider] - 1-2 days Theo Chavez MD [Medical Doctor] - 1-2 days Time of Disposition: 16:42
[2022-01-21 17:10] VITALS: BP 136/78; PULSE 77; RESP 18
== END 2022-01-21 17:10 | disposition home or self-care (01) ==
LOC: EC 13:36
DX: S82.832A Other fracture of upper and lower end of left fibula, initial encounter for closed fracture (principal); E11.622 Type 2 diabetes mellitus with other skin ulcer; L98.499 Non-pressure chronic ulcer of skin of other sites with unspecified severity; I10 Essential (primary) hypertension; E78.5 Hyperlipidemia, unspecified; K21.9 Gastro-esophageal reflux disease without esophagitis; M19.90 Unspecified osteoarthritis, unspecified site; G40.909 Epilepsy, unspecified, not intractable, without status epilepticus; F32.A Depression, unspecified; F41.9 Anxiety disorder, unspecified; Z87.891 Personal history of nicotine dependence; Z86.711 Personal history of pulmonary embolism; Z79.4 Long term (current) use of insulin; Z79.84 Long term (current) use of oral hypoglycemic drugs; Z79.82 Long term (current) use of aspirin; Z79.51 Long term (current) use of inhaled steroids; Z79.899 Other long term (current) drug therapy; W18.30XA Fall on same level, unspecified, initial encounter; Y93.01 Activity, walking, marching and hiking
CPT/HCPCS: 73610; 73630; 93971; 99284; 29515; L4350

== ENCOUNTER → 2022-02-24 | Outpatient (CLI) | payer MEDICARE, OTHER ==
[2022-02-24 23:03] LABS: African American GFR (CKD) 43.7 (60.0-200.0); Anion Gap 12.2 mmol/L (10.00-18.00); BUN/Creat Ratio 18.5 Ratio (12.00-20.00); Blood Urea Nitrogen 25.9 mg/dL (9.0-27.0); Calcium 10.4 mg/dL (8.7-10.3); Carbon Dioxide 28.3 mmol/L (20.0-27.5); Non-African American GFR(CKD) 37.7 (60.0-200.0); Potassium 4.6 mmol/L (3.5-5.5)
[2022-02-24 23:04] LABS: HCT 39.1 % (37.2-46.3); HGB 12.4 g/dL (12.0-15.0); MCH 30.7 pg (27.0-32.0); MCHC 31.7 g/dL (32.0-37.0); MCV 96.8 fL (80.0-97.0); Mean Platelet Volume 11.1 fL (9.5-12.2); NRBC Per 100 WBC 0 /100 WBCS (0.0-0.0); Platelet Count 204 X 10*3/uL (140-440); RBC 4.04 X 10*6/uL (4.10-5.20); RDW 13.2 % (11.5-14.5); WBC 9.96 X 10*3/uL (4.50-10.00)
== END | disposition home or self-care (01) ==
LOC: LABWHC1 15:25
PROVIDERS: ATTEND Nurse Practitioner Family
DX: R07.9 Chest pain, unspecified (principal)
CPT/HCPCS: 36415; 80048; 82550; 82553; 83880; 85027; 85379

== ENCOUNTER → 2022-02-28 | Outpatient (CLI) | payer MEDICARE, OTHER ==
--- NOTE | 2022-02-28 12:50 | XR ---
EXAMINATION TYPE: XR chest 2V DATE OF EXAM: 02/28/2022 COMPARISON: Chest x-ray 12/19/2021 HISTORY: Dyspnea TECHNIQUE: Frontal and lateral views of the chest are obtained. FINDINGS: Abnormal density right lung base is stable. No evident pneumothorax. Patient is rotated, t here may be spinal curvature. Right hemidiaphragm is elevated. Right heart border is obscured. Heart is not felt likely to be enlarged. Surgical clips present right upper quadrant. IMPRESSION: There may be diaphragmatic eventration or diaphragmatic paralysis, there is likely basil ar atelectasis or scarring
--- NOTE | 2022-02-28 15:01 | NM ---
EXAMINATION TYPE: NM pul vent and perfuse DATE OF EXAM: 02/28/2022 COMPARISON: Radiograph 02/28/2022 HISTORY: 71-year-old female left chest pain, difficulty breathing on exertion, cough, wheezing. TECHNIQUE: Utilizing inhalation of 64 mCi Tc 99m DTPA aerosol and intravenous injection of 4.8 mCi o f Tc 99m MAA, ventilation and perfusion images are acquired post injection in multiple projections. FINDINGS: Volume loss right lung due to marked asymmetric elevation right hemidiaphragm. No mismatch perfusion defect is identified. IMPRESSION: 1. Very low probability for pulmonary embolus. 2. Marked volume loss at the right base. If concern for hemidiaphragmatic paralysis, a fluoroscopic s niff test could be performed.
== END | disposition home or self-care (01) ==
LOC: RADNMMAIN 12:10
PROVIDERS: ATTEND Family Medicine
DX: J98.6 Disorders of diaphragm (principal)
CPT/HCPCS: 71046; 78582; A9540; A9567

== ENCOUNTER 2022-03-03 10:37 | Emergency (ER) | payer MEDICARE, OTHER ==
--- NOTE | 2022-03-03 11:13 | ED ---
General Adult HPI - General Chief complaint: Upper Respiratory Infection Stated complaint: Cough Time Seen by Provider: 03/03/22 10:44 Source: patient, EMS, RN notes reviewed Mode of arrival: ambulatory Limitations: no limitations - History of Present Illness Initial comments: Patient is a pleasant 71-year-old female presenting to the emergency department with cough. Patient does have some associated dyspnea. Onset of symptoms was 2 days ago. Symptoms have progressively worsened since that time. Patient does have mild cough with occasional mild yellow sputum. No fever. No calf pain. Patient does feel her legs are little bit swollen however occasionally that happens. Patient does take inhalers at home occasionally. 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 - Related Data Home Medications Medication Instructions Recorded Confirmed Simvastatin [Zocor] 40 mg PO DAILY 07/23/14 03/03/22 Divalproex Sodium 250 mg PO BID 04/13/18 03/03/22 busPIRone HCL 15 mg PO TID 09/03/19 03/03/22 levETIRAcetam [Keppra] 750 mg PO BID 12/20/19 03/03/22 Magnesium Oxide [Mag-Ox] 400 mg PO Q48H 02/08/20 03/03/22 Cyclobenzaprine [Flexeril] 10 mg PO BID PRN 10/04/20 03/03/22 Insulin Degludec [Tresiba 80 units SQ HS 06/07/21 03/03/22 Flextouch U-200 Pen] Metoclopramide [Reglan] 5 mg PO TID 06/07/21 03/03/22 Multivitamins, Thera [Multivitamin 1 tab PO DAILY 06/07/21 03/03/22 (formulary)] sitaGLIPtin [Januvia] 100 mg PO DAILY 06/07/21 03/03/22 Albuterol Nebulized [Ventolin 2.5 mg INHALATION RT-TID PRN 12/19/21 03/03/22 Nebulized] Fluticasone/Umeclidin/Vilanter 1 puff INHALATION RT-DAILY 12/19/21 03/03/22 [Trelegy Ellipta 200-62.5-25] Furosemide [Lasix] 40 mg PO DAILY 12/19/21 03/03/22 traMADol HCL 50 mg PO BID PRN 12/19/21 03/03/22 Celecoxib [CeleBREX] 100 mg PO DAILY 03/03/22 03/03/22 Desvenlafaxine Succinate [Pristiq 50 mg PO DAILY 03/03/22 03/03/22 ER] HYDROcodone/APAP 5-325MG [[place] 1 tab PO BID PRN 03/03/22 03/03/22 5-325] Ibuprofen [Motrin] 800 mg PO Q6HR PRN 03/03/22 03/03/22 Potassium Chloride ER [K-Dur 10] 10 meq PO DAILY 03/03/22 03/03/22 Previous Rx's Medication Instructions Recorded predniSONE [Deltasone] 20 mg PO BID #8 tab 03/03/22 Allergies Allergy/AdvReac Type Severity Reaction Status Date / Time No Known Allergies Allergy Verified 03/03/22 13:09 Review of Systems ROS Statement: Those systems with pertinent positive or pertinent negative responses have been documented in the HPI. ROS Other: All systems not noted in ROS Statement are negative. Constitutional: Denies: fever Eyes: Denies: eye pain ENT: Denies: ear pain Respiratory: Reports: as per HPI, cough, dyspnea Cardiovascular: Denies: chest pain Endocrine: Reports: fatigue Gastrointestinal: Denies: abdominal pain Genitourinary: Denies: dysuria Musculoskeletal: Denies: back pain Skin: Denies: rash Neurological: Denies: weakness Past Medical History Past Medical History: Chest Pain / Angina, Diabetes Mellitus, GERD/Reflux, Hyper lipidemia, Hypertension, Osteoarthritis (OA), Pulmonary Embolus (PE), Seizure Disorder Additional Past Medical History / Comment(s): ulcer,constant abdominal pain, occ. MIGRAINES, HIATAL HERNIA. SEIZURE 03/2018- NONE SINCE. heart murmer History of Any Multi-Drug Resistant Organisms: None Reported Past Surgical History: Cholecystectomy, Orthopedic Surgery, Tonsillectomy, Tubal Ligation Additional Past Surgical History / Comment(s): NECK SURGERY, REPAIR FX RT LEG SURGERY, EGD, COLONOSCOPY. arturo cataracts Past Anesthesia/Blood Transfusion Reactions: No Reported Reaction Past Psychological History: Depression Smoking Status: Former smoker Past Alcohol Use History: None Reported Past Drug Use History: Marijuana - Past Family History Mother Family Medical History: No Reported History General Exam Limitations: no limitations General appearance: alert, in no apparent distress Head exam: Present: normocephalic Eye exam: Present: normal appearance Neck exam: Present: normal inspection Respiratory exam: Present: normal lung sounds bilaterally. Absent: respiratory distress, wheezes Cardiovascular Exam: Present: regular rate, normal rhythm GI/Abdominal exam: Present: soft. Absent: tenderness Extremities exam: Present: pedal edema (+1 bilateral). Absent: calf tenderness Neurological exam: Present: alert Psychiatric exam: Present: normal affect, normal mood Skin exam: Present: normal color Course Vital Signs 03/03/22 03/03/22 03/03/22 10:41 10:49 13:52 Temperature 98.5 F Pulse Rate 89 89 Respiratory 20 20 30 H Rate Blood Pressure 154/70 144/79 O2 Sat by Pulse 99 98 Oximetry 03/03/22 03/03/22 14:18 14:27 Temperature Pulse Rate 84 82 Respiratory Rate Blood Pressure O2 Sat by Pulse Oximetry EKG Findings - EKG Comments: EKG Findings:: Sinus rhythm rate 88. HI 140. QRS 83. QT 335. QTc 380. Normal axis. Normal QRS. No acute ST change. Medical Decision Making - Medical Decision Making Patient reevaluated and resting comfortably in bed. Vital signs stable. Patient updated on results and need for follow-up. Patient is receptive to a few days of steroids. Patient does have inhalers and nebulizers at home. - Lab Data Result diagrams: 03/03/22 12:11 03/03/22 12:11 Lab Results 03/03/22 03/03/22 03/03/22 Range/Units 12:11 12:11 12:11 WBC 10.6 (3.8-10.6) k/uL RBC 3.64 L (3.80-5.40) m/uL Hgb 11.4 (11.4-16.0) gm/dL Hct 34.8 (34.0-46.0) % MCV 95.6 (80.0-100.0) fL MCH 31.2 (25.0-35.0) pg MCHC 32.6 (31.0-37.0) g/dL RDW 13.5 (11.5-15.5) % Plt Count 167 (150-450) k/uL MPV 8.1 Neutrophils % 66 % Lymphocytes % 22 % Monocytes % 8 % Eosinophils % 2 % Basophils % 1 % Neutrophils # 7.0 (1.3-7.7) k/uL Lymphocytes # 2.3 (1.0-4.8) k/uL Monocytes # 0.8 (0-1.0) k/uL Eosinophils # 0.2 (0-0.7) k/uL Basophils # 0.1 (0-0.2) k/uL PT 10.5 (9.0-12.0) sec INR 1.0 (<1.2) APTT 24.0 (22.0-30.0) sec D-Dimer 1.47 H (<0.60) mg/L FEU Sodium 135 L (137-145) mmol/L Potassium 4.9 (3.5-5.1) mmol/L Chloride 100 (98-107) mmol/L Carbon Dioxide 26 (22-30) mmol/L Anion Gap 9 mmol/L BUN 24 H (7-17) mg/dL Creatinine 1.23 H (0.52-1.04) mg/dL Est GFR (CKD-EPI)AfAm 51 (>60 ml/min/1.73 sqM) Est GFR (CKD-EPI)NonAf 44 (>60 ml/min/1.73 sqM) Glucose 221 H (74-99) mg/dL Plasma Lactic Acid Prasanth (0.7-2.0) mmol/L Calcium 8.6 (8.4-10.2) mg/dL Total Bilirubin 0.3 (0.2-1.3) mg/dL AST 20 (14-36) U/L ALT 15 (4-34) U/L Alkaline Phosphatase 115 (38-126) U/L Troponin I (0.000-0.034) ng/mL NT-Pro-B Natriuret Pep pg/mL Total Protein 7.0 (6.3-8.2) g/dL Albumin 4.0 (3.5-5.0) g/dL Coronavirus (PCR) (Not Detectd) Influenza Type A RNA (Not Detectd) Influenza Type B (PCR) (Not Detectd) 03/03/22 03/03/22 03/03/22 Range/Units 12:11 12:11 12:11 WBC (3.8-10.6) k/uL RBC (3.80-5.40) m/uL Hgb (11.4-16.0) gm/dL Hct (34.0-46.0) % MCV (80.0-100.0) fL MCH (25.0-35.0) pg MCHC (31.0-37.0) g/dL RDW (11.5-15.5) % Plt Count (150-450) k/uL MPV Neutrophils % % Lymphocytes % % Monocytes % % Eosinophils % % Basophils % % Neutrophils # (1.3-7.7) k/uL Lymphocytes # (1.0-4.8) k/uL Monocytes # (0-1.0) k/uL Eosinophils # (0-0.7) k/uL Basophils # (0-0.2) k/uL PT (9.0-12.0) sec INR (<1.2) APTT (22.0-30.0) sec D-Dimer (<0.60) mg/L FEU Sodium (137-145) mmol/L Potassium (3.5-5.1) mmol/L Chloride (98-107) mmol/L Carbon Dioxide (22-30) mmol/L Anion Gap mmol/L BUN (7-17) mg/dL Creatinine (0.52-1.04) mg/dL Est GFR (CKD-EPI)AfAm (>60 ml/min/1.73 sqM) Est GFR (CKD-EPI)NonAf (>60 ml/min/1.73 sqM) Glucose (74-99) mg/dL Plasma Lactic Acid Prasanth 1.4 (0.7-2.0) mmol/L Calcium (8.4-10.2) mg/dL Total Bilirubin (0.2-1.3) mg/dL AST (14-36) U/L ALT (4-34) U/L Alkaline Phosphatase (38-126) U/L Troponin I <0.012 (0.000-0.034) ng/mL NT-Pro-B Natriuret Pep 347 pg/mL Total Protein (6.3-8.2) g/dL Albumin (3.5-5.0) g/dL Coronavirus (PCR) (Not Detectd) Influenza Type A RNA (Not Detectd) Influenza Type B (PCR) (Not Detectd) 03/03/22 03/03/22 Range/Units 12:18 12:18 WBC (3.8-10.6) k/uL RBC (3.80-5.40) m/uL Hgb (11.4-16.0) gm/dL Hct (34.0-46.0) % MCV (80.0-100.0) fL MCH (25.0-35.0) pg MCHC (31.0-37.0) g/dL RDW (11.5-15.5) % Plt Count (150-450) k/uL MPV Neutrophils % % Lymphocytes % % Monocytes % % Eosinophils % % Basophils % % Neutrophils # (1.3-7.7) k/uL Lymphocytes # (1.0-4.8) k/uL Monocytes # (0-1.0) k/uL Eosinophils # (0-0.7) k/uL Basophils # (0-0.2) k/uL PT (9.0-12.0) sec INR (<1.2) APTT (22.0-30.0) sec D-Dimer (<0.60) mg/L FEU Sodium (137-145) mmol/L Potassium (3.5-5.1) mmol/L Chloride (98-107) mmol/L Carbon Dioxide (22-30) mmol/L Anion Gap mmol/L BUN (7-17) mg/dL Creatinine (0.52-1.04) mg/dL Est GFR (CKD-EPI)AfAm (>60 ml/min/1.73 sqM) Est GFR (CKD-EPI)NonAf (>60 ml/min/1.73 sqM) Glucose (74-99) mg/dL Plasma Lactic Acid Prasanth (0.7-2.0) mmol/L Calcium (8.4-10.2) mg/dL Total Bilirubin (0.2-1.3) mg/dL AST (14-36) U/L ALT (4-34) U/L Alkaline Phosphatase (38-126) U/L Troponin I (0.000-0.034) ng/mL NT-Pro-B Natriuret Pep pg/mL Total Protein (6.3-8.2) g/dL Albumin (3.5-5.0) g/dL Coronavirus (PCR) Not Detected (Not Detectd) Influenza Type A RNA Not Detected (Not Detectd) Influenza Type B (PCR) Not Detected (Not Detectd) - Radiology Data Radiology results: report reviewed (CT angios shows no evidence of pulmonary embolism.), image reviewed (Chest x-ray shows chronic changes. Elevated right hemidiaphragm.) Disposition Clinical Impression: Upper respiratory infection Disposition: HOME SELF-CARE Condition: Stable Instructions (If sedation given, give patient instructions): Upper Respiratory Infection (ED) Additional Instructions: Please follow-up with your primary care physician in the next one to 2 days for recheck. Return for difficulty breathing, chest pain, fevers, worsening or changing symptoms or other concerns. Prescription for steroids has been sent to pharmacy Prescriptions: predniSONE [Deltasone] 20 mg PO BID #8 tab Is patient prescribed a controlled substance at d/c from ED?: No Referrals: Estrada Fernandes DO [Primary Care Provider] - 1-2 days Time of Disposition: 14:46
--- NOTE | 2022-03-03 11:39 | XR ---
EXAMINATION TYPE: XR chest 2V DATE OF EXAM: 03/03/2022 HISTORY: Shortness of breath. COMPARISON: 02/28/2022 TECHNIQUE: Single view of the chest is submitted. FINDINGS: Demonstrated are scattered senescent parenchymal change. There is no evidence for focal infiltrate. Chronic elevation right hemidiaphragm extending to the lev el of the right hilum. Chronic appearing right basilar pleural-parenchymal density. The heart is stable. Hilar and mediastinal structures are within normal limits. Degenerative changes are seen of the dorsal spine. IMPRESSION: 1. Chronic changes without evidence for acute pulmonary disease.
[2022-03-03 12:26] LABS: Basophils # (A) 0.1 k/uL (0-0.2); Basophils % (A) 1 %; Eosinophils # (A) 0.2 k/uL (0-0.7); Eosinophils % (A) 2 %; HCT 34.8 % (34.0-46.0); HGB 11.4 gm/dL (11.4-16.0); Lymphocytes # (A) 2.3 k/uL (1.0-4.8); Lymphocytes % (A) 22 %; MCH 31.2 pg (25.0-35.0); MCHC 32.6 g/dL (31.0-37.0); MCV 95.6 fL (80.0-100.0); Mean Platelet Volume 8.1; Monocytes # (A) 0.8 k/uL (0-1.0); Monocytes % (A) 8 %; Neutrophils % (A) 66 %; Platelet Count 167 k/uL (150-450); RBC 3.64 m/uL (3.80-5.40); RDW 13.5 % (11.5-15.5); WBC 10.6 k/uL (3.8-10.6)
[2022-03-03 12:44] LABS: Calcium 8.6 mg/dL (8.4-10.2); Potassium 4.9 mmol/L (3.5-5.1); Total Bilirubin 0.3 mg/dL (0.2-1.3)
[2022-03-03 12:49] LABS: Prothrombin Time 10.5 sec (9.0-12.0)
--- NOTE | 2022-03-03 13:51 | CT ---
EXAMINATION TYPE: CT angio chest DATE OF EXAM: 03/03/2022 COMPARISON: 12/19/2021 HISTORY: SOB CT DLP: 627.6 mGycm CONTRAST: CT chest with contrast and 3D reconstruction with MIP imaging is performed with IV Contrast, patient injected with 80cc mL of Isovue 370. Contrast-enhanced CT of the chest was performed through the course of the pulmonary arteries with pk g and mediastinal window settings submitted. 3D reconstruction with MIP imaging was also performed. PULMONARY ARTERIES: The pulmonary arteries and their major tributaries are patent. I do not see libra dence for sizable filling defect to suggest pulmonary embolic process. LUNGS: Again noted is elevation right hemidiaphragm with right basilar pleural-parenchymal density wh ich appears to be chronic in nature. The lungs are clear and free of infiltrate. No evidence for atel ectasis. No pulmonary nodule or mass is detected. No pleural effusion. MEDIASTINUM: Thoracic aorta is of normal caliber,however, evaluation is limited given timing of the contrast bolus. If there is concern for thoracic aortic pathology consider KRYSTLE. Correlate clinicall y . The heart is not enlarged. No evidence for mediastinal mass. No mediastinal lymph nodes greater than 1cm. HILAR STRUCTURES: No evidence for mass. No hilar lymph nodes greater than 1 cm. UPPER ABDOMEN: No significant abnormality is seen. IMPRESSION: 1. No evidence for Pulmonary embolism at this time.
[2022-03-03] MEDS ORDERED: IPRATROPIUM-ALBUTEROL 3 ML NEB INHALATION STA (14:07)
[2022-03-03] MEDS ORDERED: predniSONE 20 MG TAB PO STA (14:47)
[2022-03-03 15:04] VITALS: BP 128/71; PULSE 89; RESP 25; TEMP 98.2
== END 2022-03-03 15:04 | disposition home or self-care (01) ==
LOC: EC 10:37
DX: J06.9 Acute upper respiratory infection, unspecified (principal); E11.9 Type 2 diabetes mellitus without complications; I10 Essential (primary) hypertension; K21.9 Gastro-esophageal reflux disease without esophagitis; E78.5 Hyperlipidemia, unspecified; M19.90 Unspecified osteoarthritis, unspecified site; Z87.891 Personal history of nicotine dependence; Z79.899 Other long term (current) drug therapy; Z79.4 Long term (current) use of insulin; Z20.822 Contact with and (suspected) exposure to COVID-19; Z79.84 Long term (current) use of oral hypoglycemic drugs
CPT/HCPCS: 99285 ×2; 36415; 94640; 93005; 85379; 83880; 80053; 83605; 84484; 85025; 85610; 85730; 87502; 87635; 71046; 71275; J7512; Q9967